=== PATIENT | male | born 1965 | race Caucasian/White ===

== ENCOUNTER → 2017-04-21 08:54 | Outpatient (CLI) | payer OTHER, SELFPAY ==
--- NOTE | 2017-04-21 08:53 | CT_ITS ---
STUDY: CT ABDOMEN AND PELVIS WITH CONTRAST REASON FOR EXAM: Male, 52 years old. One-week history of right lower quadrant and right flank pain. Urinary incontinence. RADIATION DOSAGE (If Supplied By Facility): CTDIvol = ( 16.60 ) mGy, DLP = ( 1085.68 ) mGycm TECHNIQUE: Transaxial images were obtained from the dome of the diaphragm to the symphysis pubis with oral contrast. 100mL ml of Isovue 300 contrast was administered. Sagittal and coronal images were reconstructed. Individualized dose optimization techniques were used for this CT. COMPARISON: None. FINDINGS: The visualized lung bases are unremarkable. The visualized portions of the heart are within normal limits. Normal liver. There are surgical clips in the gallbladder fossa consistent with a prior cholecystectomy. Normal spleen. Normal pancreas. Normal bilateral adrenal glands. Normal right kidney. Normal left kidney. There is a small hiatal hernia. Normal small intestine. Normal colon. The appendix is visualized and appears normal. Normal abdominal aorta. Normal inferior vena cava. There is borderline retroperitoneal lymphadenopathy with enlarged nodes no greater than 10mm in the short axis diameter. Normal urinary bladder. There is a small umbilical hernia containing fat. Small bilateral inguinal hernias containing fat. There is evidence of healed fractures of the superior pubic rami bilaterally. Fusion of the symphysis pubis. CT/Abdomen/Pelvis WITH Contrast IMPRESSION: No acute abnormality is seen. Electronically Signed: Donald Ortiz MD at 12:17 EST Tel [phone], Service support ,
== END ==
PROVIDERS: Family Provider Family Medicine; PCP Family Medicine; Visit Provider Family Medicine
DX: R10.31 Right lower quadrant pain (principal); R10.9 Unspecified abdominal pain
CPT/HCPCS: 74177; Q9967; A4216

== ENCOUNTER 2017-05-19 08:39 | Day surgery (SDC) | payer OTHER, SELFPAY ==
[2017-05-19 09:01] VITALS: BP 128/83; PULSE 60; RESP 16; TEMP 36.2; O2SAT 99; BMI 30.7
--- NOTE | 2017-05-19 11:19 | PCM.DC.URO ---
Discharge Diet: Light diet - advance as tolerated Discharge Activity: May Not Drive Return to work on:: 06/02/17 May shower in (days): 1 Call your doctor if your incision/area has: Continuous Slow Oozing, Sudden Increased Bleeding, Increased Pain/ Swelling, Increased Redness, Foul Smelling Discharge, Swelling at the incision site Call your doctor if you observe: Fever of 101 or Higher Suture Line Care: Avoid Pulling/Pushing, Avoid Pinching/Bending Allergies/Adverse Reactions: Allergies strawberry Allergy (Intermediate, Verified 05/12/17 09:08) Hives erythromycin base Allergy (Verified 05/12/17 09:08) Unknown Penicillins Allergy (Verified 05/12/17 09:08) Hives Barbiturates Adverse Reaction (Verified 05/12/17 09:08) Other divalproex sodium [From Depakote] Adverse Reaction (Verified 05/12/17 09:08) Other Hydantoins Adverse Reaction (Verified 05/12/17 09:08) Other phenobarbital Adverse Reaction (Verified 05/12/17 09:08) Other personality changes phenytoin sodium [From Dilantin] Adverse Reaction (Verified 05/12/17 09:08) Other phenytoin sodium extended [From Dilantin] Adverse Reaction (Verified 05/12/17 09:08) Other Medications to take at Discharge Ascorbic Acid [Vitamin C] 500 mg PO DAILY@0800 04/03/15 Carbamazepine [Carbamazepine] 200 mg PO LUNCH 04/03/15 Carbamazepine [Carbamazepine] 300 mg PO BREAKFAST 04/03/15 Levothyroxine [Synthroid] 50 mcg PO DAILY 04/03/15 Metoprolol(XL)Succ [Toprol Xl (Beta Von)] 25 mg PO QHS 04/03/15 Multivitamins,Therapeutic [Multivitamin] 1 tablet PO DAILY 04/03/15 Simvastatin [Zocor] 40 mg PO QHS 04/03/15 Carbamazepine [Tegretol] 300 mg PO DINNER 12/07/15 Doxazosin Mesylate [Cardura] 2 mg PO QHS 12/09/15 Docusate Sodium [Colace] 100 mg PO BID PRN PRN #10 capsule 12/16/15 Aspirin E.C. [Ecotrin] 81 mg PO BID 05/12/17 Omeprazole 20 mg PO BID 05/12/17 Trospium Chloride [Sanctura Xr] 60 mg PO QHS 05/12/17 Ciprofloxacin [Cipro] 500 mg PO BID #20 tab 05/19/17 Hydrocodone/Acetaminophen [[place] 5-325 Tablet] 1 ea PO Q4H PRN PRN 4 Days #12 tab 05/19/17 The following prescriptions were given: Hydrocodone/Acetaminophen [[place] 5-325 Tablet] 1 ea PO Q4H PRN PRN 4 Days #12 tab PRN Reason: Pain Ciprofloxacin [Cipro] 500 mg PO BID #20 tab Primary Care Physician: Goldie Baez MD [Primary Care Provider] - Please Follow Up With: Forrest Carrillo MD When: please call to make an appointment in 10 days
[2017-05-19] MEDS: Cefazolin 2 GM in 0.9% Normal Saline 100 ML IV (11:21)
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
[2017-05-19] MEDS: Lubricating Jelly 60 GM Tube 30 GM TOPICAL (11:30)
[2017-05-19 11:54] VITALS: BP 128/83; BP 96/70; PULSE 75; RESP 18; TEMP 36.4; O2SAT 91
[2017-05-19 12:00] VITALS: BP 104/75; BP 128/83; PULSE 75; RESP 18; O2SAT 95
[2017-05-19 12:15] VITALS: BP 101/75; BP 128/83; PULSE 75; RESP 18; TEMP 37.6; O2SAT 96
[2017-05-19 13:30] VITALS: BP 128/83
== END 2017-05-19 13:30 | disposition home or self-care (01) ==
LOC: SDC 08:39 → AC 08:40
PROVIDERS: Family Provider Family Medicine; PCP Family Medicine; Visit Provider Urology
PROC: 0T7D8ZZ Dilation of Urethra, Via Natural or Artificial Opening Endoscopic (ICD-10-PCS; CPT 52281; principal; 2017-05-19 10:50)
DX: N35.012 Post-traumatic membranous urethral stricture (principal); N40.1 Benign prostatic hyperplasia with lower urinary tract symptoms; R39.14 Feeling of incomplete bladder emptying; R35.0 Frequency of micturition; I10 Essential (primary) hypertension; K21.9 Gastro-esophageal reflux disease without esophagitis; E78.00 Pure hypercholesterolemia, unspecified; Z87.442 Personal history of urinary calculi; Z87.891 Personal history of nicotine dependence
CPT/HCPCS: 00910; 52281; J7120; C1769; J2405

== ENCOUNTER → 2017-07-05 15:37 | Outpatient (CLI) | payer OTHER, SELFPAY ==
--- NOTE | 2017-07-05 15:42 | RAD_ITS ---
STUDY: X-RAY CHEST REASON FOR EXAM: Male, 52 years old. Shortness of breath TECHNIQUE: Frontal and lateral views of the chest were obtained. COMPARISON: Prior comparison studies are not available for review at this time. FINDINGS: The lungs are underaerated. There are no focal airspace opacities. There is no demonstrated pleural abnormality. The cardiac silhouette is normal in size allowing for low volume inspiration. The mediastinum and hilar regions are unremarkable. Normal visualized pulmonary arteries. Normal visualized aortic arch and descending thoracic aorta. The thoracic spine is unremarkable. The visualized ribs, clavicles, and shoulders are unremarkable. Cholecystectomy clips are present. RAD/Chest PA and Lateral IMPRESSION: No acute cardiopulmonary abnormalities. Electronically Signed: Brunilda Grullon MD at 1:57 EDT Tel Direct: [phone], Service support ,
== END ==
PROVIDERS: Family Provider Family Medicine; PCP Family Medicine; Visit Provider Family Medicine
DX: R06.00 Dyspnea, unspecified (principal); Z98.890 Other specified postprocedural states; Z87.09 Personal history of other diseases of the respiratory system
CPT/HCPCS: 71046

== ENCOUNTER → 2017-09-20 08:53 | Outpatient (CLI) | payer OTHER, SELFPAY ==
[2017-09-20 09:00] VITALS: PULSE 74; PULSE 79; PULSE 81; PULSE 85; PULSE 86; PULSE 88; PULSE 89; PULSE 90; O2SAT 93; O2SAT 94
--- NOTE | 2017-09-21 11:28 | WT_ITS ---
PSN 6 Minute Walk Test - 6 Minute Walk Test 6 Minute Walk Test: 6 Minute Walk Test PSN:6-Minute Walk Test Start: 09/20/17 09: 21 Freq: Status: Active Protocol: [id number].6MINW Document 09/20/17 09:00 HG (Rec: 09/20/17 09:23 HG [id number]) 6 Minute Walk Test Date Performed 09/20/17 Time Performed 09:00 Height 5 ft 7 in Weight: 88.451 kg Weight in Pounds 195.[address]: Deonte Steven Assistive device used: None Pre-test Oxygen Delivery Method Room Air Pulse Ox (%) 94 Pulse Rate (60-100 beats/min) 74 Dyspnea Franc[place]a Scale (0-10) 0 Exertion [place] Scale (6-20) 6 1st minute Oxygen Delivery Method Room Air Pulse Ox (%) 94 Pulse Rate (60-100 beats/min) 85 2nd minute Oxygen Delivery Method Room Air Pulse Ox (%) 93 Pulse Rate (60-100 beats/min) 90 3rd minute Oxygen Delivery Method Room Air Pulse Ox (%) 93 Pulse Rate (60-100 beats/min) 81 4th minute Oxygen Delivery Method Room Air Pulse Ox (%) 94 Pulse Rate (60-100 beats/min) 86 5th minute Oxygen Delivery Method Room Air Pulse Ox (%) 94 Pulse Rate (60-100 beats/min) 88 6th minute Oxygen Delivery Method Room Air Pulse Ox (%) 93 Pulse Rate (60-100 beats/min) 89 Post-test Oxygen Delivery Method Room Air Pulse Ox (%) 94 Pulse Rate (60-100 beats/min) 79 Dyspnea [place] Scale (0-10) 2 Exertion [place]a Scale (6-20) 12 Full Laps Walked 14 Partial Lap, Number of Tiles Walked 0 Total Distance Walked (ft) 826 - Interpretation Interpretation: The patient was able to ambulate 826 feet over the course of 6 minutes on room air with no assistive devices and only one break. The patient experienced no significant desaturation or tachycardia during testing. These findings are consistent with a musculoskeletal limitation exercise tolerance. - Recommendations Recommendations: No supplemental oxygen is indicated at this time.
== END ==
PROVIDERS: Family Provider Family Medicine; PCP Family Medicine; Visit Provider Internal Medicine Critical Care Medicine
DX: J95.03 Malfunction of tracheostomy stoma (principal); R06.02 Shortness of breath
CPT/HCPCS: 94618

== ENCOUNTER → 2017-09-22 06:54 | Outpatient (CLI) | payer OTHER, SELFPAY ==
--- NOTE | 2017-09-22 06:55 | CT_ITS ---
STUDY: CT SOFT TISSUE NECK WITH CONTRAST REASON FOR EXAM: Male, 52 years old. History of tracheal stenosis. Difficulty breathing. RADIATION DOSAGE (If Supplied By Facility): CTDIvol = ( 22.15 ) mGy, DLP = ( 663.80 ) mGycm TECHNIQUE: The patient was scanned in a multi-detector CT scanner. High resolution transaxial imaging was performed following intravenous administration of 100 ml of Isovue 300 contrast material. Sagittal and coronal images were reconstructed. Individualized dose optimization techniques were used for this CT. COMPARISON: None. FINDINGS: Atherosclerotic plaque formation at the origin of the right internal carotid artery causing approximately 50-60% narrowing. Normal bilateral parotid glands. Normal bilateral merry go round attendant spaces. Normal bilateral parapharyngeal spaces. Normal bilateral carotid spaces. Normal bilateral sublingual and submandibular glands and spaces. Normal visualized nasopharynx. Normal retropharyngeal space. Normal perivertebral space. Normal visualized bilateral faucial tonsils. The visualized tongue, tongue base and oropharynx are normal. There are minimally enlarged lymph nodes of the neck, with preservation of normal edin architecture, consistent with a reactive lymph hyperplasia. There is no demonstrated solid or cystic mass lesion. There is no abnormal contrast enhancement. Normal epiglottis, bilateral vallecula and hypopharynx. The pre-epiglottic and paraglottic adipose spaces are normal. Normal visualized bilateral piriform sinuses, aryepiglottic folds, vocal cords, and arytenoid-cricoid articulations. Normal subglottic trachea. Normal bilateral lobes of the thyroid gland. Normal visualized pulmonary apices. Normal visualized paranasal sinuses. Normal visualized cervical spine. CT/Soft Tissue Neck WITH Contrast IMPRESSION: There is no evidence of tracheal stenosis. Electronically Signed: Donald Ortiz MD at 11:33 EDT Tel [phone], Service support ,
--- NOTE | 2017-09-22 13:29 | PFTCOMP ---
COMPLETE PULMONARY FUNCTION TEST INTERPRETATION Brief HPI: Patient is a 52 year old male, currently under the care of myself, who presents to [facility] for complete pulmonary function tests secondary to diagnosis of tracheal stenosis. Respiratory therapist reports good effort and reproducible results. Interpretation: Forced expiration spirometry shows a severe large airways obstructive ventilatory defect with an FEV1 of 46% predicted. There is no significant bronchodilator response by ATS criteria. Spirograms are of good quality and plateau slowly, indicating slowly emptying areas of the lungs. The respiratory flow volume loop shows flattening of the expiratory and inspiratory limb consistent with a fixed airway obstruction. Lung volumes by body plethysmography show a decreased total lung capacity at 4.87 L, 80% predicted. All other lung volumes are within normal limits. Diffusion capacity by carbon monoxide is decreased at 28% predicted. The airway resistance is elevated. No previous pulmonary function tests were available for review. Impression: Severe mixed ventilatory defect with a symmetric reduction diffusing capacity. Flow volume loop is consistent with a fixed airway obstruction.
== END ==
PROVIDERS: Family Provider Family Medicine; PCP Family Medicine; Visit Provider Internal Medicine Critical Care Medicine
DX: J95.03 Malfunction of tracheostomy stoma (principal); R06.02 Shortness of breath
CPT/HCPCS: 70491; 94060; 94726; 94729; Q9967

== ENCOUNTER 2017-11-03 07:05 | Day surgery (SDC) | payer OTHER, SELFPAY ==
[2017-11-03] VITALS (10 sets, daily range): BP systolic 114–154; BP diastolic 71–91; PULSE 66–87; RESP 16–18; TEMP 36.2–36.4; O2SAT 94–100; BMI 32.3
[2017-11-03 08:12] LABS: Thyroid Stim Hormone (TSH) 3.05 uIU/mL (0.358-3.74)
--- NOTE | 2017-11-03 10:42 | PCM.OPRPT ---
Problem List (1) Stenosis of larynx Status: Chronic (2) Paralysis of vocal cords and larynx, unilateral Status: Chronic Report of Operation Date of Procedure: 11/03/17 Pre-Operative Diagnosis: Fixed airway obstruction, paralysis of right vocal fold Post-Operative Diagnosis: Same Surgery/Procedure Performed:: Direct laryngoscopy, ridgid bronchoscopy Description of Surgical Findings:: Nader is a 52-year-old male with a history of tracheotomy as a child is had ongoing airway obstruction and a pulmonary function testing showing a fixed obstruction. Office evaluation revealed a dislocated right arytenoid and an immobile right vocal fold which appeared to be the site of his obstruction but historically he reported a diagnosis of tracheal stenosis. CT scan showed no significant tracheal stenosis and it is my impression that the glottic stenosis was the cause of his airway obstruction and operative evaluation with possible CO2 laser adenoidectomy for improvement of his glottic inlet was offered and he was eager to proceed. The risks, alternatives, potential benefits, and complications were discussed at length and any questions answered to the patient and/or caregiver's satisfaction. Witnessed informed consent was obtained in the office, and the patient and/or caregiver was agreeable to proceed. Procedure went as follows: The patient was identified in the preoperative holding brought to the operating room was placed under general anesthesia. He was able to be mask ventilated although there is some reduced ventilation volume consistent with his history of stricture. Rigid bronchoscopy was then carried out using a ventilating bronchoscope where there is noted to be significant laryngeal stenosis. The subglottic was visualized which showed no significant narrowing in the mid trachea at his previous tracheotomy site showed approximate 25% obstruction with right lateral scar tissue in mild tortuosity but no rubens stenosis or significant narrowing. The bronchoscope was then withdrawn and intubation with the laser protected endotracheal tube attempted. This was confounded however by the significant laryngeal stenosis which did not admit the diameter of the endotracheal tube. Furthermore attempts at intubation with a #5 lower endotracheal tube were also unsuccessful and given this the ventilating bronchoscope was then replaced and the patient ventilated in this fashion until his anesthetic agents were reversed at which point he was then extubated. Given the extent of his laryngeal stenosis this will not allow operative treatment while intubated and should further surgical intervention be desired by the patient a temporary tracheotomy to allow for operative treatment of the laryngeal stenosis would be required. Once the patient was revived and extubated he ventilated again successfully on his own maintaining satisfactory oxygen saturation levels and was returned to recovery having tolerated the procedure well. Type of Anesthesia:: General Anesthesiologist: Jose Thornton Special Medications: none Specimen's removed: none Estimated Blood Loss (mL): none Fluids Replaced: 1000 mL Grafts/Implants Used: none - Complications none - Admit VTE Documentation VTE Present on Admission: No VTE Mechan Device Prophylaxis: SCD's VTE Pharm Prophylaxis ordered?: No
--- NOTE | 2017-11-03 10:52 | PCM.DC ---
- Discharge Diagnoses Current Active Problems: Current Active and Chronic Problems (Last Reviewed 10/24/17 @ 06:22 by Cassidy Blair) Stenosis of larynx (Chronic) Paralysis of vocal cords and larynx, unilateral (Chronic) You will use the following diet at home:: No restrictions Your food should be the consistency of: Regular Discharge Activity: Return to Normal Activity Call your doctor if you observe: Shortness of breath Allergies/Adverse Reactions: Allergies strawberry Allergy (Intermediate, Verified 10/31/17 11:03) Hives azithromycin Allergy (Unknown, Verified 10/31/17 11:03) Unknown erythromycin base Allergy (Verified 10/31/17 11:03) Unknown Penicillins Allergy (Verified 10/31/17 11:03) Hives Barbiturates Adverse Reaction (Verified 10/31/17 11:03) Other divalproex sodium [From Depakote] Adverse Reaction (Verified 10/31/17 11:03) Other Hydantoins Adverse Reaction (Verified 10/31/17 11:03) Other phenobarbital Adverse Reaction (Verified 10/31/17 11:03) Other personality changes phenytoin sodium [From Dilantin] Adverse Reaction (Verified 10/31/17 11:03) Other phenytoin sodium extended [From Dilantin] Adverse Reaction (Verified 10/31/17 11:03) Other Medications to take at Discharge Carbamazepine [Carbamazepine] 200 mg PO LUNCH 04/03/15 Carbamazepine [Carbamazepine] 300 mg PO BREAKFAST 04/03/15 Levothyroxine [Synthroid] 50 mcg PO DAILY 04/03/15 Metoprolol(XL)Succ [Toprol Xl (Beta Von)] 25 mg PO QHS 04/03/15 Simvastatin [Zocor] 40 mg PO QHS 04/03/15 Carbamazepine [Tegretol] 300 mg PO DINNER 12/07/15 Doxazosin Mesylate [Cardura] 2 mg PO QHS 12/09/15 Trospium Chloride [Sanctura Xr] 60 mg PO QHS 05/12/17 aspirin 81 mg tablet,delayed release 81 mg PO QDAY 08/11/17 omeprazole 20 mg tablet,delayed release 20 mg PO QDAY tab 08/11/17 oxybutynin chloride ER 10 mg tablet,extended release 24 hr 10 mg PO QDAY 08/11/17 tolterodine ER 4 mg capsule,extended release 24 hr 4 mg PO QDAY 08/11/17 Primary Care Physician: Amita Humphreys DO [Primary Care Provider] - Test Results: Test results from this visit will be discussed in further detail at your follow-up appointment, if applicable. Please Follow Up With: Jose Thakur MD When: 2 weeks
== END 2017-11-03 13:27 | disposition home or self-care (01) ==
LOC: SDC 07:07 → AC 07:07
PROVIDERS: Anesthesiology; Family Provider Family Medicine; PCP Family Medicine; Visit Provider Otolaryngology
PROC: (CPT 31560; principal; 2017-11-03 08:35)
DX: J38.01 Paralysis of vocal cords and larynx, unilateral (principal); J38.6 Stenosis of larynx; J98.8 Other specified respiratory disorders; Z87.891 Personal history of nicotine dependence; K21.9 Gastro-esophageal reflux disease without esophagitis; E78.00 Pure hypercholesterolemia, unspecified; Z87.442 Personal history of urinary calculi; I10 Essential (primary) hypertension
CPT/HCPCS: 31560; 31622; 36415; 84443; 85730; 93005; J7120; J2405

== ENCOUNTER 2017-11-10 12:35 | Inpatient (IN) | payer OTHER, SELFPAY ==
[2017-11-10] VITALS (21 sets, daily range): BP systolic 125–157; BP diastolic 77–108; PULSE 67–88; RESP 12–20; TEMP 36.3–37.2; O2SAT 93–100; BMI 31.4; BMI 31.5; BMI 31.6
--- NOTE | 2017-11-10 12:33 | OP.PCM_ITS ---
Problem List (1) Paralysis of vocal cords and larynx, unilateral Status: Chronic (2) Stenosis of larynx Status: Chronic (3) Tracheal stenosis following tracheostomy Status: Chronic Report of Operation Date of Procedure: 11/10/17 Pre-Operative Diagnosis: Laryngeal stenosis Post-Operative Diagnosis: Laryngeal stenosis, tracheal stenosis Surgery/Procedure Performed:: Tracheostomy, revision Description of Surgical Findings:: Nader is a 52-year-old male with a distant history of tracheotomy in suspected tracheal stenosis. He was sent for evaluation by pulmonary due to increased work of breathing causing significant impairment for evaluation of possible remedy and that had been taken previously to the operating room for evaluation and possible arytenoidectomy as this was prolapsed with a impaired vocal cord it was felt to be the cause of obstruction given the negative CT scan report and images for any significant stenosis. That procedure have been terminated as an endotracheal tube was unable to be passed suggesting a significant stenosis at least at the level of the larynx. He returns to the operating room today for tracheotomy for securing of the airway and further evaluation of possible remedy for his airway stenosis. The risks, alternatives , potential benefits, and complications were discussed at length and any questions answered to the patient and/or caregiver's satisfaction. Witnessed informed consent was obtained in the office, and the patient and/or caregiver was agreeable to proceed. Procedure went as follows: The patient was identified in the preoperative holding and brought to the operating room and positioned on the exam table. The planned tracheotomy site was then injected with 1% lidocaine with 100,000 epinephrine for a total of 8 cc at his previous tracheostomy scar. After lying for vasoconstriction, using a 15 blade scalpel a 2 cm incision was then made through the tracheal scar and blunt dissection carried out to the tracheal cartilage. Extensive scar tissue was encountered with obliteration of the normal anatomic planes from his previous tracheotomy scar tissue. The trachea was then palpated and dissection carried out laterally to free the adhesions in preparation for tracheotomy. With the assistance of anesthesia, he was preoxygenated and using a 27-gauge needle the trachea then probed with the syringe on vacuum confirming its entry to the airway by air bubbles within the lidocaine solution. Using a 15 blade scalpel a horizontal incision was then made in the tracheal dilator introduced followed by placement of an uncuffed #4 tracheotomy tube as again as encountered in his previous surgical treatment a # 6 and #5 endotracheal tube would not pass due to the area of stenosis at this location. He was easily ventilated through the uncuffed #4 tracheotomy tube with no significant air leak suggesting a rather snug stenosis at the level of the endotracheal tube and stenosis below the level of the glottis which would not be amenable to the planned arytenoidectomy surgery. Confirmation of the tracheotomy tube placement was confirmed with the flexible fiberscope which showed a normal-appearing tracheal lumen below the level of the opening of the tube and well above the melia. No significant bleeding was encountered. The tracheotomy tube was secured to the skin with 4 interrupted 3-0 silk sutures and neck straps. A chest x-ray was obtained in the operative room and once the patient was fully awake was returned to PACU for recovery with overnight observation in the ICU due to his significant upper airway compromise. He reports significantly decreased work of breathing with the tracheotomy tube but distress at the situation of a significant stenosis that at this point does not appear to have an easy remedy. I did review with him as I had previously that I am very concerned given the tenuousness of his airway that should he require any elective or emergent surgery the acquiring area be of extreme difficulty and that at this point tracheotomy converted to a fenestrated type tube to allow for voicing would be his safest option to both decrease his work of breathing and improve voicing and will discuss this with him further over his course of his recovery. Type of Anesthesia:: General Anesthesiologist: Calixto Whitten Special Medications: none Specimen's removed: none Estimated Blood Loss (mL): 0 mL Fluids Replaced: 700 mL Grafts/Implants Used: #4 uncuffed tracheotomy tube - Complications severe laryngeal and subglottic stenosis - Admit VTE Documentation VTE Present on Admission: No VTE Mechan Device Prophylaxis: SCD's VTE Pharm Prophylaxis ordered?: No
[2017-11-10 14:41] LABS: Base Excess 3 mmol/L (-2 to +2); Bicarbonate 27.4 mmol/L (22-26); Blood Gas Specimen Type ART; FI02 28; PO2 107 mmHG (75-100); SITE R Brachial; SO2 98 % (95-99); Time Given 1425; Total Carbon Dioxide 29 mmol/L; pCO2 43.7 mmHg (35-45); pH 7.41 (7.35-7.45)
[2017-11-10] MEDS: carBAMazepine 200 MG Tablet PO (15:41)
[2017-11-10 16:49] LABS: M R Staph aureus DNA By PCR Negative (Negative); Probe Check PASS; Specimen Processing Control PASS
[2017-11-10] MEDS: Atorvastatin Calcium 20 MG Tablet PO (21:21)
[2017-11-10] MEDS: Pantoprazole Sodium 20 MG Tablet PO (21:21)
[2017-11-10] MEDS: Aspirin E.C. 81 MG Tablet PO (21:22)
[2017-11-10] MEDS: Metoprolol(XL)Succ 25 MG Tablet PO (21:22)
[2017-11-10] MEDS: Doxazosin 1 MG Tablet 2 MG PO (21:22)
[2017-11-10] MEDS: carBAMazepine 200 MG Tablet 300 MG PO (21:22)
[2017-11-11] VITALS (21 sets, daily range): BP systolic 114–148; BP diastolic 69–91; PULSE 68–100; RESP 13–18; TEMP 36.6–37.7; O2SAT 92–100
[2017-11-11] MEDS: Levothyroxine 50 MCG Tablet PO (06:16)
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
--- NOTE | 2017-11-11 07:05 | CPS ---
switched cool aerosol from 6lpm 28% O2 to 6lpm on air flowmeter, SpO2 95% on cool aerosol on RA
--- NOTE | 2017-11-11 09:44 | PCM.PN.SRG ---
Subjective: He reports easier breathing with minimal discomfort or sputum production. He remains emotional about his future prospects, but is consolable. Objective: Well appearing with greatly reduced work of breathing. Occlusion of tracheotomy tube without significant bypass of air into upper airway, stable fo=rom surgery and consistent with severe stenosis at tube placement site. - Physical Exam General: Alert, Oriented x3, Cooperative, No apparent distress HEENT: Atraumatic, PERRLA, EOMI Oral: Moist Mucosa Neck: Supple, Trachea Midline, - - tracheotomy site clean, intact without redness, bleeding or discharge Lungs: Normal air movement, No rhonchi Psych/Mental Status: Depressed - but consolable, Alert and oriented to time, place, person, mood and affect Vital Signs Temp Pulse Resp BP Pulse Ox 97.8 F 81 15 130/80 H 95 11/11/17 04:00 11/11/17 09:00 11/11/17 09:00 11/11/17 09:00 11/11/17 09:00 Oxygen Flow Rate (L/min) 6 Oxygen Delivery Method Trach Collar Weight: 90.5 kg Body Mass Index (BMI) 31.5 Intake and Output for Last 24 Hours 11/09/17 11/10/17 11/11/17 23:59 23:59 23:59 Intake Total 1160 / 1160 360 / 360 Balance 1160 / 1160 360 / 360 Laboratory Tests Past 24 Hrs 11/10/17 11/10/17 14:20 14:34 Specimen Type ART Sample Site R Brachial pH 7.41 Bicarbonate Actual 27.4 H POC Total CO2 29 Base Excess 3 H O2 Saturation 98 O2 % 28 ABG pCO2 43.7 ABG pO2 107 H Domenico Test NA O2 Delivery Device T-Collar Blood Gas Notified Whom OTHER Blood Gas Notified Time 1425 MRSA (PCR) Negative Medical Necessity - Tobacco Use Smoking Status: Former smoker Assessment/Plan Doing well 1 day s/p tracheotomy with finding of severe tracheal stenosis. I have discussed at length with him and his family today that his exam findings suggest a severe degree of tracheal stenosis that I have been unable to fully evaluate for length. It does not appear, as I had hoped, that the obstruction was limited to the larynx despite his CT scan findings that were reported as no tracheal stenosis, as his clinical findings do not corroborate this. He continues to have minimal airflow bypassing his tracheostomy tube despite is being small and uncuffed, suggesting a significant narrowing at the level of the upper trachea. I am hopeful that transitioning to a fenestrated tube will allow for voicing, but that retirement tracheotomy for breathing support with likely be necessary. This is consistent with his pulmonary function testing showing a severe fixed obstruction. Tracheotomy seems to alleviate this with a much reduced work of breathing. I will plan to change him to a fenestrated tube prior to discharge after the fresh wound has stabilized, and will start discharge planning.
[2017-11-11] MEDS: Tolterodine Tartrate 4 MG CAP.SA PO (09:50)
[2017-11-11] MEDS: carBAMazepine 200 MG Tablet 300 MG PO ×2 (09:50→21:14)
[2017-11-11] MEDS: Pantoprazole Sodium 20 MG Tablet PO ×2 (09:51→21:16)
[2017-11-11] MEDS: Acetaminophen 325 MG Tablet 650 MG PO (12:41)
[2017-11-11] MEDS: carBAMazepine 200 MG Tablet PO (16:00)
[2017-11-11] MEDS: Aspirin E.C. 81 MG Tablet PO (21:15)
[2017-11-11] MEDS: Doxazosin 1 MG Tablet 2 MG PO (21:15)
[2017-11-11] MEDS: Atorvastatin Calcium 20 MG Tablet PO (21:16)
[2017-11-11] MEDS: Metoprolol(XL)Succ 25 MG Tablet PO (21:16)
[2017-11-11] MEDS: guaiFENesin/Codeine 5 ML UDC PO (23:12)
[2017-11-12] VITALS (12 sets, daily range): BP systolic 132–155; BP diastolic 71–84; PULSE 78–98; RESP 17–20; TEMP 36.6–37.1; O2SAT 94–96
[2017-11-12] MEDS: guaiFENesin/Codeine 5 ML UDC PO ×3 (03:36→22:02)
[2017-11-12] MEDS: Levothyroxine 50 MCG Tablet PO (06:29)
--- NOTE | 2017-11-12 07:23 | PCM.PROGNOTE ---
Subjective: The patient was seen and examined at the bedside this morning. Events from the last 24 hours have been reviewed. No overnight events were identified. The patient is resting comfortably in his bedside recliner. He reports no pain or significant concerns. Objective: The patient's most recent lab work, culture data and imaging studies have all been personally reviewed. - Physical Exam General: Alert, Cooperative, No apparent distress HEENT: Atraumatic, PERRLA, Normocephalic Oral: No Gingival or Mucosal Lesions/ Ulcerations Neck: Supple, No Nodes, - - #[address] Site is C/D/I Lungs: No rhonchi, No wheeze, No rales, Diminished Cardiovascular: Regular rate, Regular Rhythm, Normal S1, Normal S2, No murmurs Abdomen: Bowel Sounds Present, Soft, Non Tender, Obese Extremities: No clubbing, No cyanosis, No edema Skin: No breakdown Musculoskeletal: No Tenderness to Palpation of Joints or Extremities, No Muscle Wasting Lymphatic: No Cervical, Supraclavicular, or Inguinal Adenopathy Neurological: Neuro grossly intact Psych/Mental Status: Normal Affect, Appropriate Vital Signs Temp Pulse Resp BP Pulse Ox 98.2 F 82 20 H 147/84 H 94 11/12/17 06:24 11/12/17 06:24 11/12/17 06:24 11/12/17 06:24 11/12/17 06:24 Oxygen Flow Rate (L/min) 6 Oxygen Delivery Method Trach Collar Weight: 199 lb 15.348 oz Body Mass Index (BMI) 31.5 Intake and Output for Last 24 Hours 11/10/17 11/11/17 11/12/17 23:59 23:59 23:59 Intake Total 1160 / 1160 1200 / 1200 Output Total 100 / 100 Balance 1160 / 1160 1200 / 1200 -100 / -100 Labs (Last 48 Hours) 11/10/17 11/10/17 14:20 14:34 Specimen Type ART Sample Site R Brachial pH 7.41 Bicarbonate Actual 27.4 H POC Total CO2 29 Base Excess 3 H O2 Saturation 98 O2 % 28 ABG pCO2 43.7 ABG pO2 107 H Domenico Test NA O2 Delivery Device T-Collar Blood Gas Notified Whom OTHER Blood Gas Notified Time 1425 MRSA (PCR) Negative Medical Necessity - Tobacco Use Smoking Status: Former smoker Assessment/Plan RECOMMENDATIONS: 1. Continue routine postoperative care and aggressive bronchopulmonary hygiene. 2. Transition to fenestrated trach per ENT IMPRESSIONS: 1. Tracheal stenosis, now POD #2 s/p tracheostomy placement Continue routine postoperative management per ENT recommendations. Continue aggressive bronchopulmonary hygiene. Defer timing of fenestrated tube transition and subsequent PMV placement per ENT. 2. Obesity/hypertension/hyperlipidemia/hypothyroidism/GERD Complicates care, management, recovery and prognosis. Likely okay to continue home medications, once the patient is able to tolerate p.o. intake. This note was generated with [employer] dictation software. It may contain incorrect words, spelling, and punctuation that were not noted in checking the note before signing. Code Visit Inpatient E&M: 37194 Subs Hosp L2
[2017-11-12] MEDS: carBAMazepine 200 MG Tablet 300 MG PO ×2 (08:57→22:06)
[2017-11-12] MEDS: Tolterodine Tartrate 4 MG CAP.SA PO (08:59)
[2017-11-12] MEDS: Pantoprazole Sodium 20 MG Tablet PO ×2 (08:59→22:11)
[2017-11-12] MEDS: Acetaminophen 325 MG Tablet 650 MG PO ×3 (09:35→20:15)
--- NOTE | 2017-11-12 14:09 | PCM.PN.SRG ---
Subjective: Doing well, reports that exercise tolerance is greatly improved, ambulating farther without stopping to rest which is improved from his preoperative capability. He some some mild muscular tenderness with cough, but is otherwise well. Objective: Well appearing, mood much improved today. Tracheotomy site clean and dry. - Physical Exam General: Alert, Oriented x3 HEENT: Atraumatic, PERRLA, EOMI Oral: Moist Mucosa Neck: Supple, Trachea Midline Skin: No rashes, No breakdown Psych/Mental Status: Alert and oriented to time, place, person, mood and affect Vital Signs Temp Pulse Resp BP Pulse Ox 97.8 F 89 17 155/84 H 96 11/12/17 08:44 11/12/17 11:02 11/12/17 08:44 11/12/17 08:44 11/12/17 08:44 Oxygen Flow Rate (L/min) 6 Oxygen Delivery Method Trach Collar Weight: 90.7 kg Body Mass Index (BMI) 31.5 Intake and Output for Last 24 Hours 11/10/17 11/11/17 11/12/17 23:59 23:59 23:59 Intake Total 1160 / 1160 1200 / 1200 120 / 120 Output Total 100 / 100 Balance 1160 / 1160 1200 / 1200 20 / 20 Medical Necessity - Tobacco Use Smoking Status: Former smoker Assessment/Plan Doing well with greatly reduced work of breathing. His outlook is also much improved today. I am hopeful that voicing will be achieved with change to fenestrated trach tube on . Will need suction machine, tubing, and trach supplies thorough Home Health for home going. Pulmonary input appreciated.
--- NOTE | 2017-11-12 14:40 | NURSING ---
Dr. Thakur in to see patient earlier. Per Dr. Thakur, patient complaining of trach ties bothering his neck and it is okay for RT to replace trach ties with velcro trach tube pina. RT aware of same.
--- NOTE | 2017-11-12 14:45 | CM.UR ---
Met face to face with patient and family. Lives with mom. They are unsure if HHC is necessary as they believe that resp will teach them all they need to know. Explained they will teach them a lot but that the hhc nurse can be there in case any questions come up, if the equipment is different, etc. Verb understanding. Explained will wait closer to discharge and will discuss again. Lavelle Cook RN, CCM.
[2017-11-12] MEDS: carBAMazepine 200 MG Tablet PO (15:17)
--- NOTE | 2017-11-12 16:06 | CPS ---
Changed twill tape on trach to velcro style trach tube pina. Changed dressing sponge, tolerated procedure well without complications.
[2017-11-12] MEDS: 0.9% NaCl Peripheral Flush Adult/Peds IV (17:41)
[2017-11-12] MEDS: Aspirin E.C. 81 MG Tablet PO (22:07)
[2017-11-12] MEDS: Atorvastatin Calcium 20 MG Tablet PO (22:07)
[2017-11-12] MEDS: Doxazosin 1 MG Tablet 2 MG PO (22:07)
[2017-11-12] MEDS: Metoprolol(XL)Succ 25 MG Tablet PO (22:08)
[2017-11-12] MEDS: Zolpidem Tartrate 5 MG Tablet PO (22:17)
[2017-11-13] VITALS (27 sets, daily range): BP systolic 120–186; BP diastolic 61–109; PULSE 79–138; RESP 15–24; TEMP 36.6–37.6; O2SAT 90–100
[2017-11-13] MEDS: guaiFENesin/Codeine 5 ML UDC PO ×3 (02:43→11:23)
[2017-11-13] MEDS: Levothyroxine 50 MCG Tablet PO (06:28)
[2017-11-13] MEDS: Acetaminophen 325 MG Tablet 650 MG PO ×3 (06:34→22:28)
--- NOTE | 2017-11-13 08:00 | CASEMGMT ---
RN CM Note. Call to charge nurse to request script for supplies when Dr. Thakur comes to see pt. star Hernandez nurse will request script. Isabela HAYDENN RN ACM
--- NOTE | 2017-11-13 08:02 | PCM.PN.SRG ---
Subjective: Feeling well this morning, breathing easily. He reports change to the soft collar is more comfortable. Objective: Well appearing, trach site intact without redness or exudates. - Physical Exam General: Alert, Oriented x3 HEENT: Atraumatic, PERRLA, EOMI Oral: Moist Mucosa Neck: Supple, Trachea Midline, - - trache site intact Lungs: Normal air movement, No rhonchi Skin: No rashes, No breakdown Psych/Mental Status: Alert and oriented to time, place, person, mood and affect Vital Signs Temp Pulse Resp BP Pulse Ox 98.2 F 79 18 136/81 H 94 11/13/17 04:00 11/13/17 07:33 11/13/17 04:00 11/13/17 04:00 11/13/17 04:00 Oxygen Flow Rate (L/min) 6 Oxygen Delivery Method Trach Collar Weight: 88.4 kg Body Mass Index (BMI) 31.5 Intake and Output for Last 24 Hours 11/11/17 11/12/17 11/13/17 23:59 23:59 23:59 Intake Total 1200 / 1200 490 / 490 Output Total 100 / 100 Balance 1200 / 1200 390 / 390 Medical Necessity - Tobacco Use Smoking Status: Former smoker Assessment/Plan Doing well with greatly reduced work of breathing. Will need suction machine, tubing, and trach supplies thorough Home Health for home going. Pulmonary input appreciated. Plan for trach change tomorrow in OR due to severity of stenosis for airway control.
[2017-11-13] MEDS: carBAMazepine 200 MG Tablet 300 MG PO ×2 (09:31→21:11)
[2017-11-13] MEDS: Tolterodine Tartrate 4 MG CAP.SA PO (09:31)
[2017-11-13] MEDS: Pantoprazole Sodium 20 MG Tablet PO ×2 (09:31→21:10)
--- NOTE | 2017-11-13 11:19 | PN_ITS ---
Subjective: Patient did well overnight. No acute issues were reported. Patient is having periodic shortness of breath, but this improves with suctioning. Patient with only rare vocalization. No trach collar in place during my evaluation. - Physical Exam General: Alert, Oriented x3, Cooperative, No apparent distress, - HEENT: Atraumatic, PERRLA, EOMI, Normocephalic Oral: Moist Mucosa, No Gingival or Mucosal Lesions/ Ulcerations Neck: Supple, No JVD, No Nodes, Trachea Midline, - - Tracheostomy is clean, dry and intact. No secretions appreciated Lungs: Clear to auscultation, Normal air movement, No rhonchi, No wheeze, No rales Cardiovascular: Regular rate, Regular Rhythm, Normal S1, Normal S2, No murmurs Abdomen: Bowel Sounds Present, Soft, Non Tender, Non-Distended Extremities: No clubbing, No cyanosis, No edema, Capillary Refill Less than 3 Seconds Skin: No rashes, No breakdown Musculoskeletal: No Tenderness to Palpation of Joints or Extremities Lymphatic: No Cervical, Supraclavicular, or Inguinal Adenopathy Neurological: Cranial nerves II-XII grossly intact, Neuro grossly intact, Motor Exam 5/5 strength throughout Psych/Mental Status: Alert and oriented to time, place, person, mood and affect Vital Signs Temp Pulse Resp BP Pulse Ox 36.7 C 84 16 143/91 H 98 11/13/17 09:20 11/13/17 09:20 11/13/17 09:20 11/13/17 09:20 11/13/17 09:40 Oxygen Flow Rate (L/min) 6 Oxygen Delivery Method Trach Collar Weight: 88.4 kg Body Mass Index (BMI) 31.5 Intake and Output for Last 24 Hours 11/11/17 11/12/17 11/13/17 23:59 23:59 23:59 Intake Total 1200 / 1200 490 / 490 Output Total 100 / 100 Balance 1200 / 1200 390 / 390 Medical Necessity - Tobacco Use Smoking Status: Former smoker Assessment/Plan RECOMMENDATIONS: 1. Continue routine postoperative care and aggressive bronchopulmonary hygiene. 2. Transition to fenestrated trach per ENT IMPRESSIONS: 1. Tracheal stenosis, now POD #3 s/p tracheostomy placement Continue routine postoperative management per ENT recommendations. Continue aggressive bronchopulmonary hygiene. Transition to fenestrated tube tomorrow. No signs of complication at this point 2. Obesity/hypertension/hyperlipidemia/hypothyroidism/GERD Complicates care, management, recovery and prognosis. Likely okay to continue home medications, once the patient is able to tolerate p.o. intake. This note was generated with [employer] software. It may contain incorrect words, spelling, and punctuation that were not noted in checking the note before signing. Code Visit Inpatient E&M: 06267 Subs Hosp L2
--- NOTE | 2017-11-13 11:24 | CASEMGMT ---
RN SHAMA Note. Intro role of CM to patient and family in room (mother, sister). Pt does not have preference for Home Health or DME provider but would prefer local provider. RN SHAMA let him know we would contact insurance to find [facility] providers. -Call to [facility], they do not have respiratory suction pumps. -Call to Kimberly @ [facility]. They can fill prescriptions, has resp suction pump and bill through [employer] which is [employer] for pt's Sam[employer] insurance. Clinical faxed to DEJUAN, Kimberly is aware. -Call to [facility] . Information given for Home Health. Clinical information faxed. They will set up Home Health.
--- NOTE | 2017-11-13 11:49 | CPS ---
1045....CALLED IN REGARDS TO PT C/O S.O.B. PT WAS 94% ON ROOM AIR. PT COUGHING FORCEFULLY. PT ABLE TO COUGH SECRETIONS OUT OF TRACH. PT WAS LAVAGED AND SUCTION X1 IN AN ATTEMPT TO HELP WITH S.O.B. PT CONTINUED TO C/O S.O.B. PT WAS EDUCATED ON DEEP BREATHING EXERCISES TO HELP GET AIR INTO LUNG BASES. PT WAS PLACED ON ROOM AIR COOL AEROSOL TRACH COLLAR FOR HUMIDITY. APPROXIMATELY 10 MIN AFTER PT WAS PLACED BACK ON COOL AEROSOL PT STATED HE WAS FEELING A LITTLE BETTER .PT DID APPEAR TO BE MORE RELAXED AND IN BETTER SPIRITS. PT HAD ALSO BEEN GIVEN TYLENOL AND COUGH SYRUP PER NURSE.
[2017-11-13] MEDS: Ibuprofen 400 MG Tablet PO ×2 (13:31→20:48)
[2017-11-13] MEDS: carBAMazepine 200 MG Tablet PO (16:06)
--- NOTE | 2017-11-13 17:33 | NURSING ---
Dr. Gupta and Dr. Thakur at bedside d/t pt increased SOB. ER notified of need to scope pt. MANUFACTURING MANAGEMENT ASSOCIATE to get scope from ER. Chest Xray ordered per Dr. Thakur.
[2017-11-13] MEDS: Albuterol 2.5 MG/3 ML VIAL.NEB. INHALATION ×2 (17:55→18:10)
[2017-11-13] MEDS: Racepinephrine HCl 0.5 ML VIAL.NEB. INHALATION (18:04)
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
--- NOTE | 2017-11-13 19:23 | NURSING ---
Pt arrives to ICU room 2 from OR with OR RNs and Dr. Whitten. Pt appears without S&S of distress, A&Ox3, denies SOB.
--- NOTE | 2017-11-13 19:33 | PCM.OPRPT ---
Problem List (1) Paralysis of vocal cords and larynx, unilateral Status: Chronic (2) Stenosis of larynx Status: Chronic (3) Tracheal stenosis following tracheostomy Status: Chronic Report of Operation Date of Procedure: 11/10/17 Pre-Operative Diagnosis: Laryngeal stenosis Post-Operative Diagnosis: Laryngeal stenosis, tracheal stenosis Surgery/Procedure Performed:: Tracheostomy, revision Description of Surgical Findings:: Nader is a 52-year-old male with a distant history of tracheotomy in suspected tracheal stenosis. This evening he developed progressive worsening of shortness of breath and coughing with development of subcutaneous air and change to a cuffed tube to reduce cough induced subcutaneous air was advised. Procedure went as follows: The patient was identified in the preoperative holding and brought to the operating room and positioned on the exam table. The tracheotomy sutures were removed and the endoscopic bronchoscope used to visualized the tracheal lumen. No tube displacement is noted. The tube was then removed after pre-oxygenation, and a well developed tract noted. A #4 cuffed endotracheal tube was then placed and the cuff inflated to prevent further development of subcutaneous air. His cough subsided significantly with racemic epinephrine treatment and topical 4% lidocaine for a total of 1.5 mL. Positioning was again confirmed by flexible bronchoscopic visualization. The tracheotomy tube was secured with velcro neck ties and the patient returned to ICU having tolerated the procedure well. Type of Anesthesia:: General, MAC Anesthesiologist: Calixto Whitten Special Medications: none Specimen's removed: none Estimated Blood Loss (mL): 0 mL Fluids Replaced: 0 mL Grafts/Implants Used: #4 cuffed Shiley tracheotomy tube - Admit VTE Documentation VTE Present on Admission: No VTE Mechan Device Prophylaxis: None VTE Pharm Prophylaxis ordered?: No Reason prophylaxis not ordered:: Procedure Not Indicated
[2017-11-13] MEDS: Ipratropium/Albuterol Sulfate 3 ML AMPUL.NEB INHALATION (20:36)
[2017-11-13] MEDS: Aspirin E.C. 81 MG Tablet PO (21:09)
[2017-11-13] MEDS: Doxazosin 1 MG Tablet 2 MG PO (21:09)
[2017-11-13] MEDS: Metoprolol(XL)Succ 25 MG Tablet PO (21:09)
[2017-11-13] MEDS: Atorvastatin Calcium 20 MG Tablet PO (21:10)
[2017-11-13] MEDS: Zolpidem Tartrate 5 MG Tablet PO (22:28)
[2017-11-14] VITALS (32 sets, daily range): BP systolic 90–158; BP diastolic 58–97; PULSE 83–118; RESP 14–24; TEMP 36.8–37.2; O2SAT 93–99
[2017-11-14] MEDS: Ipratropium/Albuterol Sulfate 3 ML AMPUL.NEB INHALATION ×3 (03:11→18:33)
[2017-11-14] MEDS: Ibuprofen 400 MG Tablet PO (03:18)
[2017-11-14] MEDS: guaiFENesin/Codeine 5 ML UDC PO ×5 (03:18→22:20)
[2017-11-14] MEDS: Albuterol 2.5 MG/3 ML VIAL.NEB. INHALATION ×2 (05:02→21:20)
[2017-11-14] MEDS: oxyCODONE 5 MG Tablet PO (06:25)
[2017-11-14] MEDS: Levothyroxine 50 MCG Tablet PO (06:25)
--- NOTE | 2017-11-14 06:26 | PCM.PN.INT ---
Subjective: Patient developed significant subcutaneous emphysema and pneumomediastinum overnight requiring emergent evaluation by ENT in the OR. Patient had a cuffed 4-0 placed. Patient has been on trach mask overnight. Patient still having occasional coughing and has been reporting headache throughout most of the evening. No significant tachycardia or fever have been noted. Patient feels subjectively improved compared to overnight. Objective: Chest x-ray from this morning was personally reviewed and shows significant improvement in pneumomediastinum and subcutaneous air General: Alert, Oriented x3, Cooperative, - - Mild distress secondary to headache. Appears stated age. HEENT: Atraumatic, PERRLA, EOMI, Normocephalic, - - Mild crepitus noted on the right aspect of the trach that appears improved compared to skin markings. No exudate is noted. Oral: Moist Mucosa, No Gingival or Mucosal Lesions/ Ulcerations Neck: Supple, No Nodes, Trachea Midline, - - Crepitus improved. Lungs: Clear to auscultation, Normal air movement, No rhonchi, No wheeze, No rales, - - Symmetric expansion. No dullness to percussion. Cardiovascular: Regular rate, Regular Rhythm, Normal S1, Normal S2, No murmurs, No rub noted, No Gallop, - - Slightly distant heart sounds Abdomen: Bowel Sounds Present, Soft, Non-Distended Extremities: No clubbing, No cyanosis, No edema, Capillary Refill Less than 3 Seconds Skin: No rashes, No breakdown Musculoskeletal: No Tenderness to Palpation of Joints or Extremities Lymphatic: No Cervical, Supraclavicular, or Inguinal Adenopathy Neurological: Cranial nerves II-XII grossly intact, Neuro grossly intact, Motor Exam 5/5 strength throughout Psych/Mental Status: Alert and oriented to time, place, person, mood and affect Vital Signs Temp Pulse Resp BP Pulse Ox 37.1 C 92 14 100/64 97 11/14/17 04:00 11/14/17 06:00 11/14/17 06:00 11/14/17 06:00 11/14/17 06:00 Oxygen Flow Rate (L/min) 6 Oxygen Delivery Method Room Air Weight: 86.4 kg Body Mass Index (BMI) 31.5 Intake and Output for Last 24 Hours 11/12/17 11/13/17 11/14/17 23:59 23:59 23:59 Intake Total 490 / 490 720 / 720 240 / 240 Output Total 100 / 100 350 / 350 Balance 390 / 390 720 / 720 -110 / -110 Clinical Impression(s) from Imaging Studies Chest X-Ray 11/10/17 12:10 IMPRESSION: The tip of the tracheostomy tube is at 3.9 sinus approximately melia. Bibasilar atelectasis. Small amount of air is seen within the subcutaneous tissues of the cervical region. Electronically Signed: Donald Ortiz MD at 12:37 EDT Tel [phone], Service support , Chest X-Ray 11/13/17 15:24 IMPRESSION: Pneumomediastinum which is new when compared with the prior exam. Increased subcutaneous air in the neck. Further evaluation with CT is recommended. N.B. : The above information has been verbally conveyed by Art Padgett to , Covering Physician, on 11/13/2017 16:09:01 (ET). Electronically Signed: Art Padgett, at 16:02 EDT Tel , Service support , Chest X-Ray 11/13/17 17:35 IMPRESSION: Tracheostomy tube with stable subcutaneous air in the neck when compared with the radiograph performed earlier today. This is increased when compared with the radiograph dated 11/10/2017. The pneumomediastinum seen on the prior exam is not well visualized on this exam as no lateral view was provided. Electronically Signed: Art Padgett, at 18:00 EDT Tel , Service support , Medical Necessity - Tobacco Use Smoking Status: Former smoker Assessment/Plan All Active Problems (Last Reviewed 10/24/17 @ 06:22 by Cassidy Blair) Acute respiratory distress (Acute) Pneumomediastinum (Acute) RECOMMENDATIONS: 1. Continue routine postoperative care and aggressive bronchopulmonary hygiene. 2. Anticipate continued cuffed trach 3. Codeine to help with cough 4. Continue hyperoxygenation 5. Chest x-ray in a.m. IMPRESSIONS: 1. Tracheal stenosis, now POD #4 s/p tracheostomy placement Postoperative management complicated by the development of pneumomediastinum and subcutaneous emphysema. Patient did have a trach cuff placed with significant improvement in subcutaneous emphysema and pneumomediastinum this morning. Patient likely does not require transfer to a tertiary center unless ENT is thinking advanced airway techniques will be required immediately. Patient likely will not be able to tolerate a fenestrated trach today as previously planned. Will discuss with ENT. 2. Obesity/hypertension/hyperlipidemia/hypothyroidism/GERD Complicates care, management, recovery and prognosis. Likely okay to continue home medications. This note was generated with [employer] dictation software. It may contain incorrect words, spelling, and punctuation that were not noted in checking the note before signing. Code Visit Inpatient E&M: 59932 [facility]
--- NOTE | 2017-11-14 06:31 | PN_ITS ---
Subjective: Patient developed significant subcutaneous emphysema and pneumomediastinum overnight requiring emergent evaluation by ENT in the OR. Patient had a cuffed 4-0 placed. Patient has been on trach mask overnight. Patient still having occasional coughing and has been reporting headache throughout most of the evening. No significant tachycardia or fever have been noted. Patient feels subjectively improved compared to overnight. Objective: Chest x-ray from this morning was personally reviewed and shows significant improvement in pneumomediastinum and subcutaneous air General: Alert, Oriented x3, Cooperative, - - Mild distress secondary to headache. Appears stated age. HEENT: Atraumatic, PERRLA, EOMI, Normocephalic, - - Mild crepitus noted on the right aspect of the trach that appears improved compared to skin markings. No exudate is noted. Oral: Moist Mucosa, No Gingival or Mucosal Lesions/ Ulcerations Neck: Supple, No Nodes, Trachea Midline, - - Crepitus improved. Lungs: Clear to auscultation, Normal air movement, No rhonchi, No wheeze, No rales, - - Symmetric expansion. No dullness to percussion. Cardiovascular: Regular rate, Regular Rhythm, Normal S1, Normal S2, No murmurs, No rub noted, No Gallop, - - Slightly distant heart sounds Abdomen: Bowel Sounds Present, Soft, Non-Distended Extremities: No clubbing, No cyanosis, No edema, Capillary Refill Less than 3 Seconds Skin: No rashes, No breakdown Musculoskeletal: No Tenderness to Palpation of Joints or Extremities Lymphatic: No Cervical, Supraclavicular, or Inguinal Adenopathy Neurological: Cranial nerves II-XII grossly intact, Neuro grossly intact, Motor Exam 5/5 strength throughout Psych/Mental Status: Alert and oriented to time, place, person, mood and affect Vital Signs Temp Pulse Resp BP Pulse Ox 37.1 C 92 14 100/64 97 11/14/17 04:00 11/14/17 06:00 11/14/17 06:00 11/14/17 06:00 11/14/17 06:00 Oxygen Flow Rate (L/min) 6 Oxygen Delivery Method Room Air Weight: 86.4 kg Body Mass Index (BMI) 31.5 Intake and Output for Last 24 Hours 11/12/17 11/13/17 11/14/17 23:59 23:59 23:59 Intake Total 490 / 490 720 / 720 240 / 240 Output Total 100 / 100 350 / 350 Balance 390 / 390 720 / 720 -110 / -110 Clinical Impression(s) from Imaging Studies Chest X-Ray 11/10/17 12:10 IMPRESSION: The tip of the tracheostomy tube is at 3.9 sinus approximately melia. Bibasilar atelectasis. Small amount of air is seen within the subcutaneous tissues of the cervical region. Electronically Signed: Dnoald Ortiz MD at 12:37 EDT Tel [phone], Service support , Chest X-Ray 11/13/17 15:24 IMPRESSION: Pneumomediastinum which is new when compared with the prior exam. Increased subcutaneous air in the neck. Further evaluation with CT is recommended. N.B. : The above information has been verbally conveyed by Art Padgett to , Covering Physician, on 11/13/2017 16:09:01 (ET). Electronically Signed: Art Padgett, at 16:02 EDT Tel , Service support , Chest X-Ray 11/13/17 17:35 IMPRESSION: Tracheostomy tube with stable subcutaneous air in the neck when compared with the radiograph performed earlier today. This is increased when compared with the radiograph dated 11/10/2017. The pneumomediastinum seen on the prior exam is not well visualized on this exam as no lateral view was provided. Electronically Signed: Art Padgett, at 18:00 EDT Tel , Service support , Medical Necessity - Tobacco Use Smoking Status: Former smoker Assessment/Plan All Active Problems (Last Reviewed 10/24/17 @ 06:22 by Cassidy Blair) Acute respiratory distress (Acute) Pneumomediastinum (Acute) RECOMMENDATIONS: 1. Continue routine postoperative care and aggressive bronchopulmonary hygiene. 2. Anticipate continued cuffed trach 3. Codeine to help with cough 4. Continue hyperoxygenation 5. Chest x-ray in a.m. IMPRESSIONS: 1. Tracheal stenosis, now POD #4 s/p tracheostomy placement Postoperative management complicated by the development of pneumomediastinum and subcutaneous emphysema. Patient did have a trach cuff placed with significant improvement in subcutaneous emphysema and pneumomediastinum this morning. Patient likely does not require transfer to a tertiary center unless ENT is thinking advanced airway techniques will be required immediately. Patient likely will not be able to tolerate a fenestrated trach today as previously planned. Will discuss with ENT. 2. Obesity/hypertension/hyperlipidemia/hypothyroidism/GERD Complicates care, management, recovery and prognosis. Likely okay to continue home medications. This note was generated with [employer] dictation software. It may contain incorrect words, spelling, and punctuation that were not noted in checking the note before signing. Code Visit Inpatient E&M: [id number] [facility] L3
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
[2017-11-14] MEDS: carBAMazepine 200 MG Tablet 300 MG PO ×2 (08:28→22:19)
--- NOTE | 2017-11-14 08:44 | PCM.PN.SRG ---
Patient Problems: Active and Suspected Problems (Last Reviewed 10/24/17 @ 06:22 by Cassidy Blair) Acute respiratory distress (Acute) Pneumomediastinum (Acute) Subjective: Feeling better this AM, still complains of headache, worse with coughing. Chest tightness is improved. Objective: Well appearing, tracheostomy site intact. Reduced subcutaneous crepitice. - Physical Exam General: Alert, Oriented x3, Cooperative, No apparent distress HEENT: Atraumatic, PERRLA, EOMI Oral: Moist Mucosa Neck: Trachea Midline, - - small and reduced area of subcutaneous crepitice anteroir neck, trach site intact with non-purulent secretions Lungs: Normal air movement, No rhonchi Cardiovascular: Regular rate Psych/Mental Status: Alert and oriented to time, place, person, mood and affect Vital Signs Temp Pulse Resp BP Pulse Ox 98.8 F 86 18 106/69 94 11/14/17 04:00 11/14/17 07:00 11/14/17 07:00 11/14/17 07:00 11/14/17 07:00 Oxygen Flow Rate (L/min) 6 Oxygen Delivery Method Room Air Weight: 86.4 kg Body Mass Index (BMI) 31.5 Intake and Output for Last 24 Hours 11/12/17 11/13/17 11/14/17 23:59 23:59 23:59 Intake Total 490 / 490 720 / 720 300 / 300 Output Total 100 / 100 350 / 350 Balance 390 / 390 720 / 720 -50 / -50 Medical Necessity - Tobacco Use Smoking Status: Former smoker Assessment/Plan All Active Problems (Last Reviewed 10/24/17 @ 06:22 by Cassidy Blair) Acute respiratory distress (Acute) Pneumomediastinum (Acute) Doing well this morning after developing some subcutaneous emphysema and mediastinal air from coughing. This has shown dramatic improvement with change to a cuffed trach tube. He complains of headache with cough, but vitals remain normal values. He does report a significant coffee intake, and caffeine withdrawal is likely and we will offer some coffee to see if this improves this complaint. Transfer to a tertiary center was discussed last night, but as his condition is improved and no acute intervention of his tracheal stenosis seems needed, holding him here to mature his tracheostomy with outpatient evaluation seems appropriate at this time. As his acute issues seem resolved, transfer to the floor also seems reasonable at this time. Pulmonary input is appreciated and I have discussed his care plan with Dr. Steven who is in agreement.
[2017-11-14] MEDS: Gabapentin 100 MG Capsule PO ×3 (09:47→17:56)
[2017-11-14] MEDS: Ketorolac 30 MG/ML Syringe IV ×3 (09:47→22:20)
[2017-11-14] MEDS: 0.9% NaCl Peripheral Flush Adult/Peds IV (09:51)
[2017-11-14] MEDS: Ondansetron 4 MG/2 ML Vial IV (11:27)
[2017-11-14] MEDS: Tolterodine Tartrate 4 MG CAP.SA PO (13:04)
[2017-11-14] MEDS: Pantoprazole Sodium 20 MG Tablet PO ×2 (13:04→22:19)
[2017-11-14] MEDS: Racepinephrine HCl 0.5 ML VIAL.NEB. INHALATION ×2 (13:59→18:34)
[2017-11-14] MEDS: ALPRAZolam 0.5 MG Tablet PO (13:59)
--- NOTE | 2017-11-14 14:46 | CHAPLAIN ---
Type of Pastoral Visit _x__ Initial Visit ___ Follow-up Visit ___ On-call Visit ___ General Patient Visit ___ Spiritual Assessment ___ Family Conference ___ Bereavement ___ Rapid Response ___ Code Blue ___ Other (describe below) Pastoral Care Referral From _x__ Patient ___ Family _x__ Nurse ___ Physician ___ Offset Lithographic Press Setter ___ Plastic Molding Operator ___ Other (describe below) Sacrament/Intervention _x__ Active listening ___ Anointing ___ Mormonism ___ Bereavement ___ Communion _x__ Leanna exploration ___ ___ Life review _x__ Prayer ___ Reconciliation ___ Sacrament of Sick _x__ Supportive presence ___ Wedding ___ Other (describe below) Pastoral Comments patient experiencing anxiety and fear of not being able to breath; sat and talked with patient calmly; offered to read scripture passages to patient and he agreed; offer to pray and he agreed; reminded pt that he was not alone and that God was with him; pt is of the [employer] leanna; pt said that I wish God would fix me; gave presence through this time until RN and RT were able to give more medications and breathing treatment
--- NOTE | 2017-11-14 16:17 | CASEMGMT ---
RN SHAMA Note. Call to [facility] re: Home Health. [facility]. FX: [phone] Call to [facility]. Spoke with Hannah. Information given regarding contacting Mother or Sister as pt has tracheostomy and cannot speak. Call back for RN SHAMA given also. Call received from Kimberly with [facility]. Updated on surgical hold for changing tracheostomy as pt is in ICU presently. 2 day supplies for trach care and suction machine will be delivered day prior to dc to hospital room and pt/family will be shown how to use machine. Other supplies will be sent via UPS to home. sai AMEZQUITA RN ACM
[2017-11-14] MEDS: carBAMazepine 200 MG Tablet PO (17:52)
[2017-11-14] MEDS: Metoprolol(XL)Succ 25 MG Tablet PO (22:18)
[2017-11-14] MEDS: Doxazosin 1 MG Tablet 2 MG PO (22:19)
[2017-11-14] MEDS: Aspirin E.C. 81 MG Tablet PO (22:19)
[2017-11-14] MEDS: Atorvastatin Calcium 20 MG Tablet PO (22:19)
[2017-11-14] MEDS: Zolpidem Tartrate 5 MG Tablet PO (22:20)
[2017-11-15] VITALS (25 sets, daily range): BP systolic 123–153; BP diastolic 58–109; PULSE 86–117; RESP 16–24; TEMP 36.5–37.2; O2SAT 90–100
[2017-11-15] MEDS: Ipratropium/Albuterol Sulfate 3 ML AMPUL.NEB INHALATION ×4 (00:37→20:28)
[2017-11-15] MEDS: guaiFENesin/Codeine 5 ML UDC PO ×6 (03:00→21:01)
[2017-11-15] MEDS: Albuterol 2.5 MG/3 ML VIAL.NEB. INHALATION (03:43)
[2017-11-15] MEDS: 0.9% NaCl Peripheral Flush Adult/Peds IV (05:32)
[2017-11-15] MEDS: Levothyroxine 50 MCG Tablet PO (05:32)
[2017-11-15] MEDS: Ketorolac 30 MG/ML Syringe IV ×2 (05:32→14:13)
[2017-11-15] MEDS: Racepinephrine HCl 0.5 ML VIAL.NEB. INHALATION (06:53)
--- NOTE | 2017-11-15 06:53 | PN_ITS ---
Subjective: Patient did okay overnight. Patient did have one event with desaturation into the 70s. Patient received aggressive pulmonary toileting with in-line suctioning and significant improvement in saturations. Patient continues to have paroxysms of coughing and continues to report headache. Patient currently is on room air and is comfortable as long as I am not coughing. Objective: Morning chest x-ray shows slight improvement in subcutaneous emphysema General: Alert, Oriented x3, Cooperative, No apparent distress, - - Appears stated age. Readily writing notes and mouthing responses. HEENT: Atraumatic, PERRLA, EOMI, Normocephalic, - - No scleral icterus or injection noted. Oral: Moist Mucosa, No Gingival or Mucosal Lesions/ Ulcerations, - - Fair dentition Neck: Supple, No JVD, No Nodes, Trachea Midline, - - Trach is clean, dry and intact. Some pale yellow secretions noted out of the trach Lungs: No rhonchi, No rales, Diminished, Wheezes - Sporadic, - - Symmetric expansion. No dullness to percussion. Cardiovascular: Regular rate, Regular Rhythm, Normal S1, Normal S2, No murmurs, No rub noted, No Gallop Abdomen: Bowel Sounds Present, Soft, Non Tender, Non-Distended, Obese Extremities: No clubbing, No cyanosis, No edema, Capillary Refill Less than 3 Seconds Skin: No rashes, No breakdown Musculoskeletal: No Tenderness to Palpation of Joints or Extremities Lymphatic: No Cervical, Supraclavicular, or Inguinal Adenopathy Neurological: Cranial nerves II-XII grossly intact, Neuro grossly intact, Motor Exam 5/5 strength throughout Psych/Mental Status: Alert and oriented to time, place, person, mood and affect Vital Signs Temp Pulse Resp BP Pulse Ox 36.8 C 97 16 135/101 H 97 11/15/17 00:00 11/15/17 06:00 11/15/17 06:00 11/15/17 06:00 11/15/17 06:00 Oxygen Flow Rate (L/min) 6 Oxygen Delivery Method Room Air Weight: 88.2 kg Body Mass Index (BMI) 31.5 Intake and Output for Last 24 Hours 11/13/17 11/14/17 11/15/17 23:59 23:59 23:59 Intake Total 720 / 720 1590 / 1590 120 / 120 Output Total 350 / 350 Balance 720 / 720 1240 / 1240 120 / 120 Clinical Impression(s) from Imaging Studies Chest X-Ray 11/14/17 05:55 IMPRESSION: Decreased subcutaneous emphysema in the cervical region as well as in the pneumomediastinum. Electronically Signed: Donald Ortiz MD at 9:20 EDT Tel [phone], Service support , Medical Necessity - Tobacco Use Smoking Status: Former smoker Assessment/Plan All Active Problems (Last Reviewed 10/24/17 @ 06:22 by Cassidy Blair) Acute respiratory distress (Acute) Pneumomediastinum (Acute) RECOMMENDATIONS: 1. Continue routine postoperative care and aggressive bronchopulmonary hygiene. 2. Anticipate continued cuffed trach 3. Codeine to help with cough 4. Continue hyperoxygenation 5. Chest x-ray in a.m. 6. Okay to leave the intensive care unit later today IMPRESSIONS: 1. Tracheal stenosis, now POD #5 s/p tracheostomy placement Postoperative management complicated by the development of pneumomediastinum and subcutaneous emphysema. Patient still with some paroxysmal type coughing episodes. Chest x-ray this morning shows some improvement in subcutaneous emphysema. Discussed with the ENT and plan will be to keep cuffed trach and allow for epithelial formation of tracheotomy. This will be followed with dilation to a 6-0 trach prior to any surgical intervention. Clinical suspicion for coughing--> increased airway pressure at the stenotic area--> dissection around the trach and into the subcutaneous tissues. Now the patient has a cough, healing can occur at the tracheotomy site. No signs or symptoms of pneumothorax at this time. 2. Obesity/hypertension/hyperlipidemia/hypothyroidism/GERD Complicates care, management, recovery and prognosis. Likely okay to continue home medications. This note was generated with [employer] dictation software. It may contain incorrect words, spelling, and punctuation that were not noted in checking the note before signing. Code Visit Inpatient E&M: 88420 Subs Hosp L3
[2017-11-15] MEDS: carBAMazepine 200 MG Tablet 300 MG PO ×2 (08:34→21:06)
[2017-11-15] MEDS: Ibuprofen 400 MG Tablet PO ×2 (08:34→20:58)
--- NOTE | 2017-11-15 09:04 | PN_ITS ---
Patient Problems: Active and Suspected Problems (Last Reviewed 10/24/17 @ 06:22 by Cassidy Blair) Acute respiratory distress (Acute) Pneumomediastinum (Acute) Subjective: Chief complaint: Follow-up after consultation for medical management after patient underwent tracheostomy for tracheal stenosis. Patient seen and examined. No acute events overnight. He is complaining of very bad headache, worsened with coughing. He reported intermittent increasing shortness of breath but at this time, he feels okay. He denied chest pain or palpitations. At this time, is afebrile, blood pressure and heart rate are stable, pulse ox is maintained on room air at 99% - Physical Exam General: Alert, Oriented x3, Cooperative, - - Distress because of headache. HEENT: Atraumatic, PERRLA, EOMI, Normocephalic Oral: Moist Mucosa, No Gingival or Mucosal Lesions/ Ulcerations Neck: Supple, No JVD, Negative Carotid Bruits, Trachea Midline, Thyroid Normal Size and Texture, - - Tracheostomy in place. Lungs: Clear to auscultation, No rhonchi, No wheeze, No rales, Diminished Cardiovascular: Regular rate, Regular Rhythm, Normal S1, Normal S2, PMI Normal Abdomen: Bowel Sounds Present, Soft, Non Tender, Non-Distended, No Hepato- splenomegaly Extremities: No clubbing, No cyanosis, No edema Skin: No rashes, No breakdown Lymphatic: No Cervical, Supraclavicular, or Inguinal Adenopathy Neurological: Cranial nerves II-XII grossly intact, Motor Exam 5/5 strength throughout Psych/Mental Status: Normal Affect, Appropriate, Alert and oriented to time, place, person, mood and affect Vital Signs Temp Pulse Resp BP Pulse Ox 98.0 F 87 16 123/83 H 90 11/15/17 08:00 11/15/17 08:00 11/15/17 08:00 11/15/17 08:00 11/15/17 08:00 Oxygen Flow Rate (L/min) 6 Oxygen Delivery Method Room Air Weight: 194 lb 7.163 oz Body Mass Index (BMI) 31.5 Intake and Output for Last 24 Hours 11/13/17 11/14/17 11/15/17 23:59 23:59 23:59 Intake Total 720 / 720 1590 / 1590 120 / 120 Output Total 350 / 350 Balance 720 / 720 1240 / 1240 120 / 120 Medical Necessity - Tobacco Use Smoking Status: Former smoker Assessment/Plan All Active Problems (Last Reviewed 10/24/17 @ 06:22 by Cassidy Blair) Acute respiratory distress (Acute) Pneumomediastinum (Acute) This is a 52 years old male patient admitted for elective tracheostomy for tracheal stenosis and his postoperative course complicated by acute respiratory distress, pneumomediastinum and subcutaneous emphysema and I am seeing this patient for consultation for postoperative medical management. 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 He is maintaining his pulse ox on room air through the tracheostomy tube. He complained of headache since yesterday. His other vital signs are stable. ENT and critical care on the case. #2 acute respiratory distress/acute pneumomediastinum/subcutaneous emphysema: Chest x-ray from today revealed decreasing subcutaneous emphysema as well as pneumomediastinum, official report is pending. Respiratory status is improving. #3 hypertension: Blood pressure stable, continue metoprolol and Cardura. #4 hypothyroidism: Stable, continue levothyroxine. #5 epilepsy: Stable, continue Tegretol. #6 GERD: Continue PPI. #7 hyperlipidemia: Continue statins. #8 DVT prophylaxis: SCDs. This note was generated with [employer] dictation software. It may contain incorrect words, spelling, and punctuation that were not noted in checking the note before signing. Code Visit Inpatient E&M: 31203 Subs Hosp L2
--- NOTE | 2017-11-15 09:39 | PCM.PN.SRG ---
Patient Problems: Active and Suspected Problems (Last Reviewed 10/24/17 @ 06:22 by Cassidy Blair) Acute respiratory distress (Acute) Pneumomediastinum (Acute) Subjective: Doing well, less coughing and sputum production. Still with headache, but no worsening. Objective: Well appearing, trach site intact, crepitice near completely resolved. - Physical Exam General: Alert, Oriented x3 HEENT: Atraumatic, PERRLA, EOMI Neck: Supple Lungs: Normal air movement, No rhonchi Cardiovascular: Regular rate, Regular Rhythm Psych/Mental Status: Alert and oriented to time, place, person, mood and affect Vital Signs Temp Pulse Resp BP Pulse Ox 98.0 F 87 16 123/83 H 90 11/15/17 08:00 11/15/17 08:00 11/15/17 08:00 11/15/17 08:00 11/15/17 08:00 Oxygen Flow Rate (L/min) 6 Oxygen Delivery Method Room Air Weight: 88.2 kg Body Mass Index (BMI) 31.5 Intake and Output for Last 24 Hours 11/13/17 11/14/17 11/15/17 23:59 23:59 23:59 Intake Total 720 / 720 1590 / 1590 120 / 120 Output Total 350 / 350 Balance 720 / 720 1240 / 1240 120 / 120 Medical Necessity - Tobacco Use Smoking Status: Former smoker Assessment/Plan All Active Problems (Last Reviewed 10/24/17 @ 06:22 by Cassidy Blair) Acute respiratory distress (Acute) Pneumomediastinum (Acute) Doing well this morning with resolving subcutaneous air. Transfer to regular floor with anticipation of discharge to home tomorrow if remains stable as home care equipment has been delivered to his home.
[2017-11-15] MEDS: Tolterodine Tartrate 4 MG CAP.SA PO (10:22)
[2017-11-15] MEDS: Pantoprazole Sodium 20 MG Tablet PO ×2 (10:22→21:05)
[2017-11-15] MEDS: Acetaminophen 325 MG Tablet 650 MG PO ×2 (10:22→23:53)
--- NOTE | 2017-11-15 11:53 | CASEMGMT ---
Addendum entered by Raul Delarosa 11/15/17 13:57: Per Dr. Steven, pt may dc tomorrow and return next week for trach change. Call to Rogelio @ [employer]. Delivery of 5 day supply of trach care items and suction pump will be delivered to hospital tomorrow. Per rogelio, she will contact pt's mother (requested model and dye person) and arrange time for her to be here and receive teaching. -Call to Dr. Steven re: new script for cuffed trach as extra for dc. Recommending we ask Dr. Thakur if script needs written for different home trach (previous script was for cuffless). If different trach tube needed for home, will need new script faxed to Rogelio @ [employer]. . -Call to [facility] @ . Spoke with Mansi. updated on plan for dc tomorrow, [facility], reviewed contact information for mother and sister and reiterated not to call pt's phone as he has tracheostomy and cannot speak well now. will need verified tomorrow of actual dc and dc instructions, dc summary faxed to . RN will see pt the in am the day after discharge and will call to set up time with family. -Call to ALEC Bernard CM to update on above as pt has transferred to PCU. Original Note: ALEC SESAY Note: Call received from Rogelio @ [employer] ([phone]) to notify pt may move to floor from ICU today. [facility] would like to deliver supplies day prior to dc and have family available for teaching. Isabela HAYDENN RN ACM
[2017-11-15] MEDS: carBAMazepine 200 MG Tablet PO (16:09)
[2017-11-15] MEDS: Aspirin E.C. 81 MG Tablet PO (21:05)
[2017-11-15] MEDS: Atorvastatin Calcium 20 MG Tablet PO (21:05)
[2017-11-15] MEDS: Metoprolol(XL)Succ 25 MG Tablet PO (21:06)
[2017-11-15] MEDS: Doxazosin 1 MG Tablet 2 MG PO (21:06)
[2017-11-15] MEDS: Zolpidem Tartrate 5 MG Tablet PO (23:53)
[2017-11-16] VITALS (7 sets, daily range): BP systolic 136–146; BP diastolic 80–88; PULSE 77–110; RESP 16–28; TEMP 36.8–37; O2SAT 95–96
[2017-11-16] MEDS: Ipratropium/Albuterol Sulfate 3 ML AMPUL.NEB INHALATION ×2 (02:31→07:57)
[2017-11-16] MEDS: guaiFENesin/Codeine 5 ML UDC PO ×4 (02:45→15:33)
[2017-11-16] MEDS: Ibuprofen 400 MG Tablet PO ×2 (03:00→12:57)
[2017-11-16] MEDS: Acetaminophen 325 MG Tablet 650 MG PO (06:27)
[2017-11-16] MEDS: Levothyroxine 50 MCG Tablet PO (06:27)
--- NOTE | 2017-11-16 07:52 | PCM.PROGNOTE ---
Patient Problems: Active and Suspected Problems (Last Reviewed 10/24/17 @ 06:22 by Cassidy Blair) Acute respiratory distress (Acute) Pneumomediastinum (Acute) Subjective: Chief complaint: Follow-up after consultation for medical management after patient underwent tracheostomy for tracheal stenosis. Patient seen and examined. No acute events overnight. Today, is feeling better. He is still having headache but improved. Denies shortness of breath. Denied chest pain, palpitation, dizziness or lightheadedness. Denied abdominal pain, nausea vomiting. Vital signs are stable. - Physical Exam General: Alert, Oriented x3, Cooperative, - - Minimally short of breath. HEENT: Atraumatic, PERRLA, EOMI, Normocephalic Oral: Moist Mucosa, No Gingival or Mucosal Lesions/ Ulcerations Neck: Supple, No JVD, Negative Carotid Bruits, Trachea Midline, Thyroid Normal Size and Texture Lungs: Clear to auscultation, No wheeze, No rales, Diminished, Rhonchi Cardiovascular: Regular rate, Regular Rhythm, Normal S1, Normal S2, PMI Normal Abdomen: Bowel Sounds Present, Soft, Non Tender, Non-Distended, No Hepato-splenomegaly Extremities: No clubbing, No cyanosis, No edema Skin: No rashes, No breakdown Lymphatic: No Cervical, Supraclavicular, or Inguinal Adenopathy Neurological: Cranial nerves II-XII grossly intact, Motor Exam 5/5 strength throughout Psych/Mental Status: Normal Affect, Appropriate, Alert and oriented to time, place, person, mood and affect Vital Signs Temp Pulse Resp BP Pulse Ox 98.6 F 83 20 H 136/81 H 95 11/16/17 03:08 11/16/17 04:06 11/16/17 03:08 11/16/17 03:08 11/16/17 03:08 Oxygen Flow Rate (L/min) 6 Oxygen Delivery Method Trach Collar Weight: 192 lb 7.417 oz Body Mass Index (BMI) 31.5 Intake and Output for Last 24 Hours 11/14/17 11/15/17 11/16/17 23:59 23:59 23:59 Intake Total 1590 / 1590 1930 / 1930 120 / 120 Output Total 350 / 350 Balance 1240 / 1240 1930 / 1930 120 / 120 Medical Necessity - Tobacco Use Smoking Status: Former smoker Assessment/Plan All Active Problems (Last Reviewed 10/24/17 @ 06:22 by Cassidy Blair) Acute respiratory distress (Acute) Pneumomediastinum (Acute) This is a 52 years old male patient admitted for elective tracheostomy for tracheal stenosis and his postoperative course complicated by acute respiratory distress, pneumomediastinum and subcutaneous emphysema and I am seeing this patient for consultation for postoperative medical management. 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 He is having less headache, improved but still there. His vital signs are stable, afebrile. Pulse ox is maintained at 95% on trach collar. From medical standpoint, patient is stable to be discharged. #2 acute respiratory distress/acute pneumomediastinum/subcutaneous emphysema: Respiratory status improved, less short of breath, pulse ox is maintained on trach collar. Chest x-ray from yesterday revealed minimal residual pneumomediastinum. #3 hypertension: Blood pressure stable, continue metoprolol and Cardura. #4 hypothyroidism: Stable, continue levothyroxine. #5 epilepsy: Stable, continue Tegretol. #6 GERD: Continue PPI. #7 hyperlipidemia: Continue statins. #8 DVT prophylaxis: SCDs. This note was generated with [employer] dictation software. It may contain incorrect words, spelling, and punctuation that were not noted in checking the note before signing. Code Visit Inpatient E&M: 19688 Subs Hosp L2
[2017-11-16] MEDS: carBAMazepine 200 MG Tablet 300 MG PO ×2 (08:00→15:34)
--- NOTE | 2017-11-16 08:18 | PCM.PROGNOTE ---
Patient Problems: Active and Suspected Problems (Last Reviewed 10/24/17 @ 06:22 by Cassidy Blair) Acute respiratory distress (Acute) Pneumomediastinum (Acute) Subjective: Doing well this morning. Headache and cough improved. Objective: Well appearing, small area of crepitice right neck, stable. Trach site intact with light colored mucous. - Physical Exam General: Alert, Oriented x3 HEENT: Atraumatic, PERRLA, EOMI Oral: Moist Mucosa Neck: Supple, Trachea Midline Cardiovascular: Regular rate, Regular Rhythm Psych/Mental Status: Alert and oriented to time, place, person, mood and affect Vital Signs Temp Pulse Resp BP Pulse Ox 98.6 F 77 20 H 136/81 H 95 11/16/17 03:08 11/16/17 07:40 11/16/17 03:08 11/16/17 03:08 11/16/17 03:08 Oxygen Flow Rate (L/min) 6 Oxygen Delivery Method Trach Collar Weight: 87.3 kg Body Mass Index (BMI) 31.5 Intake and Output for Last 24 Hours 11/14/17 11/15/17 11/16/17 23:59 23:59 23:59 Intake Total 1590 / 1590 1930 / 1930 120 / 120 Output Total 350 / 350 Balance 1240 / 1240 1930 / 1930 120 / 120 Medical Necessity - Tobacco Use Smoking Status: Former smoker Assessment/Plan All Active Problems (Last Reviewed 10/24/17 @ 06:22 by Cassidy Blair) Acute respiratory distress (Acute) Pneumomediastinum (Acute) Doing well this morning with stable subcutaneous air, resolving pneumomediastinum. CXR this AM to assess stability pending. His family reports that delivery of his home equipment has been delayed, but I feel that he is appropriate for discharge to home if his CXR shown continued improvement and his home supplies have been delivered.
[2017-11-16] MEDS: Pantoprazole Sodium 20 MG Tablet PO (09:15)
[2017-11-16] MEDS: Tolterodine Tartrate 4 MG CAP.SA PO (09:15)
--- NOTE | 2017-11-16 10:32 | PCM.PROGNOTE ---
Patient Problems: Active and Suspected Problems (Last Reviewed 10/24/17 @ 06:22 by Cassidy Blair) Acute respiratory distress (Acute) Pneumomediastinum (Acute) Subjective: Patient did okay overnight. Patient subjectively improved and states that his coughing is less frequent. Patient has been able to vocalize intermittently with effort. Patient still reports significant headache that he associates with the cough. Patient denies any bleeding complications. Objective: Chest x-ray was personally reviewed. This does not appear significantly changed compared to previous examination. Radiology feels there has been slight progression. - Physical Exam General: Alert, Oriented x3, Cooperative, No apparent distress, - - Able to vocalize somewhat. HEENT: Atraumatic, PERRLA, EOMI, Normocephalic, - - Slight scleral injection without icterus Oral: Moist Mucosa, No Gingival or Mucosal Lesions/ Ulcerations Neck: Supple, No JVD, No Nodes, Trachea Midline, - - Area of crepitus slightly improved compared to previous. Trach is clean, dry and intact. Lungs: Clear to auscultation, Normal air movement, No rhonchi, No wheeze, No rales, - - Symmetric expansion. No dullness to percussion. Cardiovascular: Regular rate, Regular Rhythm, Normal S1, Normal S2, No murmurs, No rub noted, No Gallop Abdomen: Bowel Sounds Present, Soft, Non Tender, Non-Distended Extremities: No clubbing, No cyanosis, No edema, Capillary Refill Less than 3 Seconds Skin: No rashes, No breakdown Musculoskeletal: No Tenderness to Palpation of Joints or Extremities Lymphatic: No Cervical, Supraclavicular, or Inguinal Adenopathy Neurological: Cranial nerves II-XII grossly intact, Neuro grossly intact, Motor Exam 5/5 strength throughout Psych/Mental Status: Alert and oriented to time, place, person, mood and affect Vital Signs Temp Pulse Resp BP Pulse Ox 36.8 C 89 20 H 143/80 H 96 11/16/17 09:00 11/16/17 09:00 11/16/17 09:00 11/16/17 09:00 11/16/17 09:00 Oxygen Flow Rate (L/min) 6 Oxygen Delivery Method Room Air Weight: 87.3 kg Body Mass Index (BMI) 31.5 Intake and Output for Last 24 Hours 08/11/15/17 11/16/17 23:59 23:59 23:59 Intake Total 1590 / 1590 1930 / 1930 120 / 120 Output Total 350 / 350 Balance 1240 / 1240 1930 / 1930 120 / 120 Clinical Impression(s) from Imaging Studies Chest X-Ray 11/16/17 05:55 IMPRESSION: Since prior study, there has been a progression of the pneumomediastinum. Electronically Signed: Donald Ortiz MD at 8:36 EDT Tel [phone], Service support , Medical Necessity - Tobacco Use Smoking Status: Former smoker Assessment/Plan All Active Problems (Last Reviewed 10/24/17 @ 06:22 by Cassidy Blair) Acute respiratory distress (Acute) Pneumomediastinum (Acute) RECOMMENDATIONS: 1. Continue routine postoperative care and aggressive bronchopulmonary hygiene. 2. Anticipate continued cuffed trach 3. Codeine to help with cough 4. Continue hyperoxygenation 5. Okay to leave with close outpatient ENT follow-up IMPRESSIONS: 1. Tracheal stenosis, now POD #6 s/p tracheostomy placement Postoperative management complicated by the development of pneumomediastinum and subcutaneous emphysema. Patient still with some paroxysmal type coughing episodes. Radiology is reporting worsening of pneumomediastinum, but I believe this is grossly unchanged compared to previous. Patient's crepitus may be slightly improved in the neck. Patient is not reporting any chest pain and has been stable with trach collar. If patient were to receive supplies in time, I would not be opposed to discharge with close ENT follow-up. Patient can follow-up in our office with nurse practitioner in 4 weeks. 2. Obesity/hypertension/hyperlipidemia/hypothyroidism/GERD Complicates care, management, recovery and prognosis. Likely okay to continue home medications. This note was generated with [employer] dictation software. It may contain incorrect words, spelling, and punctuation that were not noted in checking the note before signing. Code Visit Inpatient E&M: 70404 Subs Hosp L2
--- NOTE | 2017-11-16 10:36 | PN_ITS ---
Patient Problems: Active and Suspected Problems (Last Reviewed 10/24/17 @ 06:22 by Cassidy Blair) Acute respiratory distress (Acute) Pneumomediastinum (Acute) Subjective: Patient did okay overnight. Patient subjectively improved and states that his coughing is less frequent. Patient has been able to vocalize intermittently with effort. Patient still reports significant headache that he associates with the cough. Patient denies any bleeding complications. Objective: Chest x-ray was personally reviewed. This does not appear significantly changed compared to previous examination. Radiology feels there has been slight progression. - Physical Exam General: Alert, Oriented x3, Cooperative, No apparent distress, - - Able to vocalize somewhat. HEENT: Atraumatic, PERRLA, EOMI, Normocephalic, - - Slight scleral injection without icterus Oral: Moist Mucosa, No Gingival or Mucosal Lesions/ Ulcerations Neck: Supple, No JVD, No Nodes, Trachea Midline, - - Area of crepitus slightly improved compared to previous. Trach is clean, dry and intact. Lungs: Clear to auscultation, Normal air movement, No rhonchi, No wheeze, No rales, - - Symmetric expansion. No dullness to percussion. Cardiovascular: Regular rate, Regular Rhythm, Normal S1, Normal S2, No murmurs, No rub noted, No Gallop Abdomen: Bowel Sounds Present, Soft, Non Tender, Non-Distended Extremities: No clubbing, No cyanosis, No edema, Capillary Refill Less than 3 Seconds Skin: No rashes, No breakdown Musculoskeletal: No Tenderness to Palpation of Joints or Extremities Lymphatic: No Cervical, Supraclavicular, or Inguinal Adenopathy Neurological: Cranial nerves II-XII grossly intact, Neuro grossly intact, Motor Exam 5/5 strength throughout Psych/Mental Status: Alert and oriented to time, place, person, mood and affect Vital Signs Temp Pulse Resp BP Pulse Ox 36.8 C 89 20 H 143/80 H 96 11/16/17 09:00 11/16/17 09:00 11/16/17 09:00 11/16/17 09:00 11/16/17 09:00 Oxygen Flow Rate (L/min) 6 Oxygen Delivery Method Room Air Weight: 87.3 kg Body Mass Index (BMI) 31.5 Intake and Output for Last 24 Hours 08/11/15/17 11/16/17 23:59 23:59 23:59 Intake Total 1590 / 1590 1930 / 1930 120 / 120 Output Total 350 / 350 Balance 1240 / 1240 1930 / 1930 120 / 120 Clinical Impression(s) from Imaging Studies Chest X-Ray 11/16/17 05:55 IMPRESSION: Since prior study, there has been a progression of the pneumomediastinum. Electronically Signed: Donald Ortiz MD at 8:36 EDT Tel [phone], Service support , Medical Necessity - Tobacco Use Smoking Status: Former smoker Assessment/Plan All Active Problems (Last Reviewed 10/24/17 @ 06:22 by Cassidy Blair) Acute respiratory distress (Acute) Pneumomediastinum (Acute) RECOMMENDATIONS: 1. Continue routine postoperative care and aggressive bronchopulmonary hygiene. 2. Anticipate continued cuffed trach 3. Codeine to help with cough 4. Continue hyperoxygenation 5. Okay to leave with close outpatient ENT follow-up IMPRESSIONS: 1. Tracheal stenosis, now POD #6 s/p tracheostomy placement Postoperative management complicated by the development of pneumomediastinum and subcutaneous emphysema. Patient still with some paroxysmal type coughing episodes. Radiology is reporting worsening of pneumomediastinum, but I believe this is grossly unchanged compared to previous. Patient's crepitus may be slightly improved in the neck. Patient is not reporting any chest pain and has been stable with trach collar. If patient were to receive supplies in time, I would not be opposed to discharge with close ENT follow-up. Patient can follow-up in our office with nurse practitioner in 4 weeks. 2. Obesity/hypertension/hyperlipidemia/hypothyroidism/GERD Complicates care, management, recovery and prognosis. Likely okay to continue home medications. This note was generated with [employer] dictation software. It may contain incorrect words, spelling, and punctuation that were not noted in checking the note before signing. Code Visit Inpatient E&M: 50832 Subs Hosp L2
--- NOTE | 2017-11-16 13:40 | CHAPLAIN ---
Type of Pastoral Visit ___ Initial Visit _x__ Follow-up Visit ___ On-call Visit ___ General Patient Visit ___ Spiritual Assessment ___ Family Conference ___ Bereavement ___ Rapid Response ___ Code Blue ___ Other (describe below) Pastoral Care Referral From _x__ Patient ___ Family ___ Nurse ___ Physician ___ Process Worker ___ Washer Machine ___ Other (describe below) Sacrament/Intervention _x__ Active listening ___ Anointing ___ Lutheran ___ Bereavement ___ Communion ___ Leanna exploration ___ _x__ Life review _x__ Prayer ___ Reconciliation ___ Sacrament of Sick _x__ Supportive presence ___ Wedding ___ Other (describe below) Pastoral Comments
--- NOTE | 2017-11-16 13:40 | PCM.DC ---
- Discharge Diagnoses Current Active Problems: Current Active and Chronic Problems (Last Reviewed 10/24/17 @ 06:22 by Cassidy Blair) Acute respiratory distress (Acute) Pneumomediastinum (Acute) HTN (hypertension) (Chronic) Reason(s) for Visit for Discharge Instructions: Tracheal stenosis, fixed respiratory obstruction You will use the following diet at home:: Regular Discharge Activity: Return to Normal Activity, - - care to protect breathing from dust and fine particles Call your doctor if you observe: Fever of 101 or Higher, Shortness of breath, Chest pain Cleanse incision/area with: Keep Dressing Clean & Dry Allergies/Adverse Reactions: Allergies strawberry Allergy (Intermediate, Verified 11/10/17 08:34) Hives azithromycin Allergy (Unknown, Verified 11/10/17 08:34) Unknown erythromycin base Allergy (Verified 11/10/17 08:34) Unknown Penicillins Allergy (Verified 11/10/17 08:34) Hives Barbiturates Adverse Reaction (Verified 11/10/17 08:34) Other divalproex sodium [From Depakote] Adverse Reaction (Verified 11/10/17 08:34) Other Hydantoins Adverse Reaction (Verified 11/10/17 08:34) Other phenobarbital Adverse Reaction (Verified 11/10/17 08:34) Other personality changes phenytoin sodium [From Dilantin] Adverse Reaction (Verified 11/10/17 08:34) Other phenytoin sodium extended [From Dilantin] Adverse Reaction (Verified 11/10/17 08:34) Other Medications to take at Discharge Carbamazepine 300 mg PO BREAKFAST 04/03/15 Levothyroxine [Synthroid] 50 mcg PO DAILY 04/03/15 Metoprolol(XL)Succ [Toprol Xl (Beta Von)] 25 mg PO QHS 04/03/15 Simvastatin [Zocor] 40 mg PO QHS 04/03/15 Carbamazepine [Tegretol] 300 mg PO DINNER 12/07/15 Doxazosin Mesylate [Cardura] 2 mg PO QHS 12/09/15 aspirin 81 mg tablet,delayed release 81 mg PO DAILY 08/11/17 omeprazole 20 mg tablet,delayed release 20 mg PO BID tab 08/11/17 oxybutynin chloride ER 10 mg tablet,extended release 24 hr 10 mg PO QHS 08/11/17 Acetaminophen [Tylenol Tablet] 650 mg PO Q4H PRN PRN tablet 11/03/17 Carbamazepine [Tegretol] 200 mg PO LUNCH 11/10/17 Primary Care Physician: Amita Humphreys DO [Primary Care Provider] - Test Results: Test results from this visit will be discussed in further detail at your follow-up appointment, if applicable. Please Follow Up With: Joan Gutiérrez NP-C When: 4 weeks Please Follow Up With: Jose Thakur MD When: 1 week
--- NOTE | 2017-11-16 13:56 | CASEMGMT ---
This ALEC SESAY received call from April at [facility] and she wanted to clarify trach order prior to sending out. Per Dr. Thakur, pt needs sent home with a CFS 4 Fenestrated cuffless trach to have as back up until pt returns to his office next for replacement. Per Dr. Thakur, he is unsure what size tube that he will be able to replace pt's trach with next week and states they will have to speak with [facility] in reference to trach needed at that time. Per April, if they fill the script that they have for pt at this time, then pt will not be able to have another delivered to home next week. Pt to be sent home with CFS 4 fenestrated cuffless trach from hospital as back up until sees Dr. Thakur next week. Dr. Thakur aware, voices understanding. April from [facility] notified and states that they will be in contact with Dr. Thakur' office in reference to new order next week when trach replaced, voices understanding. SStaten ALEC SESAY
--- NOTE | 2017-11-16 14:10 | CASEMGMT ---
[facility] notified that pt will be discharged today and that sister to be contact for pt at this time, voices understanding. Advised [facility] that this RN CM will fax discharge instructions/summary when obtained, voices understanding. [facility] also aware that trach supplies have been delivered and demonstration completed with pt, sister and mother, voice understanding. SStaten RN CM
[2017-11-16] MEDS: carBAMazepine 200 MG Tablet PO (15:35)
--- NOTE | 2017-11-16 16:12 | CASEMGMT ---
This ALEC SESAY received call from Ofelia, PCU charge operator, and she states that there were no disposable inner canullas [place] [facility] Call to April at [facility] and she states that this trach has a reusable inner cannulla and that pt will have to clean. Ofelia PCU charge, updated at this time and voices understanding. Discharge instructions faxed to [facility] at this time. Kacy MICHAEL CM
--- NOTE | 2017-11-17 09:26 | PCM.DC.SUM ---
Discharge Date and Diagnosis Date of Admission: 11/10/17 Date of Discharge: 11/16/17 - Primary Discharge Diagnosis tracheal stenosis, pneumomediastinum - Secondary Discharge Diagnosis Chronic Problems (Last Reviewed 10/24/17 @ 06:22 by Cassidy Blair) Stenosis of larynx (Chronic) Paralysis of vocal cords and larynx, unilateral (Chronic) HTN (hypertension) (Chronic) Shortness of breath (Chronic) Tracheal stenosis following tracheostomy (Chronic) Obesity (Chronic) HLD (hyperlipidemia) (Chronic) GERD (gastroesophageal reflux disease) (Chronic) Epilepsy without mention Intractable Epilepsy, unspecified (Chronic) Hospital Course and Treatment Imaging Results: serial CXR with resolving pneumomediastinum and cervical air pulmonary critical care Operations: - - tracheostomy Procedures: - - tracheostomy change ot cuffed tube Summary of Care Provided: The patient is a 52 year old M who was brought to the operating room for evaluation of tracheal stenosis. This was found to be significant and tracheostomy which had been planned as part of his surgical procedure was limited due to the size of the tracheal stenosis which only allowed for placement of a #4 uncuffed tracheostomy tube. The length of the stenotic segment and subglottis of the larynx was in the able to be evaluated in this setting due to the inability to place a cuffed tube which limited induction of general anesthetic and the patient was subsequently transferred to the floor for trach care and observation. He did well over the weekend but subsequently on postoperative day #3 due to significant cough and his uncuffed tracheostomy tube developed subcutaneous air and pneumomediastinum. He was taken emergently to the operating room where the tracheostomy tube was replaced with a cuffed tube which prevented further deposition of his subcutaneous air and serial chest x-ray showed serial improvement and resolution of his pneumomediastinum. This allowed for his further evaluation to be planned as an outpatient with this additional assessment of his airway pending stabilization of his tracheostomy tube site to allow for safe airway management in the finding of an apparent significant tracheal stenosis. Home health care and suction equipment as well as tracheal care supplies and teaching were performed while he was in the hospital and at time of discharge he and his family voiced comfort in the long-term care of his tracheostomy site. [] Discharge Diet: No Restrictions Discharge Activity: Return to Normal Activity, - - care to protect breathing from dust and fine particles Call your doctor if you observe: Fever of 101 or Higher, Shortness of breath, Chest pain Cleanse incision/area with: Keep Dressing Clean & Dry Home Medications: Medications to take at Discharge Carbamazepine 300 mg PO BREAKFAST 04/03/15 Levothyroxine [Synthroid] 50 mcg PO DAILY 04/03/15 Metoprolol(XL)Succ [Toprol Xl (Beta Von)] 25 mg PO QHS 04/03/15 Simvastatin [Zocor] 40 mg PO QHS 04/03/15 Carbamazepine [Tegretol] 300 mg PO DINNER 12/07/15 Doxazosin Mesylate [Cardura] 2 mg PO QHS 12/09/15 aspirin 81 mg tablet,delayed release 81 mg PO DAILY 08/11/17 omeprazole 20 mg tablet,delayed release 20 mg PO BID tab 08/11/17 oxybutynin chloride ER 10 mg tablet,extended release 24 hr 10 mg PO QHS 08/11/17 Acetaminophen [Tylenol Tablet] 650 mg PO Q4H PRN PRN tablet 11/03/17 Carbamazepine [Tegretol] 200 mg PO LUNCH 11/10/17 Acetaminophen [Tylenol Tablet] 650 mg PO Q4H PRN PRN tablet 11/16/17 Guaifenesin/Codeine [Robitussin AC] 5 ml PO Q4 10 Days #10 udc 11/16/17 Ibuprofen [Motrin] 400 mg PO Q6H PRN PRN tablet 11/16/17 Following Prescrptions Were Given to Patient: Guaifenesin/Codeine [Robitussin AC] 5 ml PO Q4 10 Days #10 udc Primary Care Physician: Amita Humphreys DO [Primary Care Provider] - Please Follow Up With: Joan Gutiérrez NP-C When: 4 weeks Please Follow Up With: Jose Thakur MD When: 1 week Medical Necessity - Tobacco Use Smoking Status: Former smoker Meaningful Use Info Meaningful Use Diagnoses (Choose all that apply): None applicable
== END 2017-11-16 16:17 | disposition home health service (06) | DRG 11 ==
LOC: SDC 13:31 → ICU 11-11 07:28 → PCU 11-13 07:24 → ICU 11-13 22:43 → PCU 11-15 14:07
PROVIDERS: Internal Medicine Critical Care Medicine; Admitting Provider Otolaryngology; Family Provider Family Medicine; PCP Family Medicine; Visit Provider Otolaryngology
PROC: 0B110F4 Bypass Trachea to Cutaneous with Tracheostomy Device, Open Approach (ICD-10-PCS; principal; 2017-11-10 09:30)
PROC: 0B21XFZ Change Tracheostomy Device in Trachea, External Approach (ICD-10-PCS; principal; 2017-11-13 18:30)
DX: J39.8 Other specified diseases of upper respiratory tract (principal); J96.01 Acute respiratory failure with hypoxia; J38.6 Stenosis of larynx; Z87.891 Personal history of nicotine dependence; E78.5 Hyperlipidemia, unspecified; K21.9 Gastro-esophageal reflux disease without esophagitis; E66.9 Obesity, unspecified; I10 Essential (primary) hypertension; Z68.31 Body mass index [BMI] 31.0-31.9, adult; T81.82XA Emphysema (subcutaneous) resulting from a procedure, initial encounter; J38.00 Paralysis of vocal cords and larynx, unspecified; E03.9 Hypothyroidism, unspecified; G40.909 Epilepsy, unspecified, not intractable, without status epilepticus
CPT/HCPCS: 31720; 36600; 71045; 71046; 82803; 87070; 87077; 87186; 87205; 87641; 94640; 97802; J7120; A4216; J2405

== ENCOUNTER → 2018-01-09 14:24 | Outpatient (CLI) | payer OTHER, SELFPAY ==
--- NOTE | 2018-01-09 14:30 | CT_ITS ---
STUDY: CT SOFT TISSUE NECK WITHOUT CONTRAST REASON FOR EXAM: Male, 52 years old. Tracheal stenosis, laryngeal stenosis, vocal cord paralysis, hypertension, epilepsy. Tracheostomy from childhood trauma.. RADIATION DOSAGE (If Supplied By Facility): CTDIvol = ( 19.86 ) mGy, DLP = ( 664.54 ) mGycm TECHNIQUE: The patient was scanned in a multi-detector CT scanner. High resolution transaxial imaging was performed without the administration of intravenous contrast material. Sagittal and coronal images were reconstructed. Individualized dose optimization techniques were used for this CT. COMPARISON: September 22, 2017 FINDINGS: Normal bilateral parotid glands. 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 Normal bilateral parapharyngeal spaces. Normal bilateral carotid spaces. Normal bilateral sublingual and submandibular glands and spaces. Normal visualized nasopharynx. Normal retropharyngeal space. Normal perivertebral space. Normal visualized bilateral faucial tonsils. The visualized tongue, tongue base and oropharynx are normal. The visualized cervical lymph nodes (levels I-) are within normal size limits, and maintain normal morphology. There is no demonstrated solid or cystic mass lesion. Normal epiglottis, bilateral vallecula and hypopharynx. The pre-epiglottic and paraglottic adipose spaces are normal. Normal visualized bilateral piriform sinuses, aryepiglottic folds, vocal cords, and arytenoid-cricoid articulations. Again noted is tortuosity, irregularity and decreased caliber of the subglottic trache at the thoracic inlet where it measures 0.7 x 1.0 cm (coronal image #61 series 602) Normal bilateral lobes of the thyroid gland. Normal visualized pulmonary apices. Normal visualized paranasal sinuses. There is multilevel degenerative changes of the cervical spine. CT/Soft Tissue Neck without Contr IMPRESSION: Mild tracheal stenosis. Electronically Signed: Adwoa Hill MD at 14:07 EDT Tel , Service support ,
== END ==
PROVIDERS: Family Provider Family Medicine; PCP Family Medicine
DX: J39.8 Other specified diseases of upper respiratory tract (principal)
CPT/HCPCS: 70490

== ENCOUNTER → 2018-08-09 15:52 | Outpatient (CLI) | payer OTHER, SELFPAY ==
[2018-08-09 16:48] LABS: Absolute Lymphocyte Count 1.54 X10^3/ul (0.83-4.51); Absolute Neutrophil Count 3.5 X10^3/uL (2.0-7.7); Basophil# 0.04 X10^3/uL; Basophil% 0.7 % (0-1); Eosinophil# 0.37 X10^3/uL; Eosinophils% 6.1 % (0-5); Hematocrit 37.5 % (40-54); Hemoglobin 12.5 g/dl (13.0-16.5); Lymphocyte # 1.54 X10^3/ul (4.0); Lymphocyte % 25.4 % (19-41); Mean Corp Hgb Conc 33.3 g/gl (32-36); Mean Platelet Vol. 9.5 fl (6.2-12.0); Monocyte% 9.9 % (0-10); Neutrophil # 3.51 X10^3/uL (2.7-7.7); Neutrophil % 57.7 % (47-70); Platelet Count 172 K/mm3 (150-450); RBC Distribution Width CV 12.4 % (11.6-14.6); RBC Distribution Width SD 39.8 fl (35.1-43.9); Red Blood Count 4.31 M/mm3 (4.6-6.2); White Blood Count 6.1 K/mm3 (4.4-11.0)
[2018-08-09 16:50] LABS: POSITIVE COUNT NO; POSITIVE DIFFERENTIAL NO; POSITIVE MORPHOLOGY NO
[2018-08-09 16:57] LABS: Erythrocyte Sedimentation Rate 7 mm/hr (0-20)
[2018-08-09 17:18] LABS: CRP < 2.90 mg/L (0.0-3.0)
== END ==
PROVIDERS: Family Provider Family Medicine; PCP Family Medicine; Referring Provider Physician Assistant Surgical; Visit Provider Physician Assistant Surgical
DX: M17.11 Unilateral primary osteoarthritis, right knee (principal); M25.561 Pain in right knee
CPT/HCPCS: 36415; 85025; 85652; 86140

== ENCOUNTER → 2018-08-10 15:52 | Outpatient (CLI) | payer OTHER, SELFPAY ==
[2017-11-10 14:02] VITALS: BMI 31.5
--- NOTE | 2018-08-10 16:03 | MRI_ITS ---
STUDY: MRI ORBITS WITH AND WITHOUT CONTRAST REASON FOR EXAM: Male, 53 years old. BILATERAL VISUAL DEFECT. TECHNIQUE: Standardized fat and water weighted pulse sequences were obtained in all 3 orthogonal planes, pre-and post contrast administration. 15 IV Dotarem was administered for the contrast portion of the examination. COMPARISON: None. FINDINGS: Normal bilateral globes. Normal bilateral optic nerve sheath complexes and optic nerves. Normal bilateral intraconal and extraconal spaces. Normal bilateral extraocular muscles. Normal optic chiasm and post-chiasmatic tracts. Normal sella turcica, pituitary gland, infundibular stalk, and hypothalamus. Normal bilateral cavernous sinuses. Normal tectal plate and pineal gland. Normal flow voids within the major intracranial circulation suggesting patency by spin echo criteria. There is thin/absent posterior body of the corpus callosum. The splenium is decreasing in size but present. There is mildly prominent asymmetric ventricles. There are a limited number of small white matter hyperintensities, distributed throughout the deep white matter tracts of the cerebral hemispheres, consistent with mild chronic white matter ischemic changes. Normal bilateral basal ganglia. Normal thalami. There is no extra-axial fluid accumulation. Normal midbrain, jack and medulla. Normal cerebellum. Normal basal cisterns. Mastoid fluid. MRI/Brain W/WO Contrast IMPRESSION: No acute intracranial abnormality or masses. Corpus callosum hypoplasia. Electronically Signed: Adwoa Hill MD at 15:03 EDT Tel , Service support ,
== END ==
PROVIDERS: Family Provider Family Medicine; PCP Family Medicine; Referring Provider Ophthalmology; Visit Provider Ophthalmology
DX: H53.47 Heteronymous bilateral field defects (principal); H53.461 Homonymous bilateral field defects, right side; H53.462 Homonymous bilateral field defects, left side
CPT/HCPCS: 70553; A9575

== ENCOUNTER → 2018-09-10 15:45 | Outpatient (CLI) | payer OTHER, SELFPAY ==
[2018-09-10 17:39] LABS: Absolute Lymphocyte Count 1.68 X10^3/ul (0.83-4.51); Absolute Neutrophil Count 3.6 X10^3/uL (2.0-7.7); Basophil# 0.04 X10^3/uL; Basophil% 0.7 % (0-1); Eosinophil# 0.27 X10^3/uL; Eosinophils% 4.5 % (0-5); Hematocrit 37.1 % (40-54); Hemoglobin 12.4 g/dl (13.0-16.5); Lymphocyte # 1.68 X10^3/ul (4.0); Lymphocyte % 28.1 % (19-41); Mean Corp Hgb Conc 33.4 g/gl (32-36); Mean Corpuscular Hgb 28.8 pg (27.0-32.0); Mean Corpuscular Volume 86.1 fL (80-94); Mean Platelet Vol. 9.9 fl (6.2-12.0); Monocyte% 6.7 % (0-10); Neutrophil # 3.59 X10^3/uL (2.7-7.7); Platelet Count 166 K/mm3 (150-450); RBC Distribution Width CV 12.7 % (11.6-14.6); RBC Distribution Width SD 40.1 fl (35.1-43.9); Red Blood Count 4.31 M/mm3 (4.6-6.2)
[2018-09-10 17:56] LABS: Carbamazepine (Tegretol) 10.4 ug/mL (4.0-12.0)
[2018-09-10 17:58] LABS: POSITIVE COUNT NO; POSITIVE DIFFERENTIAL NO; POSITIVE MORPHOLOGY NO
[2018-09-10 18:06] LABS: ALB/GLOB Ratio 1.3 RATIO (0.9-2.4); AST(SGOT) 22 U/L (15-37); Alanine Aminotransfer ALT/SGPT 28 U/L (16-61); Albumin, Serum 3.8 g/dL (3.2-5.0); Alkaline Phosphatase 109 U/L (45-117); Anion Gap 7 (5-15); BUN 12 mg/dL (7-18); BUN/Creat Ratio 10.9 RATIO (10-20); Calcium,Total 8.5 mg/dL (8.5-10.1); Chloride 106 mmol/L (98-107); Cholesterol 178 mg/dL (200); EST Glomerular Filtration Rate 75 mL/min (>60); Est Glom Filt Rate - Afr Amer 91 mL/min (>60); Glucose 97 mg/dL (74-106); High Density Lipoprotein 57 mg/dL; Potassium 3.9 mmol/L (3.5-5.1); Protein, Total 6.8 g/dL (6.4-8.2); Sodium Level 141 mmol/L (136-145); Thyroid Stim Hormone (TSH) 3.51 uIU/mL (0.358-3.74); Triglycerides 261 mg/dL; Very Low Density Lipoprotein 52 mg/dL (5-40)
== END ==
PROVIDERS: Family Provider Family Medicine; PCP Family Medicine; Visit Provider Family Medicine
DX: E78.00 Pure hypercholesterolemia, unspecified (principal); E66.9 Obesity, unspecified; R56.9 Unspecified convulsions; Z51.81 Encounter for therapeutic drug level monitoring; E03.9 Hypothyroidism, unspecified
CPT/HCPCS: 36415; 80053; 80061; 80156; 84439; 84443; 84481; 85025

== ENCOUNTER 2018-10-17 09:43 | Inpatient (IN) | payer OTHER, SELFPAY ==
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
[2018-10-10 14:26] VITALS: BP 116/77; PULSE 69; RESP 17; TEMP 36.6; O2SAT 97; BMI 31.2
[2018-10-10 15:22] LABS: Partial Thromboplast Time 30.5 Seconds (24.1-36.2)
[2018-10-17] VITALS (16 sets, daily range): BP systolic 106–139; BP diastolic 53–80; PULSE 67–88; RESP 16–18; TEMP 36.2–36.5; O2SAT 96–100; BMI 31.2
[2018-10-17] MEDS: Lactated Ringers 1,000 ML 999 ML IV ×2 (10:10→14:47)
[2018-10-17] MEDS: Magnesium Sulfate 4gm/100mL 4 GM/100 ML IV.SOLN. IV (10:40)
[2018-10-17] MEDS: Acetaminophen 500 MG Tablet 1000 MG PO ×2 (10:56→21:31)
[2018-10-17] MEDS: Celecoxib 200 MG Capsule 400 MG PO (10:56)
[2018-10-17] MEDS: Gabapentin 600 MG Tablet PO (10:57)
[2018-10-17] MEDS: Scopolamine 1mg/72hr Patch 1 PATCH TRANSDERM. (10:57)
[2018-10-17] MEDS: dexAMETHasone 10 MG/ML Vial IV (12:25)
--- NOTE | 2018-10-17 15:00 | RAD_ITS ---
STUDY: X-RAY - RIGHT KNEE REASON FOR EXAM: Male, 53 years old. Postop from knee revision surgery TECHNIQUE: 2 view(s) of the knee. COMPARISON: None. FINDINGS: Patient is postop from right knee revision surgery. Components demonstrate anatomic alignment. No plain film evidence of postoperative complication. Normal postoperative soft tissue swelling and subcutaneous emphysema noted. RAD/Knee 1 or 2 Views IMPRESSION: Replaced right knee joint demonstrates anatomic alignment, and is free of complication Electronically Signed: Sancho Stringer MD at 15:13 EDT , Service support ,
--- NOTE | 2018-10-17 15:50 | OP.PCM_ITS ---
Report of Operation Date of Procedure: 10/17/18 Pre-Operative Diagnosis: Failed right unicompartmental knee replacement, i nstability and aseptic loosening Post-Operative Diagnosis: Failed right unicompartmental knee replacement, instability and aseptic loosening Surgery/Procedure Performed:: Revision right total knee replacement entire femoral and tibial components Description of Surgical Findings:: ACL had previously been sacrificed look like the medial component on the tibia had been over lateralized affecting the stability of the ACL which was nonfunctioning on approach during surgery. At completion of the procedure we had a stable well-balanced knee with good patella tracking. video intern: Fercho Sprague Type of Anesthesia:: Spinal Anesthesiologist: Leonides Herrera Special Medications: 900 mg clindamycin, 1 g TXA at incision, 1 g TXA closure, 10 mg Decadron, joint cocktail (5 mg Duramorph, 30 mL of 0.5% Ropivicaine, 1000 units of epinephrine, 30 mg of Toradol) Specimen's removed: Bony cuts, 3 separate specimens were sent to microbiology Estimated Blood Loss (mL): 50 Fluids Replaced: Crystalloid Description of Procedure: Implants used: 1. Lidgerwood size 3 triathlon cruciate retaining distal femoral component 2. Lidgerwood size 3 universal tibial baseplate, with 50 x 15 mm stem 3. Lidgerwood X3 13 mm CS polyethylene 4. Tori X3 35 mm asymmetric patella Brief history operative indications: 53-year-old M with history of right knee medial compartment unicompartmental knee replacement. X-rays are consistent with aseptic loosening and instability of the knee. Infection was ruled out. Discussion of revision total knee arthroplasty as well as risk and benefits were discussed the patient including but not limited to blood loss, DVTs, PEs, neurovascular damage, general risk of anesthesia including loss of life, and stiffness or instability were discussed with patient. Patient demonstrated understanding and was able to sign informed consent. Procedure: On the date of procedure patient's right lower extremity was marked in the preoperative area. The patient was then taken back to the operating room where the patient was placed on the table in the supine position. All bony prominences were identified a well-padded. Anesthesia assumed control of the C-spine and airway and remained controlled throughout the remainder of the procedure. A tourniquet was placed on the right upper thigh and the leg was prepped in a sterile fashion. The surgeon then scrubbed at this time .Upon reentering the room right lower extremity was draped in a standard orthopedic fashion. A timeout was then called and everyone agreed upon the side, the site, the procedure to be performed, patient's identity and antibiotics given. Esmarch bandage was used to exsanguinate the extremity and the tourniquet was placed up to 250 mmHg with the knee in flexion. A midline skin incision was made and sharp dissection was taken down through skin subcutaneous tissue and fat. Appropriate flaps were created medially and laterally. The standard medial parapatellar incision was made and the patella was subluxed laterally. The standard deep MCL release was done and the fat pad was resected. A synovectomy was commenced and suprapatellar pouch synovium was sent for culture. Navigation pins were placed, navigation was registered. After registering navigation and limb alignment the polyethylene was removed. We then directed our attention to the femoral tibial components. Using osteotomes to break up the bone cement interface the femoral component was removed. We then used osteotomes to break up the bone cement interface for the tibia and this was removed. Next our attention was directed to the femur. At this point we used navigation to pin the appropriate block in place for the distal femoral cutting block and 8mm of distal femur resection was completed. The knee was then placed in deep flexion in the navigation was used to appropriately externally rotate the femoral cutting block pin sites. Once these pin sites were drilled A size 3 4-in-1 cutting block was selected and pinned into place. The anterior cut was then made and checked for notching. The subsequent anterior chamfer cuts, posterior condylar cuts and posterior chamfer cuts were made while ensuring the MCL and LCL were protected. Our attention was then turned to the tibia where the Zymergen tibial cutting guide was used to make the appropriate tibial cut 90 degrees from the mechanical axis. Navigation was then used to verify and register the cut. A size 3 tibial base plate was selected. the knee was flexed to 90 degrees and the soft tissues and posterior osteophytes were removed from the joint. 40 cc of the periarticular injection was injected into the posterior medial corner of the joint. The appropriate trials were then placed on the femur and tibia. A trial polyethylene was trialed to ensure proper balancing and stability of the knee. Patella tracking, was then verified and corrected appropriately as needed. The appropriate tibial internal rotation was then marked with a bovie. Our attention was then directed to the patella. The patella was everted and a flat resection was made. The lug holes were drilled and the patella trial was placed. Patellar tracking was checked and deemed appropriate. Once we were happy lug holes were drilled for the femur and trial components were removed. the tibia was subluxed and pinned into place and the keel was punched and the canal was reamed using the boss reamer for the stemmed component. Final components were verified and opened, and cement was mixed in a vacuum. Yemeksepeti Simplex cement was used. The wound was copiously irrigated with 6 L normal saline on low-pressure lavage. When the cement was ready the components were cemented into place starting with the tibia after pressurizing the canal, femur and finally the patella. The trial poly component was placed and the knee was placed in full extension. All excess cement was removed in the process. Once the cement had cured the tracking, alignment and balance were verified and a size 13 mm CS polyethylene component was placed. Once the final components were placed an Irricept lavage for 1 minute was performed and the wound was copiously irrigated with normal saline solution and the periarticular injection was given. The wound was closed in a layer crowley fashion using #1 vicryl interrupted sutures for the arthrotomy, 2-0 interrupted Vicryl suture for the subcuticular layer and yaz for final skin closure. A sterile compressive dressing was then placed. The patient was then awakened from anesthesia, transferred to the [facility] and transferred to the PACU for recovery. Post op plan DVT ppx: Xarelto for DVT prophylaxis due to active treatment for malignancy, thigh high compression stockings Follow up: in office in 2 weeks for wound check PT: to start POD #0 at hospital, outpatient PT should be arranged. My physician educational assistant teacher was a vital part of this case. He was important in appropriate retraction during the case, and protection of soft tissues during bony cuts. His intimate knowledge of the case and my steps aided in safe and expedient completion of the procedure as well as appropriate position of the leg during the case. He was also vital in assisting with closure under my direct supervision. Grafts/Implants Used: Lidgerwood - Complications No intraoperative complications - Admit VTE Documentation VTE Present on Admission: No VTE Mechan Device Prophylaxis: SCD's, Thigh High ANABELL Onofre VTE Pharm Prophylaxis ordered?: Yes
[2018-10-17] MEDS: Lactated Ringers 1,000 ML 125 ML IV (16:50)
[2018-10-17] MEDS: carBAMazepine 200 MG Tablet 300 MG PO (18:00)
[2018-10-17] MEDS: Aspirin 81 MG TAB.CHEW PO (18:00)
--- NOTE | 2018-10-17 20:25 | PN_ITS ---
Subjective: 53-year-old male who had undergone a half knee replacement in 2016, presents with recurrent right knee pain and underwent a right total knee replacement today. He is doing well after surgery and is looking forward to going home tomorrow. He states that his chronic medical conditions were very stable prior to surgery and that he has no current complaints at the moment. Vitals/I&O's: Vital Signs Temp Pulse Resp BP Pulse Ox 97.5 F L 88 18 129/79 H 96 10/17/18 19:22 10/17/18 19:22 10/17/18 19:22 10/17/18 19:22 10/17/18 19:22 Oxygen Flow Rate (L/min) 6 Oxygen Delivery Method Room Air Weight: 199 lb 8.293 oz Body Mass Index (BMI) 31.2 Intake and Output for Last 24 Hours 10/15/18 10/16/18 10/17/18 23:59 23:59 23:59 Intake Total 2300 / 2300 Balance 2300 / 2300 General: Alert, Oriented x3, Cooperative, No apparent distress HEENT: Atraumatic, PERRLA, EOMI, Normocephalic Oral: Moist Mucosa Neck: Supple, No JVD Lungs: Clear to auscultation, Normal air movement, No rhonchi, No wheeze, No rales, Diminished Cardiovascular: Regular rate, Regular Rhythm, Normal S1, Normal S2, No murmurs Abdomen: Soft, Non Tender, Non-Distended, No Hepato-splenomegaly Extremities: No edema, Capillary Refill Less than 3 Seconds Skin: No rashes, No breakdown, Incision - Dressing intact Neurological: Neuro grossly intact, Sensory exam intact to light touch and pain Psych/Mental Status: Normal Affect, Appropriate Current Medications Acetaminophen (Tylenol) 1,000 mg PO Q8 [facility] Last Admin: 10/17/18 17:55 Dose: Not Given Documented by: Aspirin (Aspirin, Baby) 81 mg PO BIDCM [facility] Last Admin: 10/17/18 18:00 Dose: 81 mg Documented by: Atorvastatin Calcium (Lipitor) 20 mg PO QHS [facility] Carbamazepine (Tegretol) 300 mg PO BREAKFAST [facility] Carbamazepine (Tegretol) 200 mg PO LUNCH [facility] Carbamazepine (Tegretol) 300 mg PO DINNER [facility] Last Admin: 10/17/18 18:00 Dose: 300 mg Documented by: Doxazosin Mesylate (Cardura) 2 mg PO QHS [facility] Famotidine (Pepcid) 20 mg PO DAILY [facility] Fluticasone Propionate (Flonase Nasal [place]) 1 spray NASAL DAILY [facility] Clindamycin Phosphate 900 mg/ (Dextrose) 106 mls @ 150 mls/hr IV Q8H [facility] Stop: 10/18/18 04:43 Last Admin: 10/17/18 20:15 Dose: 150 mls/hr Documented by: Lactated Ringer's () 1,000 mls @ 125 mls/hr IV .Q8H [facility] Ketorolac Tromethamine (Toradol) 15 mg IV Q6H PRN PRN PRN Reason: MILD-MOD PAIN (1-5/10) Lactobacillus Acidophilus (Acidophilus) 1 tablet PO DAILY [facility] Levothyroxine Sodium (Synthroid) 50 mcg PO DAILY@0600 [facility] Meloxicam (Mobic) 7.5 mg PO BID [facility] Metoprolol Succinate (Toprol Xl (Beta Von)) 25 mg PO QHS [facility] Morphine Sulfate () 2 - 4 mg IV Q2H PRN PRN PRN Reason: SEVERE PAIN (6-10/10) Ondansetron HCl (Zofran) 4 mg IV Q8H PRN PRN PRN Reason: NAUSEA Oxycodone HCl (Oxyir) 5 - 10 mg PO Q4H PRN PRN PRN Reason: MOD-SEVERE PAIN (4-10/10) Pantoprazole Sodium (Protonix) 20 mg PO BID [facility] Promethazine HCl (Phenergan) 12.5 mg IM Q6H PRN PRN; Protocol PRN Reason: NAUSEA/VOMITING Rizatriptan Benzoate (Maxalt) 10 mg PO X1 PRN PRN Reason: MIGRAINE SYMPTOMS Senna/Docusate Sodium (Senokot-S, Stephanie-Colace) 2 tablet PO BID [facility] Sodium Chloride () 10 - 40 ml IV UD PRN PRN Reason: SALINE FLUSH Tolterodine Tartrate (Detrol La) 2 mg PO QHS [facility] Medical Necessity - Tobacco Use Smoking Status: Former smoker Assessment/Plan All Active Problems (Last Reviewed 10/24/17 @ 06:22 by Cassidy Blair) Acute respiratory distress (Acute) Pneumomediastinum (Acute) 1. Right total knee replacement and revision of right half knee/chronic edema of right foot -Pain management per primary -PT/OT -DVT per primary with aspirin -Cultures were sent and pending though it does not appear that he had a knee infection, he is afebrile. CBC will be obtained in the morning 2. Seizure disorder -He has been very stable on his current regimen of Tegretol -We will continue 3. Hypothyroidism -Stable -continue with Synthroid 4. HLD/HTN -Blood pressures are stable -Continue with home metoprolol and Lipitor 5. GERD -Stable -Continue with PPI 6. Overactive bladder/BPH -He is on both doxazosin and Myrbetriq at home -Will continue 7. History of migraines -We will provide a triptan as as needed in case he has a migraine while here DVT: Aspirin Code Visit Inpatient E&M: [id number] [facility] Hosp L3
[2018-10-17] MEDS: Senna/Docusate Sodium 1 Tablet 2 TABLET PO (21:30)
[2018-10-17] MEDS: Metoprolol(XL)Succ 25 MG Tablet PO (21:30)
[2018-10-17] MEDS: Pantoprazole Sodium 20 MG Tablet PO (21:31)
[2018-10-17] MEDS: Mirabegron 50 MG TAB.ER.24H PO (21:31)
[2018-10-17] MEDS: Doxazosin 1 MG Tablet 2 MG PO (21:32)
[2018-10-17] MEDS: Tolterodine Tartrate 2 MG CAP.SA PO (21:32)
[2018-10-17] MEDS: Atorvastatin Calcium 20 MG Tablet PO (23:09)
[2018-10-18 02:51] VITALS: BP 120/63; PULSE 85; RESP 18; TEMP 36.4; O2SAT 97
[2018-10-18] MEDS: Acetaminophen 500 MG Tablet 1000 MG PO ×2 (05:48→14:07)
[2018-10-18] MEDS: Levothyroxine 50 MCG Tablet PO (05:48)
[2018-10-18] MEDS: carBAMazepine 200 MG Tablet 300 MG PO (05:49)
[2018-10-18 06:17] LABS: Anion Gap 9 (5-15); BUN 11 mg/dL (7-18); BUN/Creat Ratio 15.4 RATIO (10-20); Chloride 109 mmol/L (98-107); Creatinine, Serum 0.72 mg/dL (0.70-1.30); EST Glomerular Filtration Rate 123 mL/min (>60); Est Glom Filt Rate - Afr Amer 149 mL/min (>60); Estimated Creatinine Clearance 113.48 ml/min; Glucose 98 mg/dL (74-106); Potassium 3.9 mmol/L (3.5-5.1); Sodium Level 142 mmol/L (136-145)
[2018-10-18 06:26] LABS: Hematocrit 32.2 % (40-54); Hemoglobin 10.8 g/dL (13.0-16.5); Mean Corp Hgb Conc 33.5 g/dL (32-36); Mean Corpuscular Hgb 29.3 pg (27.0-32.0); Mean Corpuscular Volume 87.5 fL (80-94); Mean Platelet Vol. 10.1 fl (6.2-12.0); Platelet Count 140 K/mm3 (150-450); Red Blood Count 3.68 M/mm3 (4.6-6.2); White Blood Count 9.6 K/mm3 (4.4-11.0)
[2018-10-18 08:20] VITALS: BP 131/68; PULSE 76; RESP 18; TEMP 36.3; O2SAT 98
[2018-10-18] MEDS: oxyCODONE 5 MG Tablet PO (08:20)
[2018-10-18] MEDS: Famotidine 20 MG Tablet PO (09:12)
[2018-10-18] MEDS: Meloxicam 7.5 MG Tablet PO (09:12)
[2018-10-18] MEDS: Senna/Docusate Sodium 1 Tablet 2 TABLET PO (09:12)
[2018-10-18] MEDS: Aspirin 81 MG TAB.CHEW PO (09:12)
[2018-10-18] MEDS: Pantoprazole Sodium 20 MG Tablet PO (09:12)
[2018-10-18] MEDS: Fluticasone 0.05% 1 SPRAY NASAL.SRY NASAL (09:12)
[2018-10-18] MEDS: Ketorolac 15 MG/ML Vial IV (09:19)
[2018-10-18] MEDS: 0.9% NaCl Peripheral Flush Adult/Peds IV (09:19)
--- NOTE | 2018-10-18 10:23 | PCM.PN.ORT ---
Subjective: The patient was sitting in bedside chair upon examination. Patient denies any chest pain, shortness of breath, dizziness, lightheadedness, nausea or vomiting, or calf pain. Pain is controlled on medications. No adverse overnight events. Overall patient is doing well. He states today when he went to use the restroom he felt a popping sensation in the anterior knee. He has tolerated physical therapy well. Objective: Vital signs stable and afebrile. Patient is able to plantarflex and dorsiflex actively. Sensation is intact to light touch to saphenous, sural, superficial and deep peroneal, and tibial distribution. Dressing is clean dry and intact. Patient is able to perform terminal knee extension as well as straight leg raise. He is able to hold right leg in full extension against gravity and resistance. No palpable defect is appreciated to the right knee. Negative Homans bilaterally, negative signs and symptoms of DVT. - Physical Exam General: Alert, Oriented x3, Cooperative, No apparent distress Vital Signs Temp Pulse Resp BP Pulse Ox 97.4 F L 76 18 131/68 H 98 10/18/18 08:20 10/18/18 08:20 10/18/18 08:20 10/18/18 08:20 10/18/18 08:20 Oxygen Flow Rate (L/min) 6 Oxygen Delivery Method Room Air Weight: 90.5 kg Body Mass Index (BMI) 31.2 Intake and Output for Last 24 Hours 10/16/18 10/17/18 10/18/18 23:59 23:59 23:59 Intake Total 2300 / 3089 899 / 899 Output Total 1350 / 1350 Balance 2300 / 2239 -451 / -451 Microbiology Past 72 Hours 10/17/18 13:56 Gram Stain - Final Tissue - Knee 10/17/18 13:50 Gram Stain - Final Tissue - Knee 10/17/18 13:47 Gram Stain - Final Tissue - Knee Laboratory Tests Past 24 Hrs 10/18/18 10/18/18 05:40 05:40 WBC 9.6 RBC 3.68 L Hgb 10.8 L Hct 32.2 L MCV 87.5 MCH 29.3 MCHC 33.5 RDW Std Deviation 41.0 RDW Coeff of Eric 13.0 Plt Count 140 L MPV 10.1 Sodium 142 Potassium 3.9 Chloride 109 H Carbon Dioxide 24.0 Anion Gap 9 BUN 11 Creatinine 0.72 Estim Creat Clear Calc 113.48 Est GFR (MDRD) Af Amer 149 Est GFR (MDRD) Non-Af 123 BUN/Creatinine Ratio 15.4 Glucose 98 Calcium 8.0 L Medical Necessity - Tobacco Use Smoking Status: Former smoker Assessment/Plan All Active Problems (Last Reviewed 10/24/17 @ 06:22 by Cassidy Blair) Acute respiratory distress (Acute) Pneumomediastinum (Acute) 1. S/P right revision partial knee replacement to a total knee arthroplasty POD #1 2. Continue Pain Medications: Tylenol and OxyIR 3. DVT Prophylaxis: Aspirin 81 mg twice daily for 4 weeks postoperatively 4. PT/OT: Weightbearing as tolerated 5. H & H: 10.8/32.2, asymptomatic 6. Encouraged Incentive Spirometry 7. Continue postoperative medical management per medicine 8. Disposition: Orthopedically patient is doing well. Patient has tolerated physical therapy and pain is been controlled. Plan will be for discharge home this afternoon. Prescriptions will be E scribed to [facility]. Patient will follow-up per postop instructions..
--- NOTE | 2018-10-18 10:31 | DCINST_ITS ---
Discharge Diet: No Restrictions Discharge Activity: May Not Drive May shower in (days): 1 - Turn dressing away from water Ice area for (Minutes): 20 - every hour while awake. Weight Bearing Status: Weight bearing as tolerated Elevate: Operative Extremity Additional Activity Instructions:: Wear elastic stockings for 2 weeks after your surgery. Call your doctor if your incision/area has: Continuous Slow Oozing, Sudden Increased Bleeding, Increased Pain/ Swelling, Increased Redness, Foul Smelling Discharge Call your doctor if you observe: Fever of 101 or Higher, Coldness, Increased Pain, Numbness or Tingling, Change in Color, Calf discomfort, Uncontrolled pain Remove Dressing in (days):: 4 - Okay to remove dressing on October 22, 2018 Additional Instructions: Follow [place] [facility] postop instructions Allergies/Adverse Reactions: Allergies strawberry Allergy (Intermediate, Verified 10/10/18 14:17) Hives azithromycin Allergy (Unknown, Verified 10/10/18 14:17) Unknown erythromycin base Allergy (Verified 10/10/18 14:17) Unknown Penicillins Allergy (Verified 10/10/18 14:17) Hives Barbiturates Adverse Reaction (Verified 10/10/18 14:17) Other divalproex sodium [From Depakote] Adverse Reaction (Verified 10/10/18 14:17) Other Hydantoins Adverse Reaction (Verified 10/10/18 14:17) Other phenobarbital Adverse Reaction (Verified 10/10/18 14:17) Other personality changes phenytoin sodium [From Dilantin] Adverse Reaction (Verified 10/10/18 14:17) Other phenytoin sodium extended [From Dilantin] Adverse Reaction (Verified 10/10/18 14:17) Other Medications to take at Discharge Carbamazepine 300 mg PO BREAKFAST 04/03/15 Levothyroxine [Synthroid] 50 mcg PO DAILY 04/03/15 Metoprolol(XL)Succ [Toprol Xl (Beta Von)] 25 mg PO QHS 04/03/15 Simvastatin [Zocor] 40 mg PO QHS 04/03/15 Carbamazepine [Tegretol] 300 mg PO DINNER 12/07/15 Doxazosin Mesylate [Cardura] 2 mg PO QHS 12/09/15 omeprazole 20 mg tablet,delayed release 20 mg PO BID tab 08/11/17 oxybutynin chloride ER 10 mg tablet,extended release 24 hr 10 mg PO QHS 08/11/17 Carbamazepine [Tegretol] 200 mg PO LUNCH 11/10/17 Fluticasone 0.05% [Flonase Nasal [place]] 1 spray NASAL DAILY 10/10/18 L.acidoph,Paracasei, B.lactis [Probiotic] 1 ea PO DAILY 10/10/18 Mirabegron [Myrbetriq] 50 mg PO QHS 10/10/18 Multivit-Min/Folic/Vit K/Lycop [Men's 50 Plus Multivitamin Tab] 1 ea PO DAILY 10/10/18 Sumatriptan Succinate [Imitrex] 100 mg PO .X1 PRN 10/10/18 Acetaminophen [Tylenol] 1,000 mg PO Q8 #100 tab 10/18/18 Aspirin [Aspirin, Baby] 81 mg PO BIDCM #60 tab.chew 10/18/18 Meloxicam [Mobic] 7.5 mg PO BID #60 tab 10/18/18 Oxycodone [Oxyir] 5 - 10 mg PO Q4H PRN PRN 5 Days #50 tablet 10/18/18 Senna/Docusate Sodium [Senokot-S] 2 tab PO BID #20 tab 10/18/18 The following prescriptions were given: Aspirin [Aspirin, Baby] 81 mg PO BIDCM #60 tab.chew Transmission Status: Pending to [facility] Meloxicam [Mobic] 7.5 mg PO BID #60 tab Transmission Status: Pending to [facility] Oxycodone [Oxyir] 5 - 10 mg PO Q4H PRN PRN 5 Days #50 tablet PRN Reason: Mod-Severe Pain (4-10) Transmission Status: Sent to [facility] Senna/Docusate Sodium [Senokot-S] 2 tab PO BID #20 tab Transmission Status: Pending to [facility] Acetaminophen [Tylenol] 1,000 mg PO Q8 #100 tab Transmission Status: Pending to [facility] Primary Care Physician: Amita Humphreys DO [Primary Care Provider] - Test Results: Test results from this visit will be discussed in further detail at your follow- up appointment, if applicable. Please Follow Up With: Physical Therapy When: 10/22/18 @ 2:00 pm Please Follow Up With: Fercho Sprague PA-C When: 8/7/19 @ 8:30 am
--- NOTE | 2018-10-18 11:28 | CASEMGMT ---
Addendum entered by Raul Delarosa 10/18/18 11:44: -Call to [employer] to verify DME provider. needs to go through [employer] . Information given to liason who will approve wheeled walker through [employer] Liason called to [employer] to let them know it is approved. ALEC SESAY called to [email or web address], spoke w/Linda @ [employer] to have walker delivered to [facility] room 321. Linda states she will pass this on to local [employer]. -ALEC SESAY called to [employer]. Script faxed by [employer] to [employer] @ [phone]. Script also faxed to [employer] for their records. -Pt notified that walker will be delivered to his room. Isabela SCHERER Original Note: RN SHAMA Assessment Presentation: R knee revision Intro role of CM and purpose of RN CM assessment to patient in room. Demographics, PCP and Pharmacy verified. Pt plans to return home. Lives with his mother who is able to assist him. Mother was in room and verified she will be available to assist as well as drive to appts and therapies. PCP: Dr. Amita Humphreys Specialists: Dr. Art Hughes Preferred Pharmacy: [facility] Retail Insurance: [employer] Prescription Benefit: yes LNOK: Mother, Crystal Pipes Living Arrangements: Lives independently with his mother. See PT/OT notes for details Transportation: mother will drive DME: Call to [employer], spoke with clinical liason who will fax script for walker to [facility] where pt's mother would like to pick it up on dc. Call to Will @ [facility] to notify walker will need picked up today. HHC: none Patient DC goals: Home DC PLAN: Home with Outpt physical therapy, first appt 10/22/18 @ 2 pm Isabela SCHERER
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
--- NOTE | 2018-10-18 13:30 | CASEMGMT ---
RN CM Note: Called to [facility], spoke with Alfred to verify that script/auth was received and that walker delivery should be to [facility] room 321. Per Alfred info was received, and insurance was still processing. ALEC SESAY let Alfred know that approval was already received through [facility] and pt is ready to dc today. Walker delivery pending. -[facility] referral # [id number]. Isabela HAYDENN RN ACM
[2018-10-18] MEDS: carBAMazepine 200 MG Tablet PO (14:07)
[2018-10-18 14:11] VITALS: BP 115/70; PULSE 77; RESP 16; TEMP 36.4; O2SAT 97
[2018-10-18 16:01] LABS: Bedside Glucose 109 mg/dL (70-110)
== END 2018-10-18 14:50 | disposition home or self-care (01) | DRG 468 ==
LOC: ACINP 09:44 → MS3 13:12
PROVIDERS: Admitting Provider Specialist; Family Provider Family Medicine; PCP Family Medicine; Referring Provider Specialist; Visit Provider Specialist
PROC: 0SRC0J9 Replacement of Right Knee Joint with Synthetic Substitute, Cemented, Open Approach (ICD-10-PCS; CPT 27447; principal; 2018-10-17 11:15)
DX: T84.022A Instability of internal right knee prosthesis, initial encounter (principal); T84.032A Mechanical loosening of internal right knee prosthetic joint, initial encounter; G40.909 Epilepsy, unspecified, not intractable, without status epilepticus; Y79.2 Prosthetic and other implants, materials and accessory orthopedic devices associated with adverse incidents; E03.9 Hypothyroidism, unspecified; N32.81 Overactive bladder; N40.1 Benign prostatic hyperplasia with lower urinary tract symptoms; I10 Essential (primary) hypertension; E78.00 Pure hypercholesterolemia, unspecified
CPT/HCPCS: 36415; 73560; 80048; 82962; 85027; 85730; 87015; 87070; 87075; 87081; 87102; 87116; 87176; 87205; 87206; 97110; 97162; 97166; 97530; 99251; C1776; J7120; A4216; G0463

== ENCOUNTER → 2018-11-07 08:26 | Outpatient (CLI) | payer OTHER, SELFPAY ==
[2018-10-17 11:00] VITALS: BMI 31.2
[2018-11-07 10:16] LABS: Absolute Lymphocyte Count 1.28 X10^3/uL (0.83-4.51); Absolute Neutrophil Count 2.5 X10^3/uL (2.0-7.7); Basophil# 0.05 X10^3/uL; Basophil% 1.1 % (0-1); Eosinophil# 0.38 X10^3/uL; Hematocrit 37.2 % (40-54); Hemoglobin 12.5 g/dL (13.0-16.5); Lymphocyte # 1.28 X10^3/ul (4.0); Mean Corp Hgb Conc 33.6 g/dL (32-36); Mean Corpuscular Hgb 29.3 pg (27.0-32.0); Mean Corpuscular Volume 87.3 fL (80-94); Mean Platelet Vol. 9.1 fl (6.2-12.0); Monocyte# 0.47 X10^3/uL; Monocyte% 9.9 % (0-10); NRBC Flagged by Analyzer 0 % (0-5); Neutrophil # 2.54 X10^3/uL (2.7-7.7); Neutrophil % 53.6 % (47-70); Platelet Count 186 K/mm3 (150-450); RBC Distribution Width CV 12.8 % (11.6-14.6); RBC Distribution Width SD 40.4 fl (35.1-43.9); Red Blood Count 4.26 M/mm3 (4.6-6.2); White Blood Count 4.7 K/mm3 (4.4-11.0)
[2018-11-07 10:42] LABS: Carbamazepine (Tegretol) 9.5 ug/mL (4.0-12.0)
[2018-11-07 10:59] LABS: AST(SGOT) 15 U/L (15-37); Alanine Aminotransfer ALT/SGPT 25 U/L (16-61); Albumin, Serum 3.8 g/dL (3.2-5.0); Alkaline Phosphatase 127 U/L (45-117); Bilirubin, Direct 0.11 mg/dL (0.00-0.30); Globulin 3.3 g/dL (2.2-4.2); Protein, Total 7.1 g/dL (6.4-8.2)
== END ==
PROVIDERS: Family Provider Family Medicine; PCP Family Medicine; Referring Provider Psychiatry & Neurology Neurology; Visit Provider Psychiatry & Neurology Neurology
DX: R56.9 Unspecified convulsions (principal)
CPT/HCPCS: 36415; 80076; 80156; 85025

== ENCOUNTER 2018-11-16 11:13 | Emergency (ER) | payer OTHER, SELFPAY ==
[2018-10-17 11:00] VITALS: BMI 31.2
[2018-11-16 11:13] VITALS: BP 155/97; PULSE 65; RESP 18; TEMP 36.7; O2SAT 99; BMI 31.3
--- NOTE | 2018-11-16 11:19 | EKG12_ITS ---
Test Reason : DIZZINESS Blood Pressure : / mmHG Vent. Rate : 071 BPM Atrial Rate : 071 BPM P-R Int : 172 ms QRS Dur : 096 ms QT Int : 382 ms P-R-T Axes : 053 -06 047 degrees QTc Int : 415 ms Normal sinus rhythm Moderate voltage criteria for LVH, may be normal variant Borderline ECG Confirmed by SLAVA CARRILLO, BRETT ([id number]), book or script editor ALY BRANDT ([id number]) on 11/19/2018 11:57:21 AM Referred By: Bigg Minaya Confirmed By:BRETT PEDERSEN MD
--- NOTE | 2018-11-16 11:20 | ED.VIS.GEN ---
History of Present Illness Chief Complaint: Dizziness Informant: Patient, Significant Other Onset: Today Context: Sudden Onset Timing: Intermittent Quality: Dizziness which patient defines as lightheadedness Location: Rehab Current Severity: Mild Maximum Severity: Moderate Worsened by: Upright position Relieved by: Supine Associated Symptoms: Nausea and diaphoresis Narrative: Patient is a 53-year-old male who presents because of lightheadedness diaphoresis nausea that occurred during rehab. He denies chest discomfort. He denies shortness of breath. He denies double vision, blurred vision. He denies trouble with speech or swallowing. He denies decreased hearing, ringing in his ears or ear pain. He denies abdominal pain. He denies black or maroon stool. He denies leg pain, swelling discoloration. Prior similar symptoms: No Recent Illness/Hospitalization: Yes - Past Medical History (1) Epilepsy without mention Intractable Epilepsy, unspecified Status: Chronic (2) GERD (gastroesophageal reflux disease) Status: Chronic (3) HLD (hyperlipidemia) Status: Chronic (4) HTN (hypertension) Status: Chronic (5) Paralysis of vocal cords and larynx, unilateral Status: Chronic (6) Stenosis of larynx Status: Chronic Past Medical History - Allergies and Home Meds Allergies/Adverse Reactions: Allergies strawberry Allergy (Intermediate, Verified 10/10/18 14:17) Hives azithromycin Allergy (Unknown, Verified 10/10/18 14:17) Unknown erythromycin base Allergy (Verified 10/10/18 14:17) Unknown Penicillins Allergy (Verified 10/10/18 14:17) Hives Barbiturates Adverse Reaction (Verified 10/10/18 14:17) Other divalproex sodium [From Depakote] Adverse Reaction (Verified 10/10/18 14:17) Other Hydantoins Adverse Reaction (Verified 10/10/18 14:17) Other phenobarbital Adverse Reaction (Verified 10/10/18 14:17) Other personality changes phenytoin sodium [From Dilantin] Adverse Reaction (Verified 10/10/18 14:17) Other phenytoin sodium extended [From Dilantin] Adverse Reaction (Verified 10/10/18 14:17) Other Primary Care Physician: Amita Humphreys DO [Primary Care Provider] - Surgical History: noncontributory, - - Total knee arthroplasty right Lives: Spouse/ Significant Other Smoking Status: Former smoker Alcohol: None Drugs: None Review of Systems General: Denies: Chills, Fever, Malaise, Sweats Eyes: Denies: Visual changes - bilaterally, Blurred Vision - bilaterally ENT: Denies: Rhinorrhea, Sore throat Cardiovascular: Denies: Chest pain, Palpitations, Heart racing Respiratory: Denies: Dyspnea, Cough, Dyspnea on exertion Gastrointestinal: Reports: Nausea. Denies: Abdominal pain, Vomiting, Diarrhea, Melena, Hematochezia Musculoskeletal: Reports: - - Limited range of motion right knee. Denies: Myalgias, Arthralgias, Neck pain, Back pain, Swelling, Extremity Pain Skin: Denies: Rash, Wounds Neurological: Denies: Headache, Weakness, Parasthesia, Numbness Hematologic: Denies: Easy bruising, Easy bleeding Physical Exam Vital Signs/Narrative: Vital Signs Temp Pulse Resp BP Pulse Ox 11/16/18 11:13 98.1 F 65 18 155/97 H 99 Inital Vital Signs reviewed: Yes General: Well nourished, Well developed, No Acute Distress Head: Normocephalic, Atraumatic Eyes: Perrl, EOMI. Negative for: Pale conjunctiva, Scleral icterus, - ENT: Moist mucous membranes, No rhinorrhea, TM's clear Neck: Supple, Nontender, No lymphadenopathy, No JVD, - - Trachea is midline. There is no stridor. Cardiovascular: Regular rate, Regular rhythm, No murmurs, Normal S1, Normal S2, - - Medial sternal well-healed midline incision noted Respiratory: No distress, CTA bilaterally, Chest nontender Abdomen: Soft, Nontender, Nondistended, Normal bowel sounds Rectal: Deferred Back: Nontender, Normal Inspection Extremities: Nontender, No edema, - - There is no asymmetry, swelling, discoloration, leg vein distention, palpable cords or tenderness along the distribution of the deep venous system. There is limited extension flexion right knee. Patient states that his reason he is in rehab. Skin: Normal color, No rash, No Trauma. Negative for: Cyanosis, Diaphoresis, Jaundice Neurological: Alert, Oriented x3, Cranial nerves II-XII grossly intact, Normal Strength, Normal Sensation. Negative for: Normal Gait Psychological: Normal affect, Normal Mood Diagnostic/Tx/Re-eval - Rhythm Strip Rhythm Strip: Sinus Rhythm Rate: 68 Ectopy: None - EKG Initial EKG Interpretation: Sinus Rhythm - Ventricular rate is 71. There is evidence of LVH. OK interval 172 ms. QRS duration 96 ms. QT duration 382 ms. [place] is normal. - Medical Decision Making Based on patient's history and lack of findings suspect either vasovagal near syncope or orthostatic hypotension. Monitor was ordered to assess for dysrhythmia. EKG to assess for ischemic changes. Orthostatic vital signs were ordered as well. He was observed for 1.5 hours. There is been no ectopy. He reports his symptoms have resolved and he is at baseline. Orthostatic vitals were negative. ED Disposition - Plan for ED Patient: Disposition: Home or Assisted Living Diagnosis: Vasovagal near-syncope Instructions: NEAR SYNCOPE, Vasovagal Referrals: Amita Humphreys DO [Primary Care Provider] - As Needed
[2018-11-16 11:43] VITALS: BP 139/98; BP 161/104; BP 165/83; PULSE 62; PULSE 68; PULSE 77; TEMP 36.7
[2018-11-16 13:05] VITALS: BP 150/103; PULSE 68; RESP 18; TEMP 36.6; O2SAT 98
== END 2018-11-16 13:06 | disposition home or self-care (01) ==
PROVIDERS: Emergency Provider Emergency Medicine; Family Provider Family Medicine; PCP Family Medicine
DX: R55 Syncope and collapse (principal); G40.909 Epilepsy, unspecified, not intractable, without status epilepticus; K21.9 Gastro-esophageal reflux disease without esophagitis; E78.5 Hyperlipidemia, unspecified; I10 Essential (primary) hypertension; J38.01 Paralysis of vocal cords and larynx, unilateral; J38.6 Stenosis of larynx; Z88.1 Allergy status to other antibiotic agents; Z88.0 Allergy status to penicillin; Z87.891 Personal history of nicotine dependence; Z96.651 Presence of right artificial knee joint
CPT/HCPCS: 93005; 99284

== ENCOUNTER → 2018-11-29 13:57 | Outpatient (CLI) | payer OTHER, SELFPAY ==
[2018-11-16 11:13] VITALS: BMI 31.3
[2018-11-29 16:17] LABS: Hemoglobin A1c 5.1 % (4.2-6.3)
[2018-11-29 16:24] LABS: ALB/GLOB Ratio 1.2 RATIO (0.9-2.4); AST(SGOT) 21 U/L (15-37); Alanine Aminotransfer ALT/SGPT 28 U/L (16-61); Albumin, Serum 3.9 g/dL (3.2-5.0); Alkaline Phosphatase 106 U/L (45-117); Anion Gap 9 (5-15); BUN 9 mg/dL (7-18); BUN/Creat Ratio 11.9 RATIO (10-20); Calcium,Total 8.4 mg/dL (8.5-10.1); Chloride 104 mmol/L (98-107); Creatinine, Serum 0.76 mg/dL (0.70-1.30); EST Glomerular Filtration Rate 115 mL/min (>60); Est Glom Filt Rate - Afr Amer 140 mL/min (>60); Ferritin 39 ng/mL (26-388); Free T3 3.2 pg/mL (2.18-3.98); Globulin 3.2 g/dL (2.2-4.2); Glucose 91 mg/dL (74-106); Iron 98 ug/dL (65-175); Potassium 3.6 mmol/L (3.5-5.1); Protein, Total 7.1 g/dL (6.4-8.2); Sodium Level 139 mmol/L (136-145); T4 Free Direct 0.87 ng/dL (0.76-1.46); Thyroid Stim Hormone (TSH) 2.25 uIU/mL (0.358-3.74)
[2018-11-29 16:36] LABS: Vitamin B12 348 pg/mL (211-911)
== END ==
PROVIDERS: Family Provider Family Medicine; PCP Family Medicine; Visit Provider Family Medicine
DX: D64.9 Anemia, unspecified (principal); R42 Dizziness and giddiness; R53.83 Other fatigue; Z51.81 Encounter for therapeutic drug level monitoring; R73.01 Impaired fasting glucose; E03.9 Hypothyroidism, unspecified; E55.9 Vitamin D deficiency, unspecified
CPT/HCPCS: 36415; 80053; 82306; 82607; 82728; 83036; 83540; 84439; 84443; 84481

== ENCOUNTER → 2019-01-29 11:06 | Outpatient (CLI) | payer OTHER, SELFPAY | PROVIDERS: Family Provider Family Medicine; PCP Family Medicine; Referring Provider Family Medicine; Visit Provider Family Medicine | DX: G47.10 Hypersomnia, unspecified (principal) | CPT/HCPCS: 95806 ==

== ENCOUNTER → 2019-04-02 13:11 | Outpatient (CLI) | payer OTHER, SELFPAY ==
[2019-02-13 14:31] VITALS: BMI 33.0
--- NOTE | 2019-04-02 16:53 | PFTCOMP_ITS ---
COMPLETE PULMONARY FUNCTION TEST INTERPRETATION Brief HPI: Patient is a 54 year old male, currently under the care of Joan Gutiérrez, who presents to [facility] for complete pulmonary function tests secondary to diagnosis of dyspnea. Respiratory therapist reports good effort and reproducible results. Interpretation: Forced expiration spirometry shows no large airways obstructive ventilatory defect with an FEV1 of 68% predicted. There is no significant bronchodilator response by strict ATS criteria. Spirograms are of good quality and plateau normally. The respiratory flow volume loop shows a normal pattern. Lung volumes by body plethysmography show a decreased total lung capacity at 4.86 L, 80% predicted. All other lung volumes are reduced symmetrically. Diffusion capacity by carbon monoxide is at the lower limit of normal at 71% predicted. The airway resistance is normal. No previous pulmonary function tests were available for review. Impression: Mild restrictive ventilatory defect with a symmetric reduction in diffusing [place]
== END ==
PROVIDERS: Family Provider Family Medicine; PCP Family Medicine; Referring Provider Nurse Practitioner Acute Care; Visit Provider Nurse Practitioner Acute Care
DX: R06.02 Shortness of breath (principal)
CPT/HCPCS: 94060; 94726; 94729

== ENCOUNTER → 2019-04-10 21:00 | Outpatient (CLI) | payer OTHER, SELFPAY ==
[2019-02-13 14:31] VITALS: BMI 33.0
== END ==
PROVIDERS: Family Provider Family Medicine; PCP Family Medicine; Referring Provider Nurse Practitioner Acute Care; Visit Provider Nurse Practitioner Acute Care
DX: G47.33 Obstructive sleep apnea (adult) (pediatric) (principal)
CPT/HCPCS: 95811

== ENCOUNTER → 2019-04-23 09:00 | Outpatient (CLI) | payer OTHER, SELFPAY ==
[2019-02-13 14:31] VITALS: BMI 33.0
== END ==
LOC: SL 10:36
PROVIDERS: PCP Family Medicine; Visit Provider Nurse Practitioner Acute Care
DX: Z46.89 Encounter for fitting and adjustment of other specified devices (principal)

== ENCOUNTER → 2019-05-02 15:08 | Outpatient (CLI) | payer OTHER, SELFPAY ==
[2019-02-13 14:31] VITALS: BMI 33.0
--- NOTE | 2019-05-02 15:13 | RAD_ITS ---
STUDY: X-RAY - LUMBAR SPINE REASON FOR EXAM: Male, 54 years old. Low back pain TECHNIQUE: 5 view(s) of the lumbar spine were obtained. COMPARISON: None FINDINGS: Normal lumbar lordosis. There is no substantial scoliosis. There is a normal alignment of the vertebrae. There is multilevel endplate spondylosis of the lumbar vertebrae. There is multi-level degenerative disc disease with multi-level disc space narrowing. There is no demonstrated fracture. The soft tissue structures are unremarkable. RAD/L/S Spine Min 4 Views IMPRESSION: Degenerative changes of the spine, as detailed above. Electronically Signed: Sancho Stringer MD at 13:47 EST , Service support ,
--- NOTE | 2019-05-02 15:14 | RAD_ITS ---
STUDY: X-RAY - PELVIS AND RIGHT HIP REASON FOR EXAM: Male, 54 years old. Pain, stiffness TECHNIQUE: 3 views of the pelvis and hip. COMPARISON: None. FINDINGS: There is a non-specific bowel gas pattern. Normal visualized soft tissue structures. Normal bilateral iliac wings, sacroiliac joints and visualized sacrum. Normal bilateral superior and inferior pubic rami. There is fusion of the dorsal symphysis pubis. Normal bilateral ischial tuberosities. Normal visualized femoral head. Normal acetabulum. There is mild articular joint space narrowing of the hip. RAD/HIP, UNI W/ Pelvis 2-3 Views IMPRESSION: Mild degenerative changes, no acute findings Electronically Signed: Sancho Stringer MD at 13:47 EST , Service support ,
== END ==
PROVIDERS: PCP Family Medicine; Referring Provider Family Medicine; Visit Provider Family Medicine
DX: M25.551 Pain in right hip (principal); S39.012A Strain of muscle, fascia and tendon of lower back, initial encounter
CPT/HCPCS: 72110; 73502

== ENCOUNTER → 2020-05-30 08:38 | Outpatient (CLI) | payer OTHER, SELFPAY ==
[2019-02-13 14:31] VITALS: BMI 33.0
[2020-05-30 09:06] LABS: Absolute Lymphocyte Count 1.11 X10^3/uL (0.83-4.51); Absolute Neutrophil Count 2.4 X10^3/uL (2.0-7.7); Basophil# 0.04 X10^3/uL; Eosinophil# 0.21 X10^3/uL; Hemoglobin 13.7 g/dL (13.0-16.5); Lymphocyte # 1.11 X10^3/ul (4.0); Lymphocyte % 26.4 % (19-41); Mean Corp Hgb Conc 33.4 g/dL (32-36); Mean Corpuscular Hgb 30.1 pg (27.0-32.0); Mean Corpuscular Volume 90.1 fL (80-94); Mean Platelet Vol. 9.3 fl (6.2-12.0); Monocyte# 0.42 X10^3/uL; NRBC Flagged by Analyzer 0 % (0-5); Neutrophil # 2.41 X10^3/uL (2.7-7.7); Neutrophil % 57.4 % (47-70); Platelet Count 148 K/mm3 (150-450); RBC Distribution Width CV 12.2 % (11.6-14.6); RBC Distribution Width SD 39.8 fl (35.1-43.9); Red Blood Count 4.55 M/mm3 (4.6-6.2); White Blood Count 4.2 K/mm3 (4.4-11.0)
[2020-05-30 09:40] LABS: ALB/GLOB Ratio 1.4 RATIO (0.9-2.4); AST(SGOT) 20 U/L (15-37); Alanine Aminotransfer ALT/SGPT 31 U/L (16-61); Alkaline Phosphatase 88 U/L (45-117); Anion Gap 4 (5-15); BUN 12 mg/dL (7-18); BUN/Creat Ratio 13.6 RATIO (10-20); Calcium,Total 8.6 mg/dL (8.5-10.1); Chloride 107 mmol/L (98-107); Creatinine, Serum 0.88 mg/dL (0.70-1.30); EST Glomerular Filtration Rate 96 mL/min (>60); Est Glom Filt Rate - Afr Amer 116 mL/min (>60); Globulin 2.9 g/dL (2.2-4.2); Glucose 101 mg/dL (74-106); Potassium 4.1 mmol/L (3.5-5.1); Protein, Total 6.9 g/dL (6.4-8.2); Sodium Level 140 mmol/L (136-145)
== END ==
PROVIDERS: PCP Family Medicine; Referring Provider Psychiatry & Neurology Neurology; Visit Provider Psychiatry & Neurology Neurology
DX: G40.209 Localization-related (focal) (partial) symptomatic epilepsy and epileptic syndromes with complex partial seizures, not intractable, without status epilepticus (principal)
CPT/HCPCS: 36415; 80053; 85025

== ENCOUNTER → 2020-10-06 09:27 | Outpatient (CLI) | payer OTHER, SELFPAY ==
[2019-02-13 14:31] VITALS: BMI 33.0
[2020-10-06 10:34] LABS: PSA,Total - Annual Screen 0.68 ng/mL (0.00-4.00)
== END ==
PROVIDERS: PCP Family Medicine; Referring Provider Nurse Practitioner Adult Health; Visit Provider Nurse Practitioner Adult Health
DX: Z12.5 Encounter for screening for malignant neoplasm of prostate (principal)
CPT/HCPCS: 36415; 84153; G0103

== ENCOUNTER → 2020-12-21 09:31 | Outpatient (CLI) | payer OTHER, SELFPAY | PROVIDERS: PCP Family Medicine; Referring Provider Family Medicine; Visit Provider Family Medicine | DX: R09.81 Nasal congestion (principal); R05 Cough; R06.89 Other abnormalities of breathing; R51.9 Headache, unspecified | CPT/HCPCS: 87635; U0005; U0003 ==

== ENCOUNTER → 2021-03-23 12:13 | Outpatient (CLI) | payer OTHER, SELFPAY | PROVIDERS: PCP Family Medicine; Visit Provider Family Medicine | DX: Z20.828 Contact with and (suspected) exposure to other viral communicable diseases (principal) | CPT/HCPCS: 87635; U0005; U0003 ==

== ENCOUNTER 2021-05-11 09:30 | Outpatient (CLI) | payer BC, SELFPAY ==
[2021-05-11 12:38] LABS: Carbamazepine (Tegretol) 6.7 ug/mL (4.0-12.0)
[2021-05-11 12:56] LABS: ALB/GLOB Ratio 1.1 RATIO (0.9-2.4); AST(SGOT) 18 U/L (15-37); Alanine Aminotransfer ALT/SGPT 32 U/L (16-61); Albumin, Serum 3.6 g/dL (3.2-5.0); Alkaline Phosphatase 100 U/L (45-117); Anion Gap 6 (5-15); BUN 12 mg/dL (7-18); Calcium,Total 8.7 mg/dL (8.5-10.1); Chloride 106 mmol/L (98-107); Cholesterol 182 mg/dL (200); EST Glomerular Filtration Rate 107 mL/min (>60); Est Glom Filt Rate - Afr Amer 130 mL/min (>60); Globulin 3.2 g/dL (2.2-4.2); Glucose 100 mg/dL (74-106); High Density Lipoprotein 49 mg/dL; Potassium 3.8 mmol/L (3.5-5.1); Protein, Total 6.8 g/dL (6.4-8.2); Sodium Level 139 mmol/L (136-145); Triglycerides 181 mg/dL; Very Low Density Lipoprotein 36 mg/dL (5-40)
== END 2021-05-11 23:59 | disposition home or self-care (01) ==
LOC: MTLAB 09:32
PROVIDERS: PCP Family Medicine; Referring Provider Family Medicine; Visit Provider Family Medicine
DX: E78.00 Pure hypercholesterolemia, unspecified (principal); R56.9 Unspecified convulsions; Z51.81 Encounter for therapeutic drug level monitoring
CPT/HCPCS: 36415; 80053; 80061; 80156

== ENCOUNTER 2021-09-01 10:48 | Observation (INO) | payer BC, SELFPAY ==
--- NOTE | 2021-08-30 12:54 | EKG12_ITS ---
Test Reason : PRE OP Blood Pressure : / mmHG Vent. Rate : 075 BPM Atrial Rate : 075 BPM P-R Int : 168 ms QRS Dur : 098 ms QT Int : 372 ms P-R-T Axes : 056 -06 060 degrees QTc Int : 415 ms Normal sinus rhythm Normal ECG Confirmed by SLAVA CARRILLO, BRETT ([id number]), editor newspaper ALY BRANDT ([id number]) on 08/31/2021 1:09:31 PM Referred By: Forrest Carrillo Confirmed By:BRETT PEDERSEN MD
[2021-08-30 13:47] LABS: Partial Thromboplast Time 32.1 Seconds (24.1-36.2)
[2021-08-30 14:30] LABS: Thyroid Stim Hormone (TSH) 3.28 uIU/mL (0.358-3.74)
[2021-09-01] VITALS (19 sets, daily range): BP systolic 77–155; BP diastolic 54–97; PULSE 50–82; RESP 14–16; TEMP 36.6–37; O2SAT 95–100; BMI 31.7
[2021-09-01] MEDS: Lactated Ringers 1,000 ML 15 ML IV ×2 (10:15→16:15)
--- NOTE | 2021-09-01 10:52 | DCINST_ITS ---
Discharge Instructions Diet Discharge Diet: No restrictions Activity Discharge Activity: Return to Normal Activity and May Not Drive (while taking narcotic pain medications.) Dressing / Incision Call your doctor if you observe: Fever of 101 or Higher Follow Up Care Please Follow Up With: Forrest Carrillo MD When: Call [phone] for an appointment Test Results: Test results from this visit will be discussed in further detail at your follow-up appointment, if applicable. Discharge Plan Admission Primary Reason for Your Visit: RAEGAN Attending Provider: Forrest Carrillo Primary Care Provider: Amita Humphreys Consulting Providers: Jose Thornton Instructions Patient Instructions: [facility] Home Recovery Discharge Orders/Prescriptions Prescriptions: New ciprofloxacin HCl [Cipro] 500 mg tablet 500 mg PO BID Qty: 10 RF: 0 Continued simvastatin 40 MG tablet 40 mg PO QHS RF: 0 carbamazepine 200 MG tablet 300 mg PO BREAKFAST RF: 0 levothyroxine 50 MCG tablet 50 mcg PO DAILY RF: 0 metoprolol succinate 25 MG tablet 25 mg PO QHS RF: 0 carbamazepine 200 MG tablet 300 mg PO QHS RF: 0 omeprazole 20 mg tablet,delayed release (DR/EC) 20 mg PO BID RF: 0 carbamazepine 200 MG tablet 200 mg PO LUNCH RF: 0 Held aspirin 81 MG tablet,chewable 81 mg PO QHS RF: 0 Hold Instructions: Resume on 09/15/21. Discontinued doxazosin 2 MG tablet 2 mg PO QHS RF: 0 Referrals / Follow Up: Forrest Carrillo MD [STAFF PHYSICIAN] - Amita Humphreys DO [Primary Care Provider] - Disposition Disposition (needs filled in before D/C Order can be placed): Home, Self Care
--- NOTE | 2021-09-01 10:52 | PCM.HP.STD ---
HPI - General HPI Narrative AMANDO MÁRQUEZ, is a 56 M who presents for a [facility] Medical History (Updated 08/30/21 @ 12:34 by Caroline Jenkins) Arthritis Arthritis Back pain BPH (benign prostatic hyperplasia) Cardiology follow-up encounter CPAP (continuous positive airway pressure) dependence Edema of right foot Epilepsy without mention Intractable Epilepsy, unspecified Former smoker Gastric reflux GERD (gastroesophageal reflux disease) High cholesterol History of back problems History of edema History of migraine headaches History of stress test HLD (hyperlipidemia) Hoarseness Hypercholesteremia Injury of head and neck Kidney stones Migraine headache Obesity Seizures Sleep apnea Syncope Thyroid disease UTI (urinary tract infection) Vision problems Wears dentures Wears glasses Home Medications carbamazepine 300 mg PO BREAKFAST 04/03/15 [History Last Taken 08/31/21 20:00] levothyroxine 50 mcg PO DAILY 04/03/15 [History Last Taken 08/31/21 20:00] metoprolol succinate 25 mg PO QHS 04/03/15 [History Last Taken 10/17/18 0600] simvastatin 40 mg PO QHS 04/03/15 [History Last Taken 11/09/17] carbamazepine 300 mg PO QHS 12/07/15 [History Last Taken 11/09/17] omeprazole 20 mg tablet,delayed release 20 mg PO BID tab 08/11/17 [History Last Taken 08/31/21 20:00] carbamazepine 200 mg PO LUNCH 11/10/17 [History Last Taken 11/09/17] aspirin 81 mg PO QHS 11/16/18 [History Last Taken 09/01/21 81 MG] ciprofloxacin HCl [Cipro] 500 mg PO BID #10 tab 09/01/21 [Rx Last Taken Unknown] Allergy/AdvReac Type Severity Reaction Status Date / Time strawberry Allergy Intermediate Hives Verified 09/01/21 10:08 azithromycin Allergy Unknown Unknown Verified 09/01/21 10:08 erythromycin base Allergy Unknown Verified 09/01/21 10:08 Penicillins Allergy Hives Verified 09/01/21 10:08 Barbiturates AdvReac Other Verified 09/01/21 10:08 divalproex sodium AdvReac Other Verified 09/01/21 10:08 [From Depakote] Hydantoins AdvReac Other Verified 09/01/21 10:08 phenobarbital AdvReac Other Verified 09/01/21 10:08 phenytoin sodium AdvReac Other Verified 09/01/21 10:08 [From Dilantin] phenytoin sodium extended AdvReac Other Verified 09/01/21 10:08 [From Dilantin] Surgical History (Updated 08/30/21 @ 12:34 by Caroline Jenkins) History of bronchoscopy History of cardiac catheterization History of partial knee replacement History of tracheostomy as a child Hx laparoscopic cholecystectomy Hx of cardiac cath Hx of cystoscopy Hx of foot surgery Hx of tooth extraction Hx of total knee replacement Social History (Updated 02/13/19 @ 16:42 by Joan Gutiérrez HOUSEKEEPER CAREGIVER, HOUSEKEEPER CAREGIVER-C) current occupation: [employer] Smoking Status: Former smoker alcohol intake: never substance use type: does not use Vital Signs Vital Signs Vital Signs: 09/01/21 10:10 Temperature 98.1 F Temperature Source Temporal Pulse Rate 73 Respiratory Rate 16 Respiratory Pattern Normal Blood Pressure 155/97 H Blood Pressure Mean 116 Blood Pressure Source Monitor Blood Pressure Position Sitting Blood Pressure Location Right Arm Pulse Ox 99 Oxygen Delivery Method Room Air Weight Weight: 92 kg Body Mass Index (BMI) 31.7
[2021-09-01] MEDS: Cefazolin 2 GM in 0.9% Normal Saline 100 ML IV (11:17)
--- NOTE | 2021-09-01 11:55 | PROS_PTH ---
PATIENT: AMANDO MÁRQUEZ Jr. LOC: MS3 U#:[id number] AGE/SX: 56/M ROOM: [facility] [place] RE09/01/[address]: Dr. Forrest Carrillo MD : [id number] BED: 1 DIS: 09/02/2021 SPEC #: [id number] RECD: 09/01/21 13:02 STATUS: ZULMA REY #: [id number] STANTON: 09/01/21 11:[address]: Forrest Carrillo DEPT: SURGICAL PATHOLOGY RECD BY: Meredith Liao ENTERED: 09/02/21 07:34 SP TYPE: TURP OTHR DR: MD Dr. Amita Brown DO Tissues: Prostate, NOS Procedures: Surgery Specimen Level IV HEADER OPERATION: Cysto, TUR prostate, Olymp[employer] PRE-OP DIAGNOSIS: Benign prostatic hyperplasia with obstruction TISSUE SUBMITTED: Prostate tissue MICROSCOPIC DIAGNOSIS Prostate tissue, transurethral resection: Benign prostatic hyperplasia, glandular and stromal type. LAVELL:tameka 09/03/2021 MICROSCOPIC DESCRIPTION Slides are reviewed. GROSS DESCRIPTION Received is one container labeled with the patient's name and designated prostate tissue. The specimen consists of multiple irregular fragments of pink-ramires, rubbery, soft tissue that in aggregate weigh 6.2 gm and measure in aggregate 4.5 x 4 x 1 cm. The entire specimen is submitted in six cassettes. / LAVELL:tameka 09/02/2021 TC:5 CPT: 35918
--- NOTE | 2021-09-01 12:01 | OP.PCM_ITS ---
Report of Operation Date of Procedure: 09/01/21 Pre-Operative Diagnosis: bph with obstruction Post-Operative Diagnosis: same Surgery/Procedure Performed:: TURP Description of Surgical Findings:: In the preoperative setting I discussed with the patient how the surgery would be done with expect afterwards. We discussed how a prostate resection is done and we discussed the risk of the surgery including, bleeding, infection, retrograde ejaculation, changes with ejaculation or intercourse,. We discussed the possibility that the resection of the prostate may not alleviate his urinary symptoms. We discussed the small risk of developing scar tissue along the urethral channel and strictures. We also discussed the chance of the prostate could grow back and he may need further surgery or treatment in the future for prostate problems. Patient was taken back to the operating room, timeout procedure was performed, he was identified and marked and placed on the operating room table. He underwent general anesthesia. He was placed in dorsolithotomy position. Penis and testicles were prepped and draped in usual sterile fashion. Went into the bladder using the visual obturator with a resectoscope. Once inside the bladder identified the right and left ureteral orifice. He had a short length but obstructive prostate with a high bladder neck. I then identified the prostate and the anatomy of the prostate. I marked out the area of the sphincter and the verumontanum was identified. I then proceeded with the prostate resection first resected the median lobe. And then resected the right lobe of the prostate. Then to resect the left lobe of the prostate. I then resected the apical tissue of the prostate. This was a complete resection of all obstructive tissue to improve voiding and relieve obstruction. I then made sure that there was no injury to the sphincter or the verumontanum was still intact. At the end of the resection all the chips were Ellik out of the bladder. I then identified the left and right ureteral orifice and these were confirmed to be in good position and effluxing and not injured. The resectoscope was removed, a 20 [place] catheter. And the urine was fairly light pink color and draining normally. He was taken back to the PACU in good condition. CPT 49665 Surgeon: leroy
--- NOTE | 2021-09-01 12:25 | SUR.PHASEI ---
PT C/O SUDDEN ONSET NAUSEA, COLOR PALE, SPO2 98%, PULSE IN 50'S, BP OBTAINED TO BE 77/54. PT LESS RESPONSIVE-PT PLACED IN [place] POSITION, CALLED ANESTHESIA, DR GONZALEZ TO BEDSIDE, ORDERS FOR 500CC LRX 1 NOW, LEAVE PT IN [place] BP IN [place] POSITION 90/51. -MORE RESPONSIVE, DENIES PAIN OR SOB, PT HAS NO FEELING OR MOVEMENT FROM WAIST DOWN. WILL MONITOR CLOSELY.
--- NOTE | 2021-09-01 16:01 | SUR.PHASEII ---
[facility] TELEPHONE REPORT CALLED TO [facility] .
[2021-09-01] MEDS: carBAMazepine 200 MG Tablet PO (16:37)
[2021-09-01] MEDS: Atorvastatin Calcium 20 MG Tablet PO (21:40)
[2021-09-01] MEDS: Pantoprazole Sodium 20 MG Tablet PO (21:41)
[2021-09-01] MEDS: carBAMazepine 200 MG Tablet 300 MG PO (21:42)
[2021-09-01] MEDS: Metoprolol(XL)Succ 25 MG Tablet PO (21:42)
[2021-09-01] MEDS: Ciprofloxacin 500 MG Tablet PO (21:48)
[2021-09-02 00:06] VITALS: BP 128/76; PULSE 68; RESP 18; TEMP 36.6; O2SAT 100
[2021-09-02 03:55] VITALS: BP 132/88; PULSE 65; RESP 18; TEMP 36.5; O2SAT 95
[2021-09-02] MEDS: Levothyroxine 50 MCG Tablet PO (05:14)
[2021-09-02] MEDS: Pantoprazole Sodium 20 MG Tablet PO (08:46)
[2021-09-02] MEDS: carBAMazepine 200 MG Tablet 300 MG PO (08:46)
[2021-09-02 10:00] VITALS: BP 150/90; PULSE 65; RESP 16; TEMP 36.7; O2SAT 95
[2021-09-02] MEDS: Ciprofloxacin 500 MG Tablet PO (11:13)
[2021-09-02] MEDS: carBAMazepine 200 MG Tablet PO (11:14)
== END 2021-09-02 12:58 | disposition home or self-care (01) ==
LOC: SDC 14:38 → MS3 14:38
PROVIDERS: Anesthesiology; Admitting Provider Urology; PCP Family Medicine; Referring Provider Urology; Visit Provider Urology
PROC: (CPT 52601; principal; 2021-09-01 11:45)
DX: N40.1 Benign prostatic hyperplasia with lower urinary tract symptoms (principal); R39.15 Urgency of urination; Z87.891 Personal history of nicotine dependence; N13.8 Other obstructive and reflux uropathy; Z79.899 Other long term (current) drug therapy; Z79.82 Long term (current) use of aspirin; G47.33 Obstructive sleep apnea (adult) (pediatric); E78.5 Hyperlipidemia, unspecified; K21.9 Gastro-esophageal reflux disease without esophagitis; E66.9 Obesity, unspecified; M19.90 Unspecified osteoarthritis, unspecified site; E07.9 Disorder of thyroid, unspecified; Z79.890 Hormone replacement therapy; Z68.31 Body mass index [BMI] 31.0-31.9, adult; Z87.898 Personal history of other specified conditions; Z92.89 Personal history of other medical treatment
CPT/HCPCS: 52601; 00914; 36415; 84443; 85730; 88305; 93005; 99218; J7120; G0378; J2405

== ENCOUNTER → 2021-10-26 | Outpatient (CLI) | payer OTHER, SELFPAY ==
[2021-10-26 12:03] LABS: Hematocrit 39.3 % (40-54); Hemoglobin 13.8 g/dL (13.0-16.5); Mean Corp Hgb Conc 35.1 g/dL (32-36); Mean Corpuscular Hgb 30.9 pg (27.0-32.0); Mean Corpuscular Volume 87.9 fL (80-94); Mean Platelet Vol. 9.4 fl (6.2-12.0); Platelet Count 164 K/mm3 (150-450); RBC Distribution Width CV 12.4 % (11.6-14.6); RBC Distribution Width SD 39.9 fl (35.1-43.9); Red Blood Count 4.47 M/mm3 (4.6-6.2)
[2021-10-26 12:27] LABS: Anion Gap 5 (5-15); BUN 11 mg/dL (7-18); Calcium,Total 8.8 mg/dL (8.5-10.1); Chloride 105 mmol/L (98-107); Creatinine, Serum 0.92 mg/dL (0.70-1.30); EST Glomerular Filtration Rate 91 mL/min (>60); Est Glom Filt Rate - Afr Amer 111 mL/min (>60); Glucose 128 mg/dL (74-106); Potassium 3.7 mmol/L (3.5-5.1); Sodium Level 139 mmol/L (136-145)
== END | disposition home or self-care (01) ==
LOC: LAB 11:22
PROVIDERS: PCP Family Medicine; Referring Provider Physician Assistant; Visit Provider Physician Assistant
DX: Z01.818 Encounter for other preprocedural examination (principal); Z01.810 Encounter for preprocedural cardiovascular examination
CPT/HCPCS: 36415; 80048; 85027

== ENCOUNTER → 2022-07-14 | Outpatient (CLI) | payer OTHER, SELFPAY | END | disposition home or self-care (01) | LOC: LAB 16:24 | PROVIDERS: PCP Family Medicine; Visit Provider Urology | DX: R53.83 Other fatigue (principal); R35.1 Nocturia | CPT/HCPCS: 36415; 84403 ==

== ENCOUNTER → 2022-08-10 | Outpatient (CLI) | payer OTHER, SELFPAY ==
[2022-08-10 18:50] LABS: PSA,Total - Annual Screen 0.57 ng/mL (0.00-4.00)
== END | disposition home or self-care (01) ==
LOC: LAB 17:34
PROVIDERS: PCP Family Medicine; Referring Provider Urology; Visit Provider Urology
DX: R35.1 Nocturia (principal)
CPT/HCPCS: 36415; 84153; G0103

== ENCOUNTER → 2023-01-20 | Outpatient (CLI) | payer OTHER, SELFPAY ==
--- NOTE | 2023-01-20 16:12 | RAD_ITS ---
INDICATION: SCIATICA EXAMINATION/TECHNIQUE: X-RAY - XR Spine Lumbar Min 4 Views COMPARISON: FINDINGS: Grade 1 spondylolisthesis L4-5 without spondylolysis. Moderate spondylosis throughout lumbar spine. Loss of disc space height L4-5 mild remainder of the lumbar spine. INCLUDED ABDOMEN: Included bowel gas pattern is non-obstructive. RAD/L/S Spine Min 4 Views IMPRESSION: Degenerative changes as above. Electronically Signed: Lev Batres MD at 10:05 EDT ,
== END | disposition home or self-care (01) ==
LOC: MTRAD 16:07
PROVIDERS: PCP Family Medicine; Referring Provider Nurse Practitioner Family; Visit Provider Nurse Practitioner Family
DX: M54.31 Sciatica, right side (principal); M54.32 Sciatica, left side
CPT/HCPCS: 72110

== ENCOUNTER 2023-05-17 16:06 | Outpatient (RCR) | payer OTHER, SELFPAY ==
--- NOTE | 2023-05-17 17:25 | HP.PTEVAL_ITS ---
Patient's Visit Information Visit Information Visit Information: AMANDO MÁRQUEZ Jr. is a 58 year old M referred to Physical Therapy by Dr. Amita Humphreys DO with a diagnosis of SCIATICA WITH MULTIPLE LEVEL DDD LUMBAR. Date of Evaluation: 05/17/23 Physical Therapist: Roderick Lorenzo, PT, Cert MDT, OCS Visit Plan Frequency: 2x /Week Duration: 4 Weeks Plan: PRECUATION: SEIZURES PT INTERENTIONS DLS ,POSTURAL E'S ,GRADE LUMBAR VROM GUILLERMO ,ACTIVITY MODIFICATION AND US/CP Subjective Subjective: This 58 y/o male presents to physical therapy lumbar radiculopathy with bilateral legs. Patient has sciatica symptoms ~ year. Patient seen DR Humphreys last week . Recommended PT and x-rays lumbar Grade 1 spondylolisthesis L4- 5 without spondylolysis. Moderate spondylosis throughout lumbar spine and DDD. Patient had x-rays last year. Location of pain LS and bilateral gluts to hamstrings. Aggravating walking/standing ,occasional bending /lifting. Alleviating rest sitting. C/O paresthesia/tingling in legs one or other. Coughing/sneezing-Bowel/bladder- Pain doesn't affects sleeping. Patient symptoms was insidious onset. Trauma injury as child. Patient condition affects QOL and function/job demands, Patient goals to decrease pain. PRECAUTION: Seizures SOCAIL: single Pain Bilateral Back: Pain Intensity (Out of 10): 9 Pain Intensity Range: 10 Bilateral Lower Extremity: Pain Intensity (Out of 10): 5 Pain Intensity Range: 10 Objective Objective: POSTURE: forward posture trunk flexed GAIT: antalgic gait forward posture reciprocal pattern PALPATION: unremarkable NEURO: c/o paresthesia/tingling right ,left leg ,reflexes L3-4,L4-5,L5-S1 2/3 LUMBAR ROM: flexion mod loss ,extension mod/severe pain ,side glides mod MMT: quads/hams 4/5 ,hip flexion 4-/5 ,ankle 5/5 FLEXABILITY: hamstrings mod tight Special Tests L/S Slump test left side: Negative L/S Slump test right side: Negative L/S Left Straight Leg Raise: Negative L/S Right Straight Leg Raise: Negative Lumbar Standing: Flexion - Mechanical Response: No effect Lumbar Standing: Flexion - Symptoms During Testing: Increases Lumbar Standing: Flexion - Symptoms After Testing: Worse Lumbar Standing: Extension - Mechanical Response: No effect Lumbar Standing: Extension - Symptoms During Testing: Increases Lumbar Standing: Extension - Symptoms After Testing: Worse Lumbar Standing: Right Side Glides - Mechanical Response: No effect Lumbar Standing: Right Side [place] - Symptoms During Testing: No effect Lumbar Standing: Right Side [place] - Symptoms After Testing: No effect Lumbar Standing: Left Side [place] - Mechanical Response: No effect Lumbar Standing: Left Side [place] - Symptoms During Testing: No effect Lumbar Standing: Left Side [place] - Symptoms After Testing: No effect Lumbar Lying: Flexion - Mechanical Response: No effect Lumbar Lying: Flexion - Symptoms During Testing: Increases Lumbar Lying: Flexion - Symptoms After Testing: Worse Comments:: unable Balance/Special Test Scores Oswestry Low Back Score: 26 Goals Goal 1:: I with HEP for lumbar spine Goal Time Frame: 4-6 Weeks Goal 2:: Patient to normalize gait pattern with less antalgic gait . 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 Goal Time Frame: 4-6 Weeks Goal 4:: Patient to improve back oswestry score by 5 points to improve QOL and function Goal Time Frame: 4-6 Weeks Goal 5:: Patient to demonstrate 50% improvement with less pain and improved function Goal Time Frame: 4-6 Weeks Rehabilitation Potential Physical Therapy Diagnosis: Patient appears to have possible derangement vs stenosis with pain with positioning and motion testing affects ADLS and h ousework .job demands thus benefit from skilled PT Rehabilitation Potential: Good Anticipated Interventions Patient/Client Instruction: Educate patient on: Condition and Plan of Care For the Purpose of:: To decrease pain, To increase ROM, To improve muscle performance and motor function, To increase tolerance to activity/condition/position, To improve ability of physical actions for home/community/work/leisure, To improve health of tissue, To decrease soft tissue restriction, To increase flexibility/ROM and To prevent re-injury Therapeutic Exercise to Include: Strength training, Endurance training, Balance training, Body mechanics, Postural training, Flexibilty training and Dynamic Lumbar Stabilization For the Purpose of:: To decrease pain, To increase ROM, To improve muscle performance and motor function, To improve ability to perform ADL's, To increase tolerance to activity/condition/position, To improve ability of physical actions for home/community/work/leisure, To improve health of tissue, To decrease soft tissue restriction, To increase flexibility/ROM and To prevent re-injury Cryotherapy (ice pack, ice massage): Yes Thermo therapy (hot pack): Yes Ultrasound (thermal/non thermal): Yes For the Purpose of:: To decrease pain, To increase ROM, To improve health of tissue, To decrease soft tissue restriction and To increase flexibility/ROM Text: Thank you for the opportunity to evaluate your patient. For Medicare and Medicare HMO plans, please review the plan of care and approve it. It will need to be FAXED BACK to us at [phone] for Medicare purposes. For Medicare only, by signing this I certify the plan of care. Please let me know if there are questions or concerns regarding this plan of care. Physician Signature: Date:
--- NOTE | 2023-07-07 12:48 | HP.PT.NRP ---
Patient Information Patient Information: AMANDO MÁRQUEZ Jr. was seen in my office for initial evaluation on 05/17/23. The following Plan of Care was established for this patient: POC Established Initial Frequency: 2x /Week Initial Duration: 4 Weeks Anticipated Interventions Patient/Client Instruction: Educate patient on: Condition and Plan of Care For the Purpose of:: To decrease pain, To increase ROM, To improve muscle performance and motor function, To increase tolerance to activity/condition/position, To improve ability of physical actions for home/community/work/leisure, To improve health of tissue, To decrease soft tissue restriction, To increase flexibility/ROM and To prevent re-injury Therapeutic Exercise to Include: Strength training, Endurance training, Balance training, Body mechanics, Postural training, Flexibilty training and Dynamic Lumbar Stabilization For the Purpose of:: To decrease pain, To increase ROM, To improve muscle performance and motor function, To improve ability to perform ADL's, To increase tolerance to activity/condition/position, To improve ability of physical actions for home/community/work/leisure, To improve health of tissue, To decrease soft tissue restriction, To increase flexibility/ROM and To prevent re-injury Cryotherapy (ice pack, ice massage): Yes Thermo therapy (hot pack): Yes Ultrasound (thermal/non thermal): Yes For the Purpose of:: To decrease pain, To increase ROM, To improve health of tissue, To decrease soft tissue restriction and To increase flexibility/ROM Last Seen Last Seen: This patient was last seen in our office . Pertinent comments regarding their Physical therapy will appear below: Patient was seen for PT Evaluation for back pain and HEP At this point I will be discontinuing this patient from physical therapy. I would be happy to see this patient again in the future if found appropriate by the physician. Thank you! Roderick Lorenzo, PT, Cert MDT, OCS Balance/Gait/Functional tests Balance/Special Test Scores Oswestry Low Back Score: 26
== END 2023-05-17 19:00 | disposition home or self-care (01) ==
LOC: PT 16:06
PROVIDERS: PCP Family Medicine; Referring Provider Family Medicine; Visit Provider Family Medicine
DX: M54.30 Sciatica, unspecified side (principal); M51.36 Other intervertebral disc degeneration, lumbar region
CPT/HCPCS: 97162

== ENCOUNTER → 2023-12-04 | Outpatient (CLI) | payer OTHER, SELFPAY ==
[2023-12-04 17:56] LABS: Absolute Neutrophil Count 2.8 X10^3/uL (2.0-7.7); Basophil# 0.05 X10^3/uL; Eosinophils% 5.7 % (0-5); Hematocrit 37.7 % (40-54); Hemoglobin 12.6 g/dL (13.0-16.5); Lymphocyte % 28.7 % (19-41); Mean Corp Hgb Conc 33.4 g/dL (32-36); Mean Corpuscular Hgb 30.5 pg (27.0-32.0); Mean Corpuscular Volume 91.3 fL (80-94); Mean Platelet Vol. 9.8 fl (6.2-12.0); Monocyte# 0.54 X10^3/uL; Monocyte% 10.3 % (0-10); NRBC Flagged by Analyzer 0 % (0-5); Neutrophil # 2.82 X10^3/uL (2.7-7.7); Neutrophil % 53.9 % (47-70); Platelet Count 167 K/mm3 (150-450); RBC Distribution Width SD 40.3 fl (35.1-43.9); Red Blood Count 4.13 M/mm3 (4.6-6.2); White Blood Count 5.2 K/mm3 (4.4-11.0)
[2023-12-04 18:29] LABS: Hemoglobin A1c 5.5 % (3.8-5.6)
[2023-12-04 18:30] LABS: ALB/GLOB Ratio 1.1 RATIO (0.9-2.4); AST(SGOT) 31 U/L (15-37); Alanine Aminotransfer ALT/SGPT 49 U/L (16-61); Albumin, Serum 3.7 g/dL (3.2-5.0); Alkaline Phosphatase 107 U/L (45-117); Anion Gap 6 (5-15); BUN 17 mg/dL (7-18); BUN/Creat Ratio 17.8 RATIO (10-20); Calcium,Total 9.1 mg/dL (8.5-10.1); Chloride 101 mmol/L (98-107); Cholesterol 198 mg/dL (200); Creatinine, Serum 0.96 mg/dL (0.70-1.30); EST Glomerular Filtration Rate 86 mL/min (>60); Est Glom Filt Rate - Afr Amer 104 mL/min (>60); Globulin 3.3 g/dL (2.2-4.2); Glucose 97 mg/dL (74-106); High Density Lipoprotein 60 mg/dL; PSA,Total - Annual Screen 0.46 ng/mL (0.00-4.00); Potassium 4.6 mmol/L (3.5-5.1); Sodium Level 137 mmol/L (136-145); Triglycerides 210 mg/dL; Very Low Density Lipoprotein 42 mg/dL (5-40)
== END | disposition home or self-care (01) ==
LOC: BFHLAB 15:18
PROVIDERS: PCP Nurse Practitioner Family; Referring Provider Nurse Practitioner Family; Visit Provider Nurse Practitioner Family
DX: Z00.01 Encounter for general adult medical examination with abnormal findings (principal); Z12.5 Encounter for screening for malignant neoplasm of prostate; R73.01 Impaired fasting glucose
CPT/HCPCS: 36415; 80053; 80061; 83036; 84153; 85025; G0103

== ENCOUNTER 2023-12-25 16:00 | Outpatient (RCR) | payer OTHER, SELFPAY | END 2023-12-25 19:00 | disposition home or self-care (01) | LOC: PT 16:00 | PROVIDERS: PCP Family Medicine; Referring Provider Orthopaedic Surgery Orthopaedic Surgery of the Spine; Visit Provider Orthopaedic Surgery Orthopaedic Surgery of the Spine | DX: M43.16 Spondylolisthesis, lumbar region (principal) | CPT/HCPCS: 97110; 97113; 97162; 97530 ==

== ENCOUNTER → 2024-01-29 | Outpatient (CLI) | payer OTHER, SELFPAY ==
--- NOTE | 2024-01-29 14:56 | MRI_ITS ---
STUDY: MRI LUMBAR SPINE WITHOUT CONTRAST REASON FOR EXAM: Male, 58 years old. pain -- patient completed physical therapy TECHNIQUE: Standardized fat and water weighted pulse sequences were obtained in the sagittal and axial planes. COMPARISON: X-ray 10/25/2023 FINDINGS: T12-L1: Normal endplates. Normal disc height, hydration and morphology. Normal bilateral facet joints. Normal central canal and bilateral lateral recesses. Normal bilateral intervertebral neural foramina. Normal lumbar lordosis. There is no substantial scoliosis. Normal conus medullaris that terminates at the T12. L1-2: Mild bilateral facet hypertrophy with fluid in the facet joints consistent with instability and mildly inflamed hypertrophy. Moderate bilateral disc protrusion produces moderate spinal stenosis with moderate bilateral lateral recess stenosis and mild bilateral neural foraminal stenosis., L2-3: Mild bilateral facet hypertrophy and moderate ligament flavum hypertrophy. Large broad disc protrusion produces severe spinal stenosis with severe right lateral recess stenosis with effacement of the right L3 nerve root, moderate left lateral recess stenosis with abutment of the left L3 nerve root and moderate bilateral neural foraminal stenosis with abutment of the exiting L2 nerve roots bilaterally. L3-4: Mild bilateral facet hypertrophy and moderate ligament flavum hypertrophy. Moderate broad disc protrusion produces moderate spinal stenosis and moderate bilateral neural foraminal stenosis. L4-5: Moderate bilateral facet hypertrophy and severe ligament flavum hypertrophy. 2 mm of anterolisthesis of L4 on L5 with a large broad disc protrusion produces severe spinal stenosis with severe bilateral lateral recess stenosis and effacement of the L5 nerve roots bilaterally and moderate bilateral neural foraminal stenosis with abutment of axial L4 nerve roots bilaterally. L5-S1: Mild bilateral facet hypertrophy and ligament flavum hypertrophy. Mild broad disc protrusion produces mild spinal stenosis and mild bilateral neural foraminal stenosis. Normal visualized sacral ala. Normal visualized paraspinous soft tissue structures. MRI/Spine Lumbar (Routine) IMPRESSION: Multilevel degenerative changes, as described above. Electronically Signed: Carlos Toscano MD at 9:52 EST ,
== END | disposition home or self-care (01) ==
LOC: MRI 14:51
PROVIDERS: PCP Nurse Practitioner Family; Referring Provider Orthopaedic Surgery Orthopaedic Surgery of the Spine; Visit Provider Orthopaedic Surgery Orthopaedic Surgery of the Spine
DX: M43.16 Spondylolisthesis, lumbar region (principal)
CPT/HCPCS: 72148

== ENCOUNTER 2024-04-10 11:24 | Inpatient (IN) | payer OTHER, SELFPAY ==
[2024-04-05 14:52] LABS: Absolute Lymphocyte Count 1.31 X10^3/uL (0.83-4.51); Absolute Neutrophil Count 4.1 X10^3/uL (2.0-7.7); Basophil# 0.07 X10^3/uL; Basophil% 1.1 % (0-1); Eosinophil# 0.13 X10^3/uL; Eosinophils% 2.1 % (0-5); Hematocrit 41.5 % (40-54); Hemoglobin 14.1 g/dL (13.0-16.5); Lymphocyte # 1.31 X10^3/ul (0.83-4.51); Lymphocyte % 21.2 % (19-41); Mean Corpuscular Hgb 30.5 pg (27.0-32.0); Mean Corpuscular Volume 89.8 fL (80-94); Mean Platelet Vol. 9.3 fl (6.2-12.0); Monocyte# 0.52 X10^3/uL; Monocyte% 8.4 % (0-10); NRBC Flagged by Analyzer 0 % (0-5); Neutrophil # 4.13 X10^3/uL (2.7-7.7); Neutrophil % 66.7 % (47-70); Platelet Count 183 K/mm3 (150-450); RBC Distribution Width CV 12.3 % (11.6-14.6); RBC Distribution Width SD 40.6 fl (35.1-43.9); Red Blood Count 4.62 M/mm3 (4.6-6.2); White Blood Count 6.2 K/mm3 (4.4-11.0)
[2024-04-05 15:42] LABS: Anion Gap 3 (5-15); BUN 12 mg/dL (7-18); BUN/Creat Ratio 14.7 RATIO (10-20); Calcium,Total 8.8 mg/dL (8.5-10.1); Chloride 104 mmol/L (98-107); Creatinine, Serum 0.82 mg/dL (0.70-1.30); EST Glomerular Filtration Rate 103 mL/min (>60); Est Glom Filt Rate - Afr Amer 125 mL/min (>60); Glucose 95 mg/dL (74-106); Potassium 3.9 mmol/L (3.5-5.1); Sodium Level 137 mmol/L (136-145)
[2024-04-05 19:45] LABS: Magnesium 1.9 mg/dL (1.6-2.6)
[2024-04-07 09:07] LABS: Hepatitis A AB, Total Negative (Negative)
--- NOTE | 2024-04-08 09:21 | PAT.ANESEVAL ---
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 When Was Last Pacemaker Check QUESTION #4 FULL TEXT: You/Your Family Experience fever (hyperthermia) with Anesthesia Last Oral Intake Last Oral intake: Last Oral Intake NPO since Meds taken in AM with sips of water? Meds patient instructed to take am of surgery PONV PONV - industrial relations director: PONV - industrial relations director Female No 04/05/24 12:30 HX of Motion Sickness No 04/05/24 12:30 HX of N/V After Surgery No 04/05/24 12:30 Non-Smoker Yes 04/05/24 12:30 Duration of Surgery greater Yes 04/05/24 12:30 than 60 minutes Number of Risk Factors 2 04/05/24 12:30 PONV Score Moderate Risk 04/05/24 12:30 Height & Weight Height & Weight: Anesthesia: Height & Weight Height 5 ft 7 in 10/25/23 15:12 Respiratory Assessment Respiratory Assessment - industrial relations director: Respiratory Tract Infection Hx - industrial relations director Hx Respiratory Tract Infection No 04/05/24 12:30 STOP Sleep Apnea STOP Sleep Apnea - industrial relations director: STOP Sleep Apnea - industrial relations director Hx Hypertension Yes: CONTROLLED WITH MEDS 04/05/24 12:30 Hx Sleep Apnea Yes 04/05/24 12:30 CPAP Yes 04/05/24 12:30 BIPAP No 04/05/24 12:30 Do you snore loudly (louder than talking or can be heard Do you often feel tired/ fatigued/ sleepy during daytime? Has anyone observed you stop breathing during sleep? STOP Results Positive 04/05/24 12:30 QUESTION #5 FULL TEXT : Do you snore loudly (louder than talking or can be heard through closed doors)? 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 Specify any problems Hx of Preganancy in last 3 N/A 04/05/24 12:30 Months Nurse Filling Out Transfusion DSCHRIBER 04/05/24 12:30 & Questions: Date: 04/05/24 04/05/24 12:30 Time: 12:32 04/05/24 12:30 Patient unable to answer at this time (ie. confused, unrespo /Reproduction History /Reproductive History - industrial relations director: /Reproductive Hx- industrial relations director Hx Now No 04/05/24 12:30 Gestational Age (in weeks): EDC: Hx Hx Para Hx Section SAB No 04/05/24 12:30 [facility] Medical History (Updated 04/05/24 @ 13:05 by Cheyenne Lundberg) Subglottic stenosis TBI (traumatic brain injury) Ambulates with cane Bladder disease Low iron COPD (chronic obstructive pulmonary disease) Shortness of breath on exertion History of pain when walking Wears dentures Wears glasses Thyroid disease Arthritis High cholesterol Injury of head and neck Back pain Migraine headache Syncope Seizures Gastric reflux Former smoker CPAP (continuous positive airway pressure) dependence Hoarseness History of edema History of stress test UTI (urinary tract infection) Hypercholesteremia Arthritis BPH (benign prostatic hyperplasia) Obesity HLD (hyperlipidemia) GERD (gastroesophageal reflux disease) Epilepsy without mention Intractable Epilepsy, unspecified Home Medications ?Medication ?Instructions ?Recorded ?Last Taken ?Type levothyroxine 50 mcg tablet 50 mcg PO DAILY thyroid 04/03/15 08/31/21 20:00 History metoprolol succinate 25 mg 25 mg PO QHS blood pressure 04/03/15 10/17/18 History tablet,extended release 24 hr 0600 simvastatin 40 mg tablet 40 mg PO QHS cholesterol lowering 04/03/15 11/09/17 History carbamazepine 200 mg tablet 200 mg PO 1500 seizures 12/07/15 11/09/17 History cholecalciferol (vitamin D3) 125 125 mcg PO QDAY SUPPLEMENT 04/04/24 Unknown History mcg (5,000 unit) capsule clopidogrel 75 mg tablet 75 mg PO QDAY BLOOD THINNER 04/04/24 04/03/24 History cyclobenzaprine 5 mg tablet 5 mg PO QHS MUSCLE SPASM 04/04/24 Unknown History desmopressin 0.2 mg tablet 0.2 mg PO BID BP 04/04/24 Unknown History ferrous sulfate 325 mg (65 mg 325 mg PO QDAY SUPPLEMENT 04/04/24 Unknown History iron) tablet (FeroSul) fesoterodine 8 mg tablet,extended 8 mg PO QHS OAB 04/04/24 Unknown History release 24 hr fluoxetine 10 mg capsule 10 mg PO QDAY DEPRESSION 04/04/24 Unknown History mecobalamin (vitamin B12) 5,000 5,000 mcg PO QDAY SUPPLEMENT 04/04/24 Unknown History mcg chewable tablet meloxicam 15 mg tablet 15 mg PO QDAY PAIN 04/04/24 Unknown History loillals-bhf-bccrm acid 0.4 1 tab PO QDAY SUPPLEMENT 04/04/24 Unknown History mg-lycopene 300 mcg-lutein 250 mcg tablet (Complete Multivitamin Adult 50 Plus) omeprazole 20 mg capsule,delayed 20 mg PO BID GERD 04/04/24 Unknown History release sumatriptan succinate 100 mg tablet 100 mg PO ONCE PRN migraine 04/04/24 Unknown History headache carbamazepine 200 mg tablet 300 mg PO BID SEIZURES 04/05/24 Unknown History lactobacillus combination no.4 3 3,000 mmu cells PO DAILY SUPPLEMENT 04/05/24 Unknown History billion cell capsule (Probiotic) Allergy/AdvReac Type Severity Reaction Status Date / Time strawberry Allergy Intermediate Hives Verified 04/05/24 12:18 azithromycin Allergy Unknown Unknown Verified 04/05/24 12:18 erythromycin base Allergy Unknown Verified 04/05/24 12:18 Penicillins Allergy Hives Verified 04/05/24 12:18 Barbiturates AdvReac Other Verified 04/05/24 12:18 divalproex sodium (From AdvReac Other Verified 04/05/24 12:18 Depakote) Hydantoins AdvReac Other Verified 04/05/24 12:18 phenobarbital AdvReac Other Verified 04/05/24 12:18 phenytoin sodium (From AdvReac Other Verified 04/05/24 12:18 Dilantin) phenytoin sodium extended AdvReac Other Verified 04/05/24 12:18 (From Dilantin) Family History Father Hypertension Other Myocardial infarction Prostate cancer Surgical History History of cardiac catheterization History of bronchoscopy Hx of tooth extraction Hx of foot surgery Hx of cystoscopy Hx of cardiac cath Hx laparoscopic cholecystectomy Hx of total knee replacement History of partial knee replacement History of tracheostomy as a child Social History current occupation: [email or web address] Smoking Status: Former smoker alcohol intake: never substance use type: does not use Audit: Pertinent Findings Pertinent Findings EKG Perinent findings: 08/30/2021 normal sinus rhythm 75 normal EKG Pulmonary function results/spirometer pertinent findings: PA lateral chest x-ray 11/16/2017 tracheostomy tube for tachypnea tracheostomy tube in place 04/02/2019 PFT mild restrictive ventilatory defect symmetric reduction in diffusion capacity Additional pertinent findings: 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 Recommendation Anesthesia Recommendation Anesthesia recommendation: OPTIMIZED for anesthesia
--- NOTE | 2024-04-09 09:02 | EKG12_ITS ---
Test Reason : PREOP Blood Pressure : */* mmHG Vent. Rate : 70 BPM Atrial Rate : 70 BPM P-R Int : 162 ms QRS Dur : 92 ms QT Int : 386 ms P-R-T Axes : 65 9 52 degrees QTcB Int : 416 ms Normal sinus rhythm Possible Inferior infarct , age undetermined Abnormal ECG Confirmed by BRETT PEDERSEN MD ([id number]), graphics editor ALY BRANDT ([id number]) on 04/10/2024 5:47:56 AM Referred By: Yanick Terry Confirmed By: BRETT PEDERSEN MD
[2024-04-10] VITALS (24 sets, daily range): BP systolic 100–147; BP diastolic 60–86; PULSE 62–91; RESP 14–18; TEMP 36.4–36.8; O2SAT 94–100; BMI 36.2
[2024-04-10] MEDS: 0.9% Normal Saline (1000mL) 1,000 ML 15 ML IV (06:26)
[2024-04-10] MEDS: Magnesium 2 GM for ERAS IV (06:26)
[2024-04-10] MEDS: Acetaminophen 500 MG Tablet 1000 MG PO ×2 (06:26→21:52)
--- NOTE | 2024-04-10 06:30 | RAD_ITS ---
INDICATION: ERAS, 360 EXAMINATION/TECHNIQUE: X-RAY - XR Spine Lumbar 2 or 3 Views. 11 fluoroscopic images with 2 views. Total fluoroscopic time 108.9 seconds. Cumulative dose 47.31 mGy. COMPARISON: Prior study dated: 10/25/2023 FINDINGS: There is initial localization to the L4-L5 level. There is placement of a disc spacer. There is an posterior fusion hardware placed. RAD/Lumbar Spine 2 or 3 Views IMPRESSION: Fluoroscopic guidance for fusion at L4-L5. Please refer to operative report for further information. Electronically Signed: Robby Jones MD at 20:57 EST ,
--- NOTE | 2024-04-10 06:47 | PRE.ANES_ITS ---
ASA Classification* ASA Classification ASA Classification: 3 Assessment & Plan Anesthesia* Anesthesia Assessment Anesthesia Assessment: Discussed sedation and/or anesthesia options, risks, benefits, and alternatives with patient/parents/legal guardian/POA. Questions invited. The patient/parents/legal guardian/POA seems to understand and agrees to proceed with anesthesia plan. Reviewed the physical assessment, medical history, allergy history and patient home medications list prior to surgery/procedure/anesthetic and documented any changes. Performed airway and anesthesia risk assessments. Anesthesia Type Anesthesia Type: General (6.0 ET, Glidescope intubation) Anesthesia Focused Assessment* Temperature: 98.2 F Pulse Rate: 62 Blood Pressure: 127/75 Respiratory Rate: 17 Pulse Ox: 98 Airway Assessment Mouth opens: >3 cm Mallampati Score: II Focused Labs Anesthesia Preop lab: CBC WBC 6.2 K/mm3 (4.4-11.0) 04/05/24 14:09 RBC 4.62 M/mm3 (4.6-6.2) 04/05/24 14:09 Hgb 14.1 g/dL (13.0-16.5) 04/05/24 14:09 Hct 41.5 % (40-54) 04/05/24 14:09 Plt Count 183 K/mm3 (150-450) 04/05/24 14:09 CHEMISTRY Potassium 3.9 mmol/L (3.5-5.1) 04/05/24 14:09 Sodium 137 mmol/L (136-145) 04/05/24 14:09 Magnesium 1.9 mg/dL (1.6-2.6) 04/05/24 14:08 BUN 12 mg/dL (7-18) 04/05/24 14:09 Creatinine 0.82 mg/dL (0.70-1.30) 04/05/24 14:09 Glucose 95 mg/dL (74-106) 04/05/24 14:09 POC Glucose 109 mg/dL (70-110) 10/17/18 10:33 TSH 2.730 uIU/mL (0.358-3.740) 04/05/24 14:08 COAG Pre-Assessment Diagnosis/Proposed Procedure Planned Operative Procedure(s): 360 LUMBAR FUSION L4-5 Anesthesia History Anesthesia History - wellness guide: Anesthesia History - wellness guide Hx Hospitalization No 04/05/24 12:30 Any Problems With Anesthesia Yes: SLOW TO AWAKEN 04/05/24 12:30 Cholinesterase deficiency No 04/05/24 12:30 You/Your Family Experience No 04/05/24 12:30 fever (hyperthermia) with Relationship Recent Exposure to Contagious No 04/10/24 06:28 Disease Does patient have nerve No 04/05/24 12:30 stimulator Patient instructed to have device shut off --Does patient have Pacemaker No 04/10/24 06:28 or ICD? When Was Last Pacemaker Check QUESTION #4 FULL TEXT: You/Your Family Experience fever (hyperthermia) with Anesthesia Last Oral Intake Last Oral intake: Last Oral Intake NPO since 05:00 04/10/24 06:28 Meds taken in AM with sips of Yes 04/10/24 06:28 water? Meds patient instructed to see home med list 04/10/24 06:28 take am of surgery PONV PONV - wellness guide: PONV - wellness guide Female No 04/05/24 12:30 HX of Motion Sickness No 04/05/24 12:30 HX of N/V After Surgery No 04/05/24 12:30 Non-Smoker Yes 04/05/24 12:30 Duration of Surgery greater Yes 04/05/24 12:30 than 60 minutes Number of Risk Factors 2 04/05/24 12:30 PONV Score Moderate Risk 04/05/24 12:30 Height & Weight Height & Weight: Anesthesia: Height & Weight Height 5 ft 1 in 04/10/24 06:28 Weight: 87 kg 04/10/24 06:28 Body Mass Index (BMI) 36.2 04/10/24 06:28 Respiratory Assessment Respiratory Assessment - wellness guide: Respiratory Tract Infection Hx - wellness guide Hx Respiratory Tract Infection No 04/05/24 12:30 STOP Sleep Apnea STOP Sleep Apnea - wellness guide: STOP Sleep Apnea - wellness guide Hx Hypertension Yes: CONTROLLED WITH MEDS 04/05/24 12:30 Hx Sleep Apnea Yes 04/05/24 12:30 CPAP Yes 04/05/24 12:30 BIPAP No 04/05/24 12:30 Do you snore loudly (louder than talking or can be heard Do you often feel tired/ fatigued/ sleepy during daytime? Has anyone observed you stop breathing during sleep? STOP Results Positive 04/05/24 12:30 QUESTION #5 FULL TEXT : Do you snore loudly (louder than talking or can be heard through closed doors)? 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 Specify any problems Hx of Preganancy in last 3 N/A 04/05/24 12:30 Months Nurse Filling Out Transfusion DSCHRIBER 04/05/24 12:30 & Questions: Date: 04/05/24 04/05/24 12:30 Time: 12:32 04/05/24 12:30 Patient unable to answer at this time (ie. confused, unrespo /Reproduction History /Reproductive History - wellness guide: /Reproductive Hx- wellness guide Hx Now No 04/05/24 12:30 Gestational Age (in weeks): EDC: Hx Hx Para Hx Section SAB No 04/05/24 12:30 Active Medications Active Medications: Current Medications Generic Name Dose Route Start Last Admin Trade Name Freq PRN Reason Stop Dose Admin Acetaminophen 1,000 mg 04/10/24 07:30 04/10/24 06:26 Acetaminophen 500 Mg Tablet PO 04/10/24 07:31 1,000 mg X1 ONE Administration Tranexamic Acid 1,000 mg/ 110 mls @ 440 mls/hr 04/10/24 07:30 Sodium Chloride IV 04/10/24 07:44 X1 ONE Tranexamic Acid 1,000 mg/ 110 mls @ 440 mls/hr 04/10/24 07:30 Sodium Chloride IV 04/10/24 07:44 X1 ONE Clindamycin Phosphate 900 mg in 50 mls @ 75 mls/hr 04/10/24 07:30 Cleocin IV 04/10/24 08:09 PREOP ONE Sodium Chloride 1,000 mls @ 15 mls/hr 04/10/24 05:50 04/10/24 06:26 IV 04/15/24 19:09 15 mls/hr .Q48H KEVIN Administration Protocol Insulin Human Lispro 1 - 6 unit 04/10/24 07:30 Insulin Lispro 100 Unit/Ml Insuln.Pen SC 04/10/24 16:00 Q4H PRN PRN BG>/= 180, SEE PROTOCOL Protocol PFSH Medical History Subglottic stenosis TBI (traumatic brain injury) Ambulates with cane Bladder disease Low iron COPD (chronic obstructive pulmonary disease) Shortness of breath on exertion History of pain when walking Wears dentures Wears glasses Thyroid disease Arthritis High cholesterol Injury of head and neck Back pain Migraine headache Syncope Seizures Gastric reflux Former smoker CPAP (continuous positive airway pressure) dependence Hoarseness History of edema History of stress test UTI (urinary tract infection) Hypercholesteremia Arthritis BPH (benign prostatic hyperplasia) Obesity HLD (hyperlipidemia) GERD (gastroesophageal reflux disease) Epilepsy without mention Intractable Epilepsy, unspecified Home Medications ?Medication ?Instructions ?Recorded ?Last Taken ?Type levothyroxine 50 mcg tablet 50 mcg PO DAILY thyroid 04/03/15 04/10/24 History metoprolol succinate 25 mg 25 mg PO QHS blood pressure 04/03/15 04/09/24 History tablet,extended release 24 hr simvastatin 40 mg tablet 40 mg PO QHS cholesterol lowering 04/03/15 04/09/24 History carbamazepine 200 mg tablet 200 mg PO 1500 seizures 12/07/15 04/09/24 History cholecalciferol (vitamin D3) 125 125 mcg PO QDAY SUPPLEMENT 04/04/24 04/09/24 History mcg (5,000 unit) capsule clopidogrel 75 mg tablet 75 mg PO QDAY BLOOD THINNER 04/04/24 04/03/24 History cyclobenzaprine 5 mg tablet 5 mg PO QHS MUSCLE SPASM 04/04/24 04/09/24 History desmopressin 0.2 mg tablet 0.2 mg PO BID BP 04/04/24 04/10/24 History ferrous sulfate 325 mg (65 mg 325 mg PO QDAY SUPPLEMENT 04/04/24 04/09/24 History iron) tablet (FeroSul) fesoterodine 8 mg tablet,extended 8 mg PO QHS OAB 04/04/24 04/09/24 History release 24 hr fluoxetine 10 mg capsule 10 mg PO QDAY DEPRESSION 04/04/24 04/09/24 History mecobalamin (vitamin B12) 5,000 5,000 mcg PO QDAY SUPPLEMENT 04/04/24 04/09/24 History mcg chewable tablet meloxicam 15 mg tablet 15 mg PO QDAY PAIN 04/04/24 04/09/24 History kbkkgmav-dzo-egccq acid 0.4 1 tab PO QDAY SUPPLEMENT 04/04/24 04/09/24 History mg-lycopene 300 mcg-lutein 250 mcg tablet (Complete Multivitamin Adult 50 Plus) omeprazole 20 mg capsule,delayed 20 mg PO BID GERD 04/04/24 04/10/24 History release sumatriptan succinate 100 mg tablet 100 mg PO ONCE PRN migraine 04/04/24 Unknown History headache carbamazepine 200 mg tablet 300 mg PO BID SEIZURES 04/05/24 04/10/24 History lactobacillus combination no.4 3 3,000 mmu cells PO DAILY SUPPLEMENT 04/05/24 04/09/24 History billion cell capsule (Probiotic) Allergy/AdvReac Type Severity Reaction Status Date / Time strawberry Allergy Intermediate Hives Verified 04/10/24 06:22 azithromycin Allergy Unknown Unknown Verified 04/10/24 05:43 erythromycin base Allergy Unknown Verified 04/10/24 05:43 Penicillins Allergy Hives Verified 04/10/24 05:43 Barbiturates AdvReac Other Verified 04/10/24 05:43 divalproex sodium (From AdvReac Other Verified 04/10/24 05:43 Depakote) Hydantoins AdvReac Other Verified 04/10/24 05:43 phenobarbital AdvReac Other Verified 04/10/24 05:43 phenytoin sodium (From AdvReac Other Verified 04/10/24 05:43 Dilantin) phenytoin sodium extended AdvReac Other Verified 04/10/24 05:43 (From Dilantin) Family History Father Hypertension Other Myocardial infarction Prostate cancer Surgical History History of cardiac catheterization History of bronchoscopy Hx of tooth extraction Hx of foot surgery Hx of cystoscopy Hx of cardiac cath Hx laparoscopic cholecystectomy Hx of total knee replacement History of partial knee replacement History of tracheostomy as a child Social History current occupation: [employer] Smoking Status: Former smoker alcohol intake: never substance use type: does not use Review of Systems (Anesthesia) ROS Narrative System reviewed and no additional complaints, except as documented.
[2024-04-10 07:03] LABS: Bedside Glucose 102 mg/dL (74-106)
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
[2024-04-10] MEDS: Clindamycin 900 MG/50 ML BAG 75 MG IV ×2 (08:08→16:40)
[2024-04-10] MEDS: TRANEXAMIC ACID 1,000 MG in 0.9% Normal Saline (100mL Bag) 100 ML 440 MG IV ×2 (08:10→10:58)
[2024-04-10 08:46] LABS: Hepatitis B Surface Antibody Non-Reactive; Hepatitis C Antibody Non-Reactive (Nonreactive)
[2024-04-10 09:28] LABS: HIV - WCH Non-Reactive (Nonreactive)
[2024-04-10] MEDS: Sugammadex Sodium 200 MG/2 ML VIAL IV (11:06)
[2024-04-10] MEDS: Ropivacaine 0.5% 30 ML Vial (11:12)
--- NOTE | 2024-04-10 11:23 | PCM.OPRPT ---
Procedures Musculoskeletal 20xxx-29xxx: Other Procedure See Report Operative Report (Standard) Operative Information Date of Procedure: 04/10/24 Pre-Operative Diagnosis: L4-5 spondylolisthesis, stenosis with neurogenic claudication Post-Operative Diagnosis: Same Surgery/Procedure Performed: L4-5 oblique lumbar interbody fusion pst manager: Yes Hand Violin Maker: Linsey Hale Tasks completed by senior office assistant: Closing, Removing tissue, Hemostasis: Electrocautery and Retracting Type of Anesthesia: General RN Documented Start/Stop Times: Operation Date: 04/10/24 07:30 Case Time Into Pre-Op 04/10/24 05:44 Out of Pre-Op 04/10/24 07:31 Anesthesia Start 04/10/24 07:39 Into Room 04/10/24 07:39 Procedure Start 04/10/24 08:33 Procedure End 04/10/24 11:17 Procedure Start Time: 08:33 Procedure Stop Time: 11:17 Select all DRAINS/GRAFTS/IMPLANTS that apply: Graft Graft details: Allograft cancellous bone chips, autologous bone marrow aspirate and Implanted device Implanted device details: DePuy cougar lateral interbody cage?peek Estimated Blood Loss: 50 cc Specimen collected: No Description of surgery: Preoperative diagnosis: L4-5 spondylolisthesis, stenosis with neurogenic claudication Postoperative diagnosis: Same Name of procedures L4-5 oblique lumbar interbody fusion (OLIF), minimally invasive left sided approach, lateral decubitus: ? L4-5 anterolateral spinal fusion 27361 ? L4-5 insertion of cage [id number] ? Bone graft aspirate left iliac crest separate incision ? Allograft cancellous chips Attending Surgeon: Dr. Yanick Terry Estimated blood loss: 50 mL Anesthesia: General Complications: None Indications: Patient is a 59-year-old pleasant gentleman who has had a long history of low back pain and left worse than right lower extremity radiation, difficulty walking distances. Xrays & MRI revealed L4-5 spondylolisthesis with severe stenosis. After undergoing a prolonged period of nonoperative treatment, the patient elected to undergo surgical decompression & fusion. All surgical options were discussed with the patient including anterior and posterior approaches. All risks and benefits associated with the procedure were explained to the patient. The risks include but are not limited to infection, bleeding, injury to nerves and vessels including major vessels like IVC and aorta, persistent paresthesia, persistent pain, dural tear, need for further procedures, adjacent segment degeneration, pseudoarthrosis, hardware failure, retrograde ejaculation, paralytic ileus, etc. Procedure: The patient was identified in the preoperative holding suite using Unique patient identifiers. Skin was marked, consent was reviewed, and all questions were answered. The patient was then brought back to the operative room. A surgical timeout was performed to make sure correct procedure was being done on the correct patient and all operative room staff were on the same page. General endotracheal anesthesia was then given to the patient. Miles catheter was inserted. The patient was then carefully positioned in right lateral decubitus position with the left side up on a regular OR table. Axillary roll was placed and all bony prominences were well- padded. Hip positioners were placed in the posterior buttocks and anterior sternal area. The surgical area was prepped and draped in usual fashion. Preoperative antibiotic was injected IV as preoperative antibiotic. A final timeout was then again done just before starting the procedure. A 2 inch incision oblique was taken in the left lower quadrant of the abdomen 2 fingerbreadths away from the iliac crest and the lower ribs. Sharp dissection with Bovie was carried out up to the fascia covering the external oblique. The external oblique, internal oblique and transversus abdominis muscles were split along the muscle fibers and retroperitoneal space was entered. Sponge sticks were utilized to move the bowel and peritoneum rsb-bs-pes-way and psoas muscle was exposed staying within the retroperitoneal plane. [employer] retractor system was positioned and the retractor blade was applied onto the psoas. The interval between psoas and midline structures was developed and appropriate retractors were placed. Once adequate interval was cleared, a disc space was identified and a marker x-ray was taken. This identified the L4-5 disc level. The prepsoas interval was then traced inferiorly. Annulotomy was done with a long handled knife. Pituitary was used to remove disc material. Curettes were used to prepare the endplates. Disc space spreaders were utilized to distract and increase the disc height. Near complete discectomy was performed. Smaller disc distractors were also used to bluntly perform a contralateral annulotomy. Trials of serially increasing sizes were used. A Jamshidi needle was used to aspirate bone marrow from the left anterior iliac crest through a separate incision and this aspirate was mixed with the allograft bone chips. A Depuy [place] cage of size of the 18 x 50 x 14 mm with 15 degrees lordosis was packed with corticocancellous allograft bone chips mixed with bone marrow aspirate. This was inserted into the L4-5 disc space. AP and lateral C-arm pictures were taken to confirm good position of the cage. Some bone chips were also packed around the cages. Screw with washer was placed into the lower L4 body with a washer partially covering the cage at L4-5. Hemostasis was confirmed. The retractor blades were removed. Closure was done in layers with a continuous strand of # 1 Vicryl in all muscle layers. 2-0 Vicryl was used for subcutaneous tissue and 4-0 for Monocryl for the skin. Steri-Strips were applied and 4 x 4 gauze and Tegaderm were applied. Senior Sql Server Database Developer Linsey Hale PA-C. My physician data entry assistant was a vital part of this case. They were important in appropriate retraction during the case, and protection of soft tissues during the procedure. Their intimate knowledge of the case and my steps aided in safe and expedient completion of the procedure as well as appropriate position of the patient during the surgery. They were also vital in assisting with closure under my direct supervision. Surgical Findings: See op note Complications Complications: No
--- NOTE | 2024-04-10 11:27 | OP.PCM_ITS ---
Procedures Musculoskeletal 20xxx-29xxx: Other Procedure See Report Operative Report (Standard) Operative Information Date of Procedure: 04/10/24 Pre-Operative Diagnosis: L4-5 spondylolisthesis, stenosis with neurogenic claudication Post-Operative Diagnosis: Same Surgery/Procedure Performed: L4-5 posterior instrumented spinal fusion black ash burner operator: Yes Trailer Driver: Linsey Hale Tasks completed by engineer first assistant: Closing, Implanting device and Retracting Type of Anesthesia: General RN Documented Start/Stop Times: Operation Date: 04/10/24 07:30 Case Time Into Pre-Op 04/10/24 05:44 Out of Pre-Op 04/10/24 07:31 Anesthesia Start 04/10/24 07:39 Into Room 04/10/24 07:39 Procedure Start 04/10/24 08:33 Procedure End 04/10/24 11:17 Procedure Start Time: 08:33 Procedure Stop Time: 11:17 Select all DRAINS/GRAFTS/IMPLANTS that apply: Graft Graft details: Allograft cancellous bone chips, autologous bone marrow aspirate and Implanted device Implanted device details: DePuy Viper prime pedicle screw instrumentation Estimated Blood Loss: 50 cc Specimen collected: No Description of surgery: Preoperative diagnosis: L4-5 spondylolisthesis, stenosis with neurogenic claudication Postoperative diagnosis: Same Name of procedures: L4-5 posterior percutaneous pedicle screw instrumented fusion, prone: ? L4-5 posterior spinal fusion 62123 ? L4-5 posterior pedicle screw instrumentation 82033 ? Allograft cancellous chips [id number] Attending Surgeon: Dr. Yanick Terry Estimated blood loss: 50 mL (total for entire case) Anesthesia: General Complications: None Description of procedure: After the anterior procedure was complete, the patient was then turned supine. The patient was then transferred to Tomas table in prone position. Back was prepped and draped in usual fashion. C-arm AP view was then taken. C-arm was positioned in a way that L4 was centralized and superior endplate of was parallel to the beam. Spinous process was centered between the pedicles. Midline was marked with skin marker and lateral borders of the pedicles were also marked. Skin marker was also utilized to salvatore transversely across the middle of the pedicles at L4. 2 vertical paramedian incisions of 1 inch were placed. The fascia was incised vertically. Finger dissection was utilized to palpate the transverse process and facet joint. Viper Prime screws with towers were inserted and docked onto the transverse processes. This was then slowly moved medially to reach the superior articular process of L4. This was then confirmed on C-arm and then a mallet was utilized to drive the trocar into the pedicle going up to the medial wall of the pedicle on AP view. This was performed both sides. C-arm lateral view confirmed that the tip of the trocar was in the vertebral body, and the screw was advanced into the pedicle and vertebral body. This was repeated similarly at L5 bilaterally. Screw sizes were 7 x 45 mm at L4 and L5 on both sides. 45 mm precontoured titanium 5.5 mm lordotic roberto on the right and 40 mm on the left were then passed through the screw extensions and reduced down to the screws with the help of [employer] instrumentation system on both sides. AP and lateral view of the C-arm showed good positioning of the screws and cages. Final tightening with the torque screwdriver was then completed. Ward was utilized to roughen the facet joint at L4-5 on the right side. Cancellous allograft bone chips mixed with bone marrow aspirate were then placed over this decorticated area. Hemostasis was achieved. Closure was done in layers with 0 Vicryls for the fascia, 2-0 Vicryls for the subcutaneous tissue, and Monocryl for the skin. Dermabond was applied. Dressings were applied covered with Tegaderm. The patient was then turned supine onto a hospital bed. The patient was extubated and taken to PACU in stable condition. The patient tolerated the procedure well and no complications occurred. Depuy [place] cage & Viper Prime minimally invasive pedicle screw instrumentation system was utilized in this case. No dural tear was identified intraoperatively. I was present for the entirety of the case and performed the surgery. Production Quality Analyst Linsey Hale PA-C. My physician assistant golf course superintendent was a vital part of this case. They were important in appropriate retraction during the case, and protection of soft tissues during the procedure. Their intimate knowledge of the case and my steps aided in safe and expedient completion of the procedure as well as appropriate position of the patient during the surgery. They were also vital in assisting with closure under my direct supervision. Surgical Findings: See operative note Complications Complications: No
--- NOTE | 2024-04-10 11:43 | PCM.POST.ANE ---
Anesthesia: Postop Eval I Current Vital Signs Temperature: 97.7 F Pulse Rate: 72 Blood Pressure: 119/65 Respiratory Rate: 18 Pulse Ox: 100 Oxygen Delivery Method: Simple Mask Oxygen Flow Rate (L/min): 6 Assessment Airway patent: Yes Spontaneous unlabored respirations: Yes Mental status: Awake nausea: No Vomiting: No Anesthesia Complication: No Fluid Hydration Crystalloid volume administer (ml): 1,600 Total IV fluid infused: 1,600 Progress Note Anesthesia document: Postop Eval 1 completed: Yes
--- NOTE | 2024-04-10 13:02 | POSTOPAN2_ITS ---
Anesthesia Postop Eval I Sum Postop Eval Completion status Anesthesia document: Postop Eval 1 completed: Yes Anesthesia Postop Eval I Summary Anesthesia Postop Eval I Summary: Anesthesia Postop Eval I: Assessment Summary Airway patent Yes 04/10/24 11:43 [email or web address] Spontaneous unlabored Yes 04/10/24 11:43 MEND [email or web address].[email or web address] respirations Mental status Awake 04/10/24 11:43 MEND WORKER.[email or web address] nausea No 04/10/24 11:43 MEND WORKER.[email or web address] Vomiting No 04/10/24 11:43 MEND [email or web address].[email or web address] Anesthesia Postop Eval I: Fluid Summary Crystalloid volume administer 1,600 04/10/24 11:43 MEND [email or web address] (ml) Colloids volume administered ( ml) Blood Product volume administered (ml) Total IV fluid infused 1,600 04/10/24 11:43 MEND [email or web address].ILDEFONSO Anesthesia Postop Eval I: Summary Notes Anesthesia Complication No 04/10/24 11:43 MEND [email or web address].[email or web address] Anesthesia Complication Comment: Post-operative progress note Anesthesia: Postop Eval II Evaluation Mental status: Awake Pain Level: 1 nausea: No Vomiting: No
--- NOTE | 2024-04-10 13:02 | PCM.POSTANE2 ---
Anesthesia Postop Eval I Sum Postop Eval Completion status Anesthesia document: Postop Eval 1 completed: Yes Anesthesia Postop Eval I Summary Anesthesia Postop Eval I Summary: Anesthesia Postop Eval I: Assessment Summary Airway patent Yes 04/10/24 11:43 LICENSED MENTAL HEALTH COUNSELOR.[email or web address] Spontaneous unlabored Yes 04/10/24 11:43 LICENSED MENTAL HEALTH COUNSELOR.ILDEFONSO respirations Mental status Awake 04/10/24 11:43 LICENSED MENTAL HEALTH COUNSELOR.TEEOBYony nausea No 04/10/24 11:43 LICENSED MENTAL HEALTH COUNSELOR.TEEOBYony Vomiting No 04/10/24 11:43 LICENSED MENTAL HEALTH COUNSELOR.ILDEFONSO Anesthesia Postop Eval I: Fluid Summary Crystalloid volume administer 1,600 04/10/24 11:43 LICENSED MENTAL HEALTH COUNSELOR.TEEOBY (ml) Colloids volume administered ( ml) Blood Product volume administered (ml) Total IV fluid infused 1,600 04/10/24 11:43 LICENSED MENTAL HEALTH COUNSELOR.ILDEFONSO Anesthesia Postop Eval I: Summary Notes Anesthesia Complication No 04/10/24 11:43 LICENSED MENTAL HEALTH COUNSELOR.ILDEFONSO Anesthesia Complication Comment: Post-operative progress note Anesthesia: Postop Eval II Evaluation Mental status: Awake Pain Level: 1 nausea: No Vomiting: No
[2024-04-10] MEDS: Ketorolac 15 MG/ML Vial IV (15:27)
[2024-04-10] MEDS: 0.9% Saline Lock 10 ML Syringe IV ×2 (15:27→21:13)
[2024-04-10] MEDS: Methocarbamol 500 MG Tablet 1000 MG PO ×2 (18:54→21:47)
[2024-04-10] MEDS: Morphine 2 MG/ML Syringe IV (21:12)
[2024-04-10] MEDS: DESMOPRESSIN ACETATE 0.2 MG TABLET PO (21:47)
[2024-04-10] MEDS: Tolterodine Tartrate 4 MG CAP.SA PO (21:47)
[2024-04-10] MEDS: Atorvastatin Calcium 20 MG Tablet PO (21:47)
[2024-04-10] MEDS: Pantoprazole Sodium 20 MG Tablet PO (21:47)
[2024-04-10] MEDS: Senna/Docusate Sodium 1 Tablet 2 TABLET PO (21:48)
[2024-04-10] MEDS: carBAMazepine 200 MG Tablet 300 MG PO (21:48)
[2024-04-10] MEDS: Metoprolol(XL)Succ 25 MG Tablet PO (21:51)
[2024-04-11] MEDS: Clindamycin 900 MG/50 ML BAG 75 MG IV (00:28)
[2024-04-11] MEDS: 0.9% Saline Lock 10 ML Syringe IV ×3 (00:28→05:42)
[2024-04-11] MEDS: Ketorolac 15 MG/ML Vial IV (02:20)
[2024-04-11] MEDS: oxyCODONE 5 MG Tablet PO ×2 (02:21→09:33)
[2024-04-11 02:23] VITALS: BP 116/74; PULSE 78; RESP 16; TEMP 36.6; O2SAT 98
[2024-04-11] MEDS: Acetaminophen 500 MG Tablet 1000 MG PO ×2 (04:58→13:23)
[2024-04-11] MEDS: Levothyroxine 50 MCG Tablet PO (04:59)
[2024-04-11] MEDS: Morphine 4 MG/ML Syringe IV (05:42)
[2024-04-11 05:55] VITALS: BP 109/72; PULSE 68; RESP 18; TEMP 36.3; O2SAT 99
[2024-04-11 06:38] LABS: Hematocrit 32.9 % (40-54); Hemoglobin 10.8 g/dL (13.0-16.5); Mean Corp Hgb Conc 32.8 g/dL (32-36); Mean Corpuscular Hgb 30.4 pg (27.0-32.0); Mean Corpuscular Volume 92.7 fL (80-94); Mean Platelet Vol. 9.2 fl (6.2-12.0); Platelet Count 148 K/mm3 (150-450); RBC Distribution Width CV 12.3 % (11.6-14.6); Red Blood Count 3.55 M/mm3 (4.6-6.2); White Blood Count 8.7 K/mm3 (4.4-11.0)
[2024-04-11 06:57] LABS: Anion Gap 6 (5-15); BUN 16 mg/dL (7-18); BUN/Creat Ratio 19.2 RATIO (10-20); Calcium,Total 7.6 mg/dL (8.5-10.1); Chloride 106 mmol/L (98-107); Creatinine, Serum 0.83 mg/dL (0.70-1.30); EST Glomerular Filtration Rate 101 mL/min (>60); Est Glom Filt Rate - Afr Amer 122 mL/min (>60); Estimated Creatinine Clearance 91.92 ml/min; Glucose 112 mg/dL (74-106); Potassium 3.8 mmol/L (3.5-5.1); Sodium Level 137 mmol/L (136-145)
--- NOTE | 2024-04-11 07:00 | RAD_ITS ---
STUDY: X-RAY - LUMBAR SPINE REASON FOR EXAM: Male, 59 years old. s/p lumbar fusion -- please do urpight AP and LAT TECHNIQUE: 2 view(s) of the lumbar spine were obtained. COMPARISON: None FINDINGS: Normal lumbar lordosis. There is no substantial scoliosis. There is a normal alignment of the vertebrae. Posterior surgical fusion of L4-5 with a disc spacer in place Normal vertebral bodies with mild spurring of the endplates. Normal disc space heights. The soft tissue structures are unremarkable. Surgical clips in the right upper quadrant. Possible punctate calcification over the left renal shadow. RAD/Lumbar Spine 2 or 3 Views IMPRESSION: Degenerative and postsurgical changes of the lumbar spine. Electronically Signed: Sal Trimble DO at 16:24 EST ,
[2024-04-11 08:11] VITALS: O2SAT 96
[2024-04-11 09:12] VITALS: BP 111/70; PULSE 67; RESP 18; TEMP 36.6; O2SAT 98
[2024-04-11] MEDS: Pantoprazole Sodium 20 MG Tablet PO (09:25)
[2024-04-11] MEDS: Ensure Surgery 237 ML LIQUID PO ×2 (09:25→12:37)
[2024-04-11] MEDS: FLUoxetine 10 MG Capsule PO (09:25)
[2024-04-11] MEDS: Meloxicam 15 MG Tablet PO (09:25)
[2024-04-11] MEDS: DESMOPRESSIN ACETATE 0.2 MG TABLET PO (09:25)
[2024-04-11] MEDS: carBAMazepine 200 MG Tablet 300 MG PO (09:26)
[2024-04-11] MEDS: Senna/Docusate Sodium 1 Tablet 2 TABLET PO (09:26)
[2024-04-11] MEDS: Cholecalciferol (Vit D3) 125 MCG CAPSULE (5,000 UNITS) PO (09:26)
[2024-04-11] MEDS: Methocarbamol 500 MG Tablet 1000 MG PO ×2 (09:26→13:23)
--- NOTE | 2024-04-11 10:30 | PN.HOSP_ITS ---
Subjective Subjective Doing well, no issues overnight. He is complaining mostly of surgical site pain Objective Data Objective Data Vital Signs: Vital Signs Temp Pulse Resp BP Pulse Ox O2 Del Method O2 Flow Rate 97.8 F 67 18 111/70 98 Room Air 2 04/11/24 09:12 04/11/24 09:12 04/11/24 09:12 04/11/24 09:12 04/11/24 09:12 04/11/24 09:12 04/11/24 08:11 Oxygen Flow Rate (L/min) 2 Oxygen Delivery Method Room Air Weight: 191 lb 12.835 oz Body Mass Index (BMI) 36.2 Intake & Output: Intake and Output for Last 24 Hours 04/10/24 04/11/24 04/12/24 03:59 03:59 03:59 Intake Total 1847 / 1847 600 / 600 Output Total 700 / 700 Balance 1147 / 1147 600 / 600 Lab / Micro Data 04/11/24 06:05 04/11/24 06:05 Labs: Laboratory Results - last 24 hr 04/11/24 06:05: WBC 8.7, RBC 3.55 L, Hgb 10.8 L, Hct 32.9 L, MCV 92.7, MCH 30.4, MCHC 32.8, RDW Std Deviation 42.0, RDW Coeff of Eric 12.3, Plt Count 148 L, MPV 9.2, Sodium 137, Potassium 3.8, Chloride 106, Carbon Dioxide 26.0, Anion Gap 6, BUN 16, Creatinine 0.83, Estim Creat Clear Calc 91.92, Est GFR (MDRD) Af Amer 122, Est GFR (MDRD) Non-Af 101, BUN/Creatinine Ratio 19.2, Glucose 112 H, C alcium 7.6 L Micro: Microbiology 04/05/24 14:09 Swab (Method) Nasal Screen MRSA/MSSA - Final Radiography Diagnostic Testing: Radiology Impression Lumbar Spine X-Ray 04/10/24 06:30 IMPRESSION: Fluoroscopic guidance for fusion at L4-L5. Please refer to operative report for further information. Electronically Signed: Robby Jones MD at 20:57 EST , Physical Exam Narrative General: Alert, Oriented x3, Cooperative, No apparent distress HEENT: Atraumatic, PERRLA, EOMI, Normocephalic Oral: Moist Mucosa Neck: Supple, No JVD Lungs: Clear to auscultation, Normal air movement, No rhonchi, No wheeze, No rales Cardiovascular: Regular rate, Regular Rhythm, Normal S1, Normal S2, No murmurs Abdomen: Soft, Non Tender, Non-Distended, No Hepato-splenomegaly Extremities: No edema, Capillary Refill Less than 3 Seconds Skin: Dressing CDI Musculoskeletal: No Tenderness to Palpation of Joints or Extremities Neurological: No focal neurological deficits, Motor Exam 5/5 strength throughout, Sensory exam intact to light touch and pain Psych/Mental Status: Flat Assessment & Plan Assessment/Plan (1) Spinal stenosis of lumbar region with neurogenic claudication: PLAN: Plan 1. Spinal stenosis status post L4-5 posterior fusion ? PT/OT ? Pain management per primary ? From medical standpoint appears stable to go home 2. Essential HTN/HLD ? Blood pressures are stable ? Can resume his home blood pressure medications including his desmopressin ? Can restart Plavix when okay with surgery ? Continue with Lipitor ? Will monitor make adjustments as necessary 3. GERD ? Stable ? Continue with PPI 4. Hypothyroidism ? Stable ? Continue with Synthroid 5. Anxiety/depression ? Stable ? Continue with his home medications 6. Seizure disorder ? Stable ? Continue with his home medications DVT: Per primary Charges/Coding Visit Charges Inpatient E&M: 98204 Subs Hosp L2
--- NOTE | 2024-04-11 11:00 | NURSING ---
niece listed on demographics called in, update given.
[2024-04-11] MEDS: Bisacodyl 5 MG Tablet 10 MG PO (11:04)
--- NOTE | 2024-04-11 11:12 | NURSING ---
bladderscanned again at pt's request for 347cc. discussed po intake with patient. pt wishes to wait for another st.cath at this time.
--- NOTE | 2024-04-11 12:03 | PCM.PN.ORT ---
Subjective Subjective Patient is postop day 1 L4-5 lumbar fusion. He is doing relatively well postoperatively and has walked with therapy. He has recently passed flatus and will attempt a solid meal. He had to be straight cath as he was not able to void throughout the night. He was able to get up to attempt voiding. Patient was in bed upon arrival and encouraged to move today is much as he could. Dressing over the left back incision was changed by nursing due to saturation. Objective Data Objective Data Vital Signs: Vital Signs Temp Pulse Resp BP Pulse Ox O2 Del Method O2 Flow Rate 97.8 F 67 18 111/70 98 Room Air 2 04/11/24 09:12 04/11/24 09:12 04/11/24 09:12 04/11/24 09:12 04/11/24 09:12 04/11/24 09:12 04/11/24 08:11 Oxygen Flow Rate (L/min) 2 Oxygen Delivery Method Room Air Weight: 191 lb 12.835 oz Body Mass Index (BMI) 36.2 Intake & Output: Intake and Output for Last 24 Hours 04/09/24 04/10/24 04/11/24 23:59 23:59 23:59 Intake Total 1557 / 1797 1890 / 1890 Output Total 700 / 700 Balance 857 / 1097 1890 / 1890 Lab / Micro Data 04/11/24 06:05 04/11/24 06:05 Labs: Laboratory Results - last 24 hr 04/11/24 06:05: WBC 8.7, RBC 3.55 L, Hgb 10.8 L, Hct 32.9 L, MCV 92.7, MCH 30.4, MCHC 32.8, RDW Std Deviation 42.0, RDW Coeff of Eric 12.3, Plt Count 148 L, MPV 9.2, Sodium 137, Potassium 3.8, Chloride 106, Carbon Dioxide 26.0, Anion Gap 6, BUN 16, Creatinine 0.83, Estim Creat Clear Calc 91.92, Est GFR (MDRD) Af Amer 122, Est GFR (MDRD) Non-Af 101, BUN/Creatinine Ratio 19.2, Glucose 112 H, Calcium 7.6 L Micro: Microbiology 04/05/24 14:09 Swab (Method) Nasal Screen MRSA/MSSA - Final Radiography Diagnostic Testing: Radiology Impression Lumbar Spine X-Ray 04/10/24 06:30 IMPRESSION: Fluoroscopic guidance for fusion at L4-L5. Please refer to operative report for further information. Electronically Signed: Robby Jones MD at 20:57 EST , Physical Exam Narrative Neurological exam of the lower extremities shows 5x5 power. Normal sensations across all dermatomes. Tegaderm and gauze intact over belly and back incisions. Const alert, oriented x3 and no apparent distress Assessment & Plan Assessment/Plan (1) Status post lumbar spinal fusion: PLAN: Plan X-rays done today look good. Patient is cleared by PT/OT. According to nursing note, patient was able to void and was give Flomax. If needed, the patient could go home with a watson catheter and would follow up with urology. From an orthopedics stand point he is ready for discharge. Again reviewed restrictions of no bending, lifting, twisting. Home-going meds include oxycodone, acetaminophen, methocarbamol, meloxicam, senna. He will follow-up in the clinic in 2 weeks. Patient is in agreement.
[2024-04-11] MEDS: Tamsulosin HCl 0.4 MG Capsule PO (12:37)
--- NOTE | 2024-04-11 12:39 | NURSING ---
pt back to bed, family bedside. pt was able to void. flomax given
--- NOTE | 2024-04-11 13:00 | CASEMGMT ---
ALEC SESAY Assessment: Face to Face with pt for initial transition planning/care coordination assessment. ALEC SESAY introduced self and role at [facility], pt voices understanding and consents to assessment. Pt is A&O x4 and answers all questions appropriately at this time. Pt sitting up in chair with sister and mother at bedside. Pt agreeable to assessment with family present. Care providers, pharmacy, and demographics verified/updated. Admitting Dx: 360 lumbar fusion L4-5 Strata Score: 1 PCP:Juliann Specialists:[facility]; Serjio, neuro Preferred Pharmacy: [facility] Retail Insurance: [employer] Prescription Benefit: yes LNOK: Nader Llanos, father; Melody Cabrera, niece Living Arrangements: Pt lives with mother but is going to his niece's home that is a mobile home with 5 steps to enter with a rail. Pt reports that he did steps with therapy and feels comfortable with them. Pt was indep with ADL/IADL prior to surgery and denies concerns. Pt niece to assist him. Transportation: Pt drives self and denies concerns with transportation. Pt niece will transport him until he can drive again. DME:CPAP, canes, walker HHC/SNF: Denies hx of Pt states no concerns with going home at time of dc. Pt states no further concerns/needs. CM to follow. Advised pt to ask CM if any further questions/concerns/needs arise, voices understanding. Pt Goal: Home Plan: Home Ivan MICHAEL CM
== END 2024-04-11 14:00 | disposition home or self-care (01) | DRG 451 ==
PROVIDERS: Anesthesiology; Student in an Organized Health Care Education/Training Program; Admitting Provider Orthopaedic Surgery Orthopaedic Surgery of the Spine; PCP Family Medicine; Referring Provider Orthopaedic Surgery Orthopaedic Surgery of the Spine; Visit Provider Family Medicine
PROC: 0SG00A0 Fusion of Lumbar Vertebral Joint with Interbody Fusion Device, Anterior Approach, Anterior Column, Open Approach (ICD-10-PCS; principal; 2024-04-10 07:00)
DX: M48.062 Spinal stenosis, lumbar region with neurogenic claudication (principal); E03.9 Hypothyroidism, unspecified; G40.909 Epilepsy, unspecified, not intractable, without status epilepticus; F32.A Depression, unspecified; E66.9 Obesity, unspecified; E78.00 Pure hypercholesterolemia, unspecified; M43.16 Spondylolisthesis, lumbar region; K21.9 Gastro-esophageal reflux disease without esophagitis; M53.2X6 Spinal instabilities, lumbar region; M19.90 Unspecified osteoarthritis, unspecified site; G47.30 Sleep apnea, unspecified; M54.50 Low back pain, unspecified; F41.9 Anxiety disorder, unspecified; Z87.891 Personal history of nicotine dependence; Z98.890 Other specified postprocedural states; G89.18 Other acute postprocedural pain; Z88.1 Allergy status to other antibiotic agents; Z88.5 Allergy status to narcotic agent; Z88.8 Allergy status to other drugs, medicaments and biological substances; Z79.890 Hormone replacement therapy; Z79.899 Other long term (current) drug therapy; Z88.2 Allergy status to sulfonamides; Z79.02 Long term (current) use of antithrombotics/antiplatelets; Z99.89 Dependence on other enabling machines and devices; Z87.440 Personal history of urinary (tract) infections; Z87.442 Personal history of urinary calculi; N40.0 Benign prostatic hyperplasia without lower urinary tract symptoms; Z96.659 Presence of unspecified artificial knee joint; Z90.49 Acquired absence of other specified parts of digestive tract; Z87.81 Personal history of (healed) traumatic fracture; Z87.898 Personal history of other specified conditions; Z79.1 Long term (current) use of non-steroidal anti-inflammatories (NSAID); R26.81 Unsteadiness on feet; Z68.36 Body mass index [BMI] 36.0-36.9, adult
CPT/HCPCS: 36415; 72100; 76000; 80048; 82962; 83735; 84443; 85025; 85027; 86703; 86706; 86708; 86803; 86850; 86900; 86901; 87081; 93005; 94668; 97116; 97162; 97166; 97530; C1713; A4216; J2405

== ENCOUNTER 2024-07-11 15:30 | Outpatient (RCR) | payer OTHER, SELFPAY ==
--- NOTE | 2024-05-01 16:09 | HP.PTEVAL_ITS ---
Patient's Visit Information Visit Information Visit Information: AMANDO MÁRQUEZ Jr. is a 59 year old M referred to Physical Therapy by Dr. Yanick Terry MD with a diagnosis of ARTHRODESIS STATUS. Date of Evaluation: 05/01/24 Physical Therapist: Roderick Lorenzo, PT, Cert MDT, OCS Visit Plan Frequency: 2x /Week Duration: 4 Weeks Plan: S/P LUMBAR FUSION 04/10/24 NO BLT FOR 3MONTHS PT INTERVENTIONS DLS ,POSTURAL EX'S ,POSTURE TRAINING ,ACTIVITY MODIFICATION ,,BLE STRENGTHENING/LE FLEXABILITY Subjective Subjective: This 59 y/o male presents physical therapy with s/p posterior lumbar fusion and 4-5 oblique lumbar interbody fusion L4-5 Apr 10 d/c next day . Patient initially used with walker then progressed to cane and currently no device . Patient seen 04/23/24 recommended PT and no BLT for 3 months X-rays looked good. No pain medication . Prior surgery tried PT did not help and had MRI showed L4-5 spondylolisthesis, stenosis.Patient has no leg symptoms or paresthesia/tingling . Coughing/sneezing -. Patient sleeping good. 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 Patient RTW to work light duty next. RTD in 6 weeks . Patient condition affects QOL and function and RTW. Patient goals to RTW and get stronger. VOCATION: [employer] SOCIAL: single Objective Objective: POSTURE: mild forward posture GAIT: reciprocal pattern slight shuffle pattern with increase MARY NEURO: denies paresthesia/tingling ,reflexes L3-4,L4-5,L5-S1 2/3 SKIN: posterior incision well approximate has bandage ,lateral left looks good FLEXABILITY: hamstrings min tight MMT: quads/ham/hip 4/5 ,ankle 4/5 LUMBAR ROM: flexion min loss ,extension mod loss ,side glides min loss Special Tests L/S Slump test left side: Negative L/S Slump test right side: Negative L/S Left Straight Leg Raise: Negative L/S Right Straight Leg Raise: Negative Balance/Special Test Scores Oswestry Low Back Score: 20 Goals Goal 1:: Patient to be I with HEP for back Goal 2:: Patient to improve lumbar ROM for function of recovery to RTW Goal Time Frame: 4-6 Weeks Goal 3:: Patient to demonstrate 60% improvement with less pain and improved function Goal Time Frame: 4-6 Weeks Goal 4:: 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 Goal Time Frame: 4-6 Weeks Goal 5:: Patient to improve back oswestry score by 5 points to improve QOL and function. Goal Time Frame: 4-6 Weeks Rehabilitation Potential Physical Therapy Diagnosis: This patient underwent s/p posterior lumbar fusion and 4-5 oblique lumbar interbody fusion L4-5 Apr 10 with decrease lumbar ROM ,weakness , and general conditioning to RTW thus benefit from skilled PT Rehabilitation Potential: Good Anticipated Interventions Patient/Client Instruction: Educate patient on: Condition and Plan of Care For the Purpose of:: To decrease pain, To increase ROM, To improve muscle performance and motor function, To improve ability to perform ADL's, To increase tolerance to activity/condition/position, To improve ability of physical actions for home/community/work/leisure, To improve health of tissue, To decrease soft tissue restriction, To increase flexibility/ROM, To improve endurance and To improve tolerance to ADL's Therapeutic Exercise to Include: Strength training, Body mechanics, Postural training, Flexibilty training and Dynamic Lumbar Stabilization Comment: BLE For the Purpose of:: To decrease pain, To increase ROM, To improve muscle performance and motor function, To improve ability to perform ADL's, To increase tolerance to activity/condition/position, To improve ability of physical actions for home/community/work/leisure, To improve health of tissue, To decrease soft tissue restriction, To increase flexibility/ROM and To improve tolerance to ADL's Text: Thank you for the opportunity to evaluate your patient. For Medicare and Medicare HMO plans, please review the plan of care and approve it. It will need to be FAXED BACK to us at [phone] for Medicare purposes. For Medicare only, by signing this I certify the plan of care. Please let me know if there are questions or concerns regarding this plan of care. Physician Signature: Date:
--- NOTE | 2024-07-11 15:57 | HP.PTDCSUM_ITS ---
Discharge Summary D/C summary: It has been my pleasure to treat AMANDO MÁRQUEZ Jr. referred by Dr. Yanick Terry MD, with the diagnosis of ARTHRODESIS STATUS for a total of 1 visit(s). Discharge Date: 07/11/24 Please see the following information for a summary of their discharge status. Subjective Subjective: Doing good .just finished work Not bent over ,standing straight No restrictions Seen DR lifting restrictions 25-30# for 2 more weeks Patient happy with progress and x-rays showed looking good Pain Right Hip: Pain Intensity (Out of 10): 0 Overall Improvement % Improvement: 75 Objective Objective/Function: POSTURE: mild forward posture GAIT: reciprocal pattern increase MARY NEURO: denies paresthesia/tingling ,reflexes L3-4,L4-5,L5-S1 2/3 SKIN: intact FLEXABILITY: hamstrings min tight MMT: quads/ham/hip 4/5 ,ankle 4/5 LUMBAR ROM: flexion WFL ,extension MIN/mod loss ,side glides min loss Goals Goal 1:: Patient to be I with HEP for back Goal Progress: Goal Met Goal 2:: Patient to improve lumbar ROM for function of recovery to RTW Goal Progress: Goal Met Goal 3:: Patient to demonstrate 60% improvement with less pain and improved function Goal Progress: Goal Met Goal 4:: 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 Goal Progress: Goal Met Goal 5:: Patient to improve back oswestry score by 5 points to improve QOL and function. Goal Progress: Goal Met Plan Plan: D/C D/C Information Discharge Comments: HEP AND GYM d/c sentence: If there are questions or concerns regarding this patient's physical therapy, please feel free to call me at [phone]. Thank you for the referral of this patient. Sincerely, Roderick Lorenzo, PT, Cert MDT, OCS Balance/Gait/Functional tests Balance/Special Test Scores Oswestry Low Back Score: 2 Improvement % Improvement: 75
== END 2024-07-11 19:00 | disposition home or self-care (01) ==
LOC: PT 15:30
PROVIDERS: PCP Family Medicine; Referring Provider Orthopaedic Surgery Orthopaedic Surgery of the Spine; Visit Provider Orthopaedic Surgery Orthopaedic Surgery of the Spine
DX: Z98.1 Arthrodesis status (principal)
CPT/HCPCS: 97110; 97162; 97530

== ENCOUNTER → 2024-09-25 | Outpatient (CLI) | payer OTHER, SELFPAY ==
--- NOTE | 2024-09-25 11:33 | RAD_ITS ---
PROCEDURE: KNEE 4 OR MORE VIEWS 09/25/2024 REASON FOR EXAM: PAIN TECHNIQUE: KNEE 4 OR MORE VIEWS COMPARISON: None RAD/Knee 4 or More Views IMPRESSION: No acute fracture or dislocations. Mild degenerative changes of the left knee w ith chondrocalcinosis. Mild joint effusion. Mild diffuse soft tissue edema. No radiographic foreign body. Reading Location: [id number]
--- NOTE | 2024-09-25 11:33 | RAD_ITS ---
PROCEDURE: KNEE 4 OR MORE VIEWS 09/25/2024 REASON FOR EXAM: PAIN TECHNIQUE: KNEE 4 OR MORE VIEWS COMPARISON: None RAD/Knee 4 or More Views IMPRESSION: No acute fracture or dislocations. Mild degenerative changes of the left knee w ith chondrocalcinosis. Mild joint effusion. Mild diffuse soft tissue edema. No radiographic foreign body. Reading Location: [id number]
== END | disposition home or self-care (01) ==
LOC: MTRAD 11:32
PROVIDERS: PCP Family Medicine; Referring Provider Family Medicine; Visit Provider Family Medicine
DX: M25.562 Pain in left knee (principal)
CPT/HCPCS: 73564

== ENCOUNTER → 2024-10-24 | Outpatient (CLI) | payer OTHER, SELFPAY ==
[2024-10-24 18:41] LABS: PSA,Total- Diagnostic 0.47 ng/mL (0.00-4.00)
== END | disposition home or self-care (01) ==
LOC: MTLAB 14:57
PROVIDERS: PCP Family Medicine
DX: R35.1 Nocturia (principal)
CPT/HCPCS: 36415; 84153

== ENCOUNTER 2025-01-04 18:05 | Emergency (ER) | payer OTHER, SELFPAY ==
[2025-01-04 18:06] VITALS: BP 158/91; PULSE 62; RESP 18; TEMP 36.8; O2SAT 99; BMI 29.7
--- NOTE | 2025-01-04 18:09 | EX.ED.DYSGE1 ---
HPI History of Present Illness Chief Complaint: General Illness Informant: patient Onset/Context/Timing Onset: Weeks (1-2) Context: Gradual Onset Timing: Intermittent Quality: Lightheaded Location: Generalized Worsened by: Nothing Relieved by: Nothing Narrative Narrative: Patient presents with lightheadedness and weakness that began 1 to 2 weeks ago. Patient states it became worse today. Patient states it is gradually gotten worse. Patient states nothing makes it worse and nothing makes it better. Patient states he was recently changed his carbamazepine to 400 mg twice daily. Patient states that he had been taking 300 mg in the morning, 200 mg in the afternoon, and 300 mg in the evening. Patient states this was changed because he was forgetting his afternoon dose. Patient denies any chest pain or shortness of breath. Patient denies any nausea or vomiting. Patient denies any paresthesias or weakness. Patient denies any visual changes. [facility] Medical History Abdominal pain Subglottic stenosis TBI (traumatic brain injury) Ambulates with cane Bladder disease Low iron COPD (chronic obstructive pulmonary disease) Shortness of breath on exertion History of pain when walking Wears dentures Wears glasses Thyroid disease Arthritis High cholesterol Injury of head and neck Back pain Migraine headache Syncope Seizures Gastric reflux Former smoker CPAP (continuous positive airway pressure) dependence Hoarseness History of edema History of stress test UTI (urinary tract infection) Hypercholesteremia Arthritis BPH (benign prostatic hyperplasia) Obesity HLD (hyperlipidemia) GERD (gastroesophageal reflux disease) Epilepsy without mention Intractable Epilepsy, unspecified Home Medications ?Medication ?Instructions ?Recorded ?Last Taken ?Type levothyroxine 50 mcg tablet 50 mcg PO DAILY thyroid 04/03/15 04/10/24 History metoprolol succinate 25 mg 25 mg PO QHS blood pressure 04/03/15 04/09/24 History tablet,extended release 24 hr simvastatin 40 mg tablet 40 mg PO QHS cholesterol lowering 04/03/15 04/09/24 History cholecalciferol (vitamin D3) 125 125 mcg PO QDAY SUPPLEMENT 04/04/24 04/09/24 History mcg (5,000 unit) capsule desmopressin 0.2 mg tablet 0.2 mg PO BID BP 04/04/24 04/10/24 History ferrous sulfate 325 mg (65 mg 325 mg PO QDAY SUPPLEMENT 04/04/24 04/09/24 History iron) tablet (FeroSul) fesoterodine 8 mg tablet,extended 8 mg PO QHS OAB 04/04/24 04/09/24 History release 24 hr mecobalamin (vitamin B12) 5,000 5,000 mcg PO QDAY SUPPLEMENT 04/04/24 04/09/24 History mcg chewable tablet rkqeegyd-hvt-nqvgh acid 0.4 1 tab PO QDAY SUPPLEMENT 04/04/24 04/09/24 History mg-lycopene 300 mcg-lutein 250 mcg tablet (Complete Multivitamin Adult 50 Plus) sumatriptan succinate 100 mg tablet 100 mg PO ONCE PRN migraine 04/04/24 Unknown History headache carbamazepine 200 mg tablet 300 mg PO BID SEIZURES 04/05/24 04/10/24 History meloxicam 15 mg tablet 15 mg PO QDAY #30 tabs 12/03/24 Unknown Rx methocarbamol 500 mg tablet 500 mg PO QHS #30 tabs 12/03/24 Unknown Rx Allergy/AdvReac Type Severity Reaction Status Date / Time strawberry Allergy Intermediate Hives Verified 01/04/25 18:10 azithromycin Allergy Unknown Unknown Verified 01/04/25 18:10 erythromycin base Allergy Unknown Verified 01/04/25 18:10 Penicillins Allergy Hives Verified 01/04/25 18:10 Barbiturates AdvReac Other Verified 01/04/25 18:10 divalproex sodium (From AdvReac Other Verified 01/04/25 18:10 Depakote) Hydantoins AdvReac Other Verified 01/04/25 18:10 phenobarbital AdvReac Other Verified 01/04/25 18:10 phenytoin sodium (From AdvReac Other Verified 01/04/25 18:10 Dilantin) phenytoin sodium extended AdvReac Other Verified 01/04/25 18:10 (From Dilantin) Family History Father Hypertension Other Myocardial infarction Prostate cancer Surgical History History of cardiac catheterization History of bronchoscopy Hx of tooth extraction Hx of foot surgery Hx of cystoscopy Hx of cardiac cath Hx laparoscopic cholecystectomy Hx of total knee replacement History of partial knee replacement History of tracheostomy as a child Social History (Updated 01/04/25 @ 18:11 by Chiqui Wong) household members: family current occupation: [employer] Smoking Status: Former smoker alcohol intake: never substance use type: does not use EXAM Physical Exam Const Vital Signs: 01/04/25 18:06 01/04/25 18:15 01/04/25 19:00 Temperature 98.3 F 98.3 F Temperature Source Oral Oral Pulse Rate 62 60 Pulse Rate [Lying] Pulse Rate [Sitting (for 1 minute prior to obtaining)] Pulse Rate [Standing (for 1 minute prior to obtaining)] Respiratory Rate 18 18 Respiratory Effort Normal Non-Labored Respiratory Pattern Normal Blood Pressure 158/91 H 133/74 H Blood Pressure [Lying] Blood Pressure [Sitting (for 1 minute prior to obtaining)] Blood Pressure [Standing (for 1 minute prior to obtaining)] Blood Pressure Mean 113 93 Blood Pressure Mean [Lying] Blood Pressure Mean [Sitting (for 1 minute prior to obtaining)] Blood Pressure Mean [Standing (for 1 minute prior to obtaining)] Pulse Ox 99 97 Oxygen Delivery Method Room Air Room Air 01/04/25 19:29 01/04/25 20:00 Temperature 98.2 F Temperature Source Oral Pulse Rate 60 Pulse Rate [Lying] 58 L Pulse Rate [Sitting (for 1 minute prior to obtaining)] 62 Pulse Rate [Standing (for 1 minute prior to obtaining)] 69 Respiratory Rate 18 Respiratory Effort Respiratory Pattern Blood Pressure 153/93 H Blood Pressure [Lying] 160/88 H Blood Pressure [Sitting (for 1 minute prior to obtaining)] 161/93 H Blood Pressure [Standing (for 1 minute prior to obtaining)] 163/92 H Blood Pressure Mean 113 Blood Pressure Mean [Lying] 112 Blood Pressure Mean [Sitting (for 1 minute prior to obtaining)] 115 Blood Pressure Mean [Standing (for 1 minute prior to obtaining)] 115 Pulse Ox 98 Oxygen Delivery Method Room Air MDM MDM MDM Narrative Medical decision making narrative: Differential diagnosis includes dehydration, electrolyte abnormality, medication toxicity, cardiac dysrhythmia, cardiac ischemia, pneumonia, bronchitis, and anxiety. EKG will be obtained to assess for cardiac dysrhythmia and cardiac ischemia. Chest x-ray will be obtained to assess for pneumonia or bronchitis. CBC will be obtained to assess for leukocytosis and anemia. Comprehensive metabolic profile will be obtained to assess for electrolyte abnormality renal function. CT scan of the brain will be obtained to assess for intracranial bleeding and stroke. Orthostatic vital signs will be obtained to assess for hypovolemia and dehydration. Carbamazepine level will be obtained to assess for medication toxicity. History & Record Review Additional record(s) reviewed:: Prior outpatient record, Prior ED visit and Prior labs Lab Data Attestation: I reviewed the patient's lab results. Lab results narrative: CBC was reviewed. There is a mild anemia with a hemoglobin of 12.7 and hematocrit of 37.7. The remainder is within normal limits. Comprehensive metabolic profile was reviewed. Chloride was slightly low at 95. Calcium was low at 6.3. The remainder is within normal limits. Urinalysis was reviewed. There is no evidence of urinary tract infection or hematuria. Carbamazepine level was reviewed and was therapeutic at COVOH-19 PCR was reviewed and was positive. Influenza PCR was reviewed and was negative for influenza A and influenza B. RSV PCR was reviewed and was negative. 9.4. Labs: Laboratory Results - last 24 hr 01/04/25 01/04/25 18:44 19:45 WBC 4.4 RBC 4.25 L Hgb 12.7 L Hct 37.7 L MCV 88.7 MCH 29.9 MCHC 33.7 RDW Std Deviation 39.2 RDW Coeff of Eric 12.0 Plt Count 151 MPV 9.1 Immature Gran % (Auto) 0.200 Neut % (Auto) 57.0 Lymph % (Auto) 22.9 [place] % (Auto) 14.7 H Eos % (Auto) 4.3 Baso % (Auto) 0.9 Absolute Neuts (auto) 2.5 Absolute Lymphs (auto) 1.01 Nucleated RBC % 0 Sodium 136 Potassium 3.6 Chloride 95 L Carbon Dioxide 26.1 Anion Gap 15 BUN 13 Creatinine 0.82 Estim Creat Clear Calc 100.83 Est GFR (MDRD) Non-Af 103 BUN/Creatinine Ratio 15.5 Glucose 99 Calcium 6.3 L* Total Bilirubin 0.18 AST 27 ALT 24 Alkaline Phosphatase 113 Troponin T High Sens 12 Total Protein 7.0 Albumin 4.4 Globulin 2.6 Albumin/Globulin Ratio 1.7 Urine Color Yellow Urine Clarity Clear Urine pH 7.0 Ur Specific [place] 1.010 Urine Protein 15 H Urine Glucose (UA) Normal Urine Ketones Negative Urine Occult Blood Negative Urine Nitrite Negative Urine Bilirubin Negative Urine Urobilinogen Normal Ur Leukocyte Esterase Negative Urine RBC 0 SEEN Urine WBC 0 SEEN Ur Squamous Epith Cells 0 SEEN Urine Bacteria 0 SEEN Urine Mucus 0 SEEN Carbamazepine 9.4 Radiography Diagnostic Testing: Clinical Impression(s) from Imaging Studies Brain CT 01/04/25 18:25 IMPRESSION: 1. No intracranial hemorrhage. No mass effect or midline shift. 2. Chronic involutional and ischemic gliotic white matter changes. Reading Location: [facility] Chest X-Ray 01/04/25 19:17 IMPRESSION: NO ACUTE FINDINGS. Reading Location: [facility] CT scan of the brain was obtained. There is no acute intracranial abnormality. This was interpreted by the radiologist and was also independently reviewed by myself. PA and lateral chest x-ray was obtained. There are 2 views. On my independent interpretation, lung huynh are clear. There is normal cardiac silhouette. Bony thorax is normal. There is no acute process noted. Radiologist also interpreted the x-ray and agrees. Treatment and Re-Evaluation :: Patient was given IV fluids. Patient was advised of his findings. Patient was given a dose of calcium gluconate here. Patient was instructed to drink plenty of fluids. Patient was instructed to take Tylenol or ibuprofen as needed for any pain or fevers. Patient was instructed to follow-up with his primary care physician in 5 to 7 days. Patient understood and was agreeable with the plan. All questions were answered. Discharge Plan Triage Chief Complaint: General Illness ED Provider: Jose Staton Dx/Rx/DC Orders Clinical Impression: COVID-19, Hypocalcemia Instructions: Coronavirus Disease 2019 (COVID-19): Overview, Coronavirus Disease 2019 (COVID-19): Caring for Yourself or Others Prescriptions: No Action desmopressin 0.2 mg tablet 0.2 mg PO BID ferrous sulfate [FeroSul] 325 mg (65 mg iron) tablet 325 mg PO QDAY fesoterodine 8 mg tablet extended release 24 hr 8 mg PO QHS sumatriptan succinate 100 mg tablet 100 mg PO ONCE PRN (Reason: migraine headache) cholecalciferol (vitamin D3) 125 mcg (5,000 unit) capsule 125 mcg PO QDAY mecobalamin (vitamin B12) 5,000 mcg tablet,chewable 5,000 mcg PO QDAY Complete MV Adult 50 Plus 0.4 mg-300 mcg- 250 mcg tablet 1 tab PO QDAY meloxicam 15 mg tablet 15 mg PO QDAY Qty: 30 0RF methocarbamol 500 mg tablet 500 mg PO QHS Qty: 30 0RF Rx Instructions: Do not take within 8 hrs of driving, operating machinery or safety sensitive work simvastatin 40 MG tablet 40 mg PO QHS Patient Comments: cholesterol levothyroxine 50 MCG tablet 50 mcg PO DAILY Patient Comments: thyroid metoprolol succinate 25 MG tablet 25 mg PO QHS Patient Comments: blood pressure carbamazepine 200 mg tablet 300 mg PO BID Stand Alone Forms: ED Work / School Excuse Primary Care Provider: Amita Humphreys Referrals: Amita Humphreys DO [Primary Care Provider, Family Practice] - 5-7 Days Print Language: French Disposition Disposition: Home, Self Care
--- NOTE | 2025-01-04 18:25 | CT_ITS ---
PROCEDURE: BRAIN/HEAD WITHOUT CONTRAST 01/04/2025 REASON FOR EXAM: DIZZINESS TECHNIQUE: Procedure Code: CTBR Modality: CT Procedure: BRAIN/HEAD WITHOUT CONTRAST Coronal and Sagittal reconstruction series were provided. One or more dose reduction techniques were used (e.g., Automated exposure control, adjustment of the mA and/or kV according to patient size, use of iterative reconstruction technique. COMPARISON: None available. FINDINGS: There is no extra-axial or intra-axial intracranial hemorrhage. No mass effect or midline shift is seen. Generalized intracranial volume loss and findings compatible with chronic microvascular white matter ischemia. There is normal cruz-white matter differentiation. The posterior fossa is grossly unremarkable. The skull is unremarkable. Visualized paranasal sinuses are clear. The mastoid air cells show normal translucency. CT/Brain/Head without Contrast IMPRESSION: 1. No intracranial hemorrhage. No mass effect or midline shift. 2. Chronic involutional and ischemic gliotic white matter changes. Reading Location[facility]
[2025-01-04] MEDS: 0.9% Normal Saline (1000mL) 1,000 ML 1000 ML IV (18:58)
[2025-01-04 18:59] LABS: Hematocrit 37.7 % (40-54); Hemoglobin 12.7 g/dL (13.0-16.5); Immature Granulocytes Count 0.010 X10^3/uL (0.0-0.0); Mean Corp Hgb Conc 33.7 g/dL (32-36); Mean Corpuscular Volume 88.7 fL (80-94); Mean Platelet Vol. 9.1 fl (6.2-12.0); NRBC Flagged by Analyzer 0 % (0-5); Platelet Count 151 K/mm3 (150-450); RBC Distribution Width CV 12.0 % (11.6-14.6); RBC Distribution Width SD 39.2 fl (35.1-43.9); Red Blood Count 4.25 M/mm3 (4.6-6.2); White Blood Count 4.4 K/mm3 (4.4-11.0)
[2025-01-04 19:00] VITALS: BP 133/74; PULSE 60; RESP 18; TEMP 36.8; O2SAT 97
--- NOTE | 2025-01-04 19:17 | RAD_ITS ---
PROCEDURE: CHEST PA AND LATERAL 01/04/2025 REASON FOR EXAM: WEAKNESS TECHNIQUE: Procedure Code: RADCXR Modality: DX Procedure: CHEST PA AND LATERAL COMPARISON: None available. FINDINGS: Hardware: Sternotomy wires are present. Heart: The heart size is normal. Mediastinum: The mediastinal contour is unremarkable. Lungs: The lungs are clear. Bones: The bones are unremarkable. RAD/Chest PA and Lateral IMPRESSION: NO ACUTE FINDINGS. Reading Location: [facility]
[2025-01-04 19:23] LABS: Troponin T High Sensitivity 12 ng/L (<=22)
[2025-01-04 19:25] LABS: Carbamazepine (Tegretol) 9.4 ug/mL (4.0-12.0)
[2025-01-04 19:29] VITALS: BP 160/88; BP 161/93; BP 163/92; PULSE 58; PULSE 62; PULSE 69
[2025-01-04 19:36] LABS: AST(SGOT) 27 U/L (<=37); Alanine Aminotransfer ALT/SGPT 24 U/L (<=46); Albumin, Serum 4.4 g/dL (3.5-5.0); Alkaline Phosphatase 113 U/L (40-129); Anion Gap 15 (5-15); BUN 13 mg/dL (4-19); BUN/Creat Ratio 15.5 RATIO (10-20); Carbon Dioxide 26.1 mmol/L (21.0-32.0); Chloride 95 mmol/L (98-108); Estimated Creatinine Clearance 100.83 ml/min (50-250); Globulin 2.6 g/dL (2.2-4.2); Glucose 99 mg/dL (70-99); Potassium 3.6 mmol/L (3.3-5.1)
[2025-01-04 19:48] LABS: Mucous, Urine 0 SEEN /hpf (<or=2+); Red Blood Cells-Urine 0 SEEN /hpf (0-5); Squamous Epithelial Cells - UA 0 SEEN /hpf (0-5)
[2025-01-04 19:50] LABS: Color, Urine Yellow (Yellow); Glucose, Dipstick Normal (Normal); Ketone-Dipstick Negative (Negative); Leukocyte Esterase-Dipstick Negative /ul (Negative); Nitrite-Dipstick Negative (Negative); Occult Blood-Urine Negative /ul (Negative); Protein-Dipstick 15 mg/dl (Negative); Specific Gravity, Urine 1.010 (1.002-1.030); Urine Bilirubin Dipstick Negative (Negative)
[2025-01-04 20:00] VITALS: BP 153/93; PULSE 60; RESP 18; TEMP 36.8; O2SAT 98
[2025-01-04 20:46] VITALS: BP 152/91; PULSE 61; RESP 16; TEMP 36.6; O2SAT 98
[2025-01-05 01:28] LABS: Calcium,Total 6.4 mg/dL (7.6-11.0)
== END 2025-01-04 21:12 | disposition home or self-care (01) ==
PROVIDERS: Emergency Provider Emergency Medicine; PCP Family Medicine; Visit Provider Emergency Medicine
DX: U07.1 COVID-19 (principal); J44.9 Chronic obstructive pulmonary disease, unspecified; E78.00 Pure hypercholesterolemia, unspecified; Z87.891 Personal history of nicotine dependence; E83.51 Hypocalcemia; Z90.49 Acquired absence of other specified parts of digestive tract; Z87.820 Personal history of traumatic brain injury; Z79.899 Other long term (current) drug therapy
CPT/HCPCS: 70450; 71046; 80053; 80156; 81001; 84484; 85025; 87631; 96361; 96374; 99285; A4216; J0612

== ENCOUNTER 2025-02-05 12:36 | Emergency (ER) | payer OTHER, SELFPAY ==
[2025-02-05 12:37] VITALS: BP 131/95; PULSE 68; RESP 16; TEMP 36.8; O2SAT 99
[2025-02-05 15:52] VITALS: BP 139/101; PULSE 64; RESP 17; O2SAT 100; BMI 33.7
--- NOTE | 2025-02-05 15:52 | EKG12_ITS ---
Test Reason : Blood Pressure : */* mmHG Vent. Rate : 62 BPM Atrial Rate : 62 BPM P-R Int : 174 ms QRS Dur : 96 ms QT Int : 452 ms P-R-T Axes : 4 -1 36 degrees QTcB Int : 458 ms Normal sinus rhythm Normal ECG Confirmed by ALEXANDRIA CARRILLO, RIGO ([id number]), editor publications CARLA SPIVEY ([id number]) on 02/10/2025 8:25:43 AM Referred By: Confirmed By: RIGO IBRAHIM MD
--- NOTE | 2025-02-05 15:54 | EX.ED.DYSGE1 ---
HPI History of Present Illness Chief Complaint: Seizure Narrative Narrative: 59-year-old male presents with lightheadedness that has had for the past week. He relates history that he has a seizure disorder for which he takes carbamazepine. He was reported to triage that he had 30 seconds of seizure-like activity although it was more his arms and legs stiffening up. There was no postictal state. He himself states that he did not have a seizure and that he is here because he has felt lightheaded for the last week constantly. He also states that he has been seen for this previously as well. He denies any fevers or chills, no nausea or vomiting, no dysuria or problems with diarrhea. He states he had decreased p.o. intake today because he missed lunch. He presents mainly because the lightheadedness. It is not worse with standing. No exacerbating or alleviating factors. [facility] Medical History Abdominal pain Subglottic stenosis TBI (traumatic brain injury) Ambulates with cane Bladder disease Low iron COPD (chronic obstructive pulmonary disease) Shortness of breath on exertion History of pain when walking Wears dentures Wears glasses Thyroid disease Arthritis High cholesterol Injury of head and neck Back pain Migraine headache Syncope Seizures Gastric reflux Former smoker CPAP (continuous positive airway pressure) dependence Hoarseness History of edema History of stress test UTI (urinary tract infection) Hypercholesteremia Arthritis BPH (benign prostatic hyperplasia) Obesity HLD (hyperlipidemia) GERD (gastroesophageal reflux disease) Epilepsy without mention Intractable Epilepsy, unspecified Home Medications Medication Instructions Recorded Last Taken Type levothyroxine 50 mcg tablet 50 mcg PO DAILY thyroid 04/03/15 04/10/24 History metoprolol succinate 25 mg 25 mg PO QHS blood pressure 04/03/15 04/09/24 History tablet,extended release 24 hr simvastatin 40 mg tablet 40 mg PO QHS cholesterol lowering 04/03/15 04/09/24 History cholecalciferol (vitamin D3) 125 125 mcg PO QDAY SUPPLEMENT 04/04/24 04/09/24 History mcg (5,000 unit) capsule desmopressin 0.2 mg tablet 0.2 mg PO BID BP 04/04/24 04/10/24 History ferrous sulfate 325 mg (65 mg 325 mg PO QDAY SUPPLEMENT 04/04/24 04/09/24 History iron) tablet (FeroSul) fesoterodine 8 mg tablet,extended 8 mg PO QHS OAB 04/04/24 04/09/24 History release 24 hr mecobalamin (vitamin B12) 5,000 5,000 mcg PO QDAY SUPPLEMENT 04/04/24 04/09/24 History mcg chewable tablet [id number] acid 0.4 1 tab PO QDAY SUPPLEMENT 04/04/24 04/09/24 History mg-lycopene 300 mcg-lutein 250 mcg tablet (Complete Multivitamin Adult 50 Plus) sumatriptan succinate 100 mg tablet 100 mg PO ONCE PRN migraine 04/04/24 Unknown History headache carbamazepine 200 mg tablet 300 mg PO BID SEIZURES 04/05/24 04/10/24 History meloxicam 15 mg tablet 15 mg PO QDAY #30 tabs 12/03/24 Unknown Rx methocarbamol 500 mg tablet 500 mg PO QHS #30 tabs 12/03/24 Unknown Rx Allergy/AdvReac Type Severity Reaction Status Date / Time strawberry Allergy Intermediate Hives Verified 02/05/25 12:41 azithromycin Allergy Unknown Unknown Verified 02/05/25 12:41 erythromycin base Allergy Unknown Verified 02/05/25 12:41 Penicillins Allergy Hives Verified 02/05/25 12:41 Barbiturates AdvReac Other Verified 02/05/25 12:41 divalproex sodium (From AdvReac Other Verified 02/05/25 12:41 Depakote) Hydantoins AdvReac Other Verified 02/05/25 12:41 phenobarbital AdvReac Other Verified 02/05/25 12:41 phenytoin sodium (From AdvReac Other Verified 02/05/25 12:41 Dilantin) phenytoin sodium extended AdvReac Other Verified 02/05/25 12:41 (From Dilantin) Family History Father Hypertension Other Myocardial infarction Prostate cancer Surgical History History of cardiac catheterization History of bronchoscopy Hx of tooth extraction Hx of foot surgery Hx of cystoscopy Hx of cardiac cath Hx laparoscopic cholecystectomy Hx of total knee replacement History of partial knee replacement History of tracheostomy as a child Social History household members: family current occupation: [employer] Smoking Status: Former smoker alcohol intake: never substance use type: does not use ROS ROS ED ROS Narrative Review of systems positive for lightheadedness for 1 week. Denies fevers or chills, no nausea or vomiting, no diarrhea, no exacerbating or alleviating factors. Not worse with standing. Positive decreased p.o. intake today because he states he missed lunch. Denies seizure activity. EXAM Physical Exam Narrative Exam Narrative: Afebrile. Vital signs noted. Nontoxic-appearing. Cardiovascular examination reveals a regular rate and rhythm. Lungs are clear to auscultation bilaterally. Abdomen soft and nontender with normoactive bowel sounds. No guarding or rebound. Neurological examination nonfocal, nonlateralizing. Moves all extremities. Awake, alert, interactive, answering questions appropriately. Const Vital Signs: 02/05/25 12:37 02/05/25 15:52 02/05/25 16:15 Temperature 98.3 F Temperature Source Oral Pulse Rate 68 64 Pulse Rate [Lying] 69 Pulse Rate [Sitting (for 1 minute prior to obtaining)] 58 L Pulse Rate [Standing (for 1 minute prior to obtaining)] 62 Respiratory Rate 16 17 Blood Pressure 131/95 H 139/101 H Blood Pressure [Lying] 137/89 H Blood Pressure [Sitting (for 1 minute prior to obtaining)] 150/91 H Blood Pressure [Standing (for 1 minute prior to obtaining)] 150/81 H Blood Pressure Mean 107 113 Blood Pressure Mean [Lying] 105 Blood Pressure Mean [Sitting (for 1 minute prior to obtaining)] 110 Blood Pressure Mean [Standing (for 1 minute prior to obtaining)] 104 Pulse Ox 99 100 Oxygen Delivery Method Room Air Room Air 02/05/25 17:00 02/05/25 19:00 Temperature Temperature Source Pulse Rate 60 62 Pulse Rate [Lying] Pulse Rate [Sitting (for 1 minute prior to obtaining)] Pulse Rate [Standing (for 1 minute prior to obtaining)] Respiratory Rate 14 17 Blood Pressure 134/86 H Blood Pressure [Lying] Blood Pressure [Sitting (for 1 minute prior to obtaining)] Blood Pressure [Standing (for 1 minute prior to obtaining)] Blood Pressure Mean 102 Blood Pressure Mean [Lying] Blood Pressure Mean [Sitting (for 1 minute prior to obtaining)] Blood Pressure Mean [Standing (for 1 minute prior to obtaining)] Pulse Ox 100 97 Oxygen Delivery Method Room Air MDM MDM MDM Narrative Medical decision making narrative: Differential diagnosis includes but not limited to pseudoseizure versus orthostatic hypotension versus absence seizure versus dehydration versus other electrolyte abnormality. I reviewed his prior ED visit. Approximately 1 month ago, he was diagnosed with COVID, and stated the same thing that he was having lightheadedness for 1 to 2 weeks. He had a therapeutic carbamazepine level at that time. He states he follows up with Dr. Zheng with neurology in [place]. Patient bolused IV fluids. Orthostatics are negative however. EKG obtained and interpreted by myself independently as normal sinus rhythm at 62 bpm without ectopy or acute ST changes. No STEMI. QTc normal at 458. I reviewed his laboratory work and he has a normal white count of 6.2 with hemoglobin 12.5, platelet count normal at 161. CMP is remarkable for a calcium of 5.8 with normal glucose of 94, sodium normal 140 and potassium 4.1. LFTs are grossly unremarkable. Orthostatics are negative. Carbamazepine level is slightly elevated above therapeutic at 12.3. However, I do not feel this is the cause of his lightheadedness, and I do feel that he should continue his medication as previously directed to prevent seizures. He was administered calcium carbonate 1000 mg and told to supplement with 2 Tums daily for the next week. He should have his calcium rechecked by his primary care provider in 3 to 5 days. Urinalysis is negative for infection on the macro analysis, no ketones. Microanalysis is negative for infection with 0-5 WBCs. I do not feel antibiotics are indicated. At this point in time, I do feel he can be discharged to follow-up with his primary care provider. He will supplement with [id number] Tums to once a day and have his calcium rechecked. I feel he can be discharged safely home with follow-up. Return instructions reviewed. Disposition is discharged home in stable condition. History & Record Review Discussion w/independent historian: Patient Additional record(s) reviewed:: Prior ED visit and Prior labs (Calcium low previously, trending downward) Lab Data Attestation: I reviewed the patient's lab results. Labs: Laboratory Results - last 24 hr 02/05/25 02/05/25 16:25 17:25 WBC 6.2 RBC 4.09 L Hgb 12.5 L Hct 36.3 L MCV 88.8 MCH 30.6 MCHC 34.4 RDW Std Deviation 39.4 RDW Coeff of Eric 12.2 Plt Count 161 MPV 9.5 Immature Gran % (Auto) 0.300 Neut % (Auto) 64.8 Lymph % (Auto) 21.6 [place] % (Auto) 9.9 Eos % (Auto) 2.6 Baso % (Auto) 0.8 Absolute Neuts (auto) 4.0 Absolute Lymphs (auto) 1.33 Nucleated RBC % 0 Sodium 140 Potassium 4.1 Chloride 100 Carbon Dioxide 25.5 Anion Gap 14 BUN 16 Creatinine 0.83 Estim Creat Clear Calc 105.78 Est GFR (MDRD) Non-Af 102 BUN/Creatinine Ratio 18.9 Glucose 94 Calcium 5.8 L* Total Bilirubin 0.26 AST 31 ALT 25 Alkaline Phosphatase 89 Total Protein 6.9 Albumin 4.5 Globulin 2.4 Albumin/Globulin Ratio 1.9 Urine Color Yellow Urine Clarity Sl. Cloudy Urine pH 6.5 Ur Specific [place] 1.010 Urine Protein 30 H Urine Glucose (UA) Normal Urine Ketones Negative Urine Occult Blood Negative Urine Nitrite Negative Urine Bilirubin Negative Urine Urobilinogen Normal Ur Leukocyte Esterase Negative Urine RBC 0-5 SEEN Urine WBC 0-5 SEEN Ur Squamous Epith Cells 0-5 SEEN Urine Bacteria 0 SEEN Urine Mucus 0 SEEN Carbamazepine 12.3 H Discharge Plan Triage Chief Complaint: Seizure ED Provider: Myke Reyes Dx/Rx/DC Orders Clinical Impression: Lightheadedness, Hypocalcemia Instructions: ED Near-Fainting, Uncertain Cause, ED Hypocalcemia (Adult) Prescriptions: No Action desmopressin 0.2 mg tablet 0.2 mg PO BID ferrous sulfate [FeroSul] 325 mg (65 mg iron) tablet 325 mg PO QDAY fesoterodine 8 mg tablet extended release 24 hr 8 mg PO QHS sumatriptan succinate 100 mg tablet 100 mg PO ONCE PRN (Reason: migraine headache) cholecalciferol (vitamin D3) 125 mcg (5,000 unit) capsule 125 mcg PO QDAY mecobalamin (vitamin B12) 5,000 mcg tablet,chewable 5,000 mcg PO QDAY Complete MV Adult 50 Plus 0.4 mg-300 mcg- 250 mcg tablet 1 tab PO QDAY meloxicam 15 mg tablet 15 mg PO QDAY Qty: 30 0RF methocarbamol 500 mg tablet 500 mg PO QHS Qty: 30 0RF Rx Instructions: Do not take within 8 hrs of driving, operating machinery or safety sensitive work simvastatin 40 MG tablet 40 mg PO QHS Patient Comments: cholesterol levothyroxine 50 MCG tablet 50 mcg PO DAILY Patient Comments: thyroid metoprolol succinate 25 MG tablet 25 mg PO QHS Patient Comments: blood pressure carbamazepine 200 mg tablet 300 mg PO BID Primary Care Provider: Amita Humphreys Referrals: Amita Humphreys DO [Primary Care Provider, Family Practice] - 3-5 Days Activity Restrictions/Additional Instructions: Have your calcium rechecked by your primary care provider in the next week. You should start supplementing with 2 Tums daily by mouth as a form of calcium. Return to the emergency department with new or worsening symptoms. Print Language: Latvian Disposition Disposition: Home, Self Care D/C Safety Score for UGIB Assessment [place] Bleeding Score (GBS): Stratifies upper GI bleeding patients who are "low-risk" and candidates for outpatient management. Hemoglobin, BUN, Recent Vital Signs: Hgb 12.5 g/dL (13.0-16.5) L 02/05/25 16:25 BUN 16 mg/dL (4-19) 02/05/25 16:25 Pulse Rate [Standing (for 1 62 minute prior to obtaining)] Pulse Rate [Sitting (for 1 58 minute prior to obtaining)] Pulse Rate [Lying] 69 Pulse Rate 62 Blood Pressure [Standing (for 150/81 1 minute prior to obtaining)] Blood Pressure [Sitting (for 1 150/91 minute prior to obtaining)] Blood Pressure [Lying] 137/89 Blood Pressure 134/86 Score Interpretation: Score of 0: A GBS of 0 is a “Low Risk” GI bleed, and is highly sensitive (99.6% in a 2007 retrospective study) for predicting which patients did not require any “medical intervention”: blood transfusion, endoscopy, or surgery. This was confirmed in a 2009 Lanc study where patients with a score of 0 were actually discharged and had no GI bleeding mortality at 6 month followup Score above 0: A GBS greater than zero suggests a “High Risk” GI bleed that is likely to require “medical intervention”: transfusion, endoscopy, or surgery. A higher GBS also correlated with a higher likelihood of needing intervention Scores >/= 6 are associated with >50% risk of needing intervention D/C Safety Score for LGIB Assessment Assessment Tool: Readmission and adverse event risk in patients with acute lower GI bleeding. Hemoglobin and Recent Vital Signs: Hgb 12.5 g/dL (13.0-16.5) L 02/05/25 16:25 Pulse Rate [Standing (for 1 62 02/05/25 16:15 minute prior to obtaining)] Pulse Rate [Sitting (for 1 58 02/05/25 16:15 minute prior to obtaining)] Pulse Rate [Lying] 69 02/05/25 16:15 Pulse Rate 62 02/05/25 19:00 Blood Pressure [Standing (for 150/81 02/05/25 16:15 1 minute prior to obtaining)] Blood Pressure [Sitting (for 1 150/91 02/05/25 16:15 minute prior to obtaining)] Blood Pressure [Lying] 137/89 02/05/25 16:15 Blood Pressure 134/86 02/05/25 19:00 Score Interpretation: Probability Percentage of safe discharge (absence of rebleeding, blood transfusion, therapeutic intervention, 28 day readmission, or ) Score of 8 or below: Consider discharge, with appropriate precautions. Score of 9 or above: Discharge NOT recommended. Consider admission with further workup and resuscitation as necessary.
[2025-02-05 16:15] VITALS: BP 137/89; BP 150/81; BP 150/91; PULSE 58; PULSE 62; PULSE 69
[2025-02-05] MEDS: 0.9% Normal Saline (1000mL) 1,000 ML 1000 ML IV (16:37)
[2025-02-05 16:49] LABS: Hematocrit 36.3 % (40-54); Hemoglobin 12.5 g/dL (13.0-16.5); Immature Granulocytes Count 0.020 X10^3/uL (0.0-0.0); Mean Corp Hgb Conc 34.4 g/dL (32-36); Mean Corpuscular Volume 88.8 fL (80-94); Mean Platelet Vol. 9.5 fl (6.2-12.0); NRBC Flagged by Analyzer 0 % (0-5); Platelet Count 161 K/mm3 (150-450); RBC Distribution Width CV 12.2 % (11.6-14.6); RBC Distribution Width SD 39.4 fl (35.1-43.9); Red Blood Count 4.09 M/mm3 (4.6-6.2); White Blood Count 6.2 K/mm3 (4.4-11.0)
[2025-02-05 17:00] VITALS: PULSE 60; RESP 14; O2SAT 100
[2025-02-05 17:12] LABS: Carbamazepine (Tegretol) 12.3 ug/mL (4.0-12.0)
[2025-02-05 17:30] LABS: AST(SGOT) 31 U/L (<=37); Alanine Aminotransfer ALT/SGPT 25 U/L (<=46); Albumin, Serum 4.5 g/dL (3.5-5.0); Alkaline Phosphatase 89 U/L (40-129); Anion Gap 14 (5-15); BUN 16 mg/dL (4-19); BUN/Creat Ratio 18.9 RATIO (10-20); Calcium,Total 5.8 mg/dL (7.6-11.0); Carbon Dioxide 25.5 mmol/L (21.0-32.0); Chloride 100 mmol/L (98-108); Estimated Creatinine Clearance 105.78 ml/min (50-250); Globulin 2.4 g/dL (2.2-4.2); Glucose 94 mg/dL (70-99); Potassium 4.1 mmol/L (3.3-5.1)
[2025-02-05 17:31] LABS: Mucous, Urine 0 SEEN /hpf (<or=2+)
[2025-02-05 17:57] LABS: Color, Urine Yellow (Yellow); Glucose, Dipstick Normal (Normal); Ketone-Dipstick Negative (Negative); Leukocyte Esterase-Dipstick Negative /ul (Negative); Nitrite-Dipstick Negative (Negative); Occult Blood-Urine Negative /ul (Negative); Protein-Dipstick 30 mg/dl (Negative); Specific Gravity, Urine 1.010 (1.002-1.030); Urine Bilirubin Dipstick Negative (Negative)
[2025-02-05] MEDS: Calcium (Elemental) 500 MG Tablet 1000 MG PO (18:14)
[2025-02-05 19:00] VITALS: BP 134/86; PULSE 62; RESP 17; O2SAT 97
[2025-02-05 19:03] LABS: Red Blood Cells-Urine 0-5 SEEN /hpf (0-5); Squamous Epithelial Cells - UA 0-5 SEEN /hpf (0-5)
--- OUTSIDE RECORDS SUMMARY | 2025-02-05 19:32 | XMS RPT_ITS | CCD ---
Author Organization [facility] Care Team Providers Care Brewing Technician Name Role Phone Amando Aguirre Unavailable Jennifer Unger Unavailable Lev Polo MD Unavailable Lev Polo MD Unavailable None, No PCP Unavailable Unavailable MD ORQUIDEA JAVIER Referring UnavailMD ORQUIDEA Hahn Attending Unavailkirk e Unavailable Unavailable DR AMITA HUMPHREYS DO A Primary Care Physician MARIUSZ OROZCO Attending Unavailable JULIANN HODGSON, DR AMITA Green Primary Care Unavailable ROLA BASSETT DO Attending Unavailable JULIANN HODGSON, DR AMITA Green Primary Care Unavailable JULIANN HODGSON, DR AMITA Green Primary Care Unavailable MARIUSZ OROZCO Attending Unavailable Roderick Espinal Primary Care Provider UnavailLev Arteaga MD Unavailable Melo SENIOR INSTRUMENTATION ENGINEER-C, Zoraida Primary Care Provider Melo SENIOR INSTRUMENTATION ENGINEER-C, Zoraida Referring Provider Dr. Yanick Terry MD Attending Provider Dr. Amita Humphreys DO Primary Care Provider Dr. Teodoro Schaffer MD Attending Provider Dr. Yanick Terry MD Referring Provider Dr. Yanick Terry MD Admit Provider Dr. Yanick Terry MD Other Provider Hay DO, Dr. Blanco Other Provider Yuliet CARRILLO, Dr. Jose Alfredo Espitia Attending Provider Yuliet CARRILLO, Dr. Jose Alfredo Espitia Other Provider Linsey Steele Attending Provider Juliann HODGSON, Dr. Levi Referring Provider Linda Partida Attending Provider Christiano Underwood Attending Provider ROLA BASSETT DO Attending Unavailable MALYS DO, DR AMITA Green Primary Care Unavailable RUDOLPHYS DO, DR AMITA Green Primary Care Unavailable ROLA BASSETT DO Attending Unavailable MALYS DO, DR AMITA Green Primary Care Unavailable ROLA BASSETT DO Attending Unavailable Juliann HODGSON, Dr. Levi Primary Care Provider Dr. Teodoro Schaffer MD Attending Provider Juliann HODGSON, Dr. Levi Referring Provider Linsey Steele Attending Provider Harrison CARRILLO, Dr. Herndon Attending Provider Harrison CARRILLO, Dr. Herndon Referring Provider Juliann HODGSON, Dr. Levi Attending Provider Art Moncada Attending Provider Amita Humphreys DO Primary Care Provider CHEYENNE MAGANA Attending Unavailable AMITA HUMPHREYS Primary Care Unavailable Juliann HODGSON, Dr. Levi Primary Care Provider Juliann HODGSON, Dr. Levi Referring Provider Dr. Teodoro Schaffer MD Attending Provider CHEYENNE MAGANA Attending Provider Juliann HODGSON, Dr. Levi Primary Care Provider Juliann HODGSON, Dr. Levi Referring Provider [phone] Linda Partida Attending Provider Dr. Teodoro Schaffer MD Attending Provider Terry, Yanick Attending Unavailable Terry, Yanick Consulting Unavailable Terry, Yanick Admitting Unavailable Terry, Yanick Referring Unavailable Malys, Amita Primary Care Unavailable Chiqui Tipton Attending Unavailable Malys, Amita Primary Care Unavailable Malys, Amita Referring Unavailable Malys, Amita Attending Unavailable Malys, Amita Primary Care Unavailable Terry, Yanick Admitting Unavailable Terry, Yanick Referring Unavailable Hay, Bella Consulting Unavailable Jose Alfredo Horvath F Attending Unavailable Malys, Amita Primary Care Unavailable Terry, Yanick Consulting Unavailable Malys, Amita Attending Unavailable Malys, Amita Primary Care Unavailable Malys, Amita Referring Unavailable Terry, Yanick Attending Unavailable Terry, Yanick Referring Unavailable Malys, Amita Primary Care Unavailable Terry, Yanick Attending Unavailable Malys, Amita Primary Care Unavailable Malys, Amita Referring Unavailable JIMENEZ BOLTON Attending Unavailable Malys, Amita Primary Care Unavailable Jose Staton Attending Unavailable Malys, Amita Primary Care Unavailable Terry, Yanick Attending Unavailable Terry, Yanick Referring Unavailable Melo, Zoraida Primary Care Unavailable Teodoro Schaffer Attending Unavailable Malys, Amita Primary Care Unavailable Linsey Hale Attending Unavailable Malys, Amita Primary Care Unavailable Malys, Amita Referring Unavailable Christiano Underwood Attending Unavailable Malys, Amita Primary Care Unavailable Malys, Amita Referring Unavailable Terry, Yanick Attending Unavailable Melo, Zoraida Referring Unavailable Melo, Zoraida Primary Care Unavailable Terry, Yanick Attending Unavailable Melo, Zoraida Referring Unavailable Melo, Zoraida Primary Care Unavailable Malys, Amita Primary Care Unavailable Art Moncada Attending Unavailable Malys, Amita Referring Unavailable Malys, Amita Primary Care Unavailable Teodoro Schaffer Attending Unavailable Linda Heredia Attending Unavailable Malys, Amita Primary Care Unavailable Malys, Amita Referring Unavailable Terry, Yanick Admitting Unavailable Terry, Yanick Referring Unavailable Lucia Haleyn Attending Unavailable Hay, Bella Consulting Unavailable Malys, Amita Primary Care Unavailable Terry, Yanick Consulting Unavailable Lai Horvatholas F Consulting Unavailable Jose Alfredo Horvath F Attending Unavailable Terry, Yanick Referring Unavailable Malys, Amita Primary Care Unavailable Teodoro Schaffer Attending Unavailable Malys, Amita Primary Care Unavailable Karime, Teodoro Attending Unavailable Linda Heredia Attending Unavailable Malys, Amita Referring Unavailable Malys, Amita Primary Care Unavailable Malys, Amita Primary Care Unavailable Karime, Teodoro Attending Unavailable Yanick Terry Attending Unavailable Melo, Zoraida Referring Unavailable Malys, Amita Primary Care Unavailable Malys, Amita Primary Care Unavailable Teodoro Schaffer Attending Unavailable Juliann HODGSON, Dr. Levi Primary Care Physician Dr. Amita Humphreys DO Attending Physician Art Moncada Attending Physician CHEYENNE MAGANA Attending Physician [phone] Yan SENIOR INSTRUMENTATION ENGINEER-CLinda Attending Physician Dr. Teodoro Schaffer MD Attending Physician Dr. Jose Staton DO Attending Physician Dr. Jose Staton DO Emergency Department Physi cindi Allergies Allergy Classification Reported Allergen(s) Allergy Type Date of Onset Reaction(s) Facility (18 sources) Barbiturates; Translations: [BARBITURATES] drug allergy 04-14-19 12 Other [facility] Work Phone: (19 sources) erythromycin; Translations: [erythromycin] drug allergy 04-14-19 12 Unknown [facility] Work Phone: (11 sources) phenytoin; Translations: [Dilantin] drug allergy 04-14-19 12 [facility] Work Phone: (11 sources) valproate; Translations: [Depakote] drug allergy 04-14-19 12 [facility] Work Phone: (18 sources) HYDANTOINS; Translations: [HYDANTOINS] drug allergy 04-14-19 12 Other [facility] Work Phone: (9 sources) Diclofenac Drug Allergy 06-10-19 16 Other, Unknown [facility] (20 sources) Penicillins; Translations: [Penicillins] Propensity to adverse reactions to drug 06-10-19 16 Unknown [facility] (20 sources) PHENobarbital; Translations: [phenobarbital] Drug Allergy 12-29-19 18 [facility] Comment on above: personality changes (8 sources) Phenytoin Drug Allergy 06-10-19 16 Unknown [facility] (15 sources) strawberry allergenic extract Drug Allergy 01-20-20 18 Hives [facility] (4 sources) Valproate Drug Allergy 12-29-19 18 [facility] Work Phone: (14 sources) Azithromycin; Translations: [AZITHROMYCIN] Drug Allergy 10-11-19 Unknown [facility] (14 sources) Erythromycin; Translations: [ERYTHROMYCIN BASE] Drug Allergy 10-11-19 [facility] (13 sources) Phenytoin; Translations: [phenytoin sodium] Drug Allergy 09-02-19 Other [facility] (13 sources) Phenytoin; Translations: [phenytoin sodium extended] Drug Allergy 09-02-19 Other [facility] (17 sources) Valproate Drug Allergy 04-14-19 12 Unknown [facility] (3 sources) [place] Propensity to adverse reactions to drug 01-20-20 18 [facility] (7 sources) Penicillin; Translations: [penicillins] Drug Allergy 10-25-[address] [facility] (1 source) Penicillin; Translations: [penicillins] Drug Allergy [facility] (1 source) Diclofenac; Translations: [DICLOFENAC] Drug Allergy 06-10-19 16 [facility] Repository (1 source) DIVALPROEX; Translations: [DIVALPROEX] Propensity to adverse reactions to drug (disorder) 04-14-19 12 [facility] Repository (1 source) Azithromycin Drug Allergy 01-05-20 [facility] Rep[facility] (1 source) Erythromycin Drug Allergy 01-05-20 [facility] Rep[facility] (1 source) PHENobarbital Drug Allergy 01-05-20 [facility] Rep[facility] (1 source) strawberry allergenic extract Drug Allergy 01-05-20 [facility] Repository (1 source) Valproate Drug Allergy 01-05-20 [facility] Repository Medications Current Medications Medication Drug Class(es) Dates Sig (Normalized) Sig (Original) cholecalciferol 0.125 mg oral capsule (7 sources) Vitamin D Start: 04-04-2024 take 1 capsule by mouth once daily desmopressin acetate 0.2 mg oral tablet (7 sources) Vasopressin Analog, Factor VIII Activator Start: 04-04-2024 take 1 tablet by mouth twice daily docusate sodium 100 mg oral capsule (16 sources) Start: 06-14-2018 take 1 capsule by mouth twice daily docusate sodium (COLACE) 100 MG capsule Indications: Subglottic stenosis Take 1 Capsule by mouth 2 times daily for 14 days. 28 Capsule 06/14/2018 Active Start: 12-16-2015 End: 08-11-2017 take 1 capsule by mouth twice daily as needed for constipation Docusate Sodium 100 MG capsule Discontinued 100 mg PO TWICE DAILY NEEDED as needed for Constipation 10 0 December 16, 2015 12:00am August 11, 2017 8:34am ferrous sulfate 325 mg oral tablet (7 sources) Start: 04-04-2024 take 1 tablet by mouth once daily 24 hr fesoterodine fumarate 4 mg extended release oral tablet (9 sources) Start: 10-24-2024 End: 04-22-2025 take 1 tablet by mouth once daily fesoterodine (Toviaz) 4 mg tablet extended release 24 hr Indications: Urge incontinence of urine Take 1 tablet (4 mg) by mouth once daily. 30 tablet 5 10/24/2024 04/22/2025 Active Start: 04-04-2024 take 1 tablet by yashira th every twenty-four hours at bedtime Start: 08-16-2022 take 1 tablet by mouth once da linda Fesoterodine Fumarate ER 8 MG Oral Tablet Extended Release 24 Hour Take 1 tablet daily Quantity: 30 Refills: 11 Ordered: 16-Aug-2022 Orquidea Javier II, MD Start : 16-Aug-2022 Active levothyroxine sodium 0.05 mg oral tablet (20 sources) l-Thyroxine Start: 09-26-2018 take 1 tablet by mouth once daily levothyroxine 50 mcg (0.05 mg) oral tablet TAKE ONE TABLET BY MOUTH ONCE DAILY Start Date: 09/26/18 Status: Ordered Repeat number: 1 Start: 04-03-2015 take 1 tablet by yashira th once daily Levothyroxine So dium 88 MCG Oral Capsule Quantity: 0 Refills: 0 Ordered: 13-Jul-2022 DO Active mecobalamin (7 sources) Start: 04-04-2024 take 1 tablet by mouth once da linda Start: 04-04-2024 take 1 tablet by yashira th once daily Mecobalamin (Vitamin B12) 5,000 mcg tablet,chewable Active 5000 ug PO daily April 04, 2024 1:00am SUPPLEMENT Start: 04-04-2024 take 1 tablet by yashira th once daily Mecobalamin (Vitamin B12) 5,000 mcg tablet,chewable Active 5000 ug PO daily April 04, 2024 1:00am meloxicam 15 mg oral tablet (11 sources) Nonsteroidal Anti-inflammatory Drug Start: 12-03-2024 take 1 tablet by mouth once daily Start: 04-04-2024 End: 07-08-2024 take 1 tablet by mouth once daily Meloxicam 15 mg tablet Discontinued 15 mg PO daily April 04, 2024 1:00am July 08, 2024 3:28pm PAIN Start: 01-19-2015 MELOXICAM 15 M G TABS as needed MELOXICAM [id number] Amando Aguirre methocarbamol 500 mg oral tablet (8 sources) Muscle Relaxant Start: 12-03-2024 take 1 tablet by mouth at bedtime Start: 04-11-2024 End: 07-08-2024 Methocarbamol 500 mg Tablet Discontinued 750 mg PO THREE TIMES A DAY as needed for pain/spasms 30 0 April 11, 2024 1:00pm July 08, 2024 3:28pm metoprolol tartrate 25 mg oral tablet (20 sources) beta-Adrenergic Von Start: 09-26-2018 take 1 tablet by mouth once daily Metoprolol Succinate ER 25 mg oral tablet, extended release TAKE ONE TABLET BY MOUTH EVERY DAY Start Date: 09/26/18 Status: Ordered Repeat number: 1 Start: 04-03-2015 take 1 tablet by yashira th at bedtime Start: 11-28-2012 take 1 tablet by yashira th once daily METOPROLOL SUCCINATE ER 25 MG [id number] One tablet by mouth daily METOPROLOL SUCCINATE [id number] John Flores MD METOPROLOL SUCCI TARIK ORAL Take by mouth. 0 Active Metoprolol Succi tarik ER TB24 Quantity: 0 Refills: 0 Ordered: 13-Jul-2022 DO Active Multiple Vitamin (MULTI-VITAMIN DAILY) TABS (4 sources) Start: 06-14-2018 take 1 tablet by mouth once daily Multiple Vitamin (MULTI-VITAMIN DAILY) TABS Take 1 Tablet by mouth daily. 30 Tablet 06/14/2018 Active Start: 06-14-2018 take 1 tablet by yashira th once daily Multiple Vitamin (MULTI-VITAMIN DAILY) TABS Take 1 Tablet by mouth daily. 30 Tablet 0 06/14/2018 Active Multivitamin preparation (6 sources) Start: 09-26-2018 take 1 tablet by mouth once daily Multivitamin Dose = 1 tab(s), Oral, Daily, 0 Refill(s) Start Date: 09/26/18 Status: Ordered Repeat number: 1 Start: 09-26-2018 take 1 tablet by yashira th once daily Multivitamin Dose = 1 tab(s), Oral, Daily, 0 Refill(s) Start Date: 09/26/18 Status: Ordered 24 hr oxybutynin chloride 10 mg extended release oral tablet (14 sources) Cholinergic Muscarinic Antagonist Start: 06-14-2018 take 1 tablet by mouth once daily oxybutynin 10 mg/24 hr oral tablet, extended release TAKE 1 TABLET BY MOUTH EVERY DAY Start Date: 09/26/18 Status: Ordered Repeat number: 1 OXYBUTYNIN CHLOR EBER ORAL Take by mouth. 0 Active simvastatin 40 mg oral tablet (20 sources) HMG-CoA Reductase Inhibitor Start: 04-14-2011 take 1 tablet by mouth at bedtime Simvastatin 20 M G Oral Tablet Quantity: 0 Refills: 0 Ordered: 13-Jul-2022 DO Active take 1 tablet by mouth once joseph y SIMVASTATIN 20 MG TABS One tablet by mouth daily SIMVASTATIN [id number] Jayesh Zavala SUMAtriptan 100 mg oral tablet (7 sources) Serotonin-1b and Serotonin-1d Receptor Agonist Start: 04-04-2024 take 1 tablet by mouth once as needed for headache tamsulosin hydrochloride 0.4 mg oral capsule (1 source) alpha-Adrenergic Von Start: 10-24-2024 End: 10-24-2025 take 1 capsule by mouth once daily tamsulosin (Flomax) 0.4 mg 24 hr capsule Indications: Benign prostatic hyperplasia with urinary frequency Take 1 capsule (0.4 mg) by mouth once daily. Do not crush, chew, or split. 30 capsule 11 10/24/2024 10/24/2025 Active Completed/Discontinued Medications Medication Drug Class(es) Dates Sig (Normalized) Sig (Original) acetaminophen 500 mg oral tablet (19 sources) Start: 04-11-2024 End: 07-08-2024 take 1 tablet by mouth every six hours Acetaminophen 500 mg Tablet Discontinued 500 mg PO EVERY 6 HOURS 30 0 April 11, 2024 1:00am July 08, 2024 3:28pm Start: 11-16-2017 End: 10-18-2018 take 2 tablets by mouth every four hours as needed for pain Acetaminophen (Tylenol) 325 MG tablet Discontinued 650 mg PO EVERY 4 HOURS NEEDED as needed for Mild-Moderate Pain (1-5/10) 0 November 16, 2017 12:00am October 18, 2018 10:29am acetaminophen 325 mg / HYDROcodone bitartrate 5 mg oral tablet (12 sources) Opioid Agonist Start: 05-19-2017 End: 08-11-2017 Hydrocodone-Acetaminophen 1 EACH tablet Discontinued 1 NMA PO EVERY 4 HOURS NEEDED as needed for Pain 12 4 0 May 19, 2017 12:16pm August 11, 2017 8:33am Congenital stricture of urethra Start: 05-19-2017 End: 08-11-2017 Hydrocodone-Acetaminophen Di scontinued 1 EACH PO EVERY 4 HOURS NEEDED 12 4 May 19, 2017 12:16pm August 11, 2017 8:33am ascorbic acid 500 mg oral tablet (12 sources) Vitamin C Start: 04-03-2015 End: 08-11-2017 take 1 tablet by mouth once daily Ascorbic Acid (Vitamin C) 500 MG tablet Discontinued 500 mg PO DAILY@0800 April 03, 2015 1:00am August 11, 2017 8:34am aspirin 81 mg chewable tablet (20 sources) Nonsteroidal Anti-inflammatory Drug Start: 10-18-2018 End: 10-25-2023 take 1 tablet by mouth twice daily at bedtime Aspirin 81 MG tablet,chewable Discontinued 81 mg PO AT BEDTIME November 16, 2018 11:54am October 25, 2023 3:14pm On Hold: Resume on 09/15/21. Take 81 mg aspirin twice daily for 4 weeks postoperatively for DVT prophylaxis Start: 08-11-2017 End: 10-18-2018 take 1 tablet by mouth once daily Aspirin (Aspir-81) 81 mg tablet,delayed release (DR/EC) Discontinued 81 mg PO DAILY August 11, 2017 12:00am October 18, 2018 10:29am heart health Start: 05-12-2017 End: 08-11-2017 Aspirin 325 MG tablet Discon tinued 81 mg PO TWICE A DAY May 12, 2017 10:16am August 11, 2017 8:34am Start: 05-12-2017 End: 08-11-2017 take 81 mg by mouth twice daily Aspirin Discontinued 81 MG PO TWICE A DAY May 12, 2017 10:16am August 11, 2017 8:34am Start: 12-16-2015 End: 05-12-2017 take 1 tablet by mouth twice daily Aspirin 325 MG tablet Discontinued 325 mg PO TWICE A DAY December 16, 2015 12:00am May 12, 2017 10:16am Start: 04-03-2015 End: 12-16-2015 take 1 tablet by mouth at bedtime Aspirin 81 MG Tab.Chew Discontinued 81 mg PO AT BEDTIME April 03, 2015 1:00am December 16, 2015 7:50am Start: 04-14-2011 take 1 tablet by yashira th once daily ASPIRIN 81 MG TABS One tablet by mouth daily ASPIRIN [id number] Jyothi Crenshaw RN Start: 04-14-2011 take 1 tablet by yashira th once daily ASPIRIN 81 MG TABS One tablet by mouth daily ASPIRIN [id number] Jyothi Crenshaw RN Aspirin 81 MG TA BS Quantity: 0 Refills: 0 Ordered: 13-Jul-2022 DO Active carBAMazepine 200 mg oral tablet (20 sources) Mood Stabilizer, Anti-epileptic Agent Start: 04-03-2015 End: 12-03-2024 take 1 tablet by mouth at lunch Carbamazepine 200 MG tablet Discontinued 200 mg PO WITH LUNCH November 10, 2017 12:00am October 25, 2023 3:14pm seizures Start: 04-03-2015 take 300 mg by mouth at bedtim e Carbamazepine Active 300 MG PO AT BEDTIME December 07, 2015 12:00am Start: 04-14-2011 End: 10-25-2023 take 1 tablet by mouth once daily in the morning, then take 1 tablet by mouth once daily, then take 1 tablet by mouth once daily in the evening carBAMazepine 200 mg oral tablet TAKE 1 & 1/2 TABLETS EVERY MORNING, 1 TABLET DAILY AT NOON, AND 1 & 1/2 TABLETS EVERY EVENING Start Date: 09/26/18 Status: Ordered Repeat number: 1 take 1 tablet by yashira th twice daily, then take 1 tablet by mouth every twelve hours carBAMazepine XR (TEGRETOL XR) 200 mg 12 hr tablet Take 200 mg by mouth twice daily. 0 Active carBAMazepine TA BS Quantity: 0 Refills: 0 Ordered: 13-Jul-2022 DO Active ciprofloxacin 500 mg oral tablet (20 sources) Quinolone Antimicrobial Start: 09-01-2021 End: 10-25-2023 take 1 tablet by mouth twice daily Ciprofloxacin Hcl (Cipro) 500 mg tablet Discontinued 500 mg PO TWICE A DAY 10 September 01, 2021 12:00am October 25, 2023 3:14pm Start: 05-19-2017 End: 08-11-2017 take 1 tablet by mouth twice daily Ciprofloxacin Hcl 500 MG tablet Discontinued 500 mg PO TWICE A DAY 20 May 19, 2017 1:00am August 11, 2017 8:33am clopidogrel 75 mg oral tablet (7 sources) [id number] Platelet Inhibitor Start: 04-04-2024 End: 12-03-2024 take 1 tablet by mouth once daily Clopidogrel 75 mg tablet Discontinued 75 mg PO daily April 04, 2024 1:00am December 03, 2024 11:55am BLOOD THINNER On Hold: Resume on 04/13/24. cyclobenzaprine hydrochloride 5 mg oral tablet (7 sources) Muscle Relaxant Start: 04-04-2024 End: 04-11-2024 take 1 tablet by mouth at bedtime Cyclobenzaprine 5 mg tablet Discontinued 5 mg PO AT BEDTIME April 04, 2024 1:00am April 11, 2024 12:59pm MUSCLE SPASM diclofenac sodium 75 mg delayed release oral tablet (3 sources) Nonsteroidal Anti-inflammatory Drug DICLOFENAC SODIUM 75 MG TBEC as needed DICLOFENAC SODIUM [id number] Jayesh Zavala docusate sodium 50 mg / sennosides, intermediate 8.6 mg oral tablet (7 sources) Start: 04-11-2024 End: 12-03-2024 Sennosides-Docusate Sodium (Stimulant Laxative Plus) 8.6-50 mg Tablet Discontinued 2 {tbl} PO TWICE A DAY as needed for constipation 30 0 April 11, 2024 1:01pm December 03, 2024 11:10am doxazosin 2 mg oral tablet (20 sources) alpha-Adrenergic Von Start: 12-09-2015 End: 09-01-2021 take 1 tablet by mouth at bedtime Doxazosin 2 MG tablet Discontinued 2 mg PO AT BEDTIME December 09, 2015 12:00am September 01, 2021 10:45am heart FLUoxetine 10 mg oral capsule (7 sources) Serotonin Reuptake Inhibitor Start: 04-04-2024 End: 12-03-2024 take 1 capsule by mouth once daily Fluoxetine 10 mg capsule Discontinued 10 mg PO daily April 04, 2024 1:00am December 03, 2024 11:09am DEPRESSION Gemtesa 75 MG Oral Tablet (1 source) Start: 07-13-2022 take 1 tablet by mouth once daily Gemtesa 75 MG Oral Tablet Take 1 tablet daily Quantity: 30 Refills: 0 Ordered: 13-Jul-2022 Orquidea Javier II, MD Start : 13-Jul-2022 Active ipratropium bromide 0.021 mg/actuat metered dose nasal spray (1 source) Anticholinergic Start: 06-28-2024 End: 12-03-2024 Ipratropium [place] 21 mcg (0.03 %) spray,non-aerosol Discontinued 2 NMA INTRANASAL 2 to 3 times per day as needed for postnasal drainage June 28, 2024 12:00am December 03, 2024 11:09am administer into each nostril Ipratropium [place] 21 mcg (0.03 %) spray,non-aerosol (6 sources) Start: 06-28-2024 End: 12-03-2024 Ipratropium [place] 21 mcg (0.03 %) spray,non-aerosol Discontinued 2 NMA INTRANASAL 2 to 3 times per day as needed for postnasal drainage June 28, 2024 12:00am December 03, 2024 11:09am administer into each nostril Start: 06-28-2024 Ipratropium [place] 21 mcg (0.03 %) spray,non-aerosol Active 2 NMA INTRANASAL 2 to 3 times per day as needed for postnasal drainage 30 June 28, 2024 12:00am administer into each nostril Start: 06-28-2024 Ipratropium Br omide 21 mcg (0.03 %) spray,non-aerosol Active 2 NMA INTRANASAL 2 to 3 times per day as needed for postnasal drainage June 28, 2024 12:00am administer into each nostril Lactobacillus Combination No.4 (Probiotic) 3 billion cell capsule (7 sources) Start: 04-05-2024 End: 12-03-2024 take 3 capsules by mouth once daily Lactobacillus Combination No.4 (Probiotic) 3 billion cell capsule Discontinued 3000 NMA PO DAILY April 05, 2024 1:00am December 03, 2024 11:09am SUPPLEMENT administer with a meal Start: 04-05-2024 take 3 capsules by m outh once daily Lactobacillus Combination No.4 (Probiotic) 3 billion cell capsule Active 3000 NMA PO DAILY April 05, 2024 1:00am SUPPLEMENT administer with a meal Start: 04-05-2024 take 3 capsules by m outh once daily Lactobacillus Combination No.4 (Probiotic) 3 billion cell capsule Active 3000 NMA PO DAILY April 05, 2024 1:00am administer with a meal Rwclgyap-Cxt-Tk-Lycopen-Lute in (Complete Mv Adult 50 Plus) 0.4 mg-300 mcg- 250 mcg tablet (7 sources) Start: 04-04-2024 Start: 04-04-2024 Bxtprdim-Snp-V w-Lrzfemj-Ydrlgm (Complete Mv Adult 50 Plus) 0.4 mg-300 mcg- 250 mcg tablet Active 1 {tbl} PO daily April 04, 2024 1:00am SUPPLEMENT Start: 04-04-2024 Agifnuwv-Nna-E e-Gsfmvsn-Crdsoc (Complete Mv Adult 50 Plus) 0.4 mg-300 mcg- 250 mcg tablet Active 1 {tbl} PO daily April 04, 2024 1:00am Multivitamin With Folic Acid (5 sources) Start: 04-03-2015 End: 08-11-2017 take 1 tablet by mouth once daily Multivitamin With Folic Acid Discontinued 1 TABLET PO DAILY April 03, 2015 12:23pm August 11, 2017 8:33am Start: 04-03-2015 End: 08-11-2017 take 1 tablet by mouth once daily Multivitamin With Folic Acid Discontinued 1 TABLET PO DAILY April 03, 2015 1:00am August 11, 2017 8:33am Multivitamin With Folic Acid 1 TABLET tablet (7 sources) Start: 04-03-2015 End: 08-11-2017 take 1 tablet by mouth once daily Multivitamin With Folic Acid 1 TABLET tablet Discontinued 1 {tbl} PO DAILY April 03, 2015 1:00am August 11, 2017 8:33am omeprazole 20 mg delayed release oral capsule (20 sources) Proton Pump Inhibitor Start: 09-26-2018 End: 12-03-2024 take 1 capsule by mouth twice daily Omeprazole 20 mg capsule,delayed release(DR/EC) Discontinued 20 mg PO TWICE A DAY April 04, 2024 1:00am December 03, 2024 11:10am GERD Start: 05-12-2017 End: 10-25-2023 take 1 tablet by mouth twice daily Omeprazole 20 mg tablet,delayed release (DR/EC) Discontinued 20 mg PO TWICE A DAY August 11, 2017 8:31am October 25, 2023 3:14pm REFLUX Start: 04-14-2011 take 1 tablet by yashira th once daily OMEPRAZOLE 20 MG CPDR One tablet by mouth daily OMEPRAZOLE [id number] Jyothi Crenshaw RN Omeprazole 20 MG Oral Capsule Delayed Release Quantity: 0 Refills: 0 Ordered: 13-Jul-2022 DO Active oxyCODONE hydrochloride 5 mg oral tablet (19 sources) Opioid Agonist Start: 04-11-2024 End: 04-23-2024 take 2.5-5 mg by mouth every six hours as needed for pain Oxycodone 5 mg Tablet Discontinued 2.5 - 5 mg PO EVERY 6 HOURS as needed for pain 28 7 0 April 11, 2024 April 23, 2024 11:35am Status post lumbar spinal fusion Arthrodesis status Start: 10-18-2018 End: 10-27-2018 take 5-10 mg by mouth every four hours as needed for pain Oxycodone 5 MG tablet Discontinued 5 - 10 mg PO EVERY 4 HOURS NEEDED as needed for Mod-Severe Pain (4-10/10) 50 5 0 October 18, 2018 October 22, 2018 12:00am October 27, 2018 12:08am Presence of right artificial knee joint corinne prebiotic plus probiotic (7 sources) Start: 04-04-2024 End: 04-05-2024 corinne prebiotic plus probiotic Discontinued PO daily April 04, 2024 1:00am April 05, 2024 1:24pm Problems Active Problems Problem Classification Problem Date Documented Date Episodic/Chronic Abdominal pain (8 sources) Abdominal pain; Translations: [Unspecified abdominal pain] 10-02-2024 Episodic Calculus of urinary tract (3 sources) Kidney stone; Translations: [Calculus of kidney] Onset: 10-24-2024 10-24-2024 Episodic Complications of surgical procedures or medical care (12 sources) Tracheal stenosis following tracheostomy; Translations: [Malfunction of tracheostomy stoma] 11-13-2017 Episodic Conditions associated with dizziness or vertigo (2 sources) Dizziness and giddiness; Translations: [Dizziness and giddiness] Onset: 08-16-2024 Episodic Disorders of lipid metabolism (15 sources) Hyperlipidemia; Translations: [Hyperlipidemia, unspecified] Onset: 04-14-2011 04-14-2011 Chronic Epilepsy; convulsions (5 sources) Seizure disorder; Translations: [Epilepsy, unspecified, not intractable, without status epilepticus] Onset: 06-08-2018 06-08-2018 Chronic Epilepsy; convulsions (12 sources) Epilepsy; convulsions 11-13-2017 Esophageal disorders (12 sources) Gastroesophageal reflux disease; Translations: [Gastro-esophageal reflux disease without esophagitis] 11-13-2017 Chronic Essential hypertension (12 sources) Hypertensive disorder; Translations: [Essential (primary) hypertension] 10-04-2018 Chronic Genitourinary symptoms and ill-defined conditions (4 sources) Urinary incontinence; Translations: [Urinary incontinence, unspecified] Onset: 10-24-2024 10-24-2024 Chronic Genitourinary symptoms and ill-defined conditions (9 sources) Nocturia; Translations: [Nocturia] Onset: 10-24-2024 10-24-2024 Episodic Hyperplasia of prostate (4 sources) Benign prostatic hypertrophy with outflow obstruction; Translations: [Benign localized hyperplasia of prostate with urinary obstruction and other lower urinary tract symptoms (LUTS)] Onset: 10-24-2024 10-24-2024 Chronic Immunizations and screening for infectious disease (10 sources) Contact with and (suspected) exposure to other viral communicable diseases; Translations: [Contact with or suspected exposure to other viral communicable disease] 06-28-2024 Episodic Joint disorders and dislocations; trauma-related (3 sources) Derangement of knee; Translations: [Unspecified internal derangement of right knee] Onset: 03-02-2015 03-02-2015 Chronic Malaise and fatigue (2 sources) Lack of energy; Translations: [Other malaise and fatigue] Episodic Osteoarthritis (3 sources) Osteoarthritis of knee; Translations: [Osteoarthritis of knee, unspecified] Onset: 01-21-2015 01-21-2015 Chronic Other acquired deformities (8 sources) Lumbar spondylolisthesis; Translations: [Spondylolisthesis, lumbar region] 10-25-2023 Episodic Other connective tissue disease (7 sources) Neurogenic claudication; Translations: [Other symptoms and signs involving the nervous system] 10-25-2023 Episodic Other connective tissue disease (19 sources) History of lumbar fusion; Translations: [Arthrodesis status] 04-11-2024 Episodic Other connective tissue disease (2 sources) Arthrodesis status; Translations: [Arthrodesis status] Onset: 04-16-2024 Episodic Other lower respiratory disease (15 sources) Dyspnea; Translations: [Shortness of breath] Onset: 04-14-2011 04-14-2011 Episodic Other nutritional; endocrine; and metabolic disorders (12 sources) Obesity; Translations: [Obesity, unspecified] 02-13-2019 Chronic Other nutritional; endocrine; and metabolic disorders (1 source) Hypocalcemia; Translations: [Hypocalcemia] 01-12-2025 Chronic Other upper respiratory disease (12 sources) Paralysis of larynx; Translations: [Paralysis of vocal cords and larynx, unilateral] 11-13-2017 Chronic Other upper respiratory disease (12 sources) Stenosis of larynx; Translations: [Stenosis of larynx] 11-13-2017 Episodic Other upper respiratory infections (14 sources) Laryngitis; Translations: [Acute laryngitis] Onset: 05-09-2018 06-08-2018 Episodic Residual codes; unclassified (12 sources) Obstructive sleep apnea syndrome; Translations: [Obstructive sleep apnea (adult) (pediatric)] 02-13-2019 Chronic Syncope (12 sources) Vasovagal symptom; Translations: [Syncope and collapse] 11-17-2018 Episodic Thyroid disorders (4 sources) Acquired hypothyroidism; Translations: [Hypothyroidism, unspecified] Onset: 06-08-2018 06-08-2018 Chronic Unclassified (3 sources) Aftercare ; Translations: [Encounter for other orthopedic aftercare] Onset: 04-20-2015 04-20-2015 Unclassified (1 source) Preoperative procedures; Translations: [Encounter for other preprocedural examination] Onset: 11-28-2012 11-28-2012 Viral infection (1 source) Disease caused by 2019-nCoV; Translations: [COVID-19] 01-04-2025 Episodic Viral infection (1 source) COVID-19; Translations: [COVID-19] Onset: 01-09-2025 Past or Other Problems Problem Classification Problem Date Documented Da te Episodic/Chronic Biliary tract disease (6 sources) Biliary calculus; Translations: [Calculus of gallbladder without cholecystitis without obstruction] Resolved: 3 11-22-2012 Episodic Cardiac dysrhythmias (3 sources) Palpitations; Translations: [Palpitations] Onset: 2 04-14-2011 Episodic Medical examination/evaluation (2 sources) Encounter for other preprocedural examination; Translations: [Encounter for other preprocedural examination] Onset: 3 11-28-2012 Episodic Nonspecific chest pain (3 sources) Chest pain; Translations: [Chest pain, unspecified] Onset: 2 04-14-2011 Episodic Other acquired deformities (1 source) Spondylolisthesis, lumbar region; Translations: [Spondylolisthesis, lumbar region] Onset: 5 Episodic Other aftercare (3 sources) Complex tear of medial meniscus, current injury, right knee, subsequent encounter; Translations: [Complex tear of medial meniscus, current injury, right knee, subsequent encounter] Onset: 5 04-01-2015 Episodic Other circulatory disease (3 sources) Electrocardiogram abnormal; Translations: [Abnormal electrocardiogram [ECG] [EKG]] Onset: 2 04-14-2011 Episodic Other gastrointestinal disorders (3 sources) Heartburn; Translations: [Heartburn] 02-14-2013 Episodic Other non-traumatic joint disorders (6 sources) Effusion, right knee; Translations: [Knee pain] Onset: 5 04-01-2015 Episodic Other non-traumatic joint disorders (1 source) Pain in left knee; Translations: [Pain in left knee] Onset: 5 Episodic Other nutritional; endocrine; and metabolic disorders (3 sources) Body mass index (BMI) 29.0-29.9, adult; Translations: [Body mass index (BMI) 29.0-29.9, adult] Onset: 3 11-28-2012 Episodic Other upper respiratory disease (4 sources) Subglottic stenosis; Translations: [Stenosis of larynx] Onset: 8 06-08-2018 Episodic Other upper respiratory disease (4 sources) Stenosis of trachea; Translations: [Other specified diseases of upper respiratory tract] Onset: 8 06-08-2018 Episodic Residual codes; unclassified (1 source) Edema, unspecified; Translations: [Edema, unspecified] Onset: 5 Episodic Spondylosis; intervertebral disc disorders; other back problems (20 sources) Low back pain; Translations: [Low back pain] Onset: 5 10-25-2023 Episodic Results Test Name Value Interpretation Reference Range Facility Comprehensive Metabolic Prof [facility] 01-05-2025 Calcium [Mass/Vol] 6.4 mg/dL Invalid Interpretation Code 7.6-11.0 [facility] Comment on above: Result Comment: Crit ical Result(s) Called at: by:??Results read back by same. Critical Result(s) Called at 1933: by: NBURNS TO??EYOUNG Results read back by same. AMENDED REPORT 01/05/25 0128 CA previously reported as: 6.3 *L mg/dL Critical Result(s) Called at: by:??Results read back by same. Performed By: #### L 100.0100, L501.4021, L501.7900, L500.4050 #### [facility] [address] [place], [place], [id number] Absolute lymphocyte countOrd ered By: Jose Staton on 01-04-2025 Lymphocytes Auto (Unsp spec) [#/Vol] 1.01 10*3/uL 0.83-4.51 [facility] Absolute neutrophil countOrd ered By: Jose Staton on 01-04-2025 Neutrophils (Bld) [#/Vol] 2.5 10*3/uL 2.0-7.7 [facility] Anion gap in Serum or Plasma Ordered By: Jose Staton on 01-04-2025 Anion gap [Moles/Vol] 15 mmol/L 5-15 [facility] Automated lymphocyte count a s percentage of total leukocytesOrdered By: Jose Staton on 01-04-2025 Lymphocytes/100 WBC Auto (Unsp spec) 22.9 % - [facility] BUN/creatinine ratioOrdered By: Jose Staton on 01-04-2025 Urea nitrogen/Creatinine [Mass ratio] 15.5 mg/mg 10- [facility] Basophil percentageOrdered B y: Jose Staton on 01-04-2025 Basophils/100 WBC (Bld) 0.9 % 0-[address] [facility] Bilirubin Test strip Ql (U)O rdered By: Jose Staton on 01-04-2025 Bilirubin Ql (U) Negative Negative [facility] Bilirubin, totalOrdered By: Jose Staton on 01-04-2025 Bilirubin [Mass/Vol] 0.18 mg/dL 0.00-1.30 [facility] Brain/Head without Contrasto n 01-04-2025 Brain/Head without Contrast [facility] [address] [place] [address] Brain/Head without Contrast MR#: [id number] Acct: [id number] Name: AMANDO LLANOS Jr. Rep #: [id number] : 1965 M 59 From: Curtis Novoa MD PCP: Dr. Amita Humphreys, Status: REG ER Study: Brain/Head without Contrast Date of Exam: 12/25 04/20 Exam# [id number] Ordering Dr: Jose Staton DO PROCEDURE: BRAIN/HEAD WITHOUT CONTRAST 01/04/2025 REASON FOR EXAM: DIZZINESS TECHNIQUE: Procedure Code: CTBR Modality: CT Procedure: BRAIN/HEAD WITHOUT CONTRAST Coronal and Sagittal reconstruction series were provided. One or more dose reduction techniques were used (e.g., Automated exposure control, adjustment of the mA and/or kV according to patient size, use of iterative reconstruction technique. COMPARISON: None available. FINDINGS: There is no extra-axial or intra-axial intracranial hemorrhage. No mass effect or midline shift is seen. Generalized intracranial volume loss and findings compatible with chronic microvascular white matter ischemia. There is normal cruz-white matter differentiation. The posterior fossa is grossly unremarkable. The skull is unremarkable. Visualized paranasal sinuses are clear. The mastoid air cells show normal translucency. CT/Brain/Head without Contrast IMPRESSION: 1. No intracranial hemorrhage. No mass effect or midline shift. 2. Chronic involutional and ischemic gliotic white matter changes. Reading Location: [facility] CC: Dr. Jose Staton, DO; Dr. Amita Humphreys DO Publicity Director: Signed Normal [facility] CBC W/Diff, Automatedon 12-25 Absolute Lymph 1.01 X10 3/uL Normal 0.83-4.51 [facility] Comment on above: Performed By: #### L 100.0100, L501.4021, L501.7900, L500.4050 #### [facility] [address] [place], [address] Absolute Neut 2.5 X10 3/uL Normal 2.0-7.7 [facility] Comment on above: Performed By: #### L 100.0100, L501.4021, L501.7900, L500.4050 #### [facility] [address] [place], [address] Basophils/100 WBC (Bld) 0.9 % Normal 0-[address] [facility] Comment on above: Performed By: #### L 100.0100, L501.4021, L501.7900, L500.4050 #### [facility] [address] [place], [address] Eosinophils/100 WBC (Bld) 4.3 % Normal 0-5 [facility] Comment on above: Performed By: #### L 100.0100, L501.4021, L501.7900, L500.4050 #### [facility] [address] [place], [address] Erythrocyte distribution width (RBC) [Ratio] 12.0 % Normal 11.6-14.6 [facility] Comment on above: Performed By: #### L 100.0100, L501.4021, L501.7900, L500.4050 #### [facility] [address] [place], [address] Hematocrit (Bld) [Volume fraction] 37.7 % Low 40-54 [facility] Comment on above: Performed By: #### L 100.0100, L501.4021, L501.7900, L500.4050 #### [facility] [address] [place], [address] Hemoglobin (Bld) [Mass/Vol] 12.7 g/dL Low 13.0-16.5 [facility] Comment on above: Performed By: #### L 100.0100, L501.4021, L501.7900, L500.4050 #### [facility] [address] [place], [address] IG% 0.200 Normal 0.0-0.9 [facility] Comment on above: Result Comment: IG% - Immature Granulocytes (promyelocytes, myelocytes and metamyelocytes) > 1% indicates that a LEFT SHIFT is Present. Performed By: #### L 100.0100, L501.4021, L501.7900, L500.4050 #### [facility] [address] [place], [address] Lymphocytes/100 WBC (Bld) 22.9 % Normal 19-41 [facility] Comment on above: Performed By: #### L 100.0100, L501.4021, L501.7900, L500.4050 #### [facility] [address] [place], [address] MCH (RBC) [Entitic mass] 29.9 pg Normal 27.0-32.0 [facility] Comment on above: Performed By: #### L 100.0100, L501.4021, L501.7900, L500.4050 #### [facility] [address] [place], [address] MCHC (RBC) [Mass/Vol] 33.7 g/dL Normal 32-36 [facility] Comment on above: Performed By: #### L 100.0100, L501.4021, L501.7900, L500.4050 #### [facility] [address] [place], [address] MCV (RBC) [Entitic vol] 88.7 fL Normal 80-94 [facility] Comment on above: Performed By: #### L 100.0100, L501.4021, L501.7900, L500.4050 #### [facility] [address] [place], [address] Monocytes/100 WBC (Bld) 14.7 % High 0-10 [facility] Comment on above: Performed By: #### L 100.0100, L501.4021, L501.7900, L500.4050 #### [facility] [address] [place], [address] Neutrophils/100 WBC (Bld) 57.0 % Normal 47-70 [facility] Comment on above: Performed By: #### L 100.0100, L501.4021, L501.7900, L500.4050 #### [facility] [address] [place], [address] Nucleated RBC (Bld) [#/Vol] 0 10*3/uL Normal 0-5 [facility] Comment on above: Performed By: #### L 100.0100, L501.4021, L501.7900, L500.4050 #### [facility] [address] [place], [address] Platelet mean volume (Bld) [Entitic vol] 9.1 fL Normal 6.2-12.0 [facility] Comment on above: Performed By: #### L 100.0100, L501.4021, L501.7900, L500.4050 #### [facility] [address] [place], [address] Platelets (Bld) [#/Vol] 151 10*3/uL Normal 150-450 [facility] Comment on above: Performed By: #### L 100.0100, L501.4021, L501.7900, L500.4050 #### [facility] [address] [place], [address] RBC (Bld) [#/Vol] 4.25 10*6/uL Low 4.6-6.2 [facility] Comment on above: Performed By: #### L 100.0100, L501.4021, L501.7900, L500.4050 #### [facility] [address] [place], [address] RDW SD 39.2 fl Normal 35.1-43.9 [facility] Comment on above: Performed By: #### L 100.0100, L501.4021, L501.7900, L500.4050 #### [facility] [address] [place], [address] WBC (Bld) [#/Vol] 4.4 10*3/uL Normal 4.4-11.0 [facility] Comment on above: Performed By: #### L 100.0100, L501.4021, L501.7900, L500.4050 #### [facility] [address] [place], [address] Carbamazepine (Tegretol)on CARBAMAZEPINE 9.4 ug/mL Normal 4.0-12.0 [facility] Comment on above: Performed By: #### L 100.0100, L501.4021, L501.7900, L500.4050 #### [facility] [address] [place], [address] Carbon dioxide, total [Moles /volume] in Central venous bloodOrdered By: Jose Staton on 01-04-2025 CO2 [Moles/Vol] 26.1 mmol/L 21.0-32.0 [facility] Chest PA and Lateralon 01-04 Chest PA and Lateral [facility] [address] [place] [address] Chest PA and Lateral MR#: [id number] Acct: [id number] Name: AMANDO LLANOS Jr. Rep #: [id number] : 1965 M 59 From: Curtis Novoa MD PCP: Dr. Amita Humphreys DO Status: REG ER Study: Chest PA and Lateral Date of Exam: 01/04/25 Exam# [id number] Ordering Dr: Jose Staton DO PROCEDURE: CHEST PA AND LATERAL 01/04/2025 REASON FOR EXAM: WEAKNESS TECHNIQUE: Procedure Code: RADCXR Modality: DX Procedure: CHEST PA AND LATERAL COMPARISON: None available. FINDINGS: Hardware: Sternotomy wires are present. Heart: The heart size is normal. Mediastinum: The mediastinal contour is unremarkable. Lungs: The lungs are clear. Bones: The bones are unremarkable. RAD/Chest PA and Lateral IMPRESSION: NO ACUTE FINDINGS. Reading Location: [facility] CC: Dr. Jose Staton DO; Dr. Amita Humphreys DO Publicity Director: Signed Normal [facility] Chloride assayOrdered By: Cristobal Staton on 01-04-2025 Chloride [Moles/Vol] 95 mmol/L Low 98-108 [facility] Emergency Department Summary on 01-04-2025 Emergency Department Summary [facility] Medical Records Department [address] [place] [address] Emergency Department Summary 01/04/25 MR#: [id number] Acct: [id number] Name: AMANDO LLANOS Jr. Rep #: [id number] : 1965 59 From: Jose Staton DO PCP: Dr. Amita Humphreys, DO Status:DEP ER Location: ED HPI History of Present Illness Chief Complaint: General Illness Informant: patient Onset/Context/Paola huber Onset: Weeks (1-2) Context: Gradual Onset Timing: Intermittent Quality: Lightheaded Location: Generalized Worsened by: Nothing Relieved by: Nothing Narrative Narrative: Patient presents with lightheadedness and weakness that began 1 to 2 weeks ago. Patient states it became worse today. Patient states it is gradually gotten worse. Patient states nothing makes it worse and nothing makes it better. Patient states he was recently changed his carbamazepine to 400 mg twice daily. Patient states that he had been taking 300 mg in the morning, 200 mg in the afternoon, and 300 mg in the evening. Patient states this was changed because he was forgetting his afternoon dose. Patient denies any chest pain or shortness of breath. Patient denies any nausea or vomiting. Patient denies any paresthesias or weakness. Patient denies any visual changes. PFSH [facility] Medical History Abdominal pain Subglottic stenosis TBI (traumatic brain injury) Ambulates with cane Bladder disease Low iron COPD (chronic obstructive pulmonary disease) Shortness of breath on exertion History of pain when walking Wears dentures Wears glasses Thyroid disease Arthritis High cholesterol Injury of head and neck Back pain Migraine headache Syncope Seizures Gastric reflux Former smoker CPAP (continuous positive airway pressure) dependence Hoarseness History of edema History of stress test UTI (urinary tract infection) Hypercholesteremia Arthritis BPH (benign prostatic hyperplasia) Obesity HLD (hyperlipidemia) GERD (gastroesophageal reflux disease) Epilepsy without mention Intractable Epilepsy, unspecified Home Medications ???Medication ???Instructions ???Recorded ???Last Taken ???Type levothyroxine 50 mcg tablet 50 mcg PO DAILY thyroid 04/03/15 0 04/10/24 History metoprolol succinate 25 mg 25 mg PO QHS blood pressure 04/09/24 History tablet,extended release 24 hr simvastatin 40 mg tablet 40 mg PO QHS cholesterol lowering 04/03/15 04/09/24 History cholecalciferol (vitamin D3) 125 125 mcg PO QDAY SUPPLEMENT 5 04/09/24 History mcg (5,000 unit) capsule desmopressin 0.2 mg tablet 0.2 mg PO BID BP 04/04/24 04/10/24 History ferrous sulfate 325 mg (65 mg 325 mg PO QDAY SUPPLEMENT 04/04/24 04/09/24 History iron) tablet (FeroSul) fesoterodine 8 mg tablet,extended 8 mg PO QHS OAB 04/04/24 04/09/24 History release 24 hr mecobalamin (vitamin B12) 5,000 5,000 mcg PO QDAY SUPPLEMENT 04/0404/09/24 History mcg chewable tablet faqdifwp-ctc-ntukn acid 0.4 1 tab PO QDAY SUPPLEMENT 04/04/24 04/09/24 History mg-lycopene 300 mcg-lutein 250 mcg tablet (Complete Multivitamin Adult 50 Plus) sumatriptan succinate 100 mg tablet 100 mg PO ONCE PRN migraine 12/19 Unknown History headache carbamazepine 200 mg tablet 300 mg PO BID SEIZURES 04/05/24 History meloxicam 15 mg tablet 15 mg PO QDAY #30 tabs 12/03/24 Un known Rx methocarbamol 500 mg tablet 500 mg PO QHS #30 tabs 12/03/24 Un known Rx Allergy/AdvReac Type Severity Reaction Status Date / Time strawberry Allergy Intermediate Hives Verified 01/04/25 18:10 azithromycin Allergy Unknown Unknown Verified 01/04/25 18:10 erythromycin base Allergy Unknown Verified 01/04/25 18:10 Penicillins Allergy Hives Verified 01/04/25 18:10 Barbiturates AdvReac Other Verified 01/04/25 18:10 divalproex sodium (From AdvReac Other Verified 01/04/25 18:10 Depakote) Hydantoins AdvReac Other Verified 01/04/25 18:10 phenobarbital AdvReac Other Verified 01/04/25 18:10 phenytoin sodium (From AdvReac Other Verified 01/04/25 18:10 Dilantin) phenytoin sodium extended AdvReac Other Verified 01/04/25 18:10 (From Dilantin) Family History Father Hypertension Other Myocardial infarction Prostate cancer Surgical History History of cardiac catheterization History of bronchoscopy Hx of tooth extraction Hx of foot surgery Hx of cystoscopy Hx of cardiac cath Hx laparoscopic cholecystectomy Hx of total knee replacement History of partial knee replacement History of tracheostomy as a child Social History (Updated 01/04/25 @ 18:11 by Chiqui Wong) household members: family current occupation: [employer] (more content not included)... Normal [facility] Eosinophil percentageOrdered By: Jose Staton on 01-04-2025 Eosinophils/100 WBC (Bld) 4.3 % 0-5 [facility] Erythrocyte distribution wid th ratioOrdered By: Jose Staton on 01-04-2025 Erythrocyte distribution width (RBC) [Ratio] 12.0 % 11.6-14.6 [facility] Erythrocyte distribution wid th standard deviationOrdered By: Jose Staton on 01-04-2025 Erythrocyte distribution width (RBC) [Ratio] 39.2 fl 35.1-43.9 [facility] Glomerular filtration rate ( GFR) estimation/1.73 sq m using serum, plasma, or whole bOrdered By: Jose Staton on 01-04-2025 GFR/1.73 sq M.predicted among non-blacks MDRD (S/P/Bld) [Vol rate/Area] 103 mL/min/{1.73_m2} >60 [facility] Comment on above: mL/min/1.73m2 CKD-EP I Creatinine Equation (2020) Hematocrit Auto (Bld) [Volum e fraction]Ordered By: Jose Staton on 01-04-2025 Hematocrit (Bld) [Volume fraction] 37.7 % Low 40-54 [facility] Hemoglobin measurementOrdere d By: Jose Staton on 01-04-2025 Hemoglobin (Bld) [Mass/Vol] 12.7 g/dL Low 13.0-16.5 [facility] Immature granulocytes/100 WB C Auto (Bld)Ordered By: Jose Staton on 01-04-2025 Immature granulocytes/100 WBC (Bld) 0.200 % 0.0-0.9 [facility] Comment on above: IG% - Immature Granu locytes (promyelocytes, myelocytes and metamyelocytes) > 1% indicates that a LEFT SHIFT is Present. Influenza virus A and B and SARS-CoV-2 (COVID-19) and Respiratory syncytial virus RNAOrdered By: Jose Staton on 01-04-2025 SARS-CoV-2 (COVID-19) RNA GARY+probe Ql (Unsp spec) SARS-CoV-2 (COVID 19 PCR) Abnormal [facility] [facility] Ketones Test strip Ql (U)Ord ered By: Jose Staton on 01-04-2025 Ketones Ql (U) Negative Negative [facility] L501.4021on 01-04-2025 Trop T High Sen 12 ng/L Normal <=22 [facility] Comment on above: Performed By: #### L 100.0100, L501.4021, L501.7900, L500.4050 #### [facility] [address] [place], [address] Laboratory - Chemistry and C hemistry - challengeOrdered By: Jose Staton on 01-04-2025 AST [Catalytic activity/Vol] 27 U/L <38 [facility] M100.678on 01-04-2025 M100.678 Copy of report sent to Infection Control Printer MS#[id number] 01/05/25 0647 [facility] Normal Reference Range = Negative FLUABV+SARS-CoV-2+R SV Pnl Resp GARY+probe GeneXpert Instrument, PCR method FLUABV+SARS-CoV-2+R SV Pnl Resp GARY+probe CRITICAL VALUE CALLED TO ALEC ARORA 01/04/251940 Anastacia Mari. RESULTS READ BACK BY ALEC ARORA. SARS-CoV-2 (COVID 19) A Positive A INFLUENZA A Negative INFLUENZA B Negative RSV PCR Negative SARS-CoV-2 (COVID 19 PCR) Normal [facility] Comment on above: Performed By: #### M 100.678, L400.0001 ####[facility] [address] [place], [address] MCV (mean corpuscular volume ) determinationOrdered By: Jose Staton on 01-04-2025 MCV (RBC) [Entitic vol] 88.7 fL 80-[address] [facility] Mean corpuscular hemoglobin (MCH) determinationOrdered By: Jose Staton on 01-04-2025 MCH (RBC) [Entitic mass] 29.9 pg 27.0-32.0 [facility] Mean corpuscular hemoglobin concentration (MCHC) determinationOrdered By: Jose Staton on 01-04-2025 MCHC (RBC) [Mass/Vol] 33.7 g/dL 32-36 [facility] Mean platelet volume determi nationOrdered By: Jose Staton on 01-04-2025 Platelet mean volume (Bld) [Entitic vol] 9.1 fL 6.2-12.0 [facility] Microscopic analysis of urin e for red blood cells (RBC)Ordered By: Jose Staton on 01-04-2025 Microscopic analysis of urine for red blood cells (RBC) 0 SEEN /hpf 0-5 [facility] Monocyte percentageOrdered B y: Jose Staton on 01-04-2025 Monocytes/100 WBC (Bld) 14.7 % High 0-[address] [facility] Mucus LM Ql (Urine sed)Order ed By: Jose Staton on 01-04-2025 Mucus Ql (Urine sed) 0 SEEN /hpf [facility] Neutrophil percentageOrdered By: Jose Staton on 01-04-2025 Neutrophils/100 WBC (Bld) 57.0 % 47-70 [facility] Nitrite Test strip Ql (U)Ord ered By: Jose Staton on 01-04-2025 Nitrite Ql (U) Negative Negative [facility] Nucleated red blood cell per centageOrdered By: Jose Staton on 01-04-2025 Nucleated RBC/100 WBC (Bld) [Ratio] 0 % 0-5 [facility] Platelet countOrdered By: Cristobal Staton on 01-04-2025 Platelets (Bld) [#/Vol] 151 10*3/uL 150-450 [facility] Potassium measurement (mass/ volume)Ordered By: Jose Staton on 01-04-2025 Potassium (Unsp spec) [Mass/Vol] 3.6 mmol/L 3.3-5.1 [facility] Protein Test strip Ql (U)Ord ered By: Jose Staton on 01-04-2025 Protein Ql (U) 15 mg/dl High Negative [facility] RBC Auto (Bld) [#/Vol]Ordere d By: Jose Staton on 01-04-2025 RBC (Bld) [#/Vol] 4.25 10*6/uL Low 4[facility]6-6.2 [facility] Serum creatinine measurement (mass/volume)Ordered By: Jose Staton on 01-04-2025 Creatinine [Mass/Vol] 0.82 mg/dL 0.70-1.20 [facility] Serum globulin measurementOr dered By: Jose Staton on 01-04-2025 Globulin (S) [Mass/Vol] 2.6 g/dL 2.2-4.[address] [facility] Serum glucose measurement (m ass/volume)Ordered By: Jose Staton on 01-04-2025 Glucose [Mass/Vol] 99 mg/dL 70-99 [facility] Serum or plasma alanine day otransferase (ALT) measurementOrdered By: Jose Staton on 01-04-2025 ALT [Catalytic activity/Vol] 24 U/L <47 [facility] Serum or plasma albumin mine urement (mass/volume)Ordered By: Jose Staton on 01-04-2025 Albumin [Mass/Vol] 4.4 g/dL 3.5-5.0 [facility] Serum or plasma albumin/glob ulin mass ratioOrdered By: Jose Staton on 01-04-2025 Albumin/Globulin [Mass ratio] 1.7 {ratio} 0.9-2.4 [facility] Serum or plasma alkaline nidia sphatase measurementOrdered By: Jose Staton on 01-04-2025 ALP [Catalytic activity/Vol] 113 U/L 40-129 [facility] Serum or plasma calcium mine urement (mass/volume)Ordered By: Jose Staton on 01-04-2025 Calcium [Mass/Vol] 6.4 mg/dL Critically low 7.6-11.0 [place] Comment on above: Critical Result(s) C alled at: by: Results read back by same. Critical Result(s) Called at 1933: by: NBURNS TO EYOUNG Results read back by same.Previous reported result: 6.3 mg/dLEdited by: GREG on 01/05/25:0128 AMENDED REPORT 01/05/25 0128 CA previously reported as: 6.3 *L mg/dL Critical Result(s) Called at: by: Results read back by same. Serum or plasma carbamazepin e level (mass/volume)Ordered By: Jose Staton on 01-04-2025 carBAMazepine [Mass/Vol] 9.4 ug/mL 4.0-12.0 [facility] Serum or plasma urea nitroge n measurement (mass/volume)Ordered By: Jose Staton on 01-04-2025 Urea nitrogen [Mass/Vol] 13 mg/dL 4-19 [facility] Sodium levelOrdered By: Jose Staton on 01-04-2025 Sodium [Moles/Vol] 136 mmol/L 133-145 [facility] Squamous epithelial cells de tection in urine sediment by light microscopyOrdered By: Jose Staton on 01-04-2025 Epithelial cells.squamous LM Ql (Urine sed) 0 SEEN /hpf 0-5 [facility] Total proteinOrdered By: Virgen Staton on 01-04-2025 Protein [Mass/Vol] 7.0 g/dL 5.9-8.4 [facility] Troponin T HS 2 HRon 025 Trop T High Sen Normal <=22 [facility] Comment on above: Result Comment: MARY ENT DISCHARGED Performed By: #### L 499.0042 #### [facility] [address] [place], [place], [id number] Troponin T HS 4 HRon 025 Trop T High Sen Normal <=22 [facility] Comment on above: Result Comment: Canc elled via OM: Order cancelled - Patient discharged Performed By: #### L 499.0043 ####[facility] [address] [place], [place], [address] Troponin T.cardiac [Mass/vol ume] in Serum or Plasma by High sensitivity methodOrdered By: Jose Staton on 01-04-2025 Troponin T.cardiac High sensitivity method [Mass/Vol] 12 ng/L <22 [facility] Urinalysis, Completeon 01-04 BACTERIA 0 SEEN Normal None Seen [facility] Comment on above: Order Comment: CLEAN CATCH Performed By: #### M 100.678, L400.0001 ####[facility] [address] [place], [address] EPI,SQUAMOUS 0 SEEN Normal 0-5 [facility] Comment on above: Order Comment: CLEAN CATCH Performed By: #### M 100.678, L400.0001 ####[facility] [address] [place], [address] Mucus Ql (Urine sed) 0 SEEN Normal [facility] Comment on above: Order Comment: CLEAN CATCH Performed By: #### M 100.678, L400.0001 ####[facility] [address] [place], [address] RBC 0 SEEN Normal [address] [place] [address] Comment on above: Order Comment: CLEAN CATCH Performed By: #### M 100.678, L400.0001 ####[facility] [address] [place], [address] WBC 0 SEEN Normal [address] [place] [address] Comment on above: Order Comment: CLEAN CATCH Performed By: #### M 100.678, L400.0001 ####[facility] [address] [place], [address] Urine clarityOrdered By: Virgen Staton on 01-04-2025 Clarity (U) Clear Clear [facility] Urine color determinationOrd ered By: Jose Staton on 01-04-2025 Color (U) Yellow Yellow [facility] Urine glucose detectionOrder ed By: Jose Staton on 01-04-2025 Glucose Ql (U) Normal mg/dl Normal [facility] Urine leukocyte esterase det ection by dipstickOrdered By: Jose Staton on 01-04-2025 Leukocyte esterase Test strip Ql (U) Negative Negative [facility] Urine pHOrdered By: Jose bullard on 01-04-2025 pH (U) 7.0 [pH] 5.0 - 8.0 [facility] Urine sediment bacteria coun t by microscopy (number/high power field)Ordered By: Jose Staton on 01-04-2025 Bacteria LM.HPF (Urine sed) [#/Area] 0 /[HPF] None Seen [facility] Urine specific gravity measu rementOrdered By: Jose Staton on 01-04-2025 Specific gravity (U) [Rel density] 1.010 1.002-1.030 [facility] Urine urobilinogen measureme ntOrdered By: Jose Staton on 01-04-2025 Urobilinogen Ql (U) Normal mg/dl Normal [facility] White blood cell (WBC) count Ordered By: Jose Staton on 01-04-2025 WBC (Bld) [#/Vol] 4.4 10*3/uL 4.4-11.0 [facility] White blood cell countOrdere d By: Jose Staton on 01-04-2025 White blood cell count 0 SEEN /hpf 0-[address] [facility] CNPNon 12-30-2024 CNPN Telephone (NSCAMN) ---- AMANDO LLANOS ([id number]) 1965 M Date Time Provider Department 12/30/24 [facility] NSCAMN During your visit today, we recorded the following information about you: Iwona Johnson 01/02/2025 12:23 PM Addendum Requested images from [facility] [phone]-- However they said pt had the images done at [facility]. [facility] pushing images. Seth Wilson APRN.[employer] 01/01/2025 7:39 AM Signed Time Frame: ZACH < 3 weeks Provider: Dr. Randy De Guzman and direct referral to Dr. Herrera Referring: Chiqui Tipton PA-C [facility] Dx: pituitary adenoma Please make a lab appointment prior to 9am at a [facility] lab close to patient's home. If patient is unable to come for lab appt please instruct patients to have labs drawn prior to 9am. Lab Instructions for Pituitary Labs: 1. Please fast after midnight and then have your labs drawn before 9AM. 2. If you are taking any type of steroid (dexamethasone, hydrocortisone, prednisone) please hold this for 24 hours before lab test. 3. Refrain from sexual intercourse, orgasms, or nipple stimulation for the 24 hours preceding the test. Nipple stimulation and orgasm can lead to falsely elevated prolactin levels. 4. Do not take multivitamins or dietary supplements containing biotin (vitamin B7) for at least 3 days before the test. Patient: Amando Llanos Address: Amando Llanos [id number] [place] [address] Per Triage: Amando Llanos is a 59 year old male that requests evaluation of previously diagnosed pituitary adenoma. Previous Evaluations: Seth Wilson APRN.MICHAEL January 01, 2025 Kirt Bradshaw 01/01/2025 3:16 PM Signed Called Patient Left VM with Appt details , Mailed Reminders. 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] Order(s):PROLACTIN [SQPROL] Order #: [id number] FUTURE THYROID STIMULATING HORMONE [SQTSH] Order #: [id number] FUTURE GROWTH HORMONE [SQGH] Order #: [id number] FUTURE LUTEINIZING HORMONE [SQLH] Order #: [id number] FUTURE INSULIN LIK GR FAC I [SQILGF1] Order #: [id number] FUTURE FOLLICLE STIMULATING HORMONE [SQFSH] Order #: [id number] FUTURE T4 FREE/FREE THYROXINE [SQFT4] Order #: [id number] FUTURE CORTISOL, SERUM [SQCOR] Order #: [id number] FUTURE ACTH BLD [SQACTH] Order #: [id number] FUTURE TESTOSTERONE, TOTAL BY IMMUNOASSAY (ADULT MALES, OR INDIVIDUALS ON TESTOSTERONE THERAPY) [SQTESTO] Order #: [id number] FUTURE Prescriptions as of 01/02/2025 - carBAMazepine XR (TEGRETOL XR) 200 mg 12 hr tablet Take 200 mg by mouth twice daily. - simvastatin (ZOCOR) 40 mg tablet Take 40 mg by mouth daily at bedtime. - OXYBUTYNIN CHLORIDE ORAL Take by mouth. - METOPROLOL SUCCINATE ORAL Take by mouth. Problem List As Of Date: 12/30/2024 (None) Encounter Status:Closed by SETH WILSON on 01/01/25 Normal [facility] Lumbar Spine 2 or 3 Viewson 12-03-2024 Lumbar Spine 2 or 3 Views [facility] [address] [place] [id number] Lumbar Spine 2 or 3 Views MR#: [id number] Acct: [id number] Name: AMANDO LLANOS Rep #: [id number] : 1965 M 59 From: German Aragon MD PCP: Dr. Amita Humphreys, DO Status: DEP AMB Study: Lumbar Spine 2 or 3 Views Date of Exam: Exam# [id number] Ordering Dr: Linda Heredia PROCEDURE: LUMBAR SPINE 2 OR 3 VIEWS 12/03/2024 REASON FOR EXAM: POST OP TECHNIQUE: Procedure Code: RADSPLL Modality: DX Procedure: LUMBAR SPINE 2 OR 3 VIEWS FINDINGS: No evidence acute fracture or dislocation. Vertebral body heights are maintained. L4-5 posterior fusion and discectomy. Pitb-eh-wosemikj degenerative changes of the non fused levels. RAD/Lumbar Spine 2 or 3 Views IMPRESSION: Intact postsurgical changes. Spondylosis of the non fused levels. Reading Location: [id number] CC: SENIOR INSTRUMENTATION ENGINEER-C Linda Heredia; Dr. Amita Humphreys DO Publicity Director: Signed Normal [facility] Orthopedic Visit Reporton Orthopedic Visit Report [facility] [facility] [address] [place] [address] OFFICE VISIT Date of Service: 12/03/24 MR#: [id number] Acct: [id number] Name: AMANDO LLANOS Jr. Rep #: [id number] : 1965 Provider: BRIA lamar Age/Sex: 59/M Location: [facility] Status: Signed Intake Vital Signs 06/28/24 16:04 12/02/24 14:49 Height 5 ft 6 in 5 ft 6 in Intake Visit Reasons: LUMBAR SPINE Chief Complaint: Lumbar Spine/Right Hip Pain Accompanied by: Self Is patient in pain?: Yes Allergies strawberry Allergy (Intermediate, Verified 12/03/24 11:04) Hives azithromycin Allergy (Unknown, Verified 12/03/24 11:04) Unknown erythromycin base Allergy (Verified 12/03/24 11:04) Unknown Penicillins Allergy (Verified 12/03/24 11:04) Hives Barbiturates Adverse Reaction (Verified 12/03/24 11:04) Other divalproex sodium (From Depakote) Adverse Reaction (Verified 12/03/24 11:04) Other Hydantoins Adverse Reaction (Verified 12/03/24 11:04) Other phenobarbital Adverse Reaction (Verified 12/03/24 11:04) Other phenytoin sodium (From Dilantin) Adverse Reaction (Verified 12/03/24 11:04) Other phenytoin sodium extended (From Dilantin) Adverse Reaction (Verified 12/03/24 11:04) Other Medications ???Medication ???Instructions ???Recorded ???Confirmed ???Type levothyroxine 50 mcg tablet 50 mcg PO DAILY thyroid 04/03/15 0 12/03/24 History metoprolol succinate 25 mg 25 mg PO QHS blood pressure 12/03/24 History tablet,extended release 24 hr simvastatin 40 mg tablet 40 mg PO QHS cholesterol lowering 04/03/15 12/03/24 History cholecalciferol (vitamin D3) 125 125 mcg PO QDAY SUPPLEMENT 5 12/03/24 History mcg (5,000 unit) capsule desmopressin 0.2 mg tablet 0.2 mg PO BID BP 04/04/24 12/03/24 History ferrous sulfate 325 mg (65 mg 325 mg PO QDAY SUPPLEMENT 04/04/24 12/03/24 History iron) tablet (FeroSul) fesoterodine 8 mg tablet,extended 8 mg PO QHS OAB 04/04/24 12/03/24 History release 24 hr mecobalamin (vitamin B12) 5,000 5,000 mcg PO QDAY SUPPLEMENT 04/0412/03/24 History mcg chewable tablet maioraia-cvg-ybpay acid 0.4 1 tab PO QDAY SUPPLEMENT 04/04/24 12/03/24 History mg-lycopene 300 mcg-lutein 250 mcg tablet (Complete Multivitamin Adult 50 Plus) sumatriptan succinate 100 mg tablet 100 mg PO ONCE PRN migraine 12/1912/03/24 History headache carbamazepine 200 mg tablet 300 mg PO BID SEIZURES 04/05/24 History meloxicam 15 mg tablet 15 mg PO QDAY #30 tabs 12/03/24 Rx methocarbamol 500 mg tablet 500 mg PO QHS #30 tabs 12/03/24 Rx PFSH Medical History Abdominal pain Subglottic stenosis TBI (traumatic brain injury) Ambulates with cane Bladder disease Low iron COPD (chronic obstructive pulmonary disease) Shortness of breath on exertion History of pain when walking Wears dentures Wears glasses Thyroid disease Arthritis High cholesterol Injury of head and neck Back pain Migraine headache Syncope Seizures Gastric reflux Former smoker CPAP (continuous positive airway pressure) dependence Hoarseness History of edema History of stress test UTI (urinary tract infection) Hypercholesteremia Arthritis BPH (benign prostatic hyperplasia) Obesity HLD (hyperlipidemia) GERD (gastroesophageal reflux disease) Epilepsy without mention Intractable Epilepsy, unspecified Surgical History History of cardiac catheterization History of bronchoscopy Hx of tooth extraction Hx of foot surgery Hx of cystoscopy Hx of cardiac cath Hx laparoscopic cholecystectomy Hx of total knee replacement History of partial knee replacement History of tracheostomy as a child Family History Father Hypertension Other Myocardial infarction Prostate cancer Social History current occupation: [employer], [employer] Smoking Status: Former smoker alcohol intake: never substance use type: does not use HPI LUMBAR SPINE Details: This documentation accurately reflects the service provided and the decisions made by me, Linda Heredia, SENIOR INSTRUMENTATION ENGINEERFidelC 12/03/24 1041. Part of today???s visit was documented by Anuja Chamberlain ATC, acting as scribe. AMANDO LLANOS is a 59 year old M here today for lumbar spine/right hip pain. Patient underwent a L4-5 posterior instrumented spinal fusion DOS 04/10/[address] Terry. Patient states about 1-2 weeks ago the right hip and lower lumbar spine started aggravating him. He is ambulating with pain. He denies any new falls or injuries to the back or right hip. He describes the p (more content not included)... Normal [facility] POCT UA Automated manually r mark 10-24-2024 Appearance (U) Clear Clear [facility] Work Phone: Glucose Test strip (U) [Mass/Vol] Negative NEGATIVE mg/dl [facility] Work Phone: Hemoglobin Ql (U) Negative NEGATIVE [facility] Work Phone: Leukocyte esterase Test strip Ql (U) Negative NEGATIVE [facility] Work Phone: Nitrite Ql (U) Negative NEGATIVE [facility] Work Phone: pH (U) 7.0 [pH] No Reference Range Established [facility] Work Phone: POC Bilirubin, Urine Negative NEGATIVE [facility] Work Phone: POC Color, Urine Yellow Straw, Yellow, Light-Yellow [facility] Work Phone: POC Ketones, Urine Negative NEGATIVE mg/dl [facility] Work Phone: POC Protein, Urine Negative NEGATIVE mg/dl [facility] Work Phone: POC Specific [place], Urine 1.020 1.005 - 1.035 [facility] Work Phone: POC Urobilinogen, Urine 0.2 0.2, 1.0 EU/DL [facility] Work Phone: [facility] Work Phone: [facility] Work Phone: PSA,Total- Diagn[employer]icon 07-3 PSA, DIAGNOSTIC 0.47 ng/mL Normal 0.00-4.00 [facility] Comment on above: Result Comment: This test was performed using the [employer] tPSA method. Measured values of a patient??sample can vary depending on the testing procedure used. PSA values determined on patient samples by different testing procedures cannot be used interchangeably. If there is a change in PSA assays while monitoring therapy, sequential testing should be performed to confirm baseline values. Performed By: #### L 501.9940 #### [facility] [address] [place], [place], [address] Urgent Care Visit Reporton 0 10-02-2024 Urgent Care Visit Report [facility] [address], [address] [place], [place] [address] OFFICE VISIT Date of Service: 10/02/24 MR#: [id number] Acct: [id number] Name: AMANDO LLANOS Jr. 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 Operator Required: No Accompanied by: Self Is patient in pain?: Yes Allergies strawberry Allergy (Intermediate, Verified 10/02/24 11:59) Hives azithromycin Allergy (Unknown, Verified 10/02/24 11:59) Unknown erythromycin base Allergy (Verified 10/02/24 11:59) Unknown Penicillins Allergy (Verified 10/02/24 11:59) Hives Barbiturates Adverse Reaction (Verified 10/02/24 11:59) Other divalproex sodium (From Depakote) Adverse Reaction (Verified 10/02/24 11:59) Other Hydantoins Adverse Reaction (Verified 10/02/24 11:59) Other phenobarbital Adverse Reaction (Verified 10/02/24 11:59) Other phenytoin sodium (From Dilantin) Adverse Reaction (Verified 10/02/24 11:59) Other phenytoin sodium extended (From Dilantin) Adverse Reaction (Verified 10/02/24 11:59) Other Nurse's Note: Complaint of stomach pain, sweating, and a change in breathing. Symptoms have started this morning. [facility] Medical History (Updated 10/02/24 @ 15:21 by Art LAORSE, PA) Abdominal pain Subglottic stenosis TBI (traumatic brain injury) Ambulates with cane Bladder disease Low iron COPD (chronic obstructive pulmonary disease) Shortness of breath on exertion History of pain when walking Wears dentures Wears glasses Thyroid disease Arthritis High cholesterol Injury of head and neck Back pain Migraine headache Syncope Seizures Gastric reflux Former smoker CPAP (continuous positive airway pressure) dependence Hoarseness History of edema History of stress test UTI (urinary tract infection) Hypercholesteremia Arthritis BPH (benign prostatic hyperplasia) Obesity HLD (hyperlipidemia) GERD (gastroesophageal reflux disease) Epilepsy without mention Intractable Epilepsy, unspecified Surgical History History of cardiac catheterization History of bronchoscopy Hx of tooth extraction Hx of foot surgery Hx of cystoscopy Hx of cardiac cath Hx laparoscopic cholecystectomy Hx of total knee replacement History of partial knee replacement History of tracheostomy as a child Family History Father Hypertension Other Myocardial infarction Prostate cancer Social History current occupation: [employer], [employer] Smoking Status: Former smoker alcohol intake: never substance use type: does not use HPI HPI Chief Complaint: sweats, stomach pain Details: AMANDO LLANOS, is a 59 M who presents to the office today for acute onset sweats and abdominal pain at 9am today while at work. He notes diaphoresis and abdominal pain has receded though not absent. No c/o fever, chills, lightheadedness/ dizziness, n/v/d. No chest pressure w/ sob/ gibbs. No otc med rx taken to assist. 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 No other associated symptoms and no other +/- factors. ROS Const Constitutional: No other (as above) Exam Const General: cooperative, healthy appearing and no acute distress Orientation: alert and awake HENNE Head: normal to inspection Ears: hearing grossly normal bilaterally, external ears normal, TM's normal bilaterally and EAC's normal Nose: external nose normal, nares normal, septum normal and no nasal discharge Face and sinus: normal facial exam, sinuses nontender and face symmetric Mouth: oral mucosae normal, lip normal, tongue normal, oropharynx normal and moist mucous membranes Throat: posterior oropharynx normal, uvula midline and no postnasal drainage Eyes General: appearance normal, both eyes and all related structures Neck Neck: normal visual inspection, full ROM, no lymphadenopathy, no meningeal signs and supple Neck mass: No Thyroid: thyroid normal Lymphatic: no lymphadenopathy noted Chest Chest palpation inspection: n (more content not included)... Normal [facility] Knee 4 or More Viewson 09-25 Knee 4 or More Views [facility] Imaging Services [address] [place], [place] [id number] Knee 4 or More Views MR#: [id number] Acct: [id number] Name: AMANDO LLANOS Jr. Rep #: [id number] : 1965 M 59 From: Natan Mayberry PCP: Dr. Amita Humphreys DO Status: REG CLI Study: Knee 4 or More Views Date of Exam: 09/25/24 Exam# [id number] Ordering Dr: Amita Humphreys DO PROCEDURE: KNEE 4 OR MORE VIEWS 09/25/2024 REASON FOR EXAM: PAIN TECHNIQUE: KNEE 4 OR MORE VIEWS COMPARISON: None RAD/Knee 4 or More Views IMPRESSION: No acute fracture or dislocations. Mild degenerative changes of the left knee with chondrocalcinosis. Mild joint effusion. Mild diffuse soft tissue edema. No radiographic foreign body. Reading Location: [facility] CC: Dr. Amita Humphreys DO Publicity Director: Signed Normal [facility] MRI BRAIN W/ + W/O CONTRASTo n 08-21-2024 MRI BRAIN W/ + W/O CONTRAST ORIGINAL EXAMINATION: MRI OF THE BRAIN WITHOUT AND WITH CONTRAST 08/20/2024 4:54 pm TECHNIQUE: Multiplanar multisequence MRI of the head/brain was performed without and with the administration of intravenous contrast. COMPARISON: None. HISTORY: ORDERING SYSTEM PROVIDED HISTORY: Reason for Exam: DISORDER OF PITUITARY GLAND FINDINGS: INTRACRANIAL STRUCTURES/VENTRICL ES: The pituitary gland is enlarged and is unchanged in size from 06/23/2023. The infundibulum remains thickened. Again demonstrated is a hypoenhancing region in the anterior inferior pituitary unchanged. The gland does not contact the optic chiasm. There is no acute infarct. No mass effect or midline shift. No evidence of an acute intracranial hemorrhage. The ventricles and sulci are prominent unchanged. Mild chronic small vessel ischemic changes in the periventricular white matter, unchanged. The normal signal voids within the major intracranial vessels appear maintained. No abnormal focus of enhancement is seen within the brain. ORBITS: The visualized portion of the orbits demonstrate no acute abnormality. SINUSES: The visualized paranasal sinuses and mastoid air cells are well aerated. BONES/SOFT TISSUES: The bone marrow signal intensity appears normal. The soft tissues demonstrate no acute abnormality. IMPRESSION: Pituitary enlargement. There has been no significant interval change from 06/23/2023. Interpreted by: Jose Ghotra Preliminary Report By: Jose Ghotra Electronically signed By Jose Ghotra Dictated Date: 08/21/2024 5:20:23 AM Prelim Date: 08/21/2024 5:27:12 AM Sign Date: 08/21/2024 5:27:12 AM Ordering Provider: ROLA BASSETT [facility] 05-14-2025 AST [Catalytic activity/Vol] 34 U/L Normal 8-34 [facility] Comment on above: Performed By: #### A OSBALDO, CMP, CBC, GFR, ADIFF #### [address] [address] .Auto Diffon 08-06-2024 Basophil, Absolute 0.1 10 3/mcL Normal 0.0-0.3 [facility] Comment on above: Performed By: #### A OSBALDO, CMP, CBC, GFR, ADIFF #### [address] [address] Basophils/100 WBC (Bld) 0.6 % Normal 0.0-2.5 [facility] Comment on above: Performed By: #### A OSBALDO, CMP, CBC, GFR, ADIFF #### [address] [address] Eosinophil, Absolute 0.1 10 3/mcL Normal 0.0-0.7 [facility] Comment on above: Performed By: #### A OSBALDO, CMP, CBC, GFR, ADIFF #### [address] [address] Eosinophils/100 WBC (Bld) 1.5 % Normal 0.0-6.0 [facility] Comment on above: Performed By: #### A OSBALDO, CMP, CBC, GFR, ADIFF #### [address] [address] Lymphocyte, Absolute 2.5 10 3/mcL Normal 0.9-4.3 [facility] Comment on above: Performed By: #### A OSBALDO, CMP, CBC, GFR, ADIFF #### [address] [address] Lymphocytes/100 WBC (Bld) 27.1 % Normal 20.0-40.0 [facility] Comment on above: Performed By: #### A OSBALDO, CMP, CBC, GFR, ADIFF #### [address] [address] Monocyte, Absolute 0.7 10 3/mcL Normal 0.1-1.4 [facility] Comment on above: Performed By: #### A OSBALDO, CMP, CBC, GFR, ADIFF #### [address] [address] Monocytes/100 WBC (Bld) 8.0 % Normal 2.0-13.0 [facility] Comment on above: Performed By: #### A OSBALDO, CMP, CBC, GFR, ADIFF #### [address] [address] Neutrophils/100 WBC (Bld) 62.8 % Normal 50.0-75.0 [facility] Comment on above: Performed By: #### A OSBALDO, CMP, CBC, GFR, ADIFF #### [address] [address] .GFRon 08-06-2024 Estimated Glomerular Filtration Rate 93 ml/min/1.73sqm Normal [facility] Comment on above: Result Comment: Stages of Chronic Kidney Disease (CKD) Stage Description eGFR(ml/min/1.73 sq.m.) CKD 1 Normal kidney function or >=90 normal kindney function with possible kidney damage (ex. Proteinuria) CKD 2 Kidney damage with mild loss 60-89 of kidney function CKD 3a Mild to moderate loss of kidney 45-59 function CKD 3b Moderate to severe loss of 30-44 of kindey function CKD 4 Severe loss of kidney function 15-29 CKD 5 Kidney failure <15 Note: (go live 2024) the eGFR calculation was updated to the 2020 CKD-EPI creatinine equation without a race factor to calculate the eGFR results. Performed By: #### A OSBALDO, CMP, CBC, GFR, ADIFF #### [address] [address] .NEUABSon 08-06-2024 Neutrophil, Absolute 5.8 10 3/mcL Normal 2.3-8.1 [facility] Comment on above: Performed By: #### A OSBALDO, CMP, CBC, GFR, ADIFF #### [address] [address] CBCon 08-06-2024 Erythrocyte distribution width (RBC) [Ratio] 13.7 % Normal 11.5-15.5 [facility] Comment on above: Performed By: #### A OSBALDO, CMP, CBC, GFR, ADIFF #### [address] [address] Hematocrit (Bld) [Volume fraction] 38.3 % Low 40.0-52.0 [facility] Comment on above: Performed By: #### A OSBALDO, CMP, CBC, GFR, ADIFF #### [address] [address] Hgb 13.0 G/dL Normal 13.0-17.5 [facility] Comment on above: Performed By: #### A OSBALDO, CMP, CBC, GFR, ADIFF #### [address] [address] MCH (RBC) [Entitic mass] 30.2 pg Normal 27.0-33.0 [facility] Comment on above: Performed By: #### A OSBALDO, CMP, CBC, GFR, ADIFF #### [address] [address] MCHC 33.9 G/dL Normal 32.0-36.0 [facility] Comment on above: Performed By: #### A OSBALDO, CMP, CBC, GFR, ADIFF #### [address] [address] MCV (RBC) [Entitic vol] 89.1 fL Normal 81.0-100.0 [facility] Comment on above: Performed By: #### A OSBALDO, CMP, CBC, GFR, ADIFF #### [address] [address] Platelet 200 10 3/mcL Normal 150-450 [facility] Comment on above: Performed By: #### A OSBALDO, CMP, CBC, GFR, ADIFF #### [address] [address] Platelet mean volume (Bld) [Entitic vol] 7.2 fL Normal 6.4-10.5 [facility] Comment on above: Performed By: #### A OSBALDO, CMP, CBC, GFR, ADIFF #### [address] [address] RBC 4.30 10 6/mcL Low 4.50-6.00 [facility] Comment on above: Performed By: #### A OSBALDO, CMP, CBC, GFR, ADIFF #### [address] [address] WBC 9.2 10 3/mcL Normal 4.5-10.8 [facility] Comment on above: Performed By: #### A OSBALDO, CMP, CBC, GFR, ADIFF #### [address] [address] CMPon 08-06-2024 Albumin Level 3.5 G/dL Normal 3.5-5.0 [facility] Comment on above: Performed By: #### A OSBALDO, CMP, CBC, GFR, ADIFF #### [place] [id number] Albumin/Globulin [Mass ratio] 1.2 {ratio} Normal 1.1-2.5 [facility] Comment on above: Performed By: #### A OSBALDO, CMP, CBC, GFR, ADIFF #### [place] [id number] ALP [Catalytic activity/Vol] 99 U/L Normal 40-135 [facility] Comment on above: Performed By: #### A OSBALDO, CMP, CBC, GFR, ADIFF #### [address] [address] ALT [Catalytic activity/Vol] 45 U/L Normal 16-63 [facility] Comment on above: Performed By: #### A OSBALDO, CMP, CBC, GFR, ADIFF #### [place] [id number] Bili Total 0.2 mg/dL Normal 0.2-1.0 [facility] Comment on above: Result Comment: Use of this assay is not recommended for patients undergoing treatment with eltrombopag due to the potential for falsely elevated results. Performed By: #### A OSBALDO, CMP, CBC, GFR, ADIFF #### [address] [address] BUN/Creatinine Ratio 21 ratio Normal 7-27 [facility] Comment on above: Performed By: #### A OSBALDO, CMP, CBC, GFR, ADIFF #### [address] [address] Calcium [Mass/Vol] 8.4 mg/dL Normal 8.4-10.2 [facility] Comment on above: Performed By: #### A OSBALDO, CMP, CBC, GFR, ADIFF #### [address] [address] Chloride [Moles/Vol] 101 mmol/L Normal 98-107 [facility] Comment on above: Performed By: #### A OSBALDO, CMP, CBC, GFR, ADIFF #### [address] [address] CO2 [Moles/Vol] 29 mmol/L Normal 22-29 [facility] Comment on above: Performed By: #### A OSBALDO, CMP, CBC, GFR, ADIFF #### [address] [address] Creatinine [Mass/Vol] 0.95 mg/dL Normal 0.67-1.17 [facility] Comment on above: Performed By: #### A OSBALDO, CMP, CBC, GFR, ADIFF #### [address] [address] Electrolyte Balance 8.0 mEq/L Normal 4.0-15.0 [facility] Comment on above: Performed By: #### A OSBALDO, CMP, CBC, GFR, ADIFF #### [address] [address] Globulin 2.8 G/dL Normal 2.7-4.4 [facility] Comment on above: Performed By: #### A OSBALDO, CMP, CBC, GFR, ADIFF #### [address] [address] Glucose [Mass/Vol] 106 mg/dL High 70-105 [facility] Comment on above: Performed By: #### A OSBALDO, CMP, CBC, GFR, ADIFF #### [address] [address] Potassium [Moles/Vol] 3.9 mmol/L Normal 3.5-5.1 [facility] Comment on above: Performed By: #### A OSBALDO, CMP, CBC, GFR, ADIFF #### [address] [address] Sodium [Moles/Vol] 138 mmol/L Normal 136-145 [facility] Comment on above: Performed By: #### A OSBALDO, CMP, CBC, GFR, ADIFF #### [address] [address] Total Protein 6.3 G/dL Low 6.4-8.2 [facility] Comment on above: Performed By: #### A OSBALDO, CMP, CBC, GFR, ADIFF #### [address] [address] Urea nitrogen [Mass/Vol] 20 mg/dL High 7-18 [facility] Comment on above: Performed By: #### A OSBALDO, CMP, CBC, GFR, ADIFF #### [address] [address] LABORATORYOrdered By: SYSTEM SYSTEM on 08-06-2024 Albumin BCP dye [Mass/Vol] 3.5 G/dL Normal 3.5 - 5.0 G/dL AO ADM SS Albumin/Globulin [Mass ratio] 1.2 {ratio} Normal 1.1 - 2.5 ratio AO ADM SS ALP [Catalytic activity/Vol] 99 U/L Normal 40 - 135 U/L AO ADM SS ALT With P-5'-P [Catalytic activity/Vol] 45 U/L Normal 16 - 63 U/L AO ADM SS Basophils (Bld) [#/Vol] 0.1 103/mcL Normal 0.0 - 0.3 10^3/mcL AO Workflow SS Basophils/100 WBC (Bld) 0.6 % Normal 0.0 - 2.5 % AO Workflow SS Bilirubin [Mass/Vol] 0.2 mg/dL Normal 0.2 - 1 .0 mg/dL AO ADM SS Comment on above: Interpretive Data: U se of this assay is not recommended for patients undergoing treatment with eltrombopag due to the potential for falsely elevated results. Calcium [Mass/Vol] 8.4 mg/dL Normal 8.4 - 10. 2 mg/dL AO ADM SS Chloride [Moles/Vol] 101 mmol/L Normal 98 - 10 7 mmol/L AO ADM SS CO2 [Moles/Vol] 29 mmol/L Normal 22 - 29 mmol/L AO ADM SS Creatinine [Mass/Vol] 0.95 mg/dL Normal 0.67 - 1.17 mg/dL AO ADM SS Electrolyte Balance 8.0 mEq/L Normal 4.0 - 15 .0 mEq/L AO ADM SS Eosinophil, Absolute 0.1 103/mcL Normal 0.0 - 0 .7 10^3/mcL AO Workflow SS Eosinophils/100 WBC (Bld) 1.5 % Normal 0.0 - 6.0 % AO Workflow SS Erythrocyte distribution width (RBC) [Ratio] 13.7 % Normal 11.5 - 15.5 % AO Workflow SS Estimated Glomerular Filtration Rate 93 ml/min/1.73sqm Invalid Interpretation Code AO Chemistry S Comment on above: Interpretive Data: Stages of Chronic Kidney Disease (CKD) Stage Description eGFR(ml/min/1.73 sq.m.) CKD 1 Normal kidney function or >=90 normal kindney function with possible kidney damage (ex. Proteinuria) CKD 2 Kidney damage with mild loss 60-89 of kidney function CKD 3a Mild to moderate loss of kidney 45-59 function CKD 3b Moderate to severe loss of 30-44 of kindey function CKD 4 Severe loss of kidney function 15-29 CKD 5 Kidney failure <15 Note: (go live 2024) the eGFR calculation was updated to the 2020 CKD-EPI creatinine equation without a race factor to calculate the eGFR results. Globulin 2.8 G/dL Normal 2.7 - 4.4 G/dL AO ADM SS Glucose [Mass/Vol] 106 mg/dL High 70 - 105 mg/dL AO ADM SS Hematocrit (Bld) [Volume fraction] 38.3 % Low 40.0 - 52.0 % AO Workflow SS Hemoglobin (Bld) [Mass/Vol] 13.0 G/dL Normal 13.0 - 17.5 G/dL AO Workflow SS Lymphocytes (Bld) [#/Vol] 2.5 103/mcL Normal 0.9 - 4.3 10^3/mcL AO Workflow SS Lymphocytes/100 WBC (Bld) 27.1 % Normal 20.0 - 40.0 % AO Workflow SS MCH (RBC) [Entitic mass] 30.2 pg Normal 27.0 - 33.0 pg AO Workflow SS MCHC 33.9 G/dL Normal 32.0 - 36.0 G/dL AO Workflow SS MCV (RBC) [Entitic vol] 89.1 fL Normal 81.0 - 100.0 fL AO Workflow SS Monocytes (Bld) [#/Vol] 0.7 103/mcL Normal 0.1 - 1.4 10^3/mcL AO Workflow SS Monocytes/100 WBC (Bld) 8.0 % Normal 2.0 - 13.0 % AO Workflow SS Neutrophils (Bld) [#/Vol] 5.8 103/mcL Normal 2.3 - 8.1 10^3/mcL AO Workflow SS Neutrophils/100 WBC (Bld) 62.8 % Normal 50.0 - 75.0 % AO Workflow SS Platelet mean volume (Bld) [Entitic vol] 7.2 fL Normal 6.4 - 10.5 fL AO Workflow SS Platelets (Bld) [#/Vol] 200 103/mcL Normal 150 - 450 10^3/mcL AO Workflow SS Potassium [Moles/Vol] 3.9 mmol/L Normal 3.5 - 5.1 mmol/L AO ADM SS Protein [Mass/Vol] 6.3 G/dL Low 6.4 - 8.2 G/dL AO ADM SS RBC (Bld) [#/Vol] 4.30 106/mcL Low 4.50 - 6.0 0 10^6/mcL AO Workflow SS Sodium [Moles/Vol] 138 mmol/L Normal 136 - 145 mmol/L AO ADM SS Urea nitrogen [Mass/Vol] 20 mg/dL High 7 - 18 mg/dL AO ADM SS Urea nitrogen/Creatinine [Mass ratio] 21 ratio Normal 7 - 27 ratio AO ADM SS WBC (Bld) [#/Vol] 9.2 103/mcL Normal 4.5 - 10.8 10^3/mcL AO Workflow SS PT D/C Summary (1)on 025 PT D/C Summary (1) [facility] [address] [place] [address] / REHABILITATION SERVICES DISCHARGE SUMMARY MR#: [id number] Acct: [id number] Name: AMANDO LLANOS Jr. Rep #: [id number] : 1965 59 From: Roderick Lorenzo PT, Cert. MD Gross, [facility] Referring Dr.: Dr. Yanick Terry MD Status: REG RCR Insurance: [place] [id number] SELF PAY INSURANCE Discharge Summary D/C summary: It has been my pleasure to treat AMANDO LLANOS Jr. referred by Dr. Yanick Terry MD, with the diagnosis of ARTHRODESIS STATUS for a total of 1 visit(s). Discharge Date: 07/11/24 Please see the following information for a summary of their discharge status. Subjective Subjective: Doing good .just finished work Not bent over ,standing straight No restrictions Seen DR lifting restrictions 25-30# for 2 more weeks Patient happy with progress and x-rays showed looking good Pain Right Hip: Pain Intensity (Out of 10): 0 Overall Improvement % Improvement: 75 Objective Objective/Function: POSTURE: mild forward posture GAIT: reciprocal pattern increase MARY NEURO: denies paresthesia/tinglin g ,reflexes L3-4,L4-5,L5-S1 2/3 SKIN: intact FLEXABILITY: hamstrings min tight MMT: quads/ham/hip 4/5 ,ankle 4/5 LUMBAR ROM: flexion WFL ,extension MIN/mod loss ,side glides min loss Goals Goal 1:: Patient to be I with HEP for back Goal Progress: Goal Met Goal 2:: Patient to improve lumbar ROM for function of recovery to RTW Goal Progress: Goal Met Goal 3:: Patient to demonstrate 60% improvement with less pain and improved function Goal Progress: Goal Met Goal 4:: 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 Goal Progress: Goal Met Goal 5:: Patient to improve back oswestry score by 5 points to improve QOL and function. Goal Progress: Goal Met Plan Plan: D/C D/C Information Discharge Comments: HEP AND GYM d/c sentence: If there are questions or concerns regarding this patient's physical therapy, please feel free to call me at [phone]. Thank you for the referral of this patient. Sincerely, Roderick Lorenzo, PT, Cert MDT, OCS Balance/Gait/Functi onal tests Balance/Special Test Scores Oswestry Low Back Score: 2 Improvement % Improvement: 75 07/12/24 0756 CC: Dr. Yanick Terry MD; Dr. Amita Humphreys DO JLA Signed Normal [facility] Lumbar Spine 2 or 3 Viewson 07-08-2024 Lumbar Spine 2 or 3 Views [facility] Imaging Services [address] [place], [place] [address] Lumbar Spine 2 or 3 Views MR#: [id number] Acct: [id number] Name: AMANDO LLANOS Jr. Rep #: [id number] : 1965 M 59 From: Zachary Hines MD PCP: Dr. Amita Humphreys DO Status: DEP AMB Study: Lumbar Spine 2 or 3 Views Date of Exam: Exam# [id number] Ordering Dr: Linsey Hale PROCEDURE: LUMBAR SPINE 2 OR 3 VIEWS 07/08/2024 REASON FOR EXAM: S/P FUSION TECHNIQUE: 2 view(s) of the lumbar spine COMPARISON: 06/18/2024 and 05/27/2024 FINDINGS: Status post L4-5 posterior fusion with intervertebral disc spacer and left lateral fixation screw again seen appears intact without evidence of hardware failure or loosening. No fracture or malalignment. Mild disc space narrowing L2-3 again noted. Status post cholecystectomy. Partial osseous fusion of the upper pubic symphysis. RAD/Lumbar Spine 2 or 3 Views IMPRESSION: Status post L4-5 posterior fusion with intervertebral disc spacer and left lateral fixation screw again seen appears intact without evidence of hardware failure or loosening. No fracture or malalignment. Mild disc space narrowing L2-3 again noted. Reading Location: [facility] CC: LACHELLE Ramires; Dr. Amita Humphreys DO Publicity Director: Signed Normal [facility] Orthopedic Visit Reporton Orthopedic Visit Report [facility] [address] [place] [address] OFFICE VISIT Date of Service: 07/08/24 MR#: [id number] Acct: [id number] Name: AMANDO LLANOS Jr. Rep #: [id number] : 1965 Provider: LACHELLE Ramires Age/Sex: 59/M Location: [facility] Status: Signed Intake Vital Signs 05/27/24 09:13 06/28/24 16:04 Height 5 ft 1 in 5 ft 6 in Intake Visit Reasons: LUMBAR SPINE Chief Complaint: Lumbar spine follow-up Accompanied by: Self Is patient in pain?: Yes Allergies strawberry Allergy (Intermediate, Verified 07/08/24 15:26) Hives azithromycin Allergy (Unknown, Verified 07/08/24 15:26) Unknown erythromycin base Allergy (Verified 07/08/24 15:26) Unknown Penicillins Allergy (Verified 07/08/24 15:26) Hives Barbiturates Adverse Reaction (Verified 07/08/24 15:26) Other divalproex sodium (From Depakote) Adverse Reaction (Verified 07/08/24 15:26) Other Hydantoins Adverse Reaction (Verified 07/08/24 15:26) Other phenobarbital Adverse Reaction (Verified 07/08/24 15:26) Other phenytoin sodium (From Dilantin) Adverse Reaction (Verified 07/08/24 15:26) Other phenytoin sodium extended (From Dilantin) Adverse Reaction (Verified 07/08/24 15:26) Other Medications ???Medication ???Instructions ???Recorded ???Confirmed ???Type levothyroxine 50 mcg tablet 50 mcg PO DAILY thyroid 04/03/15 0 07/08/24 History metoprolol succinate 25 mg 25 mg PO QHS blood pressure 07/08/24 History tablet,extended release 24 hr simvastatin 40 mg tablet 40 mg PO QHS cholesterol lowering 04/03/15 07/08/24 History carbamazepine 200 mg tablet 200 mg PO 1500 seizures 12/07/15 0 07/08/24 History cholecalciferol (vitamin D3) 125 125 mcg PO QDAY SUPPLEMENT 5 07/08/24 History mcg (5,000 unit) capsule clopidogrel 75 mg tablet 75 mg PO QDAY BLOOD THINNER 07/08/24 History Held on 04/11/24. Instructions: Resume on 04/13/24. desmopressin 0.2 mg tablet 0.2 mg PO BID BP 04/04/24 07/08/24 History ferrous sulfate 325 mg (65 mg 325 mg PO QDAY SUPPLEMENT 04/04/24 07/08/24 History iron) tablet (FeroSul) fesoterodine 8 mg tablet,extended 8 mg PO QHS OAB 04/04/24 07/08/24 History release 24 hr fluoxetine 10 mg capsule 10 mg PO QDAY DEPRESSION 04/04/24 07/08/24 History mecobalamin (vitamin B12) 5,000 5,000 mcg PO QDAY SUPPLEMENT 04/0407/08/24 History mcg chewable tablet hgpvtcsz-mba-onfea acid 0.4 1 tab PO QDAY SUPPLEMENT 04/04/24 07/08/24 History mg-lycopene 300 mcg-lutein 250 mcg tablet (Complete Multivitamin Adult 50 Plus) omeprazole 20 mg capsule,delayed 20 mg PO BID GERD 04/04/24 5 History release sumatriptan succinate 100 mg tablet 100 mg PO ONCE PRN migraine 12/1907/08/24 History headache carbamazepine 200 mg tablet 300 mg PO BID SEIZURES 04/05/24 History lactobacillus combination no.4 3 3,000 mmu cells PO DAILY SUPPLEMEN T 04/05/24 07/08/24 History billion cell capsule (Probiotic) sennosides 8.6 mg-docusate sodium 2 tab PO BID PRN constipation #30 04/11/24 07/08/24 Rx 50 mg tablet (Stimulant Laxative tabs Plus) ipratropium bromide 21 mcg (0.03 2 spray intranasal BID-TID PRN 07/1907/08/24 Rx %) nasal spray postnasal drainage #30 mL [facility] Medical History Subglottic stenosis TBI (traumatic brain injury) Ambulates with cane Bladder disease Low iron COPD (chronic obstructive pulmonary disease) Shortness of breath on exertion History of pain when walking Wears dentures Wears glasses Thyroid disease Arthritis High cholesterol Injury of head and neck Back pain Migraine headache Syncope Seizures Gastric reflux Former smoker CPAP (continuous positive airway pressure) dependence Hoarseness History of edema History of stress test UTI (urinary tract infection) Hypercholesteremia Arthritis BPH (benign prostatic hyperplasia) Obesity HLD (hyperlipidemia) GERD (gastroesophageal reflux disease) Epilepsy without mention Intractable Epilepsy, unspecified Surgical History History of cardiac catheterization History of bronchoscopy Hx of tooth extraction Hx of foot surgery Hx of cystoscopy Hx of cardiac cath Hx laparoscopic cholecystectomy Hx of total knee replacement History of partial knee replacement History of tracheostomy as a child Family History Father Hypertension Other Myocardial infarction Prostate cancer Social History current occupation: [employer] [place] Smoking Status: Former smoker alcohol intake: never (more content not included)... Normal [facility] - Microbiology an d Antimicrobial susceptibilityOrdered By: Christiano Pastor on 06-28-2024 SARS-CoV-2 (COVID-19) RNA GARY+probe Ql (Unsp spec) Not detected [facility] No Panel InformationOrdered By: Christiano Pastor on 06-28-2024 Influenza Types A,B Rapid (Clinic) Not detected [facility] Rapid group A Streptococcus antigen assay at point of careOrdered By: Christiano Pastor on 06-28-2024 S. pyogenes Ag IA.rapid Ql (Throat) Negative [facility] S. pyogenes Ag IA.rapid Ql ( Throat)Ordered By: Christiano Pastor on 06-28-2024 S. pyogenes Ag IA Ql (Unsp spec) Negative [facility] Urgent Care Visit Reporton 0 06-28-2024 Urgent Care Visit Report [facility] [address], [address] [place] [address] OFFICE VISIT Date of Service: 06/28/24 MR#: [id number] Acct: [id number] Name: AMANDO LLANOS Jr. Rep #: [id number] : 1965 Provider: LACHELLE Lora Age/Sex: 59/M Location: [facility] Status: Signed Intake Vital Signs 05/27/24 09:13 06/28/24 16:04 Height 5 ft 1 in 5 ft 6 in Weight: 198 lb BMI 31.9 BP 132/84 H Position Sitting Pulse 74 Temp 98.9 F Temp Source Oral Pulse Oximetry (%) 98 Oxygen Delivery Method room air Intake Visit Reasons: SORE THROAT Accompanied by: Self Allergies strawberry Allergy (Intermediate, Verified 06/28/24 15:47) Hives azithromycin Allergy (Unknown, Verified 06/28/24 15:47) Unknown erythromycin base Allergy (Verified 06/28/24 15:47) Unknown Penicillins Allergy (Verified 06/28/24 15:47) Hives Barbiturates Adverse Reaction (Verified 06/28/24 15:47) Other divalproex sodium (From Depakote) Adverse Reaction (Verified 06/28/24 15:47) Other Hydantoins Adverse Reaction (Verified 06/28/24 15:47) Other phenobarbital Adverse Reaction (Verified 06/28/24 15:47) Other phenytoin sodium (From Dilantin) Adverse Reaction (Verified 06/28/24 15:47) Other phenytoin sodium extended (From Dilantin) Adverse Reaction (Verified 06/28/24 15:47) Other Medications ???Medication ???Instructions ???Recorded ???Confirmed ???Type levothyroxine 50 mcg tablet 50 mcg PO DAILY thyroid 04/03/15 0 06/28/24 History metoprolol succinate 25 mg 25 mg PO QHS blood pressure 06/28/24 History tablet,extended release 24 hr simvastatin 40 mg tablet 40 mg PO QHS cholesterol lowering 04/03/15 06/28/24 History carbamazepine 200 mg tablet 200 mg PO 1500 seizures 12/07/15 0 06/28/24 History cholecalciferol (vitamin D3) 125 125 mcg PO QDAY SUPPLEMENT 5 06/28/24 History mcg (5,000 unit) capsule clopidogrel 75 mg tablet 75 mg PO QDAY BLOOD THINNER 06/28/24 History Held on 04/11/24. Instructions: Resume on 04/13/24. desmopressin 0.2 mg tablet 0.2 mg PO BID BP 04/04/24 06/28/24 History ferrous sulfate 325 mg (65 mg 325 mg PO QDAY SUPPLEMENT 04/04/24 06/28/24 History iron) tablet (FeroSul) fesoterodine 8 mg tablet,extended 8 mg PO QHS OAB 04/04/24 06/28/24 History release 24 hr fluoxetine 10 mg capsule 10 mg PO QDAY DEPRESSION 04/04/24 06/28/24 History mecobalamin (vitamin B12) 5,000 5,000 mcg PO QDAY SUPPLEMENT 04/0406/28/24 History mcg chewable tablet meloxicam 15 mg tablet 15 mg PO QDAY PAIN 04/04/24 History vcrsjxdq-zrs-sdqmp acid 0.4 1 tab PO QDAY SUPPLEMENT 04/04/24 06/28/24 History mg-lycopene 300 mcg-lutein 250 mcg tablet (Complete Multivitamin Adult 50 Plus) omeprazole 20 mg capsule,delayed 20 mg PO BID GERD 04/04/24 5 History release sumatriptan succinate 100 mg tablet 100 mg PO ONCE PRN migraine 12/1906/28/24 History headache carbamazepine 200 mg tablet 300 mg PO BID SEIZURES 04/05/24 History lactobacillus combination no.4 3 3,000 mmu cells PO DAILY SUPPLEMEN T 04/05/24 06/28/24 History billion cell capsule (Probiotic) acetaminophen 500 mg tablet 500 mg PO Q6H #30 tabs 04/11/24 Rx methocarbamol 500 mg tablet 750 mg (1.5 x 500 mg) PO TID PRN 0 04/11/24 06/28/24 Rx pain/spasms #30 tabs sennosides 8.6 mg-docusate sodium 2 tab PO BID PRN constipation #30 04/11/24 06/28/24 Rx 50 mg tablet (Stimulant Laxative tabs Plus) ipratropium bromide 21 mcg (0.03 2 spray intranasal BID-TID PRN 07/1906/28/24 Rx %) nasal spray postnasal drainage #30 mL Nurse's Note: Patient states he is not feeling well. Patient has ST(scratchy) he feels like he has brain fog, Patient states his forehead was hot to him, his stomach hurts. Patient states he went out to eat wit h his parents last night and since then he hasn't felt well. Patient states he has the sniffles and a cough but its not consident. Patient has no sinus pressure or ear pain. PFSH Medical History Subglottic stenosis TBI (traumatic brain injury) Ambulates with cane Bladder disease Low iron COPD (chronic obstructive pulmonary disease) Shortness of breath on exertion History of pain when walking Wears dentures Wears glasses Thyroid disease Arthritis High cholesterol Injury of head and neck Back pain Migraine headache Syncope Seizures Gastric reflux Former smoker CPAP (continuous positive airway pressure) dependence Hoarseness History of edema History of stress test UTI (urinary tract infection) Hypercholesteremia Arthritis BPH (benign prostatic hyperplasia) Obesity HLD (hyperlipidemia) GERD (gastroesophageal reflux disease (more content not included)... Normal [facility] Lumbar Spine 2 or 3 Viewson 06-18-2024 Lumbar Spine 2 or 3 Views [facility] [address] [place] [address] Lumbar Spine 2 or 3 Views MR#: [id number] Acct: [id number] Name: AMANDO LLANOS Jr. Rep #: [id number] : 1965 M 59 From: Nicole Ross PCP: Dr. Amita Humphreys, DO Status: DEP AMB Study: Lumbar Spine 2 or 3 Views Date of Exam: Exam# [id number] Ordering Dr: Linsey Hale EXAM: Two views lumbosacral spine. CLINICAL HISTORY: Status post fusion. Pain. COMPARISON: Lumbar spine studies dated 05/27/2024 and 04/15/2024 TECHNIQUE: Two views of the lumbosacral spine were obtained. FINDINGS: There are 5 lumbar type vertebral bodies below the last set of paired ribs. The vertebral body heights appear to be within normal limits. There is posterior fixation plate and screws at the L4 and L5 level. There is no fracture or loosening of the radiopaque hardware. There is a disc spacer at the L4-L5 level. Remaining disc spaces appear to be well-maintained. Surgical clips are seen in the gallbladder fossa. RAD/Lumbar Spine 2 or 3 Views IMPRESSION: Radiopaque hardware appears to be intact without evidence of fracture or loosening. There is a disc spacer seen at the L4-L5 level. Reading Location: [id number] CC: LACHELLE Ramires; Dr. Amita Humphreys DO Publicity Director: Signed Normal [facility] Orthopedic Visit Reporton Orthopedic Visit Report [facility] [address] [place] [address] [address] [place] [address] OFFICE VISIT Date of Service: 06/18/24 MR#: [id number] Acct: [id number] Name: AMANDO LLANOS Jr. Rep #: [id number] : 1965 Provider: BRIA lamar Age/Sex: 59/M Location: [facility] Status: Signed Intake Vital Signs 05/27/24 09:13 Height 5 ft 1 in Intake Visit Reasons: LUMBAR SPINE Chief Complaint: Lumbar spine follow-up Accompanied by: Niece Is patient in pain?: No Allergies strawberry Allergy (Intermediate, Verified 06/18/24 15:39) Hives azithromycin Allergy (Unknown, Verified 06/18/24 15:39) Unknown erythromycin base Allergy (Verified 06/18/24 15:39) Unknown Penicillins Allergy (Verified 06/18/24 15:39) Hives Barbiturates Adverse Reaction (Verified 06/18/24 15:39) Other divalproex sodium (From Depakote) Adverse Reaction (Verified 06/18/24 15:39) Other Hydantoins Adverse Reaction (Verified 06/18/24 15:39) Other phenobarbital Adverse Reaction (Verified 06/18/24 15:39) Other phenytoin sodium (From Dilantin) Adverse Reaction (Verified 06/18/24 15:39) Other phenytoin sodium extended (From Dilantin) Adverse Reaction (Verified 06/18/24 15:39) Other Medications ???Medication ???Instructions ???Recorded ???Confirmed ???Type levothyroxine 50 mcg tablet 50 mcg PO DAILY thyroid 04/03/15 0 06/18/24 History metoprolol succinate 25 mg 25 mg PO QHS blood pressure 06/18/24 History tablet,extended release 24 hr simvastatin 40 mg tablet 40 mg PO QHS cholesterol lowering 04/03/15 06/18/24 History carbamazepine 200 mg tablet 200 mg PO 1500 seizures 12/07/15 0 06/18/24 History cholecalciferol (vitamin D3) 125 125 mcg PO QDAY SUPPLEMENT 5 06/18/24 History mcg (5,000 unit) capsule clopidogrel 75 mg tablet 75 mg PO QDAY BLOOD THINNER 06/18/24 History Held on 04/11/24. Instructions: Resume on 04/13/24. desmopressin 0.2 mg tablet 0.2 mg PO BID BP 04/04/24 06/18/24 History ferrous sulfate 325 mg (65 mg 325 mg PO QDAY SUPPLEMENT 04/04/24 06/18/24 History iron) tablet (FeroSul) fesoterodine 8 mg tablet,extended 8 mg PO QHS OAB 04/04/24 06/18/24 History release 24 hr fluoxetine 10 mg capsule 10 mg PO QDAY DEPRESSION 04/04/24 06/18/24 History mecobalamin (vitamin B12) 5,000 5,000 mcg PO QDAY SUPPLEMENT 04/0406/18/24 History mcg chewable tablet meloxicam 15 mg tablet 15 mg PO QDAY PAIN 04/04/24 History geljmnoq-csu-qwspi acid 0.4 1 tab PO QDAY SUPPLEMENT 04/04/24 06/18/24 History mg-lycopene 300 mcg-lutein 250 mcg tablet (Complete Multivitamin Adult 50 Plus) omeprazole 20 mg capsule,delayed 20 mg PO BID GERD 04/04/24 5 History release sumatriptan succinate 100 mg tablet 100 mg PO ONCE PRN migraine 12/1906/18/24 History headache carbamazepine 200 mg tablet 300 mg PO BID SEIZURES 04/05/24 History lactobacillus combination no.4 3 3,000 mmu cells PO DAILY SUPPLEMEN T 04/05/24 06/18/24 History billion cell capsule (Probiotic) acetaminophen 500 mg tablet 500 mg PO Q6H #30 tabs 04/11/24 Rx methocarbamol 500 mg tablet 750 mg (1.5 x 500 mg) PO TID PRN 0 04/11/24 06/18/24 Rx pain/spasms #30 tabs sennosides 8.6 mg-docusate sodium 2 tab PO BID PRN constipation #30 04/11/24 06/18/24 Rx 50 mg tablet (Stimulant Laxative tabs Plus) PFSH Medical History Subglottic stenosis TBI (traumatic brain injury) Ambulates with cane Bladder disease Low iron COPD (chronic obstructive pulmonary disease) Shortness of breath on exertion History of pain when walking Wears dentures Wears glasses Thyroid disease Arthritis High cholesterol Injury of head and neck Back pain Migraine headache Syncope Seizures Gastric reflux Former smoker CPAP (continuous positive airway pressure) dependence Hoarseness History of edema History of stress test UTI (urinary tract infection) Hypercholesteremia Arthritis BPH (benign prostatic hyperplasia) Obesity HLD (hyperlipidemia) GERD (gastroesophageal reflux disease) Epilepsy without mention Intractable Epilepsy, unspecified Surgical History History of cardiac catheterization History of bronchoscopy Hx of tooth extraction Hx of foot surgery Hx of cystoscopy Hx of cardiac cath Hx laparoscopic cholecystectomy Hx of total knee replacement History of partial knee replacement History of tracheostomy as a child Family History Father Hypertension Other Myocardial infarction Prostate cancer Social History gabby (more content not included)... Normal [facility] Lumbar Spine 2 or 3 Viewson 05-27-2024 Lumbar Spine 2 or 3 Views [facility] [address] [place] [address] Lumbar Spine 2 or 3 Views MR#: [id number] Acct: [id number] Name: AMANDO LLANOS Jr. Rep #: [id number] : 1965 M 59 From: Zachary Hines MD PCP: Dr. Amita Humphreys, DO Status: DEP AMB Study: Lumbar Spine 2 or 3 Views Date of Exam: Exam# [id number] Ordering Dr: Linsey Hale PROCEDURE: LUMBAR SPINE 2 OR 3 VIEWS REASON FOR EXAM: Status post fusion, patient fell yesterday TECHNIQUE: 2 view(s) of the lumbar spine AP and lateral COMPARISON: 04/23/2024. FINDINGS: 5 stg-cnb-mpvodla lumbar vertebral type bodies with L4-5 posterior fusion, intervertebral disc spacer and left lateral fixation hardware again noted. No fracture or malalignment. Hardware appears intact. Status post cholecystectomy. RAD/Lumbar Spine 2 or 3 Views IMPRESSION: 5 yio-ory-jbhfihz lumbar vertebral type bodies with L4-5 posterior fusion, intervertebral disc spacer and left lateral fixation hardware again noted. No fracture or malalignment. Hardware appears intact. . Reading Location: [id number] CC: LACHELLE Ramires; Dr. Amita Humphreys DO Publicity Director: Signed Normal [facility] Orthopedic Visit Reporton Orthopedic Visit Report [facility] [address] [place] [address] [address] [place] [address] OFFICE VISIT Date of Service: 05/27/24 MR#: [id number] Acct: [id number] Name: AMANDO LLANOS Jr. Rep #: [id number] : 1965 Provider: Dr. Yanick Terry MD Age/Sex: 59/M Location: [facility] Status: Signed Intake Vital Signs 04/10/24 14:39 Height 5 ft 1 in Intake Visit Reasons: LUMBAR SPINE Chief Complaint: Lumbar Spine - fall complaints Accompanied by: Mother Is patient in pain?: Yes Allergies strawberry Allergy (Intermediate, Verified 05/27/24 14:16) Hives azithromycin Allergy (Unknown, Verified 05/27/24 14:16) Unknown erythromycin base Allergy (Verified 05/27/24 14:16) Unknown Penicillins Allergy (Verified 05/27/24 14:16) Hives Barbiturates Adverse Reaction (Verified 05/27/24 14:16) Other divalproex sodium (From Depakote) Adverse Reaction (Verified 05/27/24 14:16) Other Hydantoins Adverse Reaction (Verified 05/27/24 14:16) Other phenobarbital Adverse Reaction (Verified 05/27/24 14:16) Other phenytoin sodium (From Dilantin) Adverse Reaction (Verified 05/27/24 14:16) Other phenytoin sodium extended (From Dilantin) Adverse Reaction (Verified 05/27/24 14:16) Other Medications ???Medication ???Instructions ???Recorded ???Confirmed ???Type levothyroxine 50 mcg tablet 50 mcg PO DAILY thyroid 04/03/15 0 05/27/24 History metoprolol succinate 25 mg 25 mg PO QHS blood pressure 05/27/24 History tablet,extended release 24 hr simvastatin 40 mg tablet 40 mg PO QHS cholesterol lowering 04/03/15 05/27/24 History carbamazepine 200 mg tablet 200 mg PO 1500 seizures 12/07/15 0 05/27/24 History cholecalciferol (vitamin D3) 125 125 mcg PO QDAY SUPPLEMENT 5 05/27/24 History mcg (5,000 unit) capsule clopidogrel 75 mg tablet 75 mg PO QDAY BLOOD THINNER 05/27/24 History Held on 04/11/24. Instructions: Resume on 04/13/24. desmopressin 0.2 mg tablet 0.2 mg PO BID BP 04/04/24 05/27/24 History ferrous sulfate 325 mg (65 mg 325 mg PO QDAY SUPPLEMENT 04/04/24 05/27/24 History iron) tablet (FeroSul) fesoterodine 8 mg tablet,extended 8 mg PO QHS OAB 04/04/24 05/27/24 History release 24 hr fluoxetine 10 mg capsule 10 mg PO QDAY DEPRESSION 04/04/24 05/27/24 History mecobalamin (vitamin B12) 5,000 5,000 mcg PO QDAY SUPPLEMENT 04/0405/27/24 History mcg chewable tablet meloxicam 15 mg tablet 15 mg PO QDAY PAIN 04/04/24 History xfvwvfyt-fiu-dvebq acid 0.4 1 tab PO QDAY SUPPLEMENT 04/04/24 05/27/24 History mg-lycopene 300 mcg-lutein 250 mcg tablet (Complete Multivitamin Adult 50 Plus) omeprazole 20 mg capsule,delayed 20 mg PO BID GERD 04/04/24 5 History release sumatriptan succinate 100 mg tablet 100 mg PO ONCE PRN migraine 12/1905/27/24 History headache carbamazepine 200 mg tablet 300 mg PO BID SEIZURES 04/05/24 History lactobacillus combination no.4 3 3,000 mmu cells PO DAILY SUPPLEMEN T 04/05/24 05/27/24 History billion cell capsule (Probiotic) acetaminophen 500 mg tablet 500 mg PO Q6H #30 tabs 04/11/24 Rx methocarbamol 500 mg tablet 750 mg (1.5 x 500 mg) PO TID PRN 0 04/11/24 05/27/24 Rx pain/spasms #30 tabs sennosides 8.6 mg-docusate sodium 2 tab PO BID PRN constipation #30 04/11/24 05/27/24 Rx 50 mg tablet (Stimulant Laxative tabs Plus) Have you fallen in the past year?: Yes (May 26, 2024) [facility] Medical History Subglottic stenosis TBI (traumatic brain injury) Ambulates with cane Bladder disease Low iron COPD (chronic obstructive pulmonary disease) Shortness of breath on exertion History of pain when walking Wears dentures Wears glasses Thyroid disease Arthritis High cholesterol Injury of head and neck Back pain Migraine headache Syncope Seizures Gastric reflux Former smoker CPAP (continuous positive airway pressure) dependence Hoarseness History of edema History of stress test UTI (urinary tract infection) Hypercholesteremia Arthritis BPH (benign prostatic hyperplasia) Obesity HLD (hyperlipidemia) GERD (gastroesophageal reflux disease) Epilepsy without mention Intractable Epilepsy, unspecified Surgical History History of cardiac catheterization History of bronchoscopy Hx of tooth extraction Hx of foot surgery Hx of cystoscopy Hx of cardiac cath Hx laparoscopic cholecystectomy Hx of total knee replacement History of partial knee replacement History of tracheostomy as a child Family History Father Hypertension Other Myocardial infarction Prostate cancer S (more content not included)... Normal [facility] Inital Evaluation (1) - PTon 05-01-2024 Inital Evaluation (1) - PT [facility] Physical Therapy [facility] [facility] [place] [address] / REHABILITATION SERVICES INITIAL EVALUATION MR#: [id number] Acct: [id number] Name: AMANDO LLANOS Susanna Mane Rep #: [id number] : 1965 59 From: Roderick Lorenzo PT, Cert. T, OCS Referring Dr.: Dr. Yanick Terry MD Status: REG RCR Insurance: [facility] [id number] SELF PAY INSURANCE Patient's Visit Information Visit Information Visit Information: AMANDO LLANOS Jr. is a 59 year old M referred to Physical Therapy by Dr. Yanick Terry MD with a diagnosis of ARTHRODESIS STATUS. Date of Evaluation: 05/01/24 Physical Therapist: Roderick Lorenzo, PT, Cert MDT, OCS Visit Plan Frequency: 2x /Week Duration: 4 Weeks Plan: S/P LUMBAR FUSION 04/10/24 NO BLT FOR 3MONTHS PT INTERVENTIONS DLS ,POSTURAL EX'S ,POSTURE TRAINING ,ACTIVITY MODIFICATION ,,BLE STRENGTHENING/LE FLEXABILITY Subjective Subjective: This 59 y/o male presents physical therapy with s/p posterior lumbar fusion and 4-5 oblique lumbar interbody fusion L4-5 Apr 10 d/c next day . Patient initially used with walker then progressed to cane and currently no device . Patient seen 04/23/24 recommended PT and no BLT for 3 months X-rays looked good. No pain medication . Prior surgery tried PT did not help and had MRI showed L4-5 spondylolisthesis, stenosis.Patient has no leg symptoms or paresthesia/tinglin g . Coughing/sneezing -. Patient sleeping good. 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 Patient RTW to work light duty next. RTD in 6 weeks . Patient condition affects QOL and function and RTW. Patient goals to RTW and get stronger. VOCATION: [employer] SOCIAL: single Objective Objective: POSTURE: mild forward posture GAIT: reciprocal pattern slight shuffle pattern with increase MARY NEURO: denies paresthesia/tinglin g ,reflexes L3-4,L4-5,L5-S1 2/3 SKIN: posterior incision well approximate has bandage ,lateral left looks good FLEXABILITY: hamstrings min tight MMT: quads/ham/hip 4/5 ,ankle 4/5 LUMBAR ROM: flexion min loss ,extension mod loss ,side glides min loss Special Tests L/S Slump test left side: Negative L/S Slump test right side: Negative L/S Left Straight Leg Raise: Negative L/S Right Straight Leg Raise: Negative Balance/Special Test Scores Oswestry Low Back Score: 20 Goals Goal 1:: Patient to be I with HEP for back Goal 2:: Patient to improve lumbar ROM for function of recovery to RTW Goal Time Frame: 4-6 Weeks Goal 3:: Patient to demonstrate 60% improvement with less pain and improved function Goal Time Frame: 4-6 Weeks Goal 4:: 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 Goal Time Frame: 4-6 Weeks Goal 5:: Patient to improve back oswestry score by 5 points to improve QOL and function. Goal Time Frame: 4-6 Weeks Rehabilitation Potential Physical Therapy Diagnosis: This patient underwent s/p posterior lumbar fusion and 4-5 oblique lumbar interbody fusion L4-5 Apr 10 with decrease lumbar ROM ,weakness , and general conditioning to RTW thus benefit from skilled PT Rehabilitation Potential: Good Anticipated Interventions Patient/Client Instruction: Educate patient on: Condition and Plan of Care For the Purpose of:: To decrease pain, To increase ROM, To improve muscle performance and motor function, To improve ability to perform ADL's, To increase tolerance to activity/condition/ position, To improve ability of physical actions for home/community/work /leisure, To improve health of tissue, To decrease soft tissue restriction, To increase flexibility/ROM, To improve endurance and To improve tolerance to ADL's Therapeutic Exercise to Include: Strength training, Body mechanics, Postural training, Flexibilty training and Dynamic Lumbar Stabilization Comment: BLE For the Purpose of:: To decrease pain, To increase ROM, To improve muscle performance and motor function, To improve ability to perform ADL's, To increase tolerance to activity/condition/ position, To improve ability of physical actions for home/community/work /leisure, To improve health of tissue, To decrease soft tissue restriction, To increase flexibility/ROM and To improve tolerance to ADL's Text: Thank you for the opportunity to evaluate your patient. For Medicare and Medicare HMO plans, please review the plan of care and approve it. It will need to be FAXED BACK to us at [phone] for Medicare purposes. For Medicare only, by signing this I certify the plan of care. Please let me know if there are questions or concerns regarding this plan of care. Physician Signature: __Date: 05/02/24 0948 CC: Dr. Yanick Terry MD; Dr. Amita Humphreys DO KRISTA Signed Normal [facility] Lumbar Spine 2 or 3 Viewson 04-23-2024 Lumbar Spine 2 or 3 Views [facility] [address] [place] [address] Lumbar Spine 2 or 3 Views MR#: [id number] Acct: [id number] Name: AMANDO LLANOS Jr. Rep #: [id number] : 1965 M 59 From: Tyrell Dahl DO PCP: Dr. Amita Humphreys DO Status: DEP AMB Study: Lumbar Spine 2 or 3 Views Date of Exam: Exam# [id number] Ordering Dr: Linsey Hale PROCEDURE: LUMBAR SPINE 2 OR 3 VIEWS REASON FOR EXAM: Low back pain. Prior fusion TECHNIQUE: AP and lateral view(s) of the lumbar spine COMPARISON: None. FINDINGS: Hypoplastic ribs noted at the T12 level. 5 lumbar type vertebral levels. Posterior fusion hardware seen at the L4-5 level, with intervertebral disc spacer device. Negative for hardware failure. No acute lumbar spine fractures or dislocations are identified. There is mild multilevel degenerative disc changes throughout the remaining lumbar spine. Remaining visualized osseous structures appear intact. Anatomic alignment of the bilateral SI joints. Evidence of prior cholecystectomy. Overlying soft tissues appear intact. RAD/Lumbar Spine 2 or 3 Views IMPRESSION: 1. Posterior fusion hardware seen at the L4-5 level, as described. Negative for hardware failure. 2. Mild multilevel degenerative disc changes throughout the lumbar spine, as above. 3. No acute fractures or dislocations are identified. Reading Location: [facility] CC: LACHELLE Ramires; Dr. Amita Humphreys DO Publicity Director: Signed Normal [facility] Orthopedic Visit Reporton Orthopedic Visit Report [facility] [address] [place] [address] [address] [place], [place] [address] OFFICE VISIT Date of Service: 04/23/24 MR#: [id number] Acct: [id number] Name: AMANDO LLANOS Jr. Rep #: [id number] : 1965 Provider: Dr. Yanick Terry MD Age/Sex: 59/M Location: [facility] Status: Signed Intake Vital Signs 10/25/23 15:12 04/10/24 14:39 Height 5 ft 7 in 5 ft 1 in Intake Visit Reasons: lumbar spine Chief Complaint: 2 week post-op Is patient in pain?: No Allergies strawberry Allergy (Intermediate, Verified 04/23/24 10:35) Hives azithromycin Allergy (Unknown, Verified 04/23/24 10:35) Unknown erythromycin base Allergy (Verified 04/23/24 10:35) Unknown Penicillins Allergy (Verified 04/23/24 10:35) Hives Barbiturates Adverse Reaction (Verified 04/23/24 10:35) Other divalproex sodium (From Depakote) Adverse Reaction (Verified 04/23/24 10:35) Other Hydantoins Adverse Reaction (Verified 04/23/24 10:35) Other phenobarbital Adverse Reaction (Verified 04/23/24 10:35) Other phenytoin sodium (From Dilantin) Adverse Reaction (Verified 04/23/24 10:35) Other phenytoin sodium extended (From Dilantin) Adverse Reaction (Verified 04/23/24 10:35) Other Medications ???Medication ???Instructions ???Recorded ???Confirmed ???Type levothyroxine 50 mcg tablet 50 mcg PO DAILY thyroid 04/03/15 04/23/24 History metoprolol succinate 25 mg 25 mg PO QHS blood pressure 04/03/15 04/23/24 History tablet,extended release 24 hr simvastatin 40 mg tablet 40 mg PO QHS cholesterol lowering 04/03/15 04/23/24 History carbamazepine 200 mg tablet 200 mg PO 1500 seizures 12/07/15 04/23/24 History cholecalciferol (vitamin D3) 125 125 mcg PO QDAY SUPPLEMENT 04/04/24 04/23/24 History mcg (5,000 unit) capsule clopidogrel 75 mg tablet 75 mg PO QDAY BLOOD THINNER 04/04/24 04/23/24 History desmopressin 0.2 mg tablet 0.2 mg PO BID BP 04/04/24 04/23/24 History ferrous sulfate 325 mg (65 mg 325 mg PO QDAY SUPPLEMENT 04/04/24 04/23/24 History iron) tablet (FeroSul) fesoterodine 8 mg tablet,extended 8 mg PO QHS OAB 04/04/24 04/23/24 History release 24 hr fluoxetine 10 mg capsule 10 mg PO QDAY DEPRESSION 04/04/24 04/23/24 History mecobalamin (vitamin B12) 5,000 5,000 mcg PO QDAY SUPPLEMENT 04/04/24 04/23/24 History mcg chewable tablet meloxicam 15 mg tablet 15 mg PO QDAY PAIN 04/04/24 04/23/24 History sljspiud-vtn-exikj acid 0.4 1 tab PO QDAY SUPPLEMENT 04/04/24 04/23/24 History mg-lycopene 300 mcg-lutein 250 mcg tablet (Complete Multivitamin Adult 50 Plus) omeprazole 20 mg capsule,delayed 20 mg PO BID GERD 04/04/24 04/23/24 History release sumatriptan succinate 100 mg tablet 100 mg PO ONCE PRN migraine 04/04/24 04/23/24 History headache carbamazepine 200 mg tablet 300 mg PO BID SEIZURES 04/05/24 04/23/24 History lactobacillus combination no.4 3 3,000 mmu cells PO DAILY SUPPLEMENT 04/05/24 04/23/24 History billion cell capsule (Probiotic) acetaminophen 500 mg tablet 500 mg PO Q6H #30 tabs 04/11/24 04/23/24 Rx methocarbamol 500 mg tablet 750 mg (1.5 x 500 mg) PO TID PRN 04/11/24 04/23/24 Rx pain/spasms #30 tabs sennosides 8.6 mg-docusate sodium 2 tab PO BID PRN constipation #30 04/11/24 04/23/24 Rx 50 mg tablet (Stimulant Laxative tabs Plus) [facility] Medical History Subglottic stenosis TBI (traumatic brain injury) Ambulates with cane Bladder disease Low iron COPD (chronic obstructive pulmonary disease) Shortness of breath on exertion History of pain when walking Wears dentures Wears glasses Thyroid disease Arthritis High cholesterol Injury of head and neck Back pain Migraine headache Syncope Seizures Gastric reflux Former smoker CPAP (continuous positive airway pressure) dependence Hoarseness History of edema History of stress test UTI (urinary tract infection) Hypercholesteremia Arthritis BPH (benign prostatic hyperplasia) Obesity HLD (hyperlipidemia) GERD (gastroesophageal reflux disease) Epilepsy without mention Intractable Epilepsy, unspecified Surgical History History of cardiac catheterization History of bronchoscopy Hx of tooth extraction Hx of foot surgery Hx of cystoscopy Hx of cardiac cath Hx laparoscopic cholecystectomy Hx of total knee replacement History of partial knee replacement History of tracheostomy as a child Family History Father Hypertension Other Myocardial infarction Prostate cancer Social History current occupation: [employer] [place], [employer] Smoking Status: Former smoker alcohol intake: never substance use (more content not included)... Normal [facility] Basic Metabolic Profile (BMP )on 04-11-2024 BUN/CRE 19.2 RATIO Normal 10-20 [facility] Comment on above: Performed By: #### L 100.0500, L500.2500 ####[facility] [address] [place], [address] CA,Total 7.6 mg/dL Low 8.5-10.1 [facility] Comment on above: Performed By: #### L 100.0500, L500.2500 ####[facility] [address] [place], [address] Chloride [Moles/Vol] 106 mmol/L Normal 98-107 [facility] Comment on above: Performed By: #### L 100.0500, L500.2500 ####[facility] [address] [place], [address] CO2 [Moles/Vol] 26.0 mmol/L Normal 21.0-32.0 [facility] Comment on above: Performed By: #### L 100.0500, L500.2500 ####[facility] [address] [place], [address] Creatinine [Mass/Vol] 0.83 mg/dL Normal 0.70-1.30 [facility] Comment on above: Result Comment: The validity of the calculated GFR GFRAA in patients over 70 years has not been determined. Clinical correlation is essential. Performed By: #### L 100.0500, L500.2500 ####[facility] [address] [place], [address] ECRCL 91.92 ml/min Normal [facility] Comment on above: Performed By: #### L 100.0500, L500.2500 ####[facility] [address] [place], [address] EST GFR - AA 122 mL/min Normal >60 [facility] Comment on above: Result Comment: Afri can Spanish GFR Calc Performed By: #### L 100.0500, L500.2500 ####[facility] [address] [place], [address] GAP 6 Normal 5-15 [facility] Comment on above: Performed By: #### L 100.0500, L500.2500 ####[facility] [address] [place], [address] GFR/1.73 sq M.predicted among non-blacks MDRD (S/P/Bld) [Vol rate/Area] 101 mL/min/{1.73_m2} Normal >60 [facility] Comment on above: Result Comment: Non- GFR Calc Performed By: #### L 100.0500, L500.2500 ####[facility] [address] [place], [address] Glucose [Mass/Vol] 112 mg/dL High 74-106 [facility] Comment on above: Result Comment: Fast ing Glucose result from 100 to 125 mg/dL suggests IMPAIRED HOMEOSTASIS per A.D.A. criteria. Performed By: #### L 100.0500, L500.2500 ####[facility] [address] [place], [address] Potassium [Moles/Vol] 3.8 mmol/L Normal 3.5-5.1 [facility] Comment on above: Performed By: #### L 100.0500, L500.2500 ####[facility] [address] [place], [address] Sodium [Moles/Vol] 137 mmol/L Normal 136-145 [facility] Comment on above: Performed By: #### L 100.0500, L500.2500 ####[facility] [address] [place], [address] Urea nitrogen [Mass/Vol] 16 mg/dL Normal 7-18 [facility] Comment on above: Performed By: #### L 100.0500, L500.2500 ####[facility] [address] [place], [address] Blood urea nitrogen (BUN)/cr eatinine ratioOrdered By: Linsey Hale on 04-11-2024 Urea nitrogen/Creatinine [Mass ratio] 19.2 mg/mg 10-20 [facility] CBC-Complete Blood Cnt No Di ffon 04-11-2024 Erythrocyte distribution width (RBC) [Ratio] 12.3 % Normal 11.6-14.6 [facility] Comment on above: Performed By: #### L 100.0500, L500.2500 ####[facility] [address] [place], [address] Hematocrit (Bld) [Volume fraction] 32.9 % Low 40-54 [facility] Comment on above: Performed By: #### L 100.0500, L500.2500 ####[facility] [address] [place], [address] Hemoglobin (Bld) [Mass/Vol] 10.8 g/dL Low 13.0-16.5 [facility] Comment on above: Performed By: #### L 100.0500, L500.2500 ####[facility] [address] [place], [address] MCH (RBC) [Entitic mass] 30.4 pg Normal 27.0-32.0 [facility] Comment on above: Performed By: #### L 100.0500, L500.2500 ####[facility] [address] [place], [address] MCHC (RBC) [Mass/Vol] 32.8 g/dL Normal 32-36 [facility] Comment on above: Performed By: #### L 100.0500, L500.2500 ####[facility] [address] [place], [address] MCV (RBC) [Entitic vol] 92.7 fL Normal 80-[address] [facility] Comment on above: Performed By: #### L 100.0500, L500.2500 ####[facility] [address] [place], [address] Platelet mean volume (Bld) [Entitic vol] 9.2 fL Normal 6.2-12.0 [facility] Comment on above: Performed By: #### L 100.0500, L500.2500 ####[facility] [address] [place], [address] Platelets (Bld) [#/Vol] 148 10*3/uL Low 150-450 [facility] Comment on above: Performed By: #### L 100.0500, L500.2500 ####[facility] [address] [place], [address] RBC (Bld) [#/Vol] 3.55 10*6/uL Low 4.6-6.2 [facility] Comment on above: Performed By: #### L 100.0500, L500.2500 ####[facility] [address] [place], [address] RDW SD 42.0 fl Normal 35.1-43.9 [facility] Comment on above: Performed By: #### L 100.0500, L500.2500 ####[facility] [address] [place], [address] WBC (Bld) [#/Vol] 8.7 10*3/uL Normal 4.4-11.0 [facility] Comment on above: Performed By: #### L 100.0500, L500.2500 ####[facility] [address] [place], [address] Carbon dioxide measurementOr dered By: Linsey Hale on 04-11-2024 CO2 [Moles/Vol] 26.0 mmol/L 21.0-32.0 [facility] Chloride measurementOrdered By: Linsey Hale on 04-11-2024 Chloride [Moles/Vol] 106 mmol/L 98-107 [facility] Erythrocyte distribution wid th (RBC) [Ratio]Ordered By: Linsey Hale on 04-11-2024 Erythrocyte distribution width (RBC) [Entitic vol] 42.0 fL 35.1-43.9 [facility] Erythrocyte distribution wid th ratioOrdered By: Linsey Hale on 04-11-2024 Erythrocyte distribution width (RBC) [Ratio] 12.3 % 11.6-14.6 [facility] Estimated glomerular filtrat ion rate (GFR) AmericanOrdered By: Linsey Hale on 04-11-2024 Estimated GFR (MDRD) Amer 122 mL/min >60 [facility] Comment on above: GFR Calc Estimation of creatinine tracy aranceOrdered By: Linsey Hale on 04-11-2024 Estimated Creatinine Clearance Calc 91.92 ml/min [facility] Glomerular filtration rate ( GFR) estimationOrdered By: Linsey Hale on 04-11-2024 Estimated GFR (MDRD) Non-Af Amer 101 mL/min >60 [facility] Comment on above: Non- GFR Calc Glucose measurementOrdered B y: Linsey Hale on 04-11-2024 Glucose [Mass/Vol] 112 mg/dL High 74-106 [facility] Comment on above: Fasting Glucose resu lt from 100 to 125 mg/dL suggests IMPAIRED HOMEOSTASIS per A.D.A. criteria. Hematocrit Auto (Bld) [Volum e fraction]Ordered By: Linsey Hale on 04-11-2024 Hematocrit (Bld) [Volume fraction] 32.9 % Low 40-54 [facility] Hemoglobin measurementOrdere d By: Linsey Hale on 04-11-2024 Hemoglobin (Bld) [Mass/Vol] 10.8 g/dL Low 13.0-16.5 [facility] Lumbar Spine 2 or 3 Viewson 04-11-2024 Lumbar Spine 2 or 3 Views [facility] Services [address] [place], [place] [id number] Lumbar Spine 2 or 3 Views MR#: [id number] Acct: [id number] Name: AMANDO LLANOS JrSami Rep #: [id number] : 1965 M 59 From: Sal Trimble DO PCP: Dr. Amita Humphreys DO Status: DIS IN Study: Lumbar Spine 2 or 3 Views Date of Exam: Exam# [id number] Ordering Dr: Linsey Hale PA -[id number] STUDY: X-RAY - LUMBAR SPINE REASON FOR EXAM: Male, 59 years old. s/p lumbar fusion -- please do urpight AP and LAT TECHNIQUE: 2 view(s) of the lumbar spine were obtained. COMPARISON: None FINDINGS: Normal lumbar lordosis. There is no substantial scoliosis. There is a normal alignment of the vertebrae. Posterior surgical fusion of L4-5 with a disc spacer in place Normal vertebral bodies with mild spurring of the endplates. Normal disc space heights. The soft tissue structures are unremarkable. Surgical clips in the right upper quadrant. Possible punctate calcification over the left renal shadow. RAD/Lumbar Spine 2 or 3 Views IMPRESSION: Degenerative and postsurgical changes of the lumbar spine. Electronically Signed: Sal Trimble DO at 16:24 EST , CC: LACHELLE Ramires; Dr. Amita Humphreys DO Publicity Director: Signed Normal [facility] MCV (mean corpuscular volume ) determinationOrdered By: Linsey Hale on 04-11-2024 MCV (RBC) [Entitic vol] 92.7 fL 80-[address] [facility] Mean corpuscular hemoglobin (MCH) determinationOrdered By: Linsey Hale on 04-11-2024 MCH (RBC) [Entitic mass] 30.4 pg 27.0-32.0 [facility] Mean corpuscular hemoglobin concentration (MCHC) determinationOrdered By: Linsey Hale on 04-11-2024 MCHC (RBC) [Mass/Vol] 32.8 g/dL 32-36 [facility] Mean platelet volume determi nationOrdered By: Linsey Hale on 04-11-2024 Platelet mean volume (Bld) [Entitic vol] 9.2 fL 6.2-12.0 [facility] Platelet countOrdered By: Crystal Hale on 04-11-2024 Platelets (Bld) [#/Vol] 148 10*3/uL Low 150-450 [facility] Potassium measurementOrdered By: Linsey Hale on 04-11-2024 Potassium [Moles/Vol] 3.8 mmol/L 3.5-5.1 [facility] RBC Auto (Bld) [#/Vol]Ordere d By: Linsey Hale on 04-11-2024 RBC (Bld) [#/Vol] 3.55 10*6/uL Low 4.6-6.2 [facility] Serum anion gap measurementO rdered By: Linsey Hale on 04-11-2024 Anion gap [Moles/Vol] 6 mmol/L 5-15 [facility] Serum or plasma calcium mine urement (mass/volume)Ordered By: Linsey Hale on 04-11-2024 Calcium [Mass/Vol] 7.6 mg/dL Low 8.5-10.1 [facility] Serum or plasma creatinine m easurement (mass/volume)Ordered By: Linsey Hale on 04-11-2024 Creatinine [Mass/Vol] 0.83 mg/dL 0.70-1.30 [facility] Comment on above: The validity of the calculated GFR & GFRAA in patients over 70 years has not been determined. Clinical correlation is essential. Serum or plasma urea nitroge n measurement (mass/volume)Ordered By: Linsey Hale on 04-11-2024 Urea nitrogen [Mass/Vol] 16 mg/dL 7-18 [facility] Sodium levelOrdered By: Lelo Hale on 04-11-2024 Sodium [Moles/Vol] 137 mmol/L 136-145 [facility] White blood cell (WBC) count Ordered By: Linsey Hale on 04-11-2024 WBC (Bld) [#/Vol] 8.7 10*3/uL 4.4-11.0 [facility] Bedside Glucoseon 04-10-2024 FINGERSTICK GLU 102 mg/dL Normal 74-106 [facility] Comment on above: Result Comment: ROSE ABDULLAHI OF PATIENT CARE PER NURSING PROTOCOL Performed By: #### L 501.080 ####[facility] [address] [place], [place], [address] [facility] deOrdered By: Yanick Terry on 04-10-2024 Bedside Glucose (Misc Panel) 102 mg/dL 74-106 [facility] Comment on above: MANAGEMENT OF PATIEN T CARE PER NURSING PROTOCOL HIV - WCHon 04-10-2024 HIV Non-Reactive Normal Nonreactive [facility] Comment on above: Order Comment: Reaso n for Exam: PREOP Performed By: #### L 3890.6200, L3890.6300, L3890.6005, L100.0100, BTSPAT, L500.2500, L3100.0300, M100.651 ####[facility] [address] [place], [place], [address] Hepatitis B Surface Antibody on 04-10-2024 HEP B Surf Ab Non-Reactive Normal [facility] Comment on above: Order Comment: Reaso n for Exam: PREOP Result Comment: Non Reactive: Inconsistent with immunity less than <10 mIU/mL Reactive: Consistent with immunity greater than or equal to 10 mIU/mL AMENDED REPORT 04/10/24845 HEPB Surface Ab previously reported as: Nonreactive Performed By: #### L 3890.6200, L3890.6300, L3890.6005, L100.0100, BTSPAT, L500.2500, L3100.0300, M100.651 ####[facility] [address] [place], [place], [address] Hepatitis C Antibodyon 04-10 Hepatitis C AB Non-Reactive Normal Nonreactive [facility] Comment on above: Order Comment: Reaso n for Exam: PREOP Result Comment: Non Reactive: < 0.8 Equivocal: >/= 0.8 to < 1.0 Reactive: >/= 1.0 The CDC requires that a reactive/equivocal HCV antibody result be sent out for confirmation. HCV Quant by PCR testing. AMENDED REPORT 04/10/24845 HEPATITIS C AB previously reported as: Nonreactive Performed By: #### L 3890.6200, L3890.6300, L3890.6005, L100.0100, BTSPAT, L500.2500, L3100.0300, M100.651 ####[facility] [address] [place], [place], [address] Lumbar Spine 2 or 3 Viewson 04-10-2024 Lumbar Spine 2 or 3 Views [facility] [address] [place], [place] [address] Lumbar Spine 2 or 3 Views MR#: [id number] Acct: [id number] Name: AMANDO LLANOS Jr. Rep #: [id number] : 1965 M 59 From: Robby ordonez MD PCP: Dr. Amita Humphreys, DO Status: ADM IN Study: Lumbar Spine 2 or 3 Views Date of Exam: Exam# [id number] Ordering Dr: Yanick Terry MD -[id number] INDICATION: ERAS, 360 EXAMINATION/TECHNIQ UE: X-RAY - XR Spine Lumbar 2 or 3 Views. 11 fluoroscopic images with 2 views. Total fluoroscopic time 108.9 seconds. Cumulative dose 47.31 mGy. COMPARISON: Prior study dated: 10/25/2023 FINDINGS: There is initial localization to the L4-L5 level. There is placement of a disc spacer. There is an posterior fusion hardware placed. RAD/Lumbar Spine 2 or 3 Views IMPRESSION: Fluoroscopic guidance for fusion at L4-L5. Please refer to operative report for further information. Electronically Signed: Robby Jones MD at 20:57 EST Reading Location ID and State: [facility] / [place] Tel , Service support , CC: Dr. Yanick Terry MD; Dr. Amita Humphreys DO Publicity Director: Signed [facility] MR/POSTOP.[facility] 04-10-2024 MR/POSTOP.[facility] Medical Records Department [address] [place] [address] Anesthesia Postop Eval I 04/10/24 1143 MR#: [id number] Acct: [id number] Name: AMANDO LLANOS Jr. Rep #: [id number] : 1965 59 From: Marie Gonsalez CRNA PCP: Dr. Amita Humphreys, DO Status:ADM IN Y Race: C Location: [place] [address] Anesthesia: Postop Eval I Current Vital Signs Temperature: 97.7 F Pulse Rate: 72 Blood Pressure: 119/65 Respiratory Rate: 18 Pulse Ox: 100 Oxygen Delivery Method: Simple Mask Oxygen Flow Rate (L/min): 6 Assessment Airway patent: Yes Spontaneous unlabored respirations: Yes Mental status: Awake nausea: No Vomiting: No Anesthesia Complication: No Fluid Hydration Crystalloid volume administer (ml): 1,600 Total IV fluid infused: 1,600 Progress Note Anesthesia document: Postop Eval 1 completed: Yes 04/10/24 1143 Date Marie Gonsalez CHILD DEVELOPMENT INSTRUCTOR Cosigner Signature: Date CC: Signed Normal [facility] MR/[id number] 04-10-2024 [facility] Medical Records Department [address] [place] [address] Anesthesia Postop Eval II 04/10/24 1302 MR#: [id number] Acct: [id number] Name: HEATHERVandanaAMANDO Jr. Rep #: [id number] : 1965 59 From: Calixto Whitten MD PCP: Dr. Amita Humphreys, DO Status:ADM IN Y Race: C Location: [place] [address] Anesthesia Postop Eval I Sum Postop Eval Completion status Anesthesia document: Postop Eval 1 completed: Yes Anesthesia Postop Eval I Summary Anesthesia Postop Eval I Summary: Anesthesia Postop Eval I: Assessment Summary Airway patent Yes 04/10/24 11:43 CHILD DEVELOPMENT INSTRUCTOR.TEEOBY Spontaneous unlabored Yes 04/10/24 11:43 CHILD DEVELOPMENT INSTRUCTOR.TEEOBY respirations Mental status Awake 04/10/24 11:43 CHILD DEVELOPMENT INSTRUCTOR.SKOBY nausea No 04/10/24 11:43 CHILD DEVELOPMENT INSTRUCTOR.SKOBY Vomiting No 04/10/24 11:43 CHILD DEVELOPMENT INSTRUCTOR.SKOBY Anesthesia Postop Eval I: Fluid Summary Crystalloid volume administer 1,600 04/10/24 11:43 CHILD DEVELOPMENT INSTRUCTOR.SKOBY (ml) Colloids volume administered ( ml) Blood Product volume administered (ml) Total IV fluid infused 1,600 04/10/24 11:43 LILIAN Anesthesia Postop Eval I: Summary Notes Anesthesia Complication No 04/10/24 11:43 CHILD DEVELOPMENT INSTRUCTOR.TEEOBYony Anesthesia Complication Comment: Post-operative progress note Anesthesia: Postop Eval II Evaluation Mental status: Awake Pain Level: 1 nausea: No Vomiting: No 04/10/24 1302 Date Calixto Niño Signature: Date CC: Signed Normal [facility] Operative Reporton 5 Operative Report [facility] Medical Records Department [address] [place] [address] Operative Report 04/10/24 1127 MR#: [id number] Acct: [id number] Name: AMANDO LLANOS Susanna Mane Rep #: [id number] : 1965 59 From: Yanick Terry MD PCP: Dr. Amita Humphreys, DO Status:ADM IN Location: [place] [address] Procedures Musculoskeletal 20xxx-29xxx: Other Procedure See Report Operative Report (Standard) Operative Information Date of Procedure: 04/10/24 Pre-Operative Diagnosis: L4-5 spondylolisthesis, stenosis with neurogenic claudication Post-Operative Diagnosis: Same Surgery/Procedure Performed: L4-5 posterior instrumented spinal fusion circular sawyer stone: Yes Control Director: Linsey Hale Tasks completed by assistant director of admissions: Closing, Implanting device and Retracting Type of Anesthesia: General RN Documented Start/Stop Times: Operation Date: 04/10/24 07:30 Case Time Into Pre-Op 04/10/24 05:44 Out of Pre-Op 04/10/24 07:31 Anesthesia Start 04/10/24 07:39 Into Room 04/10/24 07:39 Procedure Start 04/10/24 08:33 Procedure End 04/10/24 11:17 Procedure Start Time: 08:33 Procedure Stop Time: 11:17 Select all DRAINS/GRAFTS/IMPLA NTS that apply: Graft Graft details: Allograft cancellous bone chips, autologous bone marrow aspirate and Implanted device Implanted device details: DePuy Viper prime pedicle screw instrumentation Estimated Blood Loss: 50 cc Specimen collected: No Description of surgery: Preoperative diagnosis: L4-5 spondylolisthesis, stenosis with neurogenic claudication Postoperative diagnosis: Same Name of procedures: L4-5 posterior percutaneous pedicle screw instrumented fusion, prone: ??? L4-5 posterior spinal fusion 66651 ??? L4-5 posterior pedicle screw instrumentation 36450 ??? Allograft cancellous chips Attending Surgeon: Dr. Yanick Terry Estimated blood loss: 50 mL (total for entire case) Anesthesia: General Complications: None Description of procedure: After the anterior procedure was complete, the patient was then turned supine. The patient was then transferred to Tomas table in prone position. Back was prepped and draped in usual fashion. C-arm AP view was then taken. C-arm was positioned in a way that L4 was centralized and superior endplate of was parallel to the beam. Spinous process was centered between the pedicles. Midline was marked with skin marker and lateral borders of the pedicles were also marked. Skin marker was also utilized to lev transversely across the middle of the pedicles at L4. 2 vertical paramedian incisions of 1 inch were placed. The fascia was incised vertically. Finger dissection was utilized to palpate the transverse process and facet joint. Viper Prime screws with towers were inserted and docked onto the transverse processes. This was then slowly moved medially to reach the superior articular process of L4. This was then confirmed on C-arm and then a mallet was utilized to drive the trocar into the pedicle going up to the medial wall of the pedicle on AP view. This was performed both sides. C-arm lateral view confirmed that the tip of the trocar was in the vertebral body, and the screw was advanced into the pedicle and vertebral body. This was repeated similarly at L5 bilaterally. Screw sizes were 7 x 45 mm at L4 and L5 on both sides. 45 mm precontoured titanium 5.5 mm lordotic roberto on the right and 40 mm on the left were then passed through the screw extensions and reduced down to the screws with the help of lifeIOer instrumentation system on both sides. AP and lateral view of the C-arm showed good positioning of the screws and cages. Final tightening with the torque screwdriver was then completed. Ward was utilized to roughen the facet joint at L4-5 on the right side. Cancellous allograft bone chips mixed with bone marrow aspirate were then placed over this decorticated area. Hemostasis was achieved. Closure was done in layers with 0 Vicryls for the fascia, 2-0 Vicryls for the subcutaneous tissue, and Monocryl for the skin. Dermabond was applied. Dressings were applied covered with Tegaderm. The patient was then turned supine onto a hospital bed. The patient was extubated and taken to PACU in stable condition. The patient tolerated the procedure well and no complications occurred. [employer] The[employer]gar cage Viper Prime minimally invasive pedicle screw instrumentation system was utilized in this case. No dural tear was identified intraoperatively. I was present for the entirety of the case and performed the surgery. Stone Sandblaster Linsey Hale PA-C. My physician assistant spa director was a vital part of this case. They were important in appropriate retraction during the case, and protection of soft tissues during the procedure. Their intimate knowledge of the case and my steps aided in safe and expedient completion of the procedure as well as (more content not included)... Normal [facility] Operative Report [facility] Medical Records Department [address] [place] [address] Operative Report 04/10/24 1123 MR#: [id number] Acct: [id number] Name: AMANDO LLANOS Rep #: [id number] : 1965 59 From: Yanick Terry MD PCP: Dr. Amita Humphreys, DO Status:ADM IN Location: [facility] AC-TBA-1 Procedures Musculoskeletal 20xxx-29xxx: Other Procedure See Report Operative Report (Standard) Operative Information Date of Procedure: 04/10/24 Pre-Operative Diagnosis: L4-5 spondylolisthesis, stenosis with neurogenic claudication Post-Operative Diagnosis: Same Surgery/Procedure Performed: L4-5 oblique lumbar interbody fusion circular sawyer stone: Yes Control Director: Linsey Hale Tasks completed by assistant director of admissions: Closing, Removing tissue, Hemostasis: Electrocautery and Retracting Type of Anesthesia: General RN Documented Start/Stop Times: Operation Date: 04/10/24 07:30 Case Time Into Pre-Op 04/10/24 05:44 Out of Pre-Op 04/10/24 07:31 Anesthesia Start 04/10/24 07:39 Into Room 04/10/24 07:39 Procedure Start 04/10/24 08:33 Procedure End 04/10/24 11:17 Procedure Start Time: 08:33 Procedure Stop Time: 11:17 Select all DRAINS/GRAFTS/IMPLA NTS that apply: Graft Graft details: Allograft cancellous bone chips, autologous bone marrow aspirate and Implanted device Implanted device details: DePuy cougar lateral interbody cage???peek Estimated Blood Loss: 50 cc Specimen collected: No Description of surgery: Preoperative diagnosis: L4-5 spondylolisthesis, stenosis with neurogenic claudication Postoperative diagnosis: Same Name of procedures L4-5 oblique lumbar interbody fusion (OLIF), minimally invasive left sided approach, lateral decubitus: ??? L4-5 anterolateral spinal fusion ??? L4-5 insertion of cage ??? Bone graft aspirate left iliac crest separate incision ??? Allograft cancellous chips Attending Surgeon: Dr. Yanick Terry Estimated blood loss: 50 mL Anesthesia: General Complications: None Indications: Patient is a 59-year-old pleasant gentleman who has had a long history of low back pain and left worse than right lower extremity radiation, difficulty walking distances. Xrays MRI revealed L4-5 spondylolisthesis with severe stenosis. After undergoing a prolonged period of nonoperative treatment, the patient elected to undergo surgical decompression fusion. All surgical options were discussed with the patient including anterior and posterior approaches. All risks and benefits associated with the procedure were explained to the patient. The risks include but are not limited to infection, bleeding, injury to nerves and vessels including major vessels like IVC and aorta, persistent paresthesia, persistent pain, dural tear, need for further procedures, adjacent segment degeneration, pseudoarthrosis, hardware failure, retrograde ejaculation, paralytic ileus, etc. Procedure: The patient was identified in the preoperative holding suite using Unique patient identifiers. Skin was marked, consent was reviewed, and all questions were answered. The patient was then brought back to the operative room. A surgical timeout was performed to make sure correct procedure was being done on the correct patient and all operative room staff were on the same page. General endotracheal anesthesia was then given to the patient. Miles catheter was inserted. The patient was then carefully positioned in right lateral decubitus position with the left side up on a regular OR table. Axillary roll was placed and all bony prominences were well- padded. Hip positioners were placed in the posterior buttocks and anterior sternal area. The surgical area was prepped and draped in usual fashion. Preoperative antibiotic was injected IV as preoperative antibiotic. A final timeout was then again done just before starting the procedure. A 2 inch incision oblique was taken in the left lower quadrant of the abdomen 2 fingerbreadths away from the iliac crest and the lower ribs. Sharp dissection with Bovie was carried out up to the fascia covering the external oblique. The external oblique, internal oblique and transversus abdominis muscles were split along the muscle fibers and retroperitoneal space was entered. Sponge sticks were utilized to move the bowel and peritoneum qit-fu-euk-way and psoas muscle was exposed staying within the retroperitoneal plane. [employer] retractor system was positioned and the retractor blade was applied onto the psoas. The interval between psoas and midline structures was developed and appropriate retractors were placed. Once adequate interval was cleared, a disc space was identified and a marker x-ray was taken. This identified the L4-5 disc level. The prepsoas interval was then traced inferiorly. Annulotomy was done with a long handled knife. Pituitary was (more content not included)... Normal [facility] 12 Lead EKGon 04-09-2024 12 Lead EKG [facility] [address] [place] [address] 12 Lead EKG 04/09/24 0908 MR#: [id number] Acct: [id number] Name: AMANDO LLANOS Sami Rep #: [id number] : 1965 59 From: Teodoro Schaffer MD Attending Dr: Dr. Yanick Terry MD Status: ADM IN Ordering Dr: Yanick Terry MD Date: 04/09/24 Location: [facility] Sex: M C Admitted: 04/10/24 Test Reason : PREOP Blood Pressure : */* mmHG Vent. Rate : 70 BPM Atrial Rate : 70 BPM P-R Int : 162 ms QRS Dur : 92 ms QT Int : 386 ms P-R-T Axes : 65 9 52 degrees QTcB Int : 416 ms Normal sinus rhythm Possible Inferior infarct , age undetermined Abnormal ECG Confirmed by KARIME CARRILLO, TEODORO ([id number]), publication editor ALY BRANDT ([id number]) on 04/10/2024 5:47:56 AM Referred By: Yanick Terry Confirmed By: TEODORO SCHAFFER MD 04/10/24 0547 Date Teodoro Schaffer MD CC: Dr. Yanick Terry MD; Dr. Amita Humphreys DO Signed Normal [facility] MR/PAT.[facility] 04-08-2024 MR/PAT.[facility] Medical Records Department [address] [place] [place] [address] PAT - Anesthesia 04/08/24 0921 MR#: [id number] Acct: [id number] Name: AMANDO LLANOS Jr. Rep #: [id number] : 1965 59 From: Calixto Whitten MD PCP: Dr. 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 When Was Last Pacemaker Check QUESTION #4 FULL TEXT: You/Your Family Experience fever (hyperthermia) with Anesthesia Last Oral Intake Last Oral intake: Last Oral Intake NPO since Meds taken in AM with sips of water? Meds patient instructed to take am of surgery PONV PONV - payroll assistant: PONV - payroll assistant Female No 04/05/24 12:30 HX of Motion Sickness No 04/05/24 12:30 HX of N/V After Surgery No 04/05/24 12:30 Non-Smoker Yes 04/05/24 12:30 Duration of Surgery greater Yes 04/05/24 12:30 than 60 minutes Number of Risk Factors 2 04/05/24 12:30 PONV Score Moderate Risk 04/05/24 12:30 Height Weight Height Weight: Anesthesia: Height Weight Height 5 ft 7 in 10/25/23 15:12 Respiratory Assessment Respiratory Assessment - payroll assistant: Respiratory Tract Infection Hx - payroll assistant Hx Respiratory Tract Infection No 04/05/24 12:30 STOP Sleep Apnea STOP Sleep Apnea - payroll assistant: STOP Sleep Apnea - payroll assistant Hx Hypertension Yes: CONTROLLED WITH MEDS 04/05/24 12:30 Hx Sleep Apnea Yes 04/05/24 12:30 CPAP Yes 04/05/24 12:30 BIPAP No 04/05/24 12:30 Do you snore loudly (louder than talking or can be heard Do you often feel tired/ fatigued/ sleepy during daytime? Has anyone observed you stop breathing during sleep? STOP Results Positive 04/05/24 12:30 QUESTION #5 FULL TEXT : Do you snore loudly (louder than talking or can be heard through closed doors)? 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 Specify any problems Hx of Preganancy in last 3 N/A 04/05/24 12:30 Months Nurse Filling Out Transfusion DSCHRIBER 04/05/24 12:30 Questions: Date: 04/05/24 04/05/24 12:30 Time: 12:32 04/05/24 12:30 Patient unable to answer at this time (ie. confused, unrespo /Reproduct ion History /Reproduct john History - payroll assistant: /Reproduct john Hx- payroll assistant Hx Now No 04/05/24 12:30 Gestational Age (in weeks): EDC: Hx Hx Para Hx Section SAB No 04/05/24 12:30 [facility] Medical History (Updated 04/05/24 @ 13:05 by Cheyenne Lundberg) Subglottic stenosis TBI (traumatic brain injury) Ambulates with cane Bladder disease Low iron COPD (chronic obstructive pulmonary disease) Shortness of breath on exertion History of pain when walking Wears dentures Wears glasses Thyroid disease Arthritis High cholesterol Injury of head and neck Back pain Migraine headache Syncope Seizures Gastric reflux Former smoker CPAP (continuous positive airway pressure) dependence Hoarseness History of edema History of stress test UTI (urinary tract infection) Hypercholesteremia Arthritis BPH (benign prostatic hyperplasia) Obesity HLD (hyperlipidemia) GERD (gastroesophageal reflux disease) Epilepsy without mention Intractable Epilepsy, unspecified Home Medications ???Medication ???Instructi (more content not included)... Normal [facility] Hepatitis A AB, Totalon 03-27 HEPATITIS A,TOT Negative Normal Negative [facility] Comment on above: Result Comment: Comm ent: The HAV total antibody assay detects both IgG and IgM but does not differentiate between them. A negative result suggests susceptibility to infection. A positive result could be due to vaccination, previously resolved infection or active infection. Testing for HAV IgM should be performed if active HAV infection is suspected. [facility] that will automatically reflex positive HAV total antibody results to IgM (e.g., panel #[id number] HAV Antibody w/ Rfx). Performed at: [address], [place], [place] [id number] [employer] Repairer: Lamont Veliz PhD, Phone: [phone] Performed By: #### L 1085.8820, K3761.3470, L3585.6005, L100.0100, BTSPAT, L500.2500, L3100.0300, M100.651 ####[facility] [address] [place], [place], [id number] MRSA/SAID NASAL SCREENon MRSA+SAID SCRN Reason for Exam: Surgery MRSA MRSA Negative S. AUREUS S. aureus Negative Normal [facility] Comment on above: Performed By: #### L 3890.6200, L3890.6300, L3890.6005, L100.0100, BTSPAT, L500.2500, L3100.0300, M100.651 ####[facility] [address] [facility] [place], [place], [id number] Absolute neutrophil countOrd ered By: Yanick Terry on 04-05-2024 Neutrophils (Bld) [#/Vol] 4.1 10*3/uL 2.0-7.7 [facility] Basic Metabolic Profile (BMP )on 04-05-2024 BUN/CRE 14.7 RATIO Normal 10-20 [facility] Comment on above: Performed By: #### L 3890.6200, L3890.6300, L3890.6005, L100.0100, BTSPAT, L500.2500, L3100.0300, M100.651 ####[facility] [address] [facility] [place], [place], [id number] CA,Total 8.8 mg/dL Normal 8.5-10.1 [facility] Comment on above: Performed By: #### L 3890.6200, L3890.6300, L3890.6005, L100.0100, BTSPAT, L500.2500, L3100.0300, M100.651 ####[facility] [address] [facility] [place], [place], [id number] Chloride [Moles/Vol] 104 mmol/L Normal 98-107 [facility] Comment on above: Performed By: #### L 3890.6200, L3890.6300, L3890.6005, L100.0100, BTSPAT, L500.2500, L3100.0300, M100.651 ####[facility] [address] [place], [address] CO2 [Moles/Vol] 30.0 mmol/L Normal 21.0-32.0 [facility] Comment on above: Performed By: #### L 3890.6200, L3890.6300, L3890.6005, L100.0100, BTSPAT, L500.2500, L3100.0300, M100.651 ####[facility] [address] [place], [address] Creatinine [Mass/Vol] 0.82 mg/dL Normal 0.70-1.30 [facility] Comment on above: Result Comment: The validity of the calculated GFR GFRAA in patients over 70 years has not been determined. Clinical correlation is essential. Performed By: #### L 3890.6200, L3890.6300, L3890.6005, L100.0100, BTSPAT, L500.2500, L3100.0300, M100.651 ####[facility] [address] [place], [address] EST GFR - AA 125 mL/min Normal >60 [facility] Comment on above: Result Comment: Afri can Spanish GFR Calc Performed By: #### L 3890.6200, L3890.6300, L3890.6005, L100.0100, BTSPAT, L500.2500, L3100.0300, M100.651 ####[facility] [address] [place], [address] GAP 3 Low 5-15 [facility] Comment on above: Performed By: #### L 3890.6200, L3890.6300, L3890.6005, L100.0100, BTSPAT, L500.2500, L3100.0300, M100.651 ####[facility] [address] [place], [address] GFR/1.73 sq M.predicted among non-blacks MDRD (S/P/Bld) [Vol rate/Area] 103 mL/min/{1.73_m2} Normal >60 [facility] Comment on above: Result Comment: Non- GFR Calc Performed By: #### L 3890.6200, L3890.6300, L3890.6005, L100.0100, BTSPAT, L500.2500, L3100.0300, M100.651 ####[facility] [address] [place], [address] Glucose [Mass/Vol] 95 mg/dL Normal 74-106 [facility] Comment on above: Performed By: #### L 3890.6200, L3890.6300, L3890.6005, L100.0100, BTSPAT, L500.2500, L3100.0300, M100.651 ####[facility] [address] [place], [address] Potassium [Moles/Vol] 3.9 mmol/L Normal 3.5-5.1 [facility] Comment on above: Performed By: #### L 3890.6200, L3890.6300, L3890.6005, L100.0100, BTSPAT, L500.2500, L3100.0300, M100.651 ####[facility] [address] [place], [address] Sodium [Moles/Vol] 137 mmol/L Normal 136-145 [facility] Comment on above: Performed By: #### L 3890.6200, L3890.6300, L3890.6005, L100.0100, BTSPAT, L500.2500, L3100.0300, M100.651 ####[facility] [address] [place], [address] Urea nitrogen [Mass/Vol] 12 mg/dL Normal 7-18 [facility] Comment on above: Performed By: #### L 3890.6200, L3890.6300, L3890.6005, L100.0100, BTSPAT, L500.2500, L3100.0300, M100.651 ####[facility] [address] [place], [address] Basophil percentageOrdered B y: Yanick Terry on 04-05-2024 Basophils/100 WBC (Bld) 1.1 % High 0-[address] [facility] CBC W/Diff, Automatedon 03-27-2024 Absolute Lymph 1.31 X10 3/uL Normal 0.83-4.51 [facility] Comment on above: Performed By: #### L 3890.6200, L3890.6300, L3890.6005, L100.0100, BTSPAT, L500.2500, L3100.0300, M100.651 ####[facility] [address] [place], [address] Absolute Neut 4.1 X10 3/uL Normal 2.0-7.7 [facility] Comment on above: Performed By: #### L 3890.6200, L3890.6300, L3890.6005, L100.0100, BTSPAT, L500.2500, L3100.0300, M100.651 ####[facility] [address] [place], [address] Basophils/100 WBC (Bld) 1.1 % High 0-[address] [facility] Comment on above: Performed By: #### L 3890.6200, L3890.6300, L3890.6005, L100.0100, BTSPAT, L500.2500, L3100.0300, M100.651 ####[facility] [address] [place], [address] Eosinophils/100 WBC (Bld) 2.1 % Normal 0-5 [facility] Comment on above: Performed By: #### L 3890.6200, L3890.6300, L3890.6005, L100.0100, BTSPAT, L500.2500, L3100.0300, M100.651 ####[facility] [address] [place], [address] Erythrocyte distribution width (RBC) [Ratio] 12.3 % Normal 11.6-14.6 [facility] Comment on above: Performed By: #### L 3890.6200, L3890.6300, L3890.6005, L100.0100, BTSPAT, L500.2500, L3100.0300, M100.651 ####[facility] [address] [place], [address] Hematocrit (Bld) [Volume fraction] 41.5 % Normal 40-54 [facility] Comment on above: Performed By: #### L 3890.6200, L3890.6300, L3890.6005, L100.0100, BTSPAT, L500.2500, L3100.0300, M100.651 ####[facility] [address] [place], [address] Hemoglobin (Bld) [Mass/Vol] 14.1 g/dL Normal 13.0-16.5 [facility] Comment on above: Performed By: #### L 3890.6200, L3890.6300, L3890.6005, L100.0100, BTSPAT, L500.2500, L3100.0300, M100.651 ####[facility] [address] [place], [address] IG% 0.500 Normal 0.0-0.9 [facility] Comment on above: Result Comment: IG% - Immature Granulocytes (promyelocytes, myelocytes and metamyelocytes) > 1% indicates that a LEFT SHIFT is Present. Performed By: #### L 3890.6200, L3890.6300, L3890.6005, L100.0100, BTSPAT, L500.2500, L3100.0300, M100.651 ####[facility] [address] [place], [address] Lymphocytes/100 WBC (Bld) 21.2 % Normal 19-41 [facility] Comment on above: Performed By: #### L 3890.6200, L3890.6300, L3890.6005, L100.0100, BTSPAT, L500.2500, L3100.0300, M100.651 ####[facility] [address] [place], [address] MCH (RBC) [Entitic mass] 30.5 pg Normal 27.0-32.0 [facility] Comment on above: Performed By: #### L 3890.6200, L3890.6300, L3890.6005, L100.0100, BTSPAT, L500.2500, L3100.0300, M100.651 ####[facility] [address] [place], [address] MCHC (RBC) [Mass/Vol] 34.0 g/dL Normal 32-36 [facility] Comment on above: Performed By: #### L 3890.6200, L3890.6300, L3890.6005, L100.0100, BTSPAT, L500.2500, L3100.0300, M100.651 ####[facility] [address] [place], [address] MCV (RBC) [Entitic vol] 89.8 fL Normal 80-[address] [facility] Comment on above: Performed By: #### L 3890.6200, L3890.6300, L3890.6005, L100.0100, BTSPAT, L500.2500, L3100.0300, M100.651 ####[facility] [address] [place], [address] Monocytes/100 WBC (Bld) 8.4 % Normal 0-[address] [facility] Comment on above: Performed By: #### L 3890.6200, L3890.6300, L3890.6005, L100.0100, BTSPAT, L500.2500, L3100.0300, M100.651 ####[facility] [address] [place], [address] Neutrophils/100 WBC (Bld) 66.7 % Normal 47-70 [facility] Comment on above: Performed By: #### L 3890.6200, L3890.6300, L3890.6005, L100.0100, BTSPAT, L500.2500, L3100.0300, M100.651 ####[facility] [address] [place], [address] Nucleated RBC (Bld) [#/Vol] 0 10*3/uL Normal 0-5 [facility] Comment on above: Performed By: #### L 3890.6200, L3890.6300, L3890.6005, L100.0100, BTSPAT, L500.2500, L3100.0300, M100.651 ####[facility] [address] [place], [address] Platelet mean volume (Bld) [Entitic vol] 9.3 fL Normal 6.2-12.0 [facility] Comment on above: Performed By: #### L 3890.6200, L3890.6300, L3890.6005, L100.0100, BTSPAT, L500.2500, L3100.0300, M100.651 ####[facility] [address] [place], [address] Platelets (Bld) [#/Vol] 183 10*3/uL Normal 150-450 [facility] Comment on above: Performed By: #### L 3890.6200, L3890.6300, L3890.6005, L100.0100, BTSPAT, L500.2500, L3100.0300, M100.651 ####[facility] [address] [place], [address] RBC (Bld) [#/Vol] 4.62 10*6/uL Normal 4.6-6.2 [facility] Comment on above: Performed By: #### L 3890.6200, L3890.6300, L3890.6005, L100.0100, BTSPAT, L500.2500, L3100.0300, M100.651 ####[facility] [address] [place], [place], [id number](419) RDW SD 40.6 fl Normal 35.1-43.9 [facility] Comment on above: Performed By: #### L 3890.6200, L3890.6300, L3890.6005, L100.0100, BTSPAT, L500.2500, L3100.0300, M100.651 ####[facility] [address] [place], [address] WBC (Bld) [#/Vol] 6.2 10*3/uL Normal 4.4-11.0 [facility] Comment on above: Performed By: #### L 3890.6200, L3890.6300, L3890.6005, L100.0100, BTSPAT, L500.2500, L3100.0300, M100.651 ####[facility] [address] [place], [address] Eosinophil percentageOrdered By: Yanick Terry on 04-05-2024 Eosinophils/100 WBC (Bld) 2.1 % 0-5 [facility] HBV surface IgG Ql (S)Ordere d By: Yanick Terry on 04-05-2024 Hepatitis B Surface Antibody Non-Reactive [facility] Comment on above: Previous reported re sult: Nonreactive Edited by: GREG on 04/10/24:0846 AMENDED REPORT 04/10/24 0846 HEPB Surface Ab previously reported as: Nonreactive Non Reactive: Inconsistent with immunity less than <10 mIU/mL Reactive: Consistent with immunity greater than or equal to 10 mIU/mL HIV 1+2 Ab+HIV1 p24 Ag IA Ql Ordered By: Yanick Terry on 04-05-2024 HIV (1&2) Antibody Non-Reactive Nonreactive [facility] Hepatitis A virus total anti body assayOrdered By: Yanick Terry on 04-05-2024 Hepatitis A Antibody Total Negative Negative [facility] Comment on above: Comment: The HAV tot al antibody assay detects both IgG andIgM but does not differentiate between them. A negativeresult suggests susceptibility to infection. A positiveresult could be due to vaccination, previously resolvedinfection or active infection. Testing for HAV IgM shouldbe performed if active HAV infection is suspected. [facility] that will automatically reflex positive HAVtotal antibody results to IgM (e.g., panel #[id number] HAVAntibody w/ Rfx).Performed at: [facility] [place] [id number] Director: Lamont Veliz PhD, Phone: [phone] Hepatitis C virus antibody a ssayOrdered By: Yanick Terry on 04-05-2024 Hepatitis C Antibody Non-Reactive Nonreactive [facility] Comment on above: Previous reported re sult: Nonreactive Edited by: GREG on 04/10/24:0846 AMENDED REPORT 04/10/24 0846 HEPATITIS C AB previously reported as: Nonreactive Non Reactive: < 0.8 Equivocal: >/= 0.8 to < 1.0 Reactive: >/= 1.0The CDC requires that a reactive/equivocal HCV antibody result be sent out for confirmation. HCV Quant by PCR testing. Immature granulocytes/100 WB C Auto (Bld)Ordered By: Yanick Terry on 04-05-2024 Immature granulocytes/100 WBC (Bld) 0.500 % 0.0-0.9 [facility] Comment on above: IG% - Immature Granu locytes (promyelocytes, myelocytes and metamyelocytes) > 1% indicates that a LEFT SHIFT is Present. Lymphocytes Auto (Unsp spec) [#/Vol]Ordered By: Yanick Terry on 04-05-2024 Lymphocytes (Bld) [#/Vol] 1.31 10*3/uL 0.83-4.51 [facility] Lymphocytes/100 WBC Auto (Un sp spec)Ordered By: Yanick Terry on 04-05-2024 Lymphocytes/100 WBC (Bld) 21.2 % 19-41 [facility] MRSA screenOrdered By: Martinez mayo Harrison on 04-05-2024 Nasal Screen MRSA/MSSA [place] Magnesiumon 04-05-2024 Magnesium [Mass/Vol] 1.9 mg/dL Normal 1.6-2.6 [facility] Comment on above: Performed By: #### L 501.5200, L562.4150 ####[facility] [address] [place], [place], [id number] Magnesium measurementOrdered By: Leonides Herrera on 04-05-2024 Magnesium [Mass/Vol] 1.9 mg/dL 1.6-2.6 [facility] Monocyte percentageOrdered B y: Yanick Terry on 04-05-2024 Monocytes/100 WBC (Bld) 8.4 % 0-[address] [facility] Neutrophil percentageOrdered By: Yanick Terry on 04-05-2024 Neutrophils/100 WBC (Bld) 66.7 % 47-70 [facility] Nucleated red blood cell per centageOrdered By: Yanick Terry on 04-05-2024 Nucleated RBC/100 WBC (Bld) [Ratio] 0 % 0-5 [facility] TSH QnOrdered By: Leonides estrada on 04-05-2024 Thyroid Stimulating Hormone (TSH) 2.730 uIU/mL 0.358-3.740 [facility] Thyroid Stim Hormone (TSH)on 04-05-2024 TSH 2.730 uIU/mL Normal 0.358-3.740 [facility] Comment on above: Performed By: #### L 501.5200, L501.5020 ####[facility] [address] [place], [address] Type AND Screen - PAT ONLYon 04-05-2024 Ab SCREEN GEL Negative Normal [facility] Comment on above: Order Comment: Surge ry Date: 04/10/24Reason for Laboratory Test [id number] LUBAR FUSION L4-5 Performed By: #### L 3890.6200, L3890.6300, L3890.6005, L100.0100, BTSPAT, L500.2500, L3100.0300, M100.651 ####[facility] [id number] [place], [address] Orthopedic Visit Reporton Orthopedic Visit Report [facility] [address] [place] [address] [address] [place] [address] OFFICE VISIT Date of Service: 04/04/24 MR#: [id number] Acct: [id number] Name: AMANDO LLANOS Jr. Rep #: [id number] : 1965 Provider: Dr. Yanick Terry MD Age/Sex: 59/M Location: [facility] Status: Signed Intake Vital Signs 10/25/23 15:12 Height 5 ft 7 in Intake Visit Reasons: lumbar spine Accompanied by: Niece Allergies strawberry Allergy (Intermediate, Verified 04/04/24 15:24) Hives azithromycin Allergy (Unknown, Verified 04/04/24 15:24) Unknown erythromycin base Allergy (Verified 04/04/24 15:24) Unknown Penicillins Allergy (Verified 04/04/24 15:24) Hives Barbiturates Adverse Reaction (Verified 04/04/24 15:24) Other divalproex sodium (From Depakote) Adverse Reaction (Verified 04/04/24 15:24) Other Hydantoins Adverse Reaction (Verified 04/04/24 15:24) Other phenobarbital Adverse Reaction (Verified 04/04/24 15:24) Other phenytoin sodium (From Dilantin) Adverse Reaction (Verified 04/04/24 15:24) Other phenytoin sodium extended (From Dilantin) Adverse Reaction (Verified 04/04/24 15:24) Other Medications ???Medication ???Instructions ???Recorded ???Confirmed ???Type levothyroxine 50 mcg tablet 50 mcg PO DAILY thyroid 04/03/15 04/04/24 History metoprolol succinate 25 mg 25 mg PO QHS blood pressure 04/03/15 04/04/24 History tablet,extended release 24 hr simvastatin 40 mg tablet 40 mg PO QHS cholesterol lowering 04/03/15 04/04/24 History carbamazepine 200 mg tablet 300 mg PO QHS seizures 12/07/15 04/04/24 History cholecalciferol (vitamin D3) 125 125 mcg PO QDAY 04/04/24 04/04/24 History mcg (5,000 unit) capsule clopidogrel 75 mg tablet 75 mg PO QDAY 04/04/24 04/04/24 History cyclobenzaprine 5 mg tablet 5 mg PO QHS 04/04/24 04/04/24 History desmopressin 0.2 mg tablet 0.2 mg PO BID 04/04/24 04/04/24 History ferrous sulfate 325 mg (65 mg 325 mg PO QDAY 04/04/24 04/04/24 History iron) tablet (FeroSul) fesoterodine 8 mg tablet,extended 8 mg PO QDAY 04/04/24 04/04/24 History release 24 hr fluoxetine 10 mg capsule 10 mg PO QDAY 04/04/24 04/04/24 History mecobalamin (vitamin B12) 5,000 5,000 mcg PO QDAY 04/04/24 04/04/24 History mcg chewable tablet meloxicam 15 mg tablet 15 mg PO QDAY 04/04/24 04/04/24 History anflabou-qsr-kdojl acid 0.4 1 tab PO QDAY 04/04/24 04/04/24 History mg-lycopene 300 mcg-lutein 250 mcg tablet (Complete Multivitamin Adult 50 Plus) omeprazole 20 mg capsule,delayed 20 mg PO BID 04/04/24 04/04/24 History release [place] prebiotic plus PO QDAY 04/04/24 History probiotic sumatriptan succinate 100 mg tablet 100 mg PO ONCE 04/04/24 04/04/24 History PFSH Medical History Wears dentures Wears glasses Thyroid disease Arthritis Kidney stones High cholesterol Injury of head and neck Back pain Migraine headache Syncope Seizures Gastric reflux Former smoker CPAP (continuous positive airway pressure) dependence Sleep apnea Hoarseness History of edema History of stress test Cardiology follow-up encounter Vision problems History of migraine headaches UTI (urinary tract infection) History of back problems Edema of right foot Hypercholesteremia Arthritis BPH (benign prostatic hyperplasia) Obesity HLD (hyperlipidemia) GERD (gastroesophageal reflux disease) Epilepsy without mention Intractable Epilepsy, unspecified Surgical History History of cardiac catheterization History of bronchoscopy Hx of tooth extraction Hx of foot surgery Hx of cystoscopy Hx of cardiac cath Hx laparoscopic cholecystectomy Hx of total knee replacement History of partial knee replacement History of tracheostomy as a child Family History Father Hypertension Other Myocardial infarction Prostate cancer Social History current occupation: [employer] [place], [employer] Smoking Status: Former smoker alcohol intake: never substance use type: does not use HPI lumbar spine Details: This documentation accurately reflects the service provided and the decisions made by me, Dr. Yanick Terry MD 04/04/24 5452. Part of today???s visit was documented by Samira SEN, acting as scribe. AMANDO LLANOS is a 59 year old M here today for preop, lumbar spine, dos 04/10/24. 02/02/24: AMANDO LLANOS is a 58 year old M here today for a MRI Review. Patient states his pain is about the same as before the MRI. Patient has been doing his exercises that PT gave him and they have been helping him but he is still have muscle spams. He has numbness down the backs o (more content not included)... Normal [facility] PT D/C Summary (1)on 024 PT D/C Summary (1) [facility] [address] [place] [address] / REHABILITATION SERVICES DISCHARGE SUMMARY MR#: [id number] Acct: [id number] Name: AMANDO LLANOS Jr. Rep #: [id number] : 1965 58 From: Roderick Lorenzo PT, Cert. T, OCS Referring Dr.: Dr. Yanick Terry MD Status: REG R Insurance: [facility] [id number] SELF PAY INSURANCE Discharge Summary D/C summary: It has been my pleasure to treat AMANDO LLANOS Jr. referred by Dr. Yanick Terry MD, with the diagnosis of SPONDYLOLISTHESIS ,LUMBAR for a total of 9 visit(s). Discharge Date: Please see the following information for a summary of their discharge status. Subjective Subjective: Doing a little better but conts have pain with extended walking /standing Pain Bilateral Back: Pain Intensity (Out of 10): 8 Bilateral Lower Extremity: Pain Intensity (Out of 10): 8 Overall Improvement % Improvement: 50 Objective Objective/Function: POSTURE: mild forward posture PALAPTION: unremarkable NEURO: C/O paresthesia/tinglin g hamstrings ,reflexes L3-4,L4-5,L5-S1 1/3 GAIT: reciprocal pattern slow virgil slightly unsteady mild forward posture MMT: quads/hams 4/5 ,hip flexion 4-/5 ,hip abd 3+/5,ankle 4/5 LUMBAR FLEXION: mod loss pain ,extension mod loss pain ,side glides mod loss pain FLEXABLITY: hamstrings mod tight Goals Goal 1:: Patient to be I with HEP for back Goal 2:: Patient to demonstrate 40% improvement with less pain and improved function Goal 3:: Patient to normalize gait with less pain and leg pain. Goal 4:: Patient to improve lumbar ROM for function of recovery for ADLS and put on shoes Goal 5:: Patient to improve back oswestry score by 5 points to improve QOL and function Plan Plan: RTD POSSIBLE MRI D/C Information d/c sentence: If there are questions or concerns regarding this patient's physical therapy, please feel free to call me at [phone]. Thank you for the referral of this patient. Sincerely, Roderick Lorenzo, PT, Cert MDT, OCS Balance/Gait/Functi onal tests Balance/Special Test Scores Oswestry Low Back Score: 29 Improvement % Improvement: 50 02/27/24 1052 CC: Dr. Yanick Terry MD; Dr. Amita Humphreys DO JLNorma Signed Normal [facility] Orthopedic Visit Reporton Orthopedic Visit Report [facility] [address] [place] [address] [address] [place] [address] OFFICE VISIT Date of Service: 02/01/24 MR#: [id number] Acct: [id number] Name: AMANDO LLANOS Jr. Rep #: [id number] : 1965 Provider: Dr. Yanick Terry MD Age/Sex: 58/M Location: [facility] Status: Signed Intake Vital Signs 10/25/23 15:12 Height 5 ft 7 in Intake Visit Reasons: LUMBAR SPINE Accompanied by: Other Family Is patient in pain?: Yes Pain scale (1-10): 8 Allergies strawberry Allergy (Intermediate, Verified 02/01/24 14:57) Hives azithromycin Allergy (Unknown, Verified 02/01/24 14:57) Unknown erythromycin base Allergy (Verified 02/01/24 14:57) Unknown Penicillins Allergy (Verified 02/01/24 14:57) Hives Barbiturates Adverse Reaction (Verified 02/01/24 14:57) Other divalproex sodium (From Depakote) Adverse Reaction (Verified 02/01/24 14:57) Other Hydantoins Adverse Reaction (Verified 02/01/24 14:57) Other phenobarbital Adverse Reaction (Verified 02/01/24 14:57) Other phenytoin sodium (From Dilantin) Adverse Reaction (Verified 02/01/24 14:57) Other phenytoin sodium extended (From Dilantin) Adverse Reaction (Verified 02/01/24 14:57) Other Medications ???Medication ???Instructions ???Recorded ???Confirmed ???Type levothyroxine 50 mcg tablet 50 mcg PO DAILY thyroid 04/03/15 02/01/24 History metoprolol succinate 25 mg 25 mg PO QHS blood pressure 04/03/15 02/01/24 History tablet,extended release 24 hr simvastatin 40 mg tablet 40 mg PO QHS cholesterol lowering 04/03/15 02/01/24 History carbamazepine 200 mg tablet 300 mg PO QHS seizures 12/07/15 02/01/24 History PFSH Medical History Wears dentures Wears glasses Thyroid disease Arthritis Kidney stones High cholesterol Injury of head and neck Back pain Migraine headache Syncope Seizures Gastric reflux Former smoker CPAP (continuous positive airway pressure) dependence Sleep apnea Hoarseness History of edema History of stress test Cardiology follow-up encounter Vision problems History of migraine headaches UTI (urinary tract infection) History of back problems Edema of right foot Hypercholesteremia Arthritis BPH (benign prostatic hyperplasia) Obesity HLD (hyperlipidemia) GERD (gastroesophageal reflux disease) Epilepsy without mention Intractable Epilepsy, unspecified Surgical History History of cardiac catheterization History of bronchoscopy Hx of tooth extraction Hx of foot surgery Hx of cystoscopy Hx of cardiac cath Hx laparoscopic cholecystectomy Hx of total knee replacement History of partial knee replacement History of tracheostomy as a child Family History Father Hypertension Other Myocardial infarction Prostate cancer Social History current occupation: [employer] Smoking Status: Former smoker alcohol intake: never substance use type: does not use HPI LUMBAR SPINE Details: This documentation accurately reflects the service provided and the decisions made by me, Dr. Yanick Terry MD 02/01/24 1088. Part of today???s visit was documented by Kimber ALCANTARA and Linsey LAROSE, acting as scribe. AMANDO LLANOS is a 58 year old M here today for a MRI Review. Patient states his pain is about the same as before the MRI. Patient has been doing his exercises that PT gave him and they have been helping him but he is still have muscle spams. He has numbness down the backs of his legs. HPI from 10/25/23: AMANDO LLANOS is a 58 year old M here today NEW patient for low back pain and sciatica. He states that last year he saw his PCP about his low back pain and was referring him to an office for his back pain but he never went. The pain did seem to get better but now within the last 3-4 months it has gotten worse. He states that he does get radiating pain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 [Mass/Vol] 3.2 g/dL 2.2-4.[address] [facility] Work Phone: Urea nitrogen/Creatinine [Mass ratio] 15.0 mg/mg 10-20 [facility] Work Phone: No Panel Informationon 05-11 Carbamazepine (Tegretol) Level 6.7 ug/mL 4.0-12.0 [facility] Work Phone: Estimated GFR (MDRD) Amer 130 mL/min >60 [facility] Work Phone: Comment on above: GFR Calc Estimated GFR (MDRD) Non-Af Amer 107 mL/min >60 [facility] Work Phone: Comment on above: Non- GFR Calc Serum or plasma albumin mine urement (mass/volume)on 05-11-2021 Albumin [Mass/Vol] 3.6 g/dL 3.2-5.0 [facility] Work Phone: Serum or plasma albumin/glob ulin mass ratioon 05-11-2021 Albumin/Globulin [Mass ratio] 1.1 {ratio} 0.9-2.4 [facility] Work Phone: Serum or plasma calcium mine urement (mass/volume)on 05-11-2021 Calcium [Mass/Vol] 8.7 mg/dL 8.5-10.1 [facility] Work Phone: Serum or plasma cholesterol in HDL measurement (mass/volume)on 05-11-2021 Cholesterol in HDL [Mass/Vol] 49 mg/dL [facility] Work Phone: Comment on above: The drugs N-Acetylcy steine and Metamizole may falsely depress this assay. Reference Range HDL <40 mg/dL Low HDL Cholesterol HDL >or= 60 mg/dL High HDL Cholesterol Serum or plasma cholesterol in VLDL measurement (mass/volume)on 05-11-2021 Cholesterol in VLDL [Mass/Vol] 36 mg/dL 5-40 [facility] Work Phone: Serum or plasma creatinine m easurement (mass/volume)on 05-11-2021 Creatinine [Mass/Vol] 0.80 mg/dL 0.70-1.30 [facility] Work Phone: Comment on above: The validity of the calculated GFR & GFRAA in patients over 70 years has not been determined. Clinical correlation is essential. Serum or plasma low density lipoprotein (LDL) cholesterol measurement (mass/volume)on 05-11-2021 Cholesterol in LDL [Mass/Vol] 97 mg/dL 0-130 [facility] Work Phone: Serum or plasma urea nitroge n measurement (mass/volume)on 05-11-2021 Urea nitrogen [Mass/Vol] 12 mg/dL 7-18 [facility] Work Phone: Thin prep Papanicolaou smear with manual screeningon 05-11-2021 Thin prep Papanicolaou smear with manual screening 18 U/L 15-37 [facility] Work Phone: Thin prep Papanicolaou smear with manual screening 6 5-15 [facility] Work Phone: Office Visiton 12-14-2016 Documentation of current medications (procedure) Done Invalid Interpretation Code [facility] Work Phone: Tobacco use [facility] Former smoker Invalid Interpretation Code [facility] Work Phone: Office Visiton 06-13-2016 Documentation of current medications (procedure) Done Invalid Interpretation Code [facility] Work Phone: Tobacco use [facility] Former smoker Invalid Interpretation Code [facility] Work Phone: Lab Report: CBC-Complete Blo od Cnt No Diffon 12-16-2015 Erythrocytes (RBC) 3.88 10*6/uL Low 4.6-6.2 [facility] Work Phone: Hematocrit (HCT) 34.1 % Low 40-54 [facility] Work Phone: Hemoglobin (HGB) 11.6 g/dL Low 13.0-16.5 [facility] Work Phone: MCH 29.9 pg Invalid Interpretation Code 27.0-32.0 [facility] Work Phone: MCHC 34.0 G/GL Invalid Interpretation Code 32-36 [facility] Work Phone: MCV 87.9 fL Invalid Interpretation Code 80-94 [facility] Work Phone: Platelets 140 10*3/mm3 Low 150-450 [facility] Work Phone: PMV by Itzel 9.6 fL Invalid Interpretation Code 6.2-12.0 [facility] Work Phone: RDW SD 37.8 fL Invalid Interpretation Code 35.1-43.9 [facility] Work Phone: RDW-CA 12.1 % Invalid Interpretation Code 11.6-14.6 [facility] Work Phone: red blood cell distribution width, size density 37.8 fL Invalid Interpretation Code 35.1-43.9 [facility] Work Phone: WBC (Leukocytes) 7.0 10*3/uL Invalid Interpretation Code 4.4-11.0 [facility] Work Phone: Lab Report: Basic Metabolic Profile (BMP)on 12-15-2015 Anion gap 7 mmol/L Invalid Interpretation Code 5-15 [facility] Work Phone: BUN/Creatinine Ratio 13.3 RATIO Invalid Interpretation Code 10-20 [facility] Work Phone: Calcium 7.9 mg/dL Low 8.5-10.1 [facility] Work Phone: Chloride 104 mmol/L Invalid Interpretation Code 98-107 [facility] Work Phone: CO2 27.0 mmol/L Invalid Interpretation Code 21.0-32.0 [facility] Work Phone: Creatinine 0.83 mg/dL Invalid Interpretation Code 0.70-1.30 [facility] Work Phone: Creatinine 101.76 mL/min Invalid Interpretation Code [facility] Work Phone: eGFR (non-black) 127 mL/min/{1.73_m2} Invalid Interpretation Code >60 [facility] Work Phone: eGFR (non-black) 105 mL/min/{1.73_m2} Invalid Interpretation Code >60 [facility] Work Phone: Glucose 82 mg/dL Invalid Interpretation Code 70-110 [facility] Work Phone: Glucose mass conc 82 mg/dL Invalid Interpretation Code 70-110 [facility] Work Phone: Potassium 4.0 mmol/L Invalid Interpretation Code 3.5-5.1 [facility] Work Phone: Sodium 138 mmol/L Invalid Interpretation Code 136-145 [facility] Work Phone: Urea nitrogen 11 mg/dL Invalid Interpretation Code 7-18 [facility] Work Phone: Microbiology: MRSA/SAID SCRE ENon 10-28-2015 GE use only - for [employer] import when terms are not otherwise specified . Invalid Interpretation Code [facility] Work Phone: MRSA+SAID SCRN . Invalid Interpretation Code [facility] Work Phone: Lab Report: Thyroid Stim Hor bella (TSH)on 10-27-2015 Thyroid stimulating hormone (TSH) 2.00 u[iU]/mL Invalid Interpretation Code 0.358-3.74 [facility] Work Phone: Lab Report: Urinalysis, Rout ine (Dipstick)on 10-27-2015 Bilirubin Ql (U) Negative Invalid Interpretation Code Negative [facility] Work Phone: NITRITE UR Negative Invalid Interpretation Code Negative [facility] Work Phone: Nitrite Urine Negative Invalid Interpretation Code Negative [facility] Work Phone: Occult Blood, urine Negative Invalid Interpretation Code Negative [facility] Work Phone: OCCULT BLOOD-UR Negative Invalid Interpretation Code Negative [facility] Work Phone: specific gravity, urine 1.010 Invalid Interpretation Code 1.002-1.030 [facility] Work Phone: Urine, bilirubin presence Negative Invalid Interpretation Code Negative [facility] Work Phone: Urine, clarity Clear Invalid Interpretation Code Clear [facility] Work Phone: Urine, color Yellow Invalid Interpretation Code Yellow [facility] Work Phone: Urine, glucose presence Normal mg/dl Invalid Interpretation Code Normal [facility] Work Phone: Urine, ketones presence Negative Invalid Interpretation Code Negative [facility] Work Phone: Urine, leukocyte esterase presence Negative Invalid Interpretation Code Negative [facility] Work Phone: Urine, pH 7.0 [pH] Invalid Interpretation Code 5.0 - 8.0 [facility] Work Phone: Urine, protein 15 mg/dL High Negative [facility] Work Phone: UROBILI Normal mg/dl Invalid Interpretation Code Normal [facility] Work Phone: urobilinogen, urine, by dipstick Normal mg/dl Invalid Interpretation Code Normal [facility] Work Phone: Office Visiton 06-19-2015 Smoking cessation education (procedure) yes Invalid Interpretation Code [facility] Work Phone: Replaced Document: [place] WHEELER Observationson 11-28-2012 EKG QRS axis -5 deg Invalid Interpretation Code [facility] Work Phone: electrocardiogram interpretation Sinus Rhythm Voltage criteria for LVH (R(I)+S(III) exceeds 2.50 mV) -Voltage criteria w/o ST/T abnormality may be normal . BORDERLINE Invalid Interpretation Code [facility] Work Phone: Interpretation Sinus Rhythm Voltage criteria for LVH (R(I)+S(III) exceeds 2.50 mV) -Voltage criteria w/o ST/T abnormality may be normal . BORDERLINE Invalid Interpretation Code [facility] Work Phone: P Gates 46 deg Invalid Interpretation Code [facility] Work Phone: P wave axis, electrocardiogram 46 deg Invalid Interpretation Code [facility] Work Phone: MD Interval 160 ms Invalid Interpretation Code [facility] Work Phone: MD interval, electrocardiogram 160 ms Invalid Interpretation Code [facility] Work Phone: Pulse (Heart Rate) 64 /min Invalid Interpretation Code [facility] Work Phone: Pulse (Heart Rate) 366 ms Invalid Interpretation Code [facility] Work Phone: QRS axis, electrocardiogram -5 deg Invalid Interpretation Code [facility] Work Phone: QRS Duration 104 ms Invalid Interpretation Code [facility] Work Phone: QRS duration, electrocardiogram 104 ms Invalid Interpretation Code [facility] Work Phone: QT Interval new path ms Invalid Interpretation Code [facility] Work Phone: QT interval, electrocardiogram new path ms Invalid Interpretation Code [facility] Work Phone: T Gates 58 deg Invalid Interpretation Code [facility] Work Phone: T wave axis, electrocardiogram 58 deg Invalid Interpretation Code [facility] Work Phone: Lab Report: PTon 04-19-2011 INR Coag RelTime (PPP) 0.9 {INR} Normal [facility] [place] Work Phone: INR in blood by coagulation 0.9 {INR} Normal [facility] Work Phone: prothrombin time, actual/normal, ratio 12.2 SECONDS Normal 11.9-14.4 [facility] Work Phone: PTP 12.2 SECONDS Normal 11.9-14.4 [facility] Work Phone: Lab Report: PTTon 04-19-2011 aPTT 23 s Low 24.1-36.2 [facility] and Orthopaedics Work Phone: Clinical Lists Update: Prelo traveling repair accountant 04-14-2011 Cholesterol 195 mg/dL Invalid Interpretation Code [facility] Work Phone: HDL Cholesterol 51 mg/dL Invalid Interpretation Code [facility] Work Phone: LDL Cholesterol 105 mg/dL Invalid Interpretation Code [facility] Work Phone: Triglyceride 194 mg/dL High [facility] Work Phone: very low density lipoproteins 39 mg/dL Invalid Interpretation Code [facility] Work Phone: Clinical Lists Update: Prelo traveling repair accountant 02-10-2011 T3RU + T4 Total + Free Thyroxin Index 1.5 Invalid Interpretation Code [facility] Medicine and Orthopaedics Work Phone: Thyroxine (T4) 5.1 ug/dL Invalid Interpretation Code [facility] Medicine and Orthopaedics Work Phone: triiodothyronine (t3) uptake, serum 29 % Low [facility] Work Phone: Vital Signs Date Time Vital Sign Value Performing Clinician Facility 01-04-2025 20:46-0400 Body temperature 98 [degF] Dr. Amita Humphreys DO Work Phone: [facility] 01-04-2025 20:46-0400 Diastolic blood pressure 91 mm[Hg] Dr. Amita Humphreys DO Work Phone: [facility] 01-04-2025 20:46-0400 Heart rate 61 /min Dr. Amita Humphreys DO Work Phone: [facility] 01-04-2025 20:46-0400 Respiratory rate 16 /min Dr. Amtia Humphreys DO Work Phone: [facility] 01-04-2025 20:46-0400 SaO2% (BldA) [Mass fraction] 98 % Dr. Amita Humphreys DO Work Phone: [facility] 01-04-2025 20:46-0400 Systolic blood pressure 152 mm[Hg] Dr. Amita Humphreys DO Work Phone: [facility] 01-04-2025 18:06-0400 Body height 167.[address] Amita Humphreys DO Work Phone: [facility] 01-04-2025 18:06-0400 Body mass index (BMI) [Ratio] 29.7 kg/m2 Dr. Amita Humphreys DO Work Phone: [facility] 01-04-2025 18:06-0400 Body weight 83.[address] Amita Humphreys DO Work Phone: [facility] 12-02-2024 14:49-0400 Body height 167.[address] Amita Humphreys DO Work Phone: [facility] 10-24-2024 13:24-0400 Body height 170.2 cm Cheyenne Sister [place] SPORTS PHYSIOLOGIST-FIVE ROLL REFINER BATCH MIXER Work Phone: [facility] 10-24-2024 13:24-0400 Body mass index (BMI) [Ratio] 32.58 kg/m2 [place]enne [place] SPORTS PHYSIOLOGIST-FIVE ROLL REFINER BATCH MIXER Work Phone: [facility] 10-24-2024 13:24-0400 Body weight 94.35 kg Cheyenne [place] SPORTS PHYSIOLOGIST-FIVE ROLL REFINER BATCH MIXER Work Phone: [facility] 10-24-2024 13:24-0400 Diastolic blood pressure 76 mm[Hg] [place]enne [place] SPORTS PHYSIOLOGIST-FIVE ROLL REFINER BATCH MIXER Work Phone: [facility] 10-24-2024 13:24-0400 Heart rate 69 /min Che[place]enne [place] SPORTS PHYSIOLOGIST-FIVE ROLL REFINER BATCH MIXER Work Phone: [facility] 10-24-2024 13:24-0400 Systolic blood pressure 148 mm[Hg] [place]enne [place] SPORTS PHYSIOLOGIST-FIVE ROLL REFINER BATCH MIXER Work Phone: [facility] 10-02-2024 12:08-0400 Body temperature 97.8 [degF] Dr. Amita Humphreys DO Work Phone: [facility] 10-02-2024 12:08-0400 Diastolic blood pressure 60 mm[Hg] Dr. Amita Humphreys DO Work Phone: [facility] 10-02-2024 12:08-0400 Heart rate 58 /min Dr. Amita Humphreys DO Work Phone: [facility] 10-02-2024 12:08-0400 Respiratory rate 15 /min Dr. Amita Humphreys DO Work Phone: [facility] 10-02-2024 12:08-0400 SaO2% (BldA) [Mass fraction] 95 % Dr. Amita Humphreys DO Work Phone: [facility] 10-02-2024 12:08-0400 Systolic blood pressure 108 mm[Hg] Dr. Amita Humphreys DO Work Phone: [facility] 06-28-2024 16:04-0400 Body height 167.64 cm Zoraida Melo SENIOR INSTRUMENTATION ENGINEER-C Work Phone: [facility] 06-28-2024 16:04-0400 Body mass index (BMI) [Ratio] 31.9 kg/m2 Zoraida Melo SENIOR INSTRUMENTATION ENGINEER-C Work Phone: [facility] 06-28-2024 16:04-0400 Body temperature 98.9 [degF] Zoraida Melo SENIOR INSTRUMENTATION ENGINEER-C Work Phone: [facility] 06-28-2024 16:04-0400 Body weight 89.81 kg Zoraida Melo SENIOR INSTRUMENTATION ENGINEER-C Work Phone: [facility] 06-28-2024 16:04-0400 Diastolic blood pressure 84 mm[Hg] Zoraida Melo SENIOR INSTRUMENTATION ENGINEER-C Work Phone: [facility] 06-28-2024 16:04-0400 Heart rate 74 /min Zoraida Melo SENIOR INSTRUMENTATION ENGINEER-C Work Phone: [facility] 06-28-2024 16:04-0400 SaO2% (BldA) [Mass fraction] 98 % Zoraida Melo SENIOR INSTRUMENTATION ENGINEER-C Work Phone: [facility] 06-28-2024 16:04-0400 Systolic blood pressure 132 mm[Hg] Zoraida Melo SENIOR INSTRUMENTATION ENGINEER-C Work Phone: [facility] 04-11-2024 09:12-0500 Body temperature 97.8 [degF] Zoraida Melo SENIOR INSTRUMENTATION ENGINEER-C Work Phone: [facility] 04-11-2024 09:12-0500 Diastolic blood pressure 70 mm[Hg] Zoraida Alejo SENIOR INSTRUMENTATION ENGINEER-C Work Phone: [facility] 04-11-2024 09:12-0500 Heart rate 67 /min Zoraida Alejo SENIOR INSTRUMENTATION ENGINEER-C Work Phone: [facility] 04-11-2024 09:12-0500 Respiratory rate 18 /min Zoraida Alejo SENIOR INSTRUMENTATION ENGINEER-C Work Phone: [facility] 04-11-2024 09:12-0500 SaO2% (BldA) [Mass fraction] 98 % Zoraida Alejo SENIOR INSTRUMENTATION ENGINEER-C Work Phone: [facility] 04-11-2024 09:12-0500 Systolic blood pressure 111 mm[Hg] Zoraida Alejo SENIOR INSTRUMENTATION ENGINEER-C Work Phone: [facility] 04-11-2024 08:11-0500 Inhaled oxygen flow rate 2 L/min Zoraida Alejo SENIOR INSTRUMENTATION ENGINEER-C Work Phone: [facility] 04-10-2024 14:39-0500 Body mass index (BMI) [Ratio] 36.2 kg/m2 Zoraida Alejo SENIOR INSTRUMENTATION ENGINEER-C Work Phone: [facility] 04-10-2024 14:39-0500 Body weight 87 kg Zoraida Alejo SENIOR INSTRUMENTATION ENGINEER-C Work Phone: [facility] 08-10-2022 15:36-0400 Body mass index (BMI) [Ratio] 32.77 kg/m2 No PCP None WA-Dcdzkje-Tqfaarw Work Phone: 08-10-2022 15:36-0400 Body surface area Derived from formula 2.01 m2 No PCP None NL-Uhckvvp-Qqqffdx Work Phone: 08-10-2022 15:36-0400 Body weight 92.08 kg No PCP None YX-Xqcimby-Tshmn nd Work Phone: 08-10-2022 15:36-0400 Respiratory rate 18 /min No PCP None PK-Yeiwszl-Thff and Work Phone: 07-13-2022 15:35-0400 Body height 167.64 cm No PCP None PB-Qfmvmqt-Vojoq nd Work Phone: 07-13-2022 15:35-0400 Body mass index (BMI) [Ratio] 32.77 kg/m2 No PCP None LF-Daorllt-Nggswnb Work Phone: 07-13-2022 15:35-0400 Body surface area Derived from formula 2.01 m2 No PCP None AU-Zdycfac-Dkdjdox Work Phone: 07-13-2022 15:35-0400 Body weight 92.08 kg No PCP None MA-Cudngjj-Muhdr nd Work Phone: 07-13-2022 15:35-0400 Diastolic blood pressure 83 mm[Hg] No PCP None HS-Egnjbpd-Jwpnyhn Work Phone: 07-13-2022 15:35-0400 Heart rate 65 /min No PCP None AK-Fqaogrd-Snqxp nd Work Phone: 07-13-2022 15:35-0400 Systolic blood pressure 170 mm[Hg] No PCP None OM-Kmpjsho-Cpljbeh Work Phone: 09-02-2021 10:00-0400 Body temperature 98.1 [degF] [facility] Work Phone: 09-02-2021 10:00-0400 Diastolic blood pressure 90 mm[Hg] [facility] Work Phone: 09-02-2021 10:00-0400 Heart rate 65 /min [facility] Work Phone: 09-02-2021 10:00-0400 Respiratory rate 16 /min [facility] Work Phone: 09-02-2021 10:00-0400 SaO2% (BldA) [Mass fraction] 95 % [facility] Work Phone: 09-02-2021 10:00-0400 Systolic blood pressure 150 mm[Hg] [facility] Work Phone: 09-02-2021 00:06-0400 Inhaled oxygen flow rate 2 L/min [facility] Work Phone: 09-01-2021 16:24-0400 Body height 170.18 cm [facility] Work Phone: 09-01-2021 16:24-0400 Body mass index (BMI) [Ratio] 31.7 kg/m2 [facility] Work Phone: 09-01-2021 16:24-0400 Body weight 92 kg [facility] Work Phone: 01-19-2015 14:29-0400 Weight 92.72 kg [facility] Work Phone: 02-14-2013 13:23-0500 BMI (Body Mass Index) 30.68 kg/m2 [facility] Work Phone: 02-14-2013 13:23-0500 Body Temperature 98.5 [degF] [facility] Work Phone: 02-14-2013 13:23-0500 BP Diastolic 74 mm[Hg] [facility] Work Phone: 02-14-2013 13:23-0500 BP Systolic 135 mm[Hg] [facility] Medicine and Orthopaedics Work Phone: 02-14-2013 13:23-0500 BSA (Body Surface Area) 2 m2 [facility] Work Phone: 02-14-2013 13:23-0500 Pulse (Heart Rate) 81 /min [facility] Orthopaedics Work Phone: 02-14-2013 13:23-0500 Respiratory Rate 16 /min [facility] Work Phone: 04-15-2011 15:12-0500 BP Diastolic 70 mm[Hg] Jennifer MCNULTY [facility] er [facility] Medicine and Orthopaedics Work Phone: 04-15-2011 15:12-0500 BP Systolic 124 mm[Hg] Jennifer LITTLE [facility] Medicine and Orthopaedics Work Phone: 04-15-2011 15:12-0500 Height 170.18 cm Jennifer MCNULTY [facility] er [facility] Medicine and Orthopaedics Work Phone: Encounters Encounter Date Encounter Type Care Provider Facility Start: 01-16-2025 ambulatory Chiqui Tipton Facility:[facility] Start: 01-04-2025 End: 01-04-2025 Emergency department patient visit Jose Staton Facility:[facility] Start: 12-03-2024 End: 12-03-[address] Teodoro Schaffer MD -[facility] Start: 12-03-2024 End: 12-03-[address] Amita Humphreys DO Work Phone: -[facility] Start: 10-24-2024 End: 10-24-[address] Amita Humphreys DO Work Phone: -[facility] Start: 10-24-2024 End: 10-24-[address] Amita Humphreys DO Work Phone: -[facility] [place] Work Phone: Start: 10-24-2024 End: 10-24-2024 ambulatory [facility] Start: 10-24-2024 End: 10-24-2024 Office outpatient visit 15 minutes [facility] SPORTS PHYSIOLOGIST-FIVE ROLL REFINER BATCH MIXER Work Phone: [facility] Comment on above: Nocturia (Primary Dx ); Renal stones; Benign prostatic hyperplasia with urinary frequency; Urge incontinence of urine Start: 10-24-2024 End: 10-24-2024 ambulatory JIMENEZ BOLTON Facility:[facility] Start: 10-02-2024 End: 10-02-2024 Patient encounter procedure Art Blakely [facility] -[facility] Work Phone: Start: 10-02-2024 End: 10-02-[address] Amita Humphreys DO Work Phone: -[facility] Start: 09-26-2024 ambulatory Amita Humphreys Facility:[facility] Start: 09-25-2024 End: 09-25-[address] Amita Humphreys DO Work Phone: -[facility] [place] Start: 09-25-2024 End: 09-25-[address] Amita Humphreys DO -[facility] [place] Work Phone: Start: 09-25-2024 End: 09-25-2024 ambulatory Amita Humphreys Facility:[facility] Start: 08-20-2024 End: 08-20-2024 ambulatory ROLA BASSETT DO Facility:[facility] Start: 08-20-2024 End: 08-20-2024 Patient encounter procedure ROLA BASSETT DO [facility] Start: 08-16-2024 End: 09-20-[address] AMITA HUMPHREYS DO Facility:[facility] Start: 08-16-2024 End: 09-20-2024 Physical therapy management ROLA BASSETT DO [facility] Start: 08-06-2024 End: 08-06-[address] AMITA HUMPHREYS DO Facility:[facility] Start: 08-06-2024 End: 08-06-2024 Patient encounter procedure ROLA BASSETT DO [facility] Start: 07-11-2024 End: 07-11-2024 ambulatory Zoraida Alejo SENIOR INSTRUMENTATION ENGINEERFidelC Work Phone: [facility] Work Phone: Start: 07-11-2024 End: 07-11-[address] Yanick Terry MD -Physical Therapy Work Phone: Start: 07-08-2024 End: 07-08-2024 Patient encounter procedure Linsey LAROSE -[facility] Work Phone: Start: 07-08-2024 End: 07-08-2024 ambulatory Linsey Hale Facility:[facility] Start: 06-28-2024 End: 06-28-2024 Patient encounter procedure Christiano LAROSE -[facility] Work Phone: Start: 06-28-2024 End: 06-28-2024 ambulatory Christiano LAROSE Facility:[facility] Start: 06-18-2024 End: 06-18-2024 Patient encounter procedure Linda FRASER -[facility] Work Phone: Start: 06-18-2024 End: 06-18-2024 ambulatory Linda Heredia Facility:[facility] Start: 05-27-2024 End: 05-27-[address] Yanick Terry MD -[facility] Work Phone: Start: 05-27-2024 End: 05-27-2024 ambulatory Yanick Terry Facility:[facility] Start: 05-07-2024 Encounter for other preprocedural examination [facility] Start: 04-23-2024 End: 04-23-[address] Yanick Terry MD -[facility] Work Phone: Start: 04-23-2024 End: 04-23-2024 ambulatory [facility] Facility:[facility] Start: 04-11-2024 Non-patient / Non-visit Linsey LAROSE -[facility] Start: 04-11-2024 Non-patient / Non-visit Dr. Ainsley Horvath MD -[facility] Work Phone: Start: 04-10-2024 ambulatory [facility] Start: 04-10-2024 End: 04-11-2024 Evaluation and management of inpatient Dr. Jose Alfredo Horvath MD -Medical Surgical 3 Work Phone: Start: 04-10-2024 Non-patient / Non-visit Dr. Yanick aguilera MD -[facility] Start: 04-10-2024 ambulatory [facility] Start: 04-09-2024 End: 04-09-2024 ambulatory [facility] Facility:[facility] Start: 04-09-2024 End: 04-09-2024 Non-patient / Non-visit Dr. Teodoro Schaffer MD -[facility] Work Phone: Start: 04-04-2024 End: 04-04-[address] 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 - [employer] Start: 09-04-2023 Telephone encounter Sofie Christianson MD Work Phone: [facility] Comment on above: 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 - [employer] Start: 08-31-2023 Telephone encounter Eran Hung RN [facility] Comment on above: 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 - [employer] Start: 08-09-2023 [facility] on above: Triage ([employer]) Start: 06-23-2023 End: 06-24-2023 ambulatory ROLA Morrison LOU DO Facility:B Start: 06-23-2023 End: 06-23-2023 Patient encounter procedure ROLA S LOU DO [facility] Start: 05-17-2023 End: 05-17-2023 ambulatory [facility] Work Phone: Start: 05-17-2023 End: 05-17-2023 Discharged Recurring [facility]-Physical Therapy Work Phone: Start: 01-20-2023 End: 01-20-2023 ambulatory [facility] Work Phone: Start: 01-20-2023 End: 01-20-2023 Patient encounter procedure [facility], [place] Work Phone: Start: 01-12-2023 End: 01-13-[address] AMITA HUMPHREYS DO Facility:B Start: 01-12-2023 End: 01-12-2023 Patient encounter procedure MARIUSZ LAROSE [facility] Start: 01-12-2023 End: 01-13-2023 ambulatory MARIUSZ LAROSE Facility:A Start: 01-12-2023 End: 01-12-2023 Patient encounter procedure MARIUSZ LAROSE [facility] Start: 08-17-2022 TIFF, Provider : Orquidea Javier II, Status: Pen, Time: 8:30 AM No PCP None OA-Rudgvuc-Yaocsvt Work Phone: Start: 08-16-2022 AUDIT No PCP None [facility] Work Phone: Start: 07-14-2022 End: 07-14-2022 ambulatory [facility] Work Phone: Start: 07-14-2022 End: 07-14-2022 Patient encounter procedure [facility]-Laboratory Start: 07-13-2022 Office outpatient ne w 45 minutes No PCP None PT-Qzinqdj-Cxeloyx Work Phone: Start: 07-13-2022 ambulatory MD ORQUIDEA Leal cility:[id number] Start: 03-29-2022 Letter encounter Lev bales MD Work Phone: [facility] Start: 12-21-2021 Letter encounter Lev bales MD Work Phone: [facility] Start: 10-26-2021 End: 10-26-2021 Patient encounter procedure [facility]-Laboratory Start: 09-01-2021 End: 09-02-2021 Evaluation and management of inpatient [facility]-Medical Surgical 3 Start: 08-30-2021 Telephone encounter Lev bowman MD Work Phone: [facility] Otolaryngology (ENT) Comment on above: Surgical clearance Start: 05-11-2021 End: 05-11-2021 Patient encounter procedure [facility], [place] Procedures Date Procedure Procedure Detail Performing Clinician Start: 01-04-2025 Urnls dip stick/tabl et reagent auto microscopy Dr. Amita Humphreys DO Work Phone: Start: 01-04-2025 Radiologic exam ches t [address] Amita Humphreys DO Work Phone: Start: 01-04-[address] Amita Humphreys DO Work Phone: Start: 01-04-2025 CT of head without contrast Dr. Amita Humphreys DO Work Phone: Start: 01-04-2025 SARS-CoV-2, Influenz a & RSV (PCR) Dr. Amita Humphreys DO Work Phone: Start: 12-03-2024 Radex spine lumbosac ral 2/[address] Amita Humphreys DO Work Phone: Start: 10-24-2024 Assay of prostate sp ecific antigen total Dr. Amita Humphreys DO Work Phone: Comment on above: This test was perfor med using the [employer] tPSA method. Measured values of a patient sample can vary depending on the testing procedure used. PSA values determined on patient samples by different testing procedures cannot be used interchangeably. If there is a change in PSA assays while monitoring therapy, sequential testing should be performed to confirm baseline values. Start: 10-24-2024 Prostate specific an tigen measurement Dr. Amita Humphreys DO Work Phone: Comment on above: This test was perfor med using the [employer] tPSA method. Measured values of a patient sample can vary depending on the testing procedure used. PSA values determined on patient samples by different testing procedures cannot be used interchangeably. If there is a change in PSA assays while monitoring therapy, sequential testing should be performed to confirm baseline values. Start: 10-24-2024 End: 10-24-2024 Urnls dip stick/tablet rgnt auto w/o microscopy Cheyenne Magana SPORTS PHYSIOLOGIST-FIVE ROLL REFINER BATCH MIXER Work Phone: Start: 09-25-2024 X-ray of knee, four or more views Dr. Amita Humphreys DO Work Phone: Start: 07-08-2024 X-ray of lumbar spin e, two or three views Zoraida Melo SENIOR INSTRUMENTATION ENGINEER-C Work Phone: Start: 06-18-2024 X-ray of lumbar spin e, two or three views Zoraida Melo SENIOR INSTRUMENTATION ENGINEER-C Work Phone: Start: 05-27-2024 X-ray of lumbar spin e, two or three views Zoraida Melo SENIOR INSTRUMENTATION ENGINEER-C Work Phone: Start: 04-23-2024 X-ray of lumbar spin e, two or three views Zoraida Melo SENIOR INSTRUMENTATION ENGINEER-C Work Phone: Start: 04-11-2024 X-ray of lumbar spin e, two or three views Zoraida Melo SENIOR INSTRUMENTATION ENGINEER-C Work Phone: Start: 04-10-2024 Lumbar spinal fusion Ra haroon Melo SENIOR INSTRUMENTATION ENGINEER-C Work Phone: Start: 04-10-2024 Fluoroscopic guidance R achel Melo SENIOR INSTRUMENTATION ENGINEER-C Work Phone: Start: 04-10-2024 X-ray of lumbar spin e, two or three views Zoraida Melo SENIOR INSTRUMENTATION ENGINEER-C Work Phone: Start: 04-05-2024 Methicillin resistan t Staphylococcus aureus screening test Zoraida Melo SENIOR INSTRUMENTATION ENGINEER-C Work Phone: Start: 01-20-2023 X-ray of lumbosacral spine Start: 09-01-2021 Cysto,TUR,Prostate,O lympus (Not Applicable) Start: 06-25-2018 Sternotomy MARIUSZ JANENE LAROSE Start: 06-25-2018 Surgical closure of tracheostomy with plastic repair MARIUSZ LAROSE Start: 03-27-2018 Incision of trachea VEGA LAROSE Start: 10-21-2015 End: 10-20-2016 Physical Therapy General Amando Tamiko Aguirre Work Phone: Start: 10-21-2015 End: 10-20-2016 Physical Therapy General Amando Tamiko Aguirre Work Phone: Start: 10-07-2015 End: 10-28-2015 Radiologic exam knee complete 4/more views Amando Aguirre Work Phone: Start: 10-07-2015 End: 10-28-2015 X-ray exam, knee, 4 or more Amando Tamiko Dustin knigsley Work Phone: Start: 04-22-2015 End: 04-22-2016 Physical Therapy General Amando Tamiko Aguirre Work Phone: Start: 04-22-2015 End: 04-22-2016 Physical Therapy General Amando Tamiko Aguirre Work Phone: Start: 03-18-2015 End: 04-01-2015 Arthrocentesis aspir&/inj major jt/bursa w/o us Amando Tamiko Aguirre Work Phone: Start: 03-18-2015 End: 04-01-2015 Drain/inject, joint/bursa Amando Tamiko Aguirre Work Phone: Start: 03-02-2015 End: 10-28-2015 Mri any jt lower extrem w/o contrast matrl Amando Tamiko Timothy Work Phone: Start: 03-02-2015 End: 10-28-2015 Mri jnt of lwr extre w/o dye Amando velasquez Work Phone: Start: 01-19-2015 End: 01-27-2015 Arthrocentesis aspir&/inj major jt/bursa w/o us Amando Aguirre Work Phone: Start: 01-19-2015 End: 10-28-2015 Radiologic exam knee complete 4/more views Amando Aguirre Work Phone: Start: 01-19-2015 End: 01-27-2015 Drain/inject, joint/bursa Amando Aguirre Work Phone: Start: 01-19-2015 End: 10-28-2015 X-ray exam, knee, 4 or more Amando Chan dd Work Phone: Start: 11-30-2012 Laps abd prtm&omentu m dx w/wo spec br/wa spx Batsheva Gorman Work Phone: Start: 11-30-2012 Diag laparo separate proc Batsheva Gorman Work Phone: Start: 11-28-2012 End: 11-28-2012 Ecg routine ecg w/least 12 lds w/i&r John Flores MD Start: 11-28-2012 End: 11-28-2012 Follow Up Appt Other John Flores MD Start: 11-28-2012 End: 11-28-2012 PFM John Flores MD Start: 11-28-2012 End: 11-28-2012 Electrocardiogram, complete John olsen MD Start: 11-28-2012 End: 11-28-2012 Follow Up Appt Other John Flores MD Start: 11-28-2012 End: 11-28-2012 PFM John Flores MD Start: 04-26-2011 End: 04-26-2011 Nurse Teaching (no charge) Corinna Silver RN Start: 04-26-2011 End: 04-26-2011 Nurse Teaching (no charge) oCrinna Silver RN Start: 04-15-2011 End: 11-28-2012 aPTT in Platelet poor plasma by Coagulation assay John Flores MD Start: 04-15-2011 End: 11-28-2012 Chest x-ray John Flores MD Start: 04-15-2011 End: 11-28-2012 Echocardiography John Flores MD Start: 04-15-2011 End: 04-15-2011 Follow Up Appt 6 weeks John Flores MD Start: 04-15-2011 End: 11-28-2012 INR in Platelet poor plasma by Coagulation assay John Flores MD Start: 04-15-2011 End: 04-22-2011 Left Heart Cath John Flores MD Start: 04-15-2011 End: 11-28-2012 aPTT John Flores MD Start: 04-15-2011 End: 11-28-2012 Chest x-ray John Flores MD Start: 04-15-2011 End: 11-28-2012 Coagulation factor induced.INR assay in platelet poor plasma John Flores MD Start: 04-15-2011 End: 11-28-2012 Echocardiography John Flores MD Start: 04-15-2011 End: 04-15-2011 Follow Up Appt 6 weeks John Flores MD Start: 04-15-2011 End: 04-22-2011 Left Heart Cath John Flores MD Start: 03-27-1977 Craniotomy MARIUSZ VERMA PA Start: 03-27-1977 Incision of trachea VEGA LAROSE Cholecystectomy MARIUSZ LAROSE Colonoscopy MARIUSZ Rodriguez A Correction ariane LAROSE Comment on above: Right Leg repair No PCP None Prosthetic unicompar tmental arthroplasty of right knee MARIUSZ LAROSE Plan of Treatment Date Care Activity Detail Author Start: 01-04-2025 [facility] [facility] Start: 01-04-2025 [facility] Start: 12-03-2024 X-ray of lumbar spine, two or three views Lumbar Spine 2 or 3 Views [facility] Start: 12-03-2024 XR Lumbar spine 2 or 3 Views [facility] Start: 11-25-2024 Influenza vaccination Influenza Vaccine (#1) [facility] Start: 11-21-2024 End: 11-21-2024 Patient encounter procedure 11/21/2024 1:00 PM EDT Office Visit [facility] [address] [place] [id number] Cheyenne Magana, SPORTS PHYSIOLOGIST-FIVE ROLL REFINER BATCH MIXER [address] [place] [address] [facility] Start: 10-24-2024 End: 10-24-2025 Prostate specific Ag [Mass/volume] in Serum or Plasma PSA Lab Routine Nocturia Expected: 10/24/2024 (Approximate), Expires: 10/24/2025 [facility] Service Area Work Phone: Comment on above: Expected: 10/24/2024 (Approximate), Expi res: 10/24/2025 Start: 04-11-2024 Patient discharge [facility] Start: 04-11-2024 Catheterization of vein [facility] Start: 04-10-2024 Application of intermittent pneumatic compression device [facility] Start: 04-10-2024 Following clinical pathway protocol [facility] Start: 04-10-2024 Application of device [facility] Start: 04-10-2024 Consultation [facility] Start: 04-10-2024 Referral to occupational therapist [facility] Start: 04-10-2024 Assessment of risk of venous thromboembolism [facility] Start: 04-10-2024 Following clinical pathway protocol [facility] Start: 04-10-2024 Incentive spirometry [facility] Start: 04-10-2024 Introduction of urinary catheter [facility] Start: 04-10-2024 Measuring intake and output [facility] Start: 04-10-2024 Neurovascular assessment [facility] Start: 04-10-2024 Oxygen therapy [facility] Start: 04-10-2024 Patient education [facility] Start: 04-10-2024 Provision of activity privileges [facility] Start: 04-10-2024 Taking patient vital signs [facility] Start: 04-10-2024 End: 04-10-2024 [facility] Start: 04-10-2024 Admission procedure [facility] Start: 04-10-2024 Referral to service [facility] Start: 04-10-2024 Patient referral to dietitian [facility] Start: 11-26-2023 Influenza vaccination Influenza Vaccine (Season Ended) [facility] Start: 09-06-2023 End: 09-06-2023 ambulatory 09/06/2023 2:30 PM EDT [facility] [address] [id number] Sofie Tam MD [address] [phone] Referring: Rola Bassett DO Endocrinology Comment on above: Referring: Rola Bassett DO Start: 09-06-2023 End: 09-06-2023 Patient encounter procedure 09/06/2023 1:00 PM EDT Office Visit [facility] [place] [address] [id number] Bryon Herrera MD [address] [phone] Time Frame: Next available [facility] [place] Comment on above: Time Frame: Next available Start: 03-27-2023 Behavioral Health Screening Behavioral Health Screening [facility] Start: 11-25-2022 Covid-19 Vaccine ( season) Covid-19 Vaccine ( season) [facility] Start: 11-25-2022 COVID-19 Vaccine () COVID-19 Vaccine () [facility] Start: 08-10-2022 FUV, Provider: Orquidea Javier II, Status: Pen, Time: 3:30 PM FUV, Provider: Orquidea Javier II, Status: Pen, Time: 3:30 PM [id number] Work Phone: Start: 05-11-2022 Yearly Adult Physical Yearly Adult Physical [facility] Start: 2022 Prostate specific antigen measurement Prostate Cancer Screening Discussion [facility] Start: 12-25-2021 Influenza vaccination Influenza Vaccine (#1) [facility] Start: 09-02-2021 Patient discharge [facility] Work Phone: Start: 09-01-2021 Following clinical pathway protocol [facility] Work Phone: Start: 09-01-2021 Anesthesia transurethral resection of prostate ANESTH REMOVAL OF PROSTATE [facility] Work Phone: Start: 09-01-2021 Trurl electrosurg rescj prostate bleed complete PROSTATECTOMY (TURP) [facility] Work Phone: Start: 09-01-2021 Admission procedure [facility] Work Phone: Start: 06-14-2021 Diabetes Screening Diabetes Screening [facility] Start: 06-11-2021 COVID-19 Vaccine (3 - Booster for Flakita series) COVID-19 Vaccine (3 - Booster for Flakita series) [facility] Start: 04-08-2021 COVID-19 Vaccine (3 - Booster for Flakita series) COVID-19 Vaccine (3 - Booster for Flakita series) [facility] Start: 06-09-2019 Thyroid stimulating hormone measurement TSH [facility] Start: 2017 Measurement of occult blood in single stool specimen FIT [facility] Start: 2017 Pneumococcal vaccination Pneumococcal Vaccine (1 of 1 - PCV) [facility] Start: 2017 Prostate specific antigen measurement PSA Prostate Cancer Screening [facility] Start: 12-24-2017 Screening for malignant neoplasm of colon CRC Screening [facility] Start: 2017 Shingles (RZV) Vaccine (1 of 2) Shingles (RZV) Vaccine (1 of 2) [facility] Start: 2017 Shingrix Vaccine (1 of 2) Shingrix Vaccine (1 of 2) [facility] Start: 12-14-2016 End: 12-14-2016 Appointment Appointment [facility] Work Phone: Start: 12-14-2016 End: 12-14-2016 Radiologic exam knee complete 4/more views X-Ray, Knee [facility] Work Phone: Start: 12-14-2016 End: 12-14-2016 X-ray exam, knee, 4 or more X-Ray, Knee [facility] Work Phone: Start: 06-13-2016 End: 06-13-2016 Radiologic exam knee complete 4/more views X-Ray, Knee [facility] Work Phone: Start: 06-13-2016 End: 06-13-2016 X-ray exam, knee, 4 or more X-Ray, Knee [facility] Work Phone: Start: 03-16-2016 End: 03-16-2016 Physical Therapy General Physical Therapy [facility], [address] [place] [address], [id number] [facility] Work Phone: Start: 03-16-2016 End: 03-16-2016 Physical Therapy General Physical Therapy [facility], [address] [place] [address], [phone] [facility] Work Phone: Start: 01-27-2016 End: 01-27-2016 Radiologic exam knee complete 4/more views X-Ray, Knee [facility] Work Phone: Start: 01-27-2016 End: 01-27-2016 X-ray exam, knee, 4 or more X-Ray, Knee [facility] Work Phone: Start: 10-21-2015 End: 10-28-2015 Physical Therapy General Physical Therapy [facility], [address] [place] [address], [phone] [facility] Work Phone: Start: 10-21-2015 End: 10-28-2015 Physical Therapy General Physical Therapy [facility], [address] [place] [address], [phone] [facility] Work Phone: Start: 10-07-2015 End: 10-28-2015 Radiologic exam knee complete 4/more views X-Ray, Knee [facility] Work Phone: Start: 10-07-2015 End: 10-28-2015 X-ray exam, knee, 4 or more X-Ray, Knee [facility] Work Phone: Start: 04-22-2015 End: 04-22-2015 Physical Therapy General Physical Therapy [facility], [address] [place] [address], [phone] [facility] Work Phone: Start: 04-22-2015 End: 04-22-2015 Physical Therapy General Physical Therapy [facility], [address] [place] [address], [phone] [facility] Work Phone: Start: 03-02-2015 End: 10-28-2015 Mri any jt lower extrem w/o contrast matrl MRI Joint Lower Extremity [facility] Work Phone: Start: 03-02-2015 End: 10-28-2015 Mri jnt of lwr extre w/o dye MRI Joint Lower Extremity [facility] Work Phone: Start: 01-19-2015 End: 10-28-2015 Radiologic exam knee complete 4/more views X-Ray, Knee [facility] Work Phone: Start: 01-19-2015 End: 10-28-2015 X-ray exam, knee, 4 or more X-Ray, Knee [facility] Work Phone: Start: 11-28-2012 End: 11-28-2012 Ecg routine ecg w/least 12 lds w/i&r EKG (In office) [facility] Work Phone: Start: 11-28-2012 End: 11-28-2012 Follow Up Appt Other Follow Up Appt Other [facility] Work Phone: Start: 11-28-2012 End: 11-28-2012 PFM PFM [facility] Work Phone: Start: 11-28-2012 End: 11-28-2012 Electrocardiogram, complete EKG (In office) [facility] Work Phone: Start: 11-28-2012 End: 11-28-2012 Follow Up Appt Other Follow Up Appt Other [facility] Work Phone: Start: 11-28-2012 End: 11-28-2012 PFM PFM [facility] Work Phone: Start: 2012 Screening for malignant neoplasm of colon [facility] Start: 04-15-2011 End: 11-28-2012 aPTT *PTT-Partial Thromboplastin Time [facility] Work Phone: Start: 04-15-2011 End: 11-28-2012 Chest x-ray X-Ray, Chest, PA & Lateral [facility] Work Phone: Start: 04-15-2011 End: 04-15-2011 Echocardiography Echocardiogram (complete) [facility] Work Phone: Start: 04-15-2011 End: 04-15-2011 Follow Up Appt 6 weeks Follow Up Appt 6 weeks [facility] Medical [facility] Work Phone: Start: 04-15-2011 End: 11-28-2012 INR Coag RelTime (PPP) *[facility] Work Phone: Start: 04-15-2011 End: 04-15-2011 Left Heart Cath Left Heart Cath [facility] Work Phone: Start: 04-15-2011 End: 11-28-2012 aPTT *PTT-Partial Thromboplastin Time [facility] Work Phone: Start: 04-15-2011 End: 11-28-2012 Chest x-ray X-Ray, Chest, PA & Lateral [facility] Work Phone: Start: 04-15-2011 End: 11-28-2012 Coagulation factor induced.INR assay in platelet poor plasma *PT/INR [facility] Work Phone: Start: 04-15-2011 End: 04-15-2011 Echocardiography Echocardiogram (complete) [facility] Work Phone: Start: 04-15-2011 End: 04-15-2011 Follow Up Appt 6 weeks Follow Up Appt 6 weeks [facility] Medical [facility] Work Phone: Start: 04-15-2011 End: 04-15-2011 Left Heart Cath Left Heart Cath [facility] Work Phone: Start: 2002 Lipid panel [facility] Start: 1989 DTaP/Tdap/Td Vaccines (1 - Tdap) DTaP/Tdap/Td Vaccines (1 - Tdap) [facility] Start: 1986 Hepatitis A (HAV) Vaccine (optional start 19+ years) Hepatitis A (HAV) Vaccine (optional start 19+ years) [facility] Start: 1986 Hepatitis B vaccination Hepatitis B (HBV) Vaccine (1 of 3 - 19+ 3-dose series) [facility] Start: 1986 Hepatitis B Vaccine (1 of 3 - 19+ 3-dose series) Hepatitis B Vaccine (1 of 3 - 19+ 3-dose series) [facility] Start: 1986 Hepatitis B Vaccines (1 of 3 - 19+ 3-dose series) Hepatitis B Vaccines (1 of 3 - 19+ 3-dose series) [facility] Start: 1986 Urine microalbumin profile DTaP,Tdap,Td Vaccine (1 - Tdap) [facility] Start: 1985 Diabetes mellitus screening Diabetes Screening [facility] Start: 1985 Hepatitis C screening [facility] Start: 1985 HIV screening HIV Screening [facility] Start: 1985 Tetanus + diphtheria + acellular pertussis vaccine (product) Tdap Booster [facility] Start: 1982 HIV screening HIV Test [facility] Start: 1968 MMR Vaccines (1 of 1 - Standard series) MMR Vaccines (1 of 1 - Standard series) [facility] Start: 1967 HIV screening HIV Screening [facility] Start: 1967 Lipid panel Lipid Panel [facility] Start: 1967 Screening for malignant neoplasm of colon [facility] Patient Education [facility] Work Phone: Patient referral [facility] Work Phone: Immunizations Immunization Date Immunization Notes Care Provider [facility] 01-06-2024 influenza virus vaccine, unspecified formulation Cheyenne Magana SPORTS PHYSIOLOGIST-[employer]ER [employer] MIXER Work Phone: [facility] Work Phone: 06-15-2020 [facility] SARS-COV-2 (COVID-19) vaccine, vector non-replicating, recombinant spike protein-Ad26, preservative free, 0.5 mL ([id number]) Lev Polo MD Work Phone: [facility] 01-10-2020 Influenza, injectable, Madin Stephanie Canine Kidney, preservative free, quadrivalent Lev Polo MD Work Phone: [facility] 01-10-2020 influenza virus vaccine, unspecified formulation Lev Polo MD Work Phone: [facility] 01-16-2017 Influenza virus vaccine [facility] 01-16-2017 influenza, seasonal, injectable, preservative free Lev Polo MD Work Phone: [facility] 01-19-2015 Influenza virus vaccine [facility] 01-19-2015 influenza, seasonal, injectable, preservative free Lev Polo MD Work Phone: [facility] 02-04-2009 novel ryuhofjva-[id number], preservative-free, injectable Lev Polo MD Work Phone: [facility] Payers Date Payer Category Payer Managed Care (Private) [employer] [facility] [employer] [id number] 2024 Unknown [id number] 2024 Self-pay [id number] 2023 Unknown [id number] 2023 Private Health Insurance [id number] 2023 Unknown [id number] 2016 Private Health Insurance [id number] 2010 Private Health Insurance [id number] 1967 Unknown [id number] 2.16.840.1.057140.3.579 .2.356 1967 Unknown [id number] 2.16.840.1.371016.3.579 .2.627 1967 Unknown [id number] 2.16.840.1.620363.3.579 .2.627 1967 Unknown [id number] 2.16.840.1.005501.3.579 .2.627 1967 Unknown [id number] 2.16.840.1.967031.3.579 .2.627 1967 Unknown [id number] 2.16840.1.166303.3.579 .2.627 1967 Unknown [id number] 2.16840.1.261874.3.579 .2.627 1967 Unknown [id number] 2.16.840.1.894729.3.579 .2.1244 Unknown [id number] Unknown [id number] 2.16840.1.707649.3.579 .2.462 Unknown [id number] 2.16.840.1.243679.3.579 .2.462 Unknown [id number] 2.16.840.1.839866.3.579 .2.462 Unknown [id number] 2.16.840.1.642984.3.579 .2.462 Unknown [id number] 2.16.840.1.445540.3.579 .2.462 Unknown [id number] 2.16.840.1.791033.3.579 .2.462 Unknown [id number] 2.16.840.1.112432.3.579 .2.462 Unknown [id number] 2.16.840.1.982981.3.579 .2.462 Unknown [id number] 2.16.840.1.373742.3.579 .2.462 Unknown [id number] 2.16.840.1.156815.3.579 .2.462 Unknown [id number] 2.16.840.1.051459.3.579 .2.462 Unknown [id number] 2.16.840.1.238925.3.579 .2.462 Unknown [id number] 2.16.840.1.519734.3.579 .2.462 Unknown [id number] 2.16.840.1.480484.3.579 .2.462 Unknown [id number] 2.16.840.1.613566.3.579 .2.462 Unknown [id number] 2.16.840.1.368840.3.579 .2.462 Unknown [id number] 2.16840.1.797488.3.579 .2.462 Unknown [id number] 2.16.840.1.953951.3.579 .2.462 Unknown [id number] 2.16.840.1.780171.3.579 .2.462 Unknown [id number] 2.16840.1.915759.3.579 .2.462 Unknown [id number] 2.16.840.1.868855.3.579 .2.462 Unknown [id number] 2.16.840.1.741327.3.579 .2.462 Unknown [id number] 2.16.840.1.165442.3.579 .2.462 Unknown [id number] 2.16.840.1.750182.3.579 .2.462 Unknown [id number] 2.16.840.1.731553.3.579 .2.462 Unknown [id number] 2.16.840.1.932719.3.579 .2.462 Social History Date Type Detail Facility Start: 04-13-2018 End: 01-04-2025 Tobacco smoking status NHIS Ex-smoker [facility] End: 03-27-1979 History of tobacco use Current smoker [facility] End: 03-27-1979 History of tobacco use Cigarette Smoker [facility] Start: 06-10-2015 End: 04-13-2018 Tobacco use and exposure Smokeless tobacco non-user [facility] Start: 09-03-2018 Alcohol intake Current non-drinker of alcohol (finding) [facility] Start: 03-08-2018 Tobacco Comment occasional smoker, quit in the [facility] Start: 1965 Sex Assigned At Not on file [facility] Start: 08-30-2021 Tobacco smoking status [facility] Unknown if ever smoked [facility] Start: 10-06-2020 None [facility] Start: 11-16-2018 Spouse/ Significant Other [facility] Start: 1965 Sex Assigned At Male [facility] Start: 03-03-2020 End: 10-24-2024 Former smoker Former smoker [id number] Work Phone: Start: 06-10-2015 Alcohol intake Not Asked [facility] Start: 03-03-2020 End: 10-24-2024 Area Deprivation Index [facility] Start: 06-15-2022 National Score (1-100), lower number is lower risk Not on file [facility] Start: 02-18-2019 End: 07-12-2024 Sex Male (finding) [facility] Sexual Orientation Tracey H nguyễn [facility] Start: 10-24-2024 Alcoholic beverage intake Ex-drinker (finding) [facility] Work Phone: Medical Equipment Procedure Code Equipment Code Equipment Origin al Text Equipment Identifier Dates Total replacement of knee joint ASYMMETRIC PATELLA FDA Start: 10-17-2018 Total replacement of knee joint CEMENTED STEM FDA Start: 10-17-2018 Total replacement of knee joint CR FEMORAL FDA Start: 10-17-2018 Total replacement of knee joint DOUGH,CEMENT 6191-1-010 FDA Start: 10-17-2018 Total replacement of knee joint DOUGH,CEMENT 6191-1-010 FDA Start: 10-17-2018 Total replacement of knee joint TIBIAL BEARING INSERT-CS FDA Start: 10-17-2018 Total replacement of knee joint UNIV TIBIAL BASEPLATE FDA Start: 10-17-2018 Total replacement of knee joint ASYMMETRIC PATELLA FDA Start: 10-17-2018 Total replacement of knee joint CEMENTED STEM FDA Start: 10-17-2018 Total replacement of knee joint CR FEMORAL FDA Start: 10-17-2018 Total replacement of knee joint DOUGH,CEMENT 6191-1-010 FDA Start: 10-17-2018 Total replacement of knee joint DOUGH,CEMENT 6191-1-010 FDA Start: 10-17-2018 Total replacement of knee joint TIBIAL BEARING INSERT-CS FDA Start: 10-17-2018 Total replacement of knee joint UNIV TIBIAL BASEPLATE FDA Start: 10-17-2018 Total replacement of knee joint ASYMMETRIC PATELLA FDA Start: 10-17-2018 Total replacement of knee joint CEMENTED STEM FDA Start: 10-17-2018 Total replacement of knee joint CR FEMORAL FDA Start: 10-17-2018 Total replacement of knee joint DOUGH,CEMENT 6191-1-010 FDA Start: 10-17-2018 Total replacement of knee joint DOUGH,CEMENT 6191-1-010 FDA Start: 10-17-2018 Total replacement of knee joint TIBIAL BEARING INSERT-CS FDA Start: 10-17-2018 Total replacement of knee joint UNIV TIBIAL BASEPLATE FDA Start: 10-17-2018 Total replacement of knee joint ASYMMETRIC PATELLA FDA Start: 10-17-2018 Total replacement of knee joint CEMENTED STEM FDA Start: 10-17-2018 Total replacement of knee joint CR FEMORAL FDA Start: 10-17-2018 Total replacement of knee joint DOUGH,CEMENT 6191-1-010 FDA Start: 10-17-2018 Total replacement of knee joint DOUGH,CEMENT 6191-1-010 FDA Start: 10-17-2018 Total replacement of knee joint TIBIAL BEARING INSERT-CS FDA Start: 10-17-2018 Total replacement of knee joint UNIV TIBIAL BASEPLATE FDA Start: 10-17-2018 Total replacement of knee joint ASYMMETRIC PATELLA FDA Start: 10-17-2018 Total replacement of knee joint CEMENTED STEM FDA Start: 10-17-2018 Total replacement of knee joint CR FEMORAL FDA Start: 10-17-2018 Total replacement of knee joint DOUGH,CEMENT 6191-1-010 FDA Start: 10-17-2018 Total replacement of knee joint DOUGH,CEMENT 6191-1-010 FDA Start: 10-17-2018 Total replacement of knee joint TIBIAL BEARING INSERT-CS FDA Start: 10-17-2018 Total replacement of knee joint UNIV TIBIAL BASEPLATE FDA Start: 10-17-2018 Total replacement of knee joint ASYMMETRIC PATELLA FDA Start: 10-17-2018 Total replacement of knee joint CEMENTED STEM FDA Start: 10-17-2018 Total replacement of knee joint CR FEMORAL FDA Start: 10-17-2018 Total replacement of knee joint DOUGH,CEMENT 6191-1-010 FDA Start: 10-17-2018 Total replacement of knee joint DOUGH,CEMENT 6191-1-010 FDA Start: 10-17-2018 Total replacement of knee joint TIBIAL BEARING INSERT-CS FDA Start: 10-17-2018 Total replacement of knee joint UNIV TIBIAL BASEPLATE FDA Start: 10-17-2018 Total replacement of knee joint ASYMMETRIC PATELLA FDA Start: 10-17-2018 Total replacement of knee joint CEMENTED STEM FDA Start: 10-17-2018 Total replacement of knee joint CR FEMORAL FDA Start: 10-17-2018 Total replacement of knee joint DOUGH,CEMENT 6191-1-010 FDA Start: 10-17-2018 Total replacement of knee joint DOUGH,CEMENT 6191-1-010 FDA Start: 10-17-2018 Total replacement of knee joint TIBIAL BEARING INSERT-CS FDA Start: 10-17-2018 Total replacement of knee joint UNIV TIBIAL BASEPLATE FDA Start: 10-17-2018 Total replacement of knee joint ASYMMETRIC PATELLA FDA Start: 10-17-2018 Total replacement of knee joint CEMENTED STEM FDA Start: 10-17-2018 Total replacement of knee joint CR FEMORAL FDA Start: 10-17-2018 Total replacement of knee joint DOUGH,CEMENT 6191-1-010 FDA Start: 10-17-2018 Total replacement of knee joint DOUGH,CEMENT 6191-1-010 FDA Start: 10-17-2018 Total replacement of knee joint TIBIAL BEARING INSERT-CS FDA Start: 10-17-2018 Total replacement of knee joint UNIV TIBIAL BASEPLATE FDA Start: 10-17-2018 Total replacement of knee joint ASYMMETRIC PATELLA FDA Start: 10-17-2018 Total replacement of knee joint CEMENTED STEM FDA Start: 10-17-2018 Total replacement of knee joint CR FEMORAL FDA Start: 10-17-2018 Total replacement of knee joint DOUGH,CEMENT 6191-1-010 FDA Start: 10-17-2018 Total replacement of knee joint DOUGH,CEMENT 6191-1-010 FDA Start: 10-17-2018 Total replacement of knee joint TIBIAL BEARING INSERT-CS FDA Start: 10-17-2018 Total replacement of knee joint UNIV TIBIAL BASEPLATE FDA Start: 10-17-2018 Total replacement of knee joint ASYMMETRIC PATELLA FDA Start: 10-17-2018 Total replacement of knee joint CEMENTED STEM FDA Start: 10-17-2018 Total replacement of knee joint CR FEMORAL FDA Start: 10-17-2018 Total replacement of knee joint DOUGH,CEMENT 6191-1-010 FDA Start: 10-17-2018 Total replacement of knee joint DOUGH,CEMENT 6191-1-010 FDA Start: 10-17-2018 Total replacement of knee joint TIBIAL BEARING INSERT-CS FDA Start: 10-17-2018 Total replacement of knee joint UNIV TIBIAL BASEPLATE FDA Start: 10-17-2018 Total replacement of knee joint ASYMMETRIC PATELLA FDA Start: 10-17-2018 Total replacement of knee joint CEMENTED STEM FDA Start: 10-17-2018 Total replacement of knee joint CR FEMORAL FDA Start: 10-17-2018 Total replacement of knee joint DOUGH,CEMENT 6191-1-010 FDA Start: 10-17-2018 Total replacement of knee joint DOUGH,CEMENT 6191-1-010 FDA Start: 10-17-2018 Total replacement of knee joint TIBIAL BEARING INSERT-CS FDA Start: 10-17-2018 Total replacement of knee joint UNIV TIBIAL BASEPLATE FDA Start: 10-17-2018 Total replacement of knee joint ASYMMETRIC PATELLA FDA Start: 10-17-2018 Total replacement of knee joint CEMENTED STEM FDA Start: 10-17-2018 Total replacement of knee joint CR FEMORAL FDA Start: 10-17-2018 Total replacement of knee joint DOUGH,CEMENT 6191-1-010 FDA Start: 10-17-2018 Total replacement of knee joint DOUGH,CEMENT 6191-1-010 FDA Start: 10-17-2018 Total replacement of knee joint TIBIAL BEARING INSERT-CS FDA Start: 10-17-2018 Total replacement of knee joint UNIV TIBIAL BASEPLATE FDA Start: 10-17-2018 Fusion, spine, lumbar, 360 degree, starting in supine position transitioning to prone BONE,30CC CRUSH CANC FDA Start: 04-10-2024 Fusion, spine, lumbar, 360 degree, starting in supine position transitioning to prone [employer] UP Screws FDA Start: 04-10-2024 Fusion, spine, lumbar, 360 degree, starting in supine position transitioning to prone [employer] UP Screws FDA Start: 04-10-2024 Fusion, spine, lumbar, 360 degree, starting in supine position transitioning to prone [employer] UP Screws FDA Start: 04-10-2024 Fusion, spine, lumbar, 360 degree, starting in supine position transitioning to prone [employer] UP Screws FDA Start: 04-10-2024 Fusion, spine, lumbar, 360 degree, starting in supine position transitioning to prone [employer] Washer FDA Start: 04-10-2024 Fusion, spine, lumbar, 360 degree, starting in supine position transitioning to prone Gelatin haemostatic agent ()[id number] 20 FDA Start: 04-10-2024 Fusion, spine, lumbar, 360 degree, starting in supine position transitioning to prone BONE,CRUSHED CANCELLOUS 15CC FDA Start: 04-10-2024 Fusion, spine, lumbar, 360 degree, starting in supine position transitioning to prone [employer] Bowtie Screw FDA Start: 04-10-2024 Fusion, spine, lumbar, 360 degree, starting in supine position transitioning to prone [employer] [place] Cage FDA Start: 04-10-2024 Fusion, spine, lumbar, 360 degree, starting in supine position transitioning to prone [employer] MIS Roberto FDA Start: 04-10-2024 Fusion, spine, lumbar, 360 degree, starting in supine position transitioning to prone [employer] Set Screws FDA Start: 04-10-2024 Fusion, spine, lumbar, 360 degree, starting in supine position transitioning to prone [employer] Set Screws FDA Start: 04-10-2024 Fusion, spine, lumbar, 360 degree, starting in supine position transitioning to prone [employer] Set Screws FDA Start: 04-10-2024 Fusion, spine, lumbar, 360 degree, starting in supine position transitioning to prone [employer] Set Screws FDA Start: 04-10-2024 Fusion, spine, lumbar, 360 degree, starting in supine position transitioning to prone BONE,30CC CRUSH CANC FDA Start: 04-10-2024 Fusion, spine, lumbar, 360 degree, starting in supine position transitioning to prone [employer] UP Screws FDA Start: 04-10-2024 Fusion, spine, lumbar, 360 degree, starting in supine position transitioning to prone [employer] UP Screws FDA Start: 04-10-2024 Fusion, spine, lumbar, 360 degree, starting in supine position transitioning to prone [employer] UP Screws FDA Start: 04-10-2024 Fusion, spine, lumbar, 360 degree, starting in supine position transitioning to prone [employer] UP Screws FDA Start: 04-10-2024 Fusion, spine, lumbar, 360 degree, starting in supine position transitioning to prone [employer] Washer FDA Start: 04-10-2024 Fusion, spine, lumbar, 360 degree, starting in supine position transitioning to prone BONE,CRUSHED CANCELLOUS 15CC FDA Start: 04-10-2024 Fusion, spine, lumbar, 360 degree, starting in supine position transitioning to prone [employer] Bowtie Screw FDA Start: 04-10-2024 Fusion, spine, lumbar, 360 degree, starting in supine position transitioning to prone [employer] [place] Cage FDA Start: 04-10-2024 Fusion, spine, lumbar, 360 degree, starting in supine position transitioning to prone [employer] MIS Roberto FDA Start: 04-10-2024 Fusion, spine, lumbar, 360 degree, starting in supine position transitioning to prone [employer] Set Screws FDA Start: 04-10-2024 Fusion, spine, lumbar, 360 degree, starting in supine position transitioning to prone [employer] Set Screws FDA Start: 04-10-2024 Fusion, spine, lumbar, 360 degree, starting in supine position transitioning to prone [employer] Set Screws FDA Start: 04-10-2024 Fusion, spine, lumbar, 360 degree, starting in supine position transitioning to prone [employer] Set Screws FDA Start: 04-10-2024 Fusion, spine, lumbar, 360 degree, starting in supine position transitioning to prone BONE,30CC CRUSH CANC FDA Start: 04-10-2024 Fusion, spine, lumbar, 360 degree, starting in supine position transitioning to prone [employer] UP Screws FDA Start: 04-10-2024 Fusion, spine, lumbar, 360 degree, starting in supine position transitioning to prone [employer] UP Screws FDA Start: 04-10-2024 Fusion, spine, lumbar, 360 degree, starting in supine position transitioning to prone [employer] UP Screws FDA Start: 04-10-2024 Fusion, spine, lumbar, 360 degree, starting in supine position transitioning to prone [employer] UP Screws FDA Start: 04-10-2024 Fusion, spine, lumbar, 360 degree, starting in supine position transitioning to prone [employer] Washer FDA Start: 04-10-2024 Fusion, spine, lumbar, 360 degree, starting in supine position transitioning to prone BONE,CRUSHED CANCELLOUS 15CC FDA Start: 04-10-2024 Fusion, spine, lumbar, 360 degree, starting in supine position transitioning to prone [employer] Bowtie Screw FDA Start: 04-10-2024 Fusion, spine, lumbar, 360 degree, starting in supine position transitioning to prone [employer] [place] Cage FDA Start: 04-10-2024 Fusion, spine, lumbar, 360 degree, starting in supine position transitioning to prone [employer] MIS Roberto FDA Start: 04-10-2024 Fusion, spine, lumbar, 360 degree, starting in supine position transitioning to prone [employer] Set Screws FDA Start: 04-10-2024 Fusion, spine, lumbar, 360 degree, starting in supine position transitioning to prone [employer] Set Screws FDA Start: 04-10-2024 Fusion, spine, lumbar, 360 degree, starting in supine position transitioning to prone [employer] Set Screws FDA Start: 04-10-2024 Fusion, spine, lumbar, 360 degree, starting in supine position transitioning to prone [employer] Set Screws FDA Start: 04-10-2024 Fusion, spine, lumbar, 360 degree, starting in supine position transitioning to prone BONE,30CC CRUSH CANC FDA Start: 04-10-2024 Fusion, spine, lumbar, 360 degree, starting in supine position transitioning to prone [employer] UP Screws FDA Start: 04-10-2024 Fusion, spine, lumbar, 360 degree, starting in supine position transitioning to prone [employer] UP Screws FDA Start: 04-10-2024 Fusion, spine, lumbar, 360 degree, starting in supine position transitioning to prone [employer] UP Screws FDA Start: 04-10-2024 Fusion, spine, lumbar, 360 degree, starting in supine position transitioning to prone [employer] UP Screws FDA Start: 04-10-2024 Fusion, spine, lumbar, 360 degree, starting in supine position transitioning to prone [employer] Washer FDA Start: 04-10-2024 Fusion, spine, lumbar, 360 degree, starting in supine position transitioning to prone BONE,CRUSHED CANCELLOUS 15CC FDA Start: 04-10-2024 Fusion, spine, lumbar, 360 degree, starting in supine position transitioning to prone [employer] Bowtie Screw FDA Start: 04-10-2024 Fusion, spine, lumbar, 360 degree, starting in supine position transitioning to prone [employer] [place] Cage FDA Start: 04-10-2024 Fusion, spine, lumbar, 360 degree, starting in supine position transitioning to prone [employer] MIS Roberto FDA Start: 04-10-2024 Fusion, spine, lumbar, 360 degree, starting in supine position transitioning to prone [employer] Set Screws FDA Start: 04-10-2024 Fusion, spine, lumbar, 360 degree, starting in supine position transitioning to prone [employer] Set Screws FDA Start: 04-10-2024 Fusion, spine, lumbar, 360 degree, starting in supine position transitioning to prone [employer] Set Screws FDA Start: 04-10-2024 Fusion, spine, lumbar, 360 degree, starting in supine position transitioning to prone [employer] Set Screws FDA Start: 04-10-2024 Fusion, spine, lumbar, 360 degree, starting in supine position transitioning to prone BONE,30CC CRUSH CANC FDA Start: 04-10-2024 Fusion, spine, lumbar, 360 degree, starting in supine position transitioning to prone [employer] UP Screws FDA Start: 04-10-2024 Fusion, spine, lumbar, 360 degree, starting in supine position transitioning to prone [employer] UP Screws FDA Start: 04-10-2024 Fusion, spine, lumbar, 360 degree, starting in supine position transitioning to prone [employer] UP Screws FDA Start: 04-10-2024 Fusion, spine, lumbar, 360 degree, starting in supine position transitioning to prone [employer] UP Screws FDA Start: 04-10-2024 Fusion, spine, lumbar, 360 degree, starting in supine position transitioning to prone [employer] Washer FDA Start: 04-10-2024 Fusion, spine, lumbar, 360 degree, starting in supine position transitioning to prone BONE,CRUSHED CANCELLOUS 15CC FDA Start: 04-10-2024 Fusion, spine, lumbar, 360 degree, starting in supine position transitioning to prone [employer] Bowtie Screw FDA Start: 04-10-2024 Fusion, spine, lumbar, 360 degree, starting in supine position transitioning to prone [employer] [place] Cage FDA Start: 04-10-2024 Fusion, spine, lumbar, 360 degree, starting in supine position transitioning to prone [employer] MIS Roberto FDA Start: 04-10-2024 Fusion, spine, lumbar, 360 degree, starting in supine position transitioning to prone [employer] Set Screws FDA Start: 04-10-2024 Fusion, spine, lumbar, 360 degree, starting in supine position transitioning to prone [employer] Set Screws FDA Start: 04-10-2024 Fusion, spine, lumbar, 360 degree, starting in supine position transitioning to prone [employer] Set Screws FDA Start: 04-10-2024 Fusion, spine, lumbar, 360 degree, starting in supine position transitioning to prone [employer] Set Screws FDA Start: 04-10-2024 Fusion, spine, lumbar, 360 degree, starting in supine position transitioning to prone BONE,30CC CRUSH CANC FDA Start: 04-10-2024 Fusion, spine, lumbar, 360 degree, starting in supine position transitioning to prone [employer] UP Screws FDA Start: 04-10-2024 Fusion, spine, lumbar, 360 degree, starting in supine position transitioning to prone [employer] UP Screws FDA Start: 04-10-2024 Fusion, spine, lumbar, 360 degree, starting in supine position transitioning to prone [employer] UP Screws FDA Start: 04-10-2024 Fusion, spine, lumbar, 360 degree, starting in supine position transitioning to prone [employer] UP Screws FDA Start: 04-10-2024 Fusion, spine, lumbar, 360 degree, starting in supine position transitioning to prone [employer] Washer FDA Start: 04-10-2024 Fusion, spine, lumbar, 360 degree, starting in supine position transitioning to prone BONE,CRUSHED CANCELLOUS 15CC FDA Start: 04-10-2024 Fusion, spine, lumbar, 360 degree, starting in supine position transitioning to prone [employer] Bowtie Screw FDA Start: 04-10-2024 Fusion, spine, lumbar, 360 degree, starting in supine position transitioning to prone [employer] [place] Cage FDA Start: 04-10-2024 Fusion, spine, lumbar, 360 degree, starting in supine position transitioning to prone [employer] MIS Roberto FDA Start: 04-10-2024 Fusion, spine, lumbar, 360 degree, starting in supine position transitioning to prone [employer] Set Screws FDA Start: 04-10-2024 Fusion, spine, lumbar, 360 degree, starting in supine position transitioning to prone [employer] Set Screws FDA Start: 04-10-2024 Fusion, spine, lumbar, 360 degree, starting in supine position transitioning to prone [employer] Set Screws FDA Start: 04-10-2024 Fusion, spine, lumbar, 360 degree, starting in supine position transitioning to prone [employer] Set Screws FDA Start: 04-10-2024 Fusion, spine, lumbar, 360 degree, starting in supine position transitioning to prone BONE,30CC CRUSH CANC FDA Start: 04-10-2024 Fusion, spine, lumbar, 360 degree, starting in supine position transitioning to prone [employer] UP Screws FDA Start: 04-10-2024 Fusion, spine, lumbar, 360 degree, starting in supine position transitioning to prone [employer] UP Screws FDA Start: 04-10-2024 Fusion, spine, lumbar, 360 degree, starting in supine position transitioning to prone [employer] UP Screws FDA Start: 04-10-2024 Fusion, spine, lumbar, 360 degree, starting in supine position transitioning to prone [employer] UP Screws FDA Start: 04-10-2024 Fusion, spine, lumbar, 360 degree, starting in supine position transitioning to prone [employer] Washer FDA Start: 04-10-2024 Fusion, spine, lumbar, 360 degree, starting in supine position transitioning to prone BONE,CRUSHED CANCELLOUS 15CC FDA Start: 04-10-2024 Fusion, spine, lumbar, 360 degree, starting in supine position transitioning to prone [employer] Bowtie Screw FDA Start: 04-10-2024 Fusion, spine, lumbar, 360 degree, starting in supine position transitioning to prone [employer] [place] Cage FDA Start: 04-10-2024 Fusion, spine, lumbar, 360 degree, starting in supine position transitioning to prone [employer] MIS Roberto FDA Start: 04-10-2024 Fusion, spine, lumbar, 360 degree, starting in supine position transitioning to prone [employer] Set Screws FDA Start: 04-10-2024 Fusion, spine, lumbar, 360 degree, starting in supine position transitioning to prone [employer] Set Screws FDA Start: 04-10-2024 Fusion, spine, lumbar, 360 degree, starting in supine position transitioning to prone [employer] Set Screws FDA Start: 04-10-2024 Fusion, spine, lumbar, 360 degree, starting in supine position transitioning to prone [employer] Set Screws FDA Start: 04-10-2024 shiley trach tub e cuffed FDA Start: 11-13-2017 shiley trach tub e cuffed FDA Start: 11-13-2017 shiley trach tub e cuffed FDA Start: 11-13-2017 shiley trach tub e cuffed FDA Start: 11-13-2017 shiley trach tub e cuffed FDA Start: 11-13-2017 shiley trach tub e cuffed FDA Start: 11-13-2017 shiley trach tub e cuffed FDA Start: 11-13-2017 shiley trach tub e cuffed FDA Start: 11-13-2017 shiley trach tub e cuffed FDA Start: 11-13-2017 shiley trach tub e cuffed FDA Start: 11-13-2017 shiley trach tub e cuffed FDA Start: 11-13-2017 shiley trach tub e cuffed FDA Start: 11-13-2017 Goals Date Patient Goal Desired Activity /State Functional Status Date Assessment Result Facility 10-24-2024 Patient Health Questionnaire 2 item (PHQ-2) [Reported] [facility] Work Phone: 04-11-2024 Functional status Ambulates [facility] Work Phone: 09-02-2021 Functional status Ambulates;Up a d cyndi;Chair [facility] Work Phone: Mental Status Date Assessment Result Facility 01-04-2025 Cognitive function Level Of Consciousness Awake [facility] Work Phone: 04-11-2024 Cognitive function Voice/Name [facility] Work Phone: 09-02-2021 Cognitive function Voice/Name [facility] Work Phone: Clinical Notes 08-30-2021 to 01-04-2025 Note Date & Type Note Facility 01-04-2025 Discharge summary [facility] 01-04-2025 Radiology Diagnostic study note [facility] Imaging Services [address] [place], [place] [address] Brain/Head without Contrast MR#: [id number] Acct: [id number] Name: AMANDO LLANOS Jr. Rep #: [id number] : 1965 M 59 From: Curtis Novoa MD PCP: Dr. Amita Humphreys DO Status: REG ER Study:Brain/Head without Contrast Date of Exa m: 01/04/25 Exam# [id number] Ordering Dr: Jose Staton DO PROCEDURE: BRAIN/HEAD WITHOUT CONTRAST 01/04/2025 REASON FOR EXAM: DIZZINESS TECHNIQUE: Procedure Code: CTBR Modality: CT Procedure: BRAIN/HEAD WITHOUT CONTRAST Coronal and Sagittal reconstruction series were provided. One or more dose reduction techniques were used (e.g., Automated exposure control, adjustment of the mA and/or kV according to patient size, use of iterative reconstruction technique. COMPARISON: None available. FINDINGS: There is no extra-axial or intra-axial intracranial hemorrhage. No mass effect or midline shift is seen. Generalized intracranial volume loss and findings compatible with chronic microvascular white matter ischemia. There is normal cruz-white matter differentiation. The posterior fossa is grossly unremarkable. The skull is unremarkable. Visualized paranasal sinuses are clear. The mastoid air cells show normal translucency. CT/Brain/Head without Contrast IMPRESSION: 1. No intracranial hemorrhage. No mass effect or midline shift. 2. Chronic involutional and ischemic gliotic white matter changes. Reading Location: [facility] CC: Dr. Jose Staton DO; Dr. Amita Humphreys DO ~ Publicity Director: Signed [facility] 01-04-2025 Radiology Diagnostic study note [facility] Imaging Services [address] [place] [address] Chest PA and Lateral MR#: [id number] Acct: [id number] Name: AMANDO LLANOS Jr. Rep #: [id number] : 1965 M 59 From: Curtis Novoa MD PCP: Dr. Amita Humphreys DO Status: REG ER Study:Chest PA and Lateral Date of Exam: 01/04/25 Exam# [id number] Ordering Dr: Jsoe Staton DO PROCEDURE: CHEST PA AND LATERAL 01/04/2025 REASON FOR EXAM: WEAKNESS TECHNIQUE: Procedure Code: RADCXR Modality: DX Procedure: CHEST PA AND LATERAL COMPARISON: None available. FINDINGS: Hardware: Sternotomy wires are present. Heart: The heart size is normal. Mediastinum: The mediastinal contour is unremarkable. Lungs: The lungs are clear. Bones: The bones are unremarkable. RAD/Chest PA and Lateral IMPRESSION: NO ACUTE FINDINGS. Reading Location: [facility] CC: Dr. Jose Staton DO; Dr. Amita Humphreys DO ~ Publicity Director: Signed [facility] 01-04-2025 Discharge summary Note Date/Time January 04, 2025 9:12pm [facility] Medical Records Department [address] [place] [address] Emergency Department Summary 01/04/25 MR#: [id number] Acct: [id number] Name: AMANDO LLANOS JrSami Rep #:[id number] : 1965 59 From: Jose Ross PCP: Dr. Amita Humphreys DO Status:DEP ER Location: ED HPI History of Present Illness Chief Complaint: General Illness Informant: patient Onset/Context/Timing Onset: Weeks (1-2) Context: Gradual Onset Timing: Intermittent Quality: Lightheaded Location: Generalized Worsened by: Nothing Relieved by: Nothing Narrative Narrative: Patient presents with lightheadedness and weakness that began 1 to 2 weeks ago. Patient states it became worse today. Patient states it is gradually gotten worse. Patient states nothing makes it worse and nothing makes it better. Patient states he was recently changed his carbamazepine to 400 mg twice daily. Patient states that he had been taking 300 mg in the morning, 200 mg in the afternoon, and 300 mg in the evening. Patient states this was changed because he was forgetting his afternoon dose. Patient denies any chest pain or shortness of breath. Patient denies any nausea or vomiting. Patient denies anyparesthesias or weakness. Patient denies any visual changes. [facility] Medical History Abdominal pain Subglottic stenosis TBI (traumatic brain injury) Ambulates with cane Bladder disease Low iron COPD (chronic obstructive pulmonary disease) Shortness of breath on exertion History of pain when walking Wears dentures Wears glasses Thyroid disease Arthritis High cholesterol Injury of head and neck Back pain Migraine headache Syncope Seizures Gastric reflux Former smoker CPAP (continuous positive airway pressure) dependence Hoarseness History of edema History of stress test UTI (urinary tract infection) Hypercholesteremia Arthritis BPH (benign prostatic hyperplasia) Obesity HLD (hyperlipidemia) GERD (gastroesophageal reflux disease) Epilepsy without mention Intractable Epilepsy, unspecified Home Medications ?Medication ?Instructions ?Recorded ?Last Taken ?Type levothyroxine 50 mcg tablet 50 mcg PO DAILY thyroid 04/10/24 History metoprolol succinate 25 mg 25 mg PO QHS blood pressure 04/03/15 04/09/24 History tablet,extended release 24 hr simvastatin 40 mg tablet 40 mg PO QHS cholesterol low ering 04/03/15 04/09/24 History cholecalciferol (vitamin D3) 125 125 mcg PO QDAY SUPPL EMENT 04/04/24 04/09/24 History mcg (5,000 unit) capsule desmopressin 0.2 mg tablet 0.2 mg PO BID BP 04/04/24 0 04/10/24 History ferrous sulfate 325 mg (65 mg 325 mg PO QDAY SUPPLEMEN T 04/04/24 04/09/24 History iron) tablet (FeroSul) fesoterodine 8 mg tablet,extended 8 mg PO QHS OAB 12/1904/09/24 History release 24 hr mecobalamin (vitamin B12) 5,000 5,000 mcg PO QDAY SUPP LEMENT 04/04/24 04/09/24 History mcg chewable tablet vmqsftip-sgi-dpbnu acid 0.4 1 tab PO QDAY SUPPLEMENT 0 04/04/24 04/09/24 History mg-lycopene 300 mcg-lutein 250 mcg tablet (Complete Multivitamin Adult 50 Plus) sumatriptan succinate 100 mg tablet 100 mg PO ONCE PRN migraine 04/04/24 Unknown History headache carbamazepine 200 mg tablet 300 mg PO BID SEIZURES 01/1804/10/24 History meloxicam 15 mg tablet 15 mg PO QDAY #30 tabs 12/03 Unknown Rx methocarbamol 500 mg tablet 500 mg PO QHS #30 tabs 12/19 Unknown Rx Allergy/AdvReac Type Severity Reaction Status Date / Time strawberry Allergy Intermediate Hives Verified 01/04/25 18:10 azithromycin Allergy Unknown Unknown Verified 01/04/25 18:10 erythromycin base Allergy Unknown Verified 01/04/25 18:10 Penicillins Allergy Hives Verified 01/04/25 18:10 Barbiturates AdvReac Other Verified 01/04/25 18:10 divalproex sodium (From AdvReac Other Verified 01/04/25 18:10 Depakote) Hydantoins AdvReac Other Verified 01/04/25 18:10 phenobarbital AdvReac Other Verified 01/04/25 18:10 phenytoin sodium (From AdvReac Other Verified 01/04/25 18:10 Dilantin) phenytoin sodium extended AdvReac Other Verified 01/04/25 18:10 (From Dilantin) Family History Father Hypertension Other Myocardial infarction Prostate cancer Surgical History History of cardiac catheterization History of bronchoscopy Hx of tooth extraction Hx of foot surgery Hx of cystoscopy Hx of cardiac cath Hx laparoscopic cholecystectomy Hx of total knee replacement History of partial knee replacement History of tracheostomy as a child Social History (Updated 01/04/25 @ 18:11 by Chiqui Wong) household members: family current occupation: [employer] Smoking Status: Former smoker alcohol intake: never substance use type: does not use EXAM Physical Exam Const Vital Signs: 01/04/25 18:06 01/04/25 18:15 01/04/25 19:00 Temperature 98.3 F 98.3 F Temperature Source Oral Oral Pulse Rate 62 60 Pulse Rate [Lying] Pulse Rate [Sitting (for 1 minute prior to obtaining)] Pulse Rate [Standing (for 1 minute prior to obtaining)] Respiratory Rate 18 18 Respiratory Effort Normal Non-Labored Respiratory Pattern Normal Blood Pressure 158/91 H 133/74 H Blood Pressure [Lying] Blood Pressure [Sitting (for 1 minute prior to obtaining)] Blood Pressure [Standing (for 1 minute prior to obtaining)] Blood Pressure Mean 113 93 Blood Pressure Mean [Lying] Blood Pressure Mean [Sitting (for 1 minute prior to obtaining)] Blood Pressure Mean [Standing (for 1 minute prior to obtaining)] Pulse Ox 99 97 Oxygen Delivery Method Room Air Room Air 01/04/25 19:29 01/04/25 20:00 Temperature 98.2 F Temperature Source Oral Pulse Rate 60 Pulse Rate [Lying] 58 L Pulse Rate [Sitting (for 1 minute prior to obtaining)] 62 Pulse Rate [Standing (for 1 minute prior to obtaining)] 69 Respiratory Rate 18 Respiratory Effort Respiratory Pattern Blood Pressure 153/93 H Blood Pressure [Lying] 160/88 H Blood Pressure [Sitting (for 1 minute prior to obtaining)] 161/93 H Blood Pressure [Standing (for 1 minute prior to obtaining)] 163/92 H Blood Pressure Mean 113 Blood Pressure Mean [Lying] 112 Blood Pressure Mean [Sitting (for 1 minute prior to obtaining)] 115 Blood Pressure Mean [Standing (for 1 minute prior to obtaining)] 115 Pulse Ox 98 Oxygen Delivery Method Room Air MDM MDM MDM Narrative Medical decision making narrative: Differential diagnosis includes dehydration, electrolyte abnormality, medicationtoxicity, cardiac dysrhythmia, cardiac ischemia, pneumonia, bronchitis, and anxiety. EKG will be obtained to assess for cardiac dysrhythmia and cardiac ischemia. Chest x-ray will be obtained to assess for pneumonia or bronchitis. CBC will be obtained to assess for leukocytosis and anemia. Comprehensive metabolic profile will be obtained to assess for electrolyte abnormality renal function. CT scan of the brain will be obtained to assess for intracranial bleeding and stroke. Orthostatic vital signs will be obtained to assess for hypovolemia and dehydration. Carbamazepine level will be obtained to assess formedication toxicity. History & Record Review Additional record(s) reviewed:: Prior outpatient record, Prior ED visit and Prior labs Lab Data Attestation: I reviewed the patient's lab results. Lab results narrative: CBC was reviewed. There is a mild anemia with a hemoglobin of 12.7 and hematocrit of 37.7. The remainder is within normal limits. Comprehensive metabolic profile was reviewed. Chloride was slightly low at 95. Calcium was low at 6.3. The remainder is within normal limits. Urinalysis was reviewed. There is no evidence of urinary tract infection or hematuria. Carbamazepine level was reviewed and was therapeutic at [facility]- PCR was reviewed and was positive. Influenza PCR was reviewed and was negative for influenza A and influenza B. RSV PCR was reviewed and was negative. 9.4. Labs: Laboratory Results - last 24 hr 01/04/25 01/04/25 18:44 19:45 WBC 4.4 RBC 4.25 L Hgb 12.7 L Hct 37.7 L MCV 88.7 MCH 29.9 MCHC 33.7 RDW Std Deviation 39.2 RDW Coeff of Eric 12.0 Plt Count 151 MPV 9.1 Immature Gran % (Auto) 0.200 Neut % (Auto) 57.0 Lymph % (Auto) 22.9 [place] % (Auto) 14.7 H Eos % (Auto) 4.3 Baso % (Auto) 0.9 Absolute Neuts (auto) 2.5 Absolute Lymphs (auto) 1.01 Nucleated RBC % 0 Sodium 136 Potassium 3.6 Chloride 95 L Carbon Dioxide 26.1 Anion Gap 15 BUN 13 Creatinine 0.82 Estim Creat Clear Calc 100.83 Est GFR (MDRD) Non-Af 103 BUN/Creatinine Ratio 15.5 Glucose 99 Calcium 6.3 L* Total Bilirubin 0.18 AST 27 ALT 24 Alkaline Phosphatase 113 Troponin T High Sens 12 Total Protein 7.0 Albumin 4.4 Globulin 2.6 Albumin/Globulin Ratio 1.7 Urine Color Yellow Urine Clarity Clear Urine pH 7.0 Ur Specific [place] 1.010 Urine Protein 15 H Urine Glucose (UA) Normal Urine Ketones Negative Urine Occult Blood Negative Urine Nitrite Negative Urine Bilirubin Negative Urine Urobilinogen Normal Ur Leukocyte Esterase Negative Urine RBC 0 SEEN Urine WBC 0 SEEN Ur Squamous Epith Cells 0 SEEN Urine Bacteria 0 SEEN Urine Mucus 0 SEEN Carbamazepine 9.4 Radiography Diagnostic Testing: Clinical Impression(s) from Imaging Studies Brain CT 01/04/25 18:25 IMPRESSION: 1. No intracranial hemorrhage. No mass effect or midline shift. 2. Chronic involutional and ischemic gliotic white matter changes. Reading Location: [facility] Chest X-Ray 01/04/25 19:17 IMPRESSION: NO ACUTE FINDINGS. Reading Location: [facility] CT scan of the brain was obtained. There is no acute intracranial abnormality. This was interpreted by the radiologist and was also independently reviewed by myself. PA and lateral chest x-ray was obtained. There are 2 views. On my independent interpretation, lung huynh are clear. There is normal cardiac silhouette. Bony thorax is normal. There is no acute process noted. Radiologist also interpreted the x-ray and agrees. Treatment and Re-Evaluation :: Patient was given IV fluids. Patient was advised of his findings. Patient was given a dose of calcium gluconate here. Patient was instructed to drink plenty of fluids. Patient was instructed to take Tylenol or ibuprofen as needed for any pain or fevers. Patient was instructed to follow-up with his primary care physician in 5 to 7 days. Patient understood and was agreeable with the plan. All questions were answered. Discharge Plan Triage Chief Complaint: General Illness ED Provider: Jose Staton Dx/Rx/DC Orders Clinical Impression: COVID-19, Hypocalcemia Instructions: Coronavirus Disease 2019 (COVID-19): Overview, Coronavirus Disease 2019 (COVID-19): Caring for Yourself or Others Prescriptions: No Action desmopressin 0.2 mg tablet 0.2 mg PO BID ferrous sulfate [FeroSul] 325 mg (65 mg iron) tablet 325 mg PO QDAY fesoterodine 8 mg tablet extended release 24 hr 8 mg PO QHS sumatriptan succinate 100 mg tablet 100 mg PO ONCE PRN (Reason: migraine headache) cholecalciferol (vitamin D3) 125 mcg (5,000 unit) capsule 125 mcg PO QDAY mecobalamin (vitamin B12) 5,000 mcg tablet,chewable 5,000 mcg PO QDAY Complete MV Adult 50 Plus 0.4 mg-300 mcg- 250 mcg tablet 1 tab PO QDAY meloxicam 15 mg tablet 15 mg PO QDAY Qty: 30 0RF methocarbamol 500 mg tablet 500 mg PO QHS Qty: 30 0RF Rx Instructions: Do not take within 8 hrs of driving, operating machinery or safety sensitive work simvastatin 40 MG tablet 40 mg PO QHS Patient Comments: cholesterol levothyroxine 50 MCG tablet 50 mcg PO DAILY Patient Comments: thyroid metoprolol succinate 25 MG tablet 25 mg PO QHS Patient Comments: blood pressure carbamazepine 200 mg tablet 300 mg PO BID Stand Alone Forms: ED Work / School Excuse Primary Care Provider: Amita Humphreys Referrals: Amita Humphreys DO [Primary Care Provider, Family Practice] - 5-7 Days Print Language: Amharic Disposition Disposition: Home, Self Care What to do if you have Problems For any increased pain, shortness of breath, bleeding, nausea or vomiting, chestpain, or any unexpected problems, contact your Primary Care Provider. Call [facility] ([phone]) or report to the closest Emergency Room. Call 911 if necessary. 01/04/252222 <Electronically signed by Jose Staton DO> Cosigner Signature (if applicable): CC: Dr. Amita Humphreys DO ~ Signed [facility] Work Phone: 1(571) 839-220607-31-2025 Evaluation + Plan note* Assessment & Plan Note - ALICE Hearn - 10/24/2024 2:12 PM EDTAssociated Problem(s): BPH (benign prostatic hyperplasia) I educated the patient on dietary and behavioral modifications pertinent to the patient's complaints. I recommended to avoid caffeine, alcohol, spicy and acidic oral intake and to regulate fluid intake and voiding (timed voiding). I stressed the importance of avoiding constipation and recommended stool softeners unless diarrhea present. I explained the role of pelvic floor therapy in reducing lower urinary tract symptoms. Start Flomax 0.4 mg daily. E scribed. PSA ordered to be done as soon as possible. Follow-up as above [facility] Work Phone: [phone]) 683-514407-31-2025 Miscellaneous Notes* Assessment & Plan Note - ALICE Hearn - 10/24/2024 2:12 PM EDTAssociated Problem(s): BPH (benign prostatic hyperplasia) I educated the patient on dietary and behavioral modifications pertinent to the patient's complaints. I recommended to avoid caffeine, alcohol, spicy and acidic oral intake and to regulate fluid intake and voiding (timed voiding). I stressed the importance of avoiding constipation and recommended stool softeners unless diarrhea present. I explained the role of pelvic floor therapy in reducing lower urinary tract symptoms. Start Flomax 0.4 mg daily. E scribed. PSA ordered to be done as soon as possible. Follow-up as above * Assessment & Plan Note - ALICE Hearn - 10/24/2024 2:11 PM EDT Associated Problem(s): Urinary incontinence Discussed treatment options for LUTS. Discussed timed voiding and reducing intake of bladder irritants. E scribed Toviaz daily. Follow-up in 1 month to check med tolerance and PVR. [facility] Phone: [phone]) 800-140607-31-2025 Evaluation + Plan note* Assessment & Plan Note - ALICE Hearn - 10/24/2024 2:11 PM EDTAssociated Problem(s): Urinary incontinence Discussed treatment options for LUTS. Discussed timed voiding and reducing intake of bladder irritants. E scribed Toviaz daily. Follow-up in 1 month to check med tolerance and PVR. [facility] Work Phone: 1([phone]) 658-139507-31-2025 History of Present illness Narrative* ALICE Hearn - 10/24/2024 1:00 PM EDT Images from the original note were not included. Urology [facility] Note Subjective Patient ID: Amando Llanos is a 59 y.o. male who presents for Med Refill. History of Present Illness Amando is a 59 y.o. male who presents for BPH, urge incontinence. Patient last seen by Dr. Javier on08/17/2022 for same. Trialed on Toviaz at that time. Patient states symptoms improved but has not had medication for over a year. Most recent PSA 0.57 on 523. Patient complains of urgency, frequency, weak stream and feeling of incomplete emptying at times. Denies hematuria or dysuria. Nocturia x 1. Does admit to wearing pads 24/ due to urge related incontinence. Denies family history of prostate cancer, no history of prostate biopsies and no history of kidney stones. Former smoker 1/2 pack/day x 2 to 3 years quit 30 years ago. Past Medical & Surgical History Medical History[1] Surgical History[2] Review of Systems: A 12 point review of systems was completed and otherwise negative unless noted in the HPI Physical Exam General: Well developed, well nourished, alert and cooperative, appears in no acute distress Eyes: Non-injected conjunctiva, sclera clear, no proptosis Cardiac: Extremities are warm and well perfused. No edema, cyanosis or pallor. Lungs: Breathing is easy, non-labored. Speaking in clear and complete sentences. Normal diaphragmatic movement. Abdomen: soft NT with BSP, no CVA tenderness Genitourinary: Kidneys: non palpable bilat Bladder: non tender, non distended Scrotum: no mass palpated Epididymis: non tender; no mass palpated bilat Testicles: no mass Urethra: no discharge Penis: WNL, no lesions Prostate: smooth firm NT without nodules Rectal: normal tone MSK: Ambulatory with steady gait, unassisted Neuro: alert and oriented to person, place and time Psych: Demonstrates good judgement and reason, without abnormal affect or abnormal behaviors. Skin: no obvious lesions, no rashes Objective LABS PVR 232 mL Results for orders placed or performed in visit on 10/24/24 POCT UA Automated manually resulted Result Value Ref Range POC Color, Urine Yellow Straw, Yellow, Light-Yellow POC Appearance, Urine Clear Clear POC Glucose, Urine NEGATIVE NEGATIVE mg/dl POC Bilirubin, Urine NEGATIVE NEGATIVE POC Ketones, Urine NEGATIVE NEGATIVE mg/dl POC Specific [place], Urine 1.020 1.005 - 1.035 POC Blood, Urine NEGATIVE NEGATIVE POC PH, Urine 7.0 No Reference Range Established PH POC Protein, Urine NEGATIVE NEGATIVE mg/dl POC Urobilinogen, Urine 0.2 0.2, 1.0 EU/DL Poc Nitrite, Urine NEGATIVE NEGATIVE POC Leukocytes, Urine NEGATIVE NEGATIVE Imaging Problem List Items Addressed This Visit BPH (benign prostatic hyperplasia) Current Assessment & Plan I educated the patient on dietary and behavioral modifications pertinent to the patient's complaints. I recommended to avoid caffeine, alcohol, spicy and acidic oral intake and to regulate fluid intake and voiding (timed voiding). I stressed the importance of avoiding constipation and recommended stool softeners unless diarrhea present. I explained the role of pelvic floor therapy in reducing lower urinary tract symptoms. Start Flomax 0.4 mg daily. E scribed. PSA ordered to be done as soon as possible. Follow-up as above Relevant Medications tamsulosin (Flomax) 0.4 mg 24 hr capsule Nocturia - Primary Relevant Orders POCT UA Automated manually resulted (Completed) POCT UA Automated manually resulted (Completed) PSA Follow Up In Urology Urinary incontinence Current Assessment & Plan Discussed treatment options for LUTS. Discussed timed voiding and reducing intake of bladder irritants. E scribed Toviaz daily. Follow-up in 1 month to check med tolerance and PVR. Relevant Medications fesoterodine (Toviaz) 4 mg tablet extended release 24 hr Other Visit Diagnoses Renal stones ALICE Hearn 10/24/24 2:13 PM [1] History reviewed. No pertinent past medical history. [2] Past Surgical History: Procedure Laterality Date BACK SURGERY 2022 documented in this [facility] Work Phone: [phone]) 679-203707-09-2025 Evaluation note* Diagnosis Onset Date Resolution Status Admit Date Abdominal pain acute October 02, 2024 11:58am [facility] Work Phone: [phone] Evaluation note* Diagnosis Onset Date Resolution Status Admit Date Abdominal pain acute October 02, 2024 11:58am Low back pain acute December 032024 10:25am Muscle spasm of back acute Nov emb2024 10:25am Status post lumbar spinal arthrodesis acute December 03 025 10:25am [facility] Work Phone: 1([phone] 460-393707-02-2025 Radiology Diagnostic study note [facility] Imaging Services [address] [place], [place] [address] Knee 4 or More Views MR#: [id number] Acct: [id number] Name: AMANDO LLANOS Jr. Rep #: [id number] : 1965 M 59 From: Jaimee Cobos MD PCP: Dr. Amita Humphreys DO Status: REG CLI Study:Knee 4 or More Views Date of Exam: 09/25/24 Exam# [id number] Ordering Dr: Layla Humphreys sa, DO PROCEDURE: KNEE 4 OR MORE VIEWS 09/25/2024 REASON FOR EXAM: PAIN TECHNIQUE: KNEE 4 OR MORE VIEWS COMPARISON: None RAD/Knee 4 or More Views IMPRESSION: No acute fracture or dislocations. Mild degenerative changes of the left knee with chondrocalcinosis. Mild joint effusion. Mild diffuse soft tissue edema. No radiographic foreign body. Reading Location: [id number] CC: Dr. Amita Humphreys DO ~ Publicity Director: Signed [facility]04-17-2025 Discharge summary Author Roderick Lorenzo [facility] Note Date/Time July 11, 2024 7:0 0pm [facility] Physical Therapy [facility] [address] [place] [address] [address] [place] [address] / REHABILITATION SERVICES DISCHARGE SUMMARY MR#: [id number] Acct: [id number] Name: AMANDO LLANOS JrSami Rep #: [id number] : 1965 59 From: Cert. LORENA SaenzT, OCS Referring Dr.: Dr. Yanick Terry MD Status: REG R Insurance: [place] [id number] SELF PAY INSURANCE Discharge Summary D/C summary: It has been my pleasure to treat AMANDO Mullins WILLI Mane referred by Dr. Yanick Terry MD, with the diagnosis of ARTHRODESIS STATUS for a total of 1 visit(s). Discharge Date: 07/11/24 Please see the following information for a summary of their discharge status. Subjective Subjective: Doing good .just finished work Not bent over ,standing straight No restrictions Seen DR lifting restrictions 25-30# for 2 more weeks Patient happy with progress and x-rays showed looking good Pain Right Hip: Pain Intensity (Out of 10): 0 Overall Improvement % Improvement: 75 Objective Objective/Function: POSTURE: mild forward posture GAIT: reciprocal pattern increase MARY NEURO: denies paresthesia/tingling ,reflexes L3-4,L4-5,L5-S1 2/3 SKIN: intact FLEXABILITY: hamstrings min tight MMT: quads/ham/hip 4/5 ,ankle 4/5 LUMBAR ROM: flexion WFL ,extension MIN/mod loss ,side glides min loss Goals Goal 1:: Patient to be I with HEP for back Goal Progress: Goal Met Goal 2:: Patient to improve lumbar ROM for function of recovery to RTW Goal Progress: Goal Met Goal 3:: Patient to demonstrate 60% improvement with less pain and improved function Goal Progress: Goal Met Goal 4:: 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 Goal Progress: Goal Met Goal 5:: Patient to improve back oswestry score by 5 points to improve QOL and function. Goal Progress: Goal Met Plan Plan: D/C D/C Information Discharge Comments: HEP AND GYM d/c sentence: If there are questions or concerns regarding this patient's physical therapy, please feel free to call me at [phone]. Thank you for the referral of thispatient. Sincerely, Roderick Lorenzo PT, Cert T, OCS Balance/Gait/Functional tests Balance/Special Test Scores Oswestry Low Back Score: 2 Improvement % Improvement: 75 <Electronically signed by Cert. MADAY Jara PT, OCS> 07/12/24 0756 CC: Dr. Yanick Terry MD; Dr. Amita Humphreys, DO ~ SHARONA Signed [facility] Work Phone: [phone] 121-281604-17-2025 Discharge summary [facility] Physical Therapy [facility] [facility] [place] [address] / REHABILITATION SERVICES DISCHARGE SUMMARY MR#: [id number] Acct: [id number] Name: AMANDO LLANOS JrSami Rep #: [id number] : 1965 59 From: Cert. MADAY Saenz, OCS Referring Dr.: Dr. Yanick Terry MD Status: REG RCR Insurance: [employer] [id number] SELF PAY INSURANCE Discharge Summary D/C summary: It has been my pleasure to treat AMANDO LLANOS Jr. referred by Dr. Yanick Terry MD, with the diagnosis of ARTHRODESIS STATUS for a total of 1 visit(s). Discharge Date: 07/11/24 Please see the following information for a summary of their discharge status. Subjective Subjective: Doing good .just finished work Not bent over ,standing straight No restrictions Seen lifting restrictions 25-30# for 2 more weeks Patient happy with progress and x-rays showed looking good Pain Right Hip: Pain Intensity (Out of 10): 0 Overall Improvement % Improvement: 75 Objective Objective/Function: POSTURE: mild forward posture GAIT: reciprocal pattern increase MARY NEURO: denies paresthesia/tingling ,reflexes L3-4,L4-5,L5-S1 2/3 SKIN: intact FLEXABILITY: hamstrings min tight MMT: quads/ham/hip 4/5 ,ankle 4/5 LUMBAR ROM: flexion WFL ,extension MIN/mod loss ,side glides min loss Goals Goal 1:: Patient to be I with HEP for back Goal Progress: Goal Met Goal 2:: Patient to improve lumbar ROM for function of recovery to RTW Goal Progress: Goal Met Goal 3:: Patient to demonstrate 60% improvement with less pain and improved function Goal Progress: Goal Met Goal 4:: 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 Goal Progress: Goal Met Goal 5:: Patient to improve back oswestry score by 5 points to improve QOL and function. Goal Progress: Goal Met Plan Plan: D/C D/C Information Discharge Comments: HEP AND GYM d/c sentence: If there are questions or concerns regarding this patient's physical therapy, please feel free to call me at [phone]. Thank you for the referral of thispatient. Sincerely, Roderick Lorenzo, PT, Cert MDT, OCS Balance/Gait/Functional tests Balance/Special Test Scores Oswestry Low Back Score: 2 Improvement % Improvement: 75 07/12/24 0756 CC: Dr. Yanick Terry MD; Dr. Amita Humphreys, DO ~ JLA Signed [facility]04-14-2025 Evaluation note* Diagnosis Onset Date Resolution Status Admit Date Status post lumbar spinal fusion acu te July 08, 2024 3:11pm Abdominal pain acute October 02, 2024 11:58am [facility] Work Phone: 1([phone]) [phone] Evaluation note* Diagnosis Onset Date Resolution Status Admit Date Sacral pain acute June 18, 2 025 4:07pm Status post lumbar spinal fusion acu te June 18, 2024 4:07pm Acute upper respiratory infection acute June 28, 2024 3:47pm Contact with or suspected exposure to other viral communicable disease acute June 28, 2024 3:47pm Status post lumbar spinal fusion acu te July 08, 2024 3:11pm [facility] Work Phone: 1([phone]) 610-702301-15-2025 [facility] Medical Records Department [address] [place] [address] History Physical Exam 04/10/24724 MR#: [id number] Acct: [id number] Name: AMANDO LLANOS Jr. Rep #: [id number] : 1965 59 From: Yanick Terry MD PCP: Dr. Amita Humphreys DO Status:ADM IN Location: [place] [address] History and Physical Date of Admission: 04/10/24 MR#: [id number] Acct: [id number] Name: AMANDO LLANOS Jr. Rep #: [id number] : 1965 Provider: Dr. Yanick Terry MD Age/Sex: 59/M Location: [facility] Status: Signed Intake Vital Signs 10/24/2414:12 Height 5 ft 7 in Intake Visit Reasons: lumbar spine Accompanied by: Niece Allergies strawberry Allergy (Intermediate, Verified 04/04/24 15:24) Hivesazithromycin Allergy (Unknown, Verified 04/04/24 15:24) Unknownerythromycin base Allergy (Verified 04/04/24 15:24) UnknownPenicillins Allergy (Verified 04/04/24 15:24) HivesBarbiturates Adverse Reaction (Verified 04/04/24 15:24) Otherdivalproex sodium (From Depakote) Adverse Reaction (Verified 04/04/24 15:24) OtherHydantoins Adverse Reaction (Verified 04/04/24 15:24) Otherphenobarbital Adverse Reaction (Verified 04/04/24 15:24) Otherphenytoin sodium (From Dilantin) Adverse Reaction (Verified 04/04/24 15:24) Otherphenytoin sodium extended (From Dilantin) Adverse Reaction (Verified 04/04/24 15:24) Other Medications ???Medication ???Instructions ???Recorded ???Confirmed ???Type levothyroxine 50 mcg tablet 50 mcg PO DAILY thyroid 04/03/15 04/04/24 History metoprolol succinate 25 mg 25 mg PO QHS blood pressure 04/03/15 04/04/24 History tablet,extended release 24 hr simvastatin 40 mg tablet 40 mg PO QHS cholesterol lowering 04/03/15 04/04/24 History carbamazepine 200 mg tablet 300 mg PO QHS seizures 12/07/15 04/04/24 History cholecalciferol (vitamin D3) 125 125 mcg PO QDAY 04/04/24 04/04/24 History mcg (5,000 unit) capsule clopidogrel 75 mg tablet 75 mg PO QDAY 04/04/24 04/04/24 History cyclobenzaprine 5 mg tablet 5 mg PO QHS 04/04/24 04/04/24 History desmopressin 0.2 mg tablet 0.2 mg PO BID 04/04/24 04/04/24 History ferrous sulfate 325 mg (65 mg 325 mg PO QDAY 04/04/24 04/04/24 History iron) tablet (FeroSul) fesoterodine 8 mg tablet,extended 8 mg PO QDAY 04/04/24 04/04/24 History release 24 hr fluoxetine 10 mg capsule 10 mg PO QDAY 04/04/24 04/04/24 History mecobalamin (vitamin B12) 5,000 5,000 mcg PO QDAY 04/04/24 04/04/24 History mcg chewable tablet meloxicam 15 mg tablet 15 mg PO QDAY 04/04/24 04/04/24 History igltmjnf-zba-jvziq acid 0.4 1 tab PO QDAY 04/04/24 04/04/24 History mg-lycopene 300 mcg-lutein 250 mcg tablet (Complete Multivitamin Adult 50 Plus) omeprazole 20 mg capsule,delayed 20 mg PO BID 04/04/24 04/04/24 History release corinne prebiotic plus PO QDAY 04/04/24 History probiotic sumatriptan succinate 100 mg tablet 100 mg PO ONCE 04/04/24 04/04/24 History PFSH Medical History Wears dentures Wears glasses Thyroid disease Arthritis Kidney stones High cholesterol Injury of head and neck Back pain Migraine headache Syncope Seizures Gastric reflux Former smoker CPAP (continuous positive airway pressure) dependence Sleep apnea Hoarseness History of edema History of stress test Cardiology follow-up encounter Vision problems History of migraine headaches UTI (urinary tract infection) History of back problems Edema of right foot Hypercholesteremia Arthritis BPH (benign prostatic hyperplasia) Obesity HLD (hyperlipidemia) GERD (gastroesophageal reflux disease) Epilepsy without mention Intractable Epilepsy, unspecified Surgical History History of cardiac catheterization History of bronchoscopy Hx of tooth extraction Hx of foot surgery Hx of cystoscopy Hx of cardiac cath Hx laparoscopic cholecystectomy Hx of total knee replacement History of partial knee replacement History of tracheostomy as a child Family History Father HypertensionOther Myocardial infarction Prostate cancer Social History current occupation: [employer], [employer] Smoking Status: Former smoker alcohol intake: never substance use type: does not use HPI lumbar spine Details: This documentation accurately reflects the service provided and the decisions made by me, Dr. Yanick Terry MD 04/04/24 0755. Part of today???s visit was documented by Samira SEN, acting as scribe. AMANDO LLANOS is a 59 year (more content not included)...[facility]01-09-2025 Evaluation note* Diagnosis Onset Date Resolution Status Admit Date Spondylolisthesis, lumbar region acute April 04 3:16pm Spinal stenosis of lumbar region with neurogenic claudication resolved April 04 3:16pm Status post lumbar spinal fusion acute April 10 11:24am Spinal stenosis of lumbar region with neurogenic claudication resolved April 10 11:24am Status post lumbar spinal fusion acute April 23 10:22am Sacral pain acute May 27 1:41pm Status post lumbar spinal fusion acute May 27, 2024 1:41pm Sacral pain acute June 18, 2 025 4:07pm Status post lumbar spinal fusion acute June 18, 2024 4:07pm Acute upper respiratory infection acute June 28, 2024 3:47pm Contact with or suspected exposure to other viral communicable disease acute June 28, 2024 3:47pm Status post lumbar spinal fusion acute July 08, 2024 3:11pm [facility] Work Phone: [phone] 271-851806-11-2024 Telephone encounter Note* Telephone Encounter - Eran Hung RN - 09/05/2023 11:56 AM EDT Attempted to reach patient regarding appointment with Dr. Tam. Unable to reach patient. This is the 4th attempt to reach the patient. We will proceed with canceling the appointment. Left VM with contact information for scheduling. Eran Hung RN 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 [facility]06-11-2024 Miscellaneous Notes* Telephone Encounter - Eran Hung RN - 09/05/2023 11:56 AM EDT Attempted to reach patient regarding appointment with Dr. Tam. Unable to reach patient. This is the 4th attempt to reach the patient. We will proceed with canceling the appointment. Left VM with contact information for scheduling. Eran Hung RN 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 documented in this encounterUniversity [facility]24 Telephone encounter Note * Telephone Encounter - Eran Hung RN - 09/04/2023 1:15 PM EDT 3rd attempt to reach Amando Llanos. Unable to reach patient by phone at this time. Left voicemail with contact information for call back. Also attempted to call secondary contact - Amando Llanos Sr. Left VM with contact information. If we do not hear back by tomorrow morning, we will need to reschedule the appointment. Patient hasnot confirmed appointment details or had labs completed. Eran Hung RN 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 [facility]06-10-2024 Miscellaneous Notes* Telephone Encounter - Eran Hung RN - 09/04/2023 1:15 PM EDT 3rd attempt to reach Amando Llanos. Unable to reach patient by phone at this time. Left voicemail with contact information for call back. Also attempted to call secondary contact - Amando Llanos Sr. Left VM with contact information. If we do not hear back by tomorrow morning, we will need to reschedule the appointment. Patient hasnot confirmed appointment details or had labs completed. Eran Hung RN 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 documented in this encounterUniversity [facility]06-[facility]-2024 Telephone encounter Note * Telephone Encounter - Eran Hung RN - 09/01/2023 2:55 PM EDT 2nd attempt to reach Amando Llanos. Unable to reach patient by phone at this time. Left voicemailwith contact information for call back. Will try to reach patient again on Monday. [facility]06-07-2024 Miscellaneous Notes* Telephone Encounter - Eran Hung RN - 09/01/2023 2:55 PM EDT 2nd attempt to reach Amando Llanos. Unable to reach patient by phone at this time. Left voicemailwith contact information for call back. Will try to reach patient again on Monday. * Telephone Encounter - Eran Hung RN - 08/31/2023 1:12 PM EDT Call placed to Amando Llanos to discuss labs needed prior to appointment with Dr. Tam on 09/05. Unable to reach patient by phone at this time. Left voicemail with contact information for call back. documented in this encounterUniversity [facility]06-[facility]-2024 Telephone encounter Note * Telephone Encounter - Eran Hung RN - 08/31/2023 1:12 PM EDT Call placed to Amando Llanos to discuss labs needed prior to appointment with Dr. Tam on 09/05. Unable to reach patient by phone at this time. Left voicemail with contact information for call back. [facility]05-15-2024 Telephone encounter Note* Telephone Encounter - Lizett Prado APRN.CNP - 08/09/2023 8:29 AM EDT Please request MRI pituitary from [facility] from May 2023. Lizett Prado APRN.CNP [facility] Work Phone: 1(500) 695-791805-15-2024 Miscellaneous Notes* Telephone Encounter - Lizett Prado APRN.CNP - 08/09/2023 8:29 AM EDT Please request MRI pituitary from [facility] from May 2023. Lizett Prado APRN.CNP * Telephone Encounter - Lizett Prado APRN.CNP - 08/09/2023 8:27 AM EDT Images from the original note were not included. Time Frame: Next available Provider: Nolan alejo Referring: Rola Bassett DO Please instruct patient to hand carry/ upload images prior to appt Dx: Pituitary macroadenoma Pituitary labs in scanned documents Lizett Prado APRN.CNP * Telephone Encounter - Lita Perales - 08/09/2023 8:11 AM EDT Records received in OnBase documented in this encounterUniversity [facility]als [facility]05-15-2024 Telephone encounter Note * Telephone Encounter - Lizett Prado APRN.CNP - 08/09/2023 8:27 AM EDT Images from the original note were not included. Time Frame: Next available Provider: Nolan alejo Referring: Rola Bassett DO Please instruct patient to hand carry/ upload images prior to appt Dx: Pituitary macroadenoma Pituitary labs in scanned documents Lizett Prado APRN.CNP [facility]05-15-2024 Telephone encounter Note* Telephone Encounter - Lita Perales - 08/09/2023 8:11 AM EDT Records received in On[employer] [facility]04-12-2024 Discharge summary Author Roderick Lorenzo [facility] July 07, 2023 12:59pm Note Date/Time July 07, 2023 12: 49pm [facility] Physical Therapy [facility] [address] [place] [address] [address] [place] [id number] / REHABILITATION SERVICES DISCHARGE SUMMARY MR#: [id number] Acct: [id number] Name: WILLIAMANDO Susanna Mane Rep #: [id number] : 1965 58 From: Cert. MADAY Saenz, OCS Referring DrSami: Dr. Amita Humphreys, Status: REG RCR Insurance: [employer] SELF PAY INSURANCE Patient Information Patient Information: AMANDO LLANOS Jr. was seen in my office for initial evaluation on 05/17/23. The following Plan of Care was established for this patient: POC Established Initial Frequency: 2x /Week Initial Duration: 4 Weeks Anticipated Interventions Patient/Client Instruction: Educate patient on: Condition and Plan of Care For the Purpose of:: To decrease pain, To increase ROM, To improve muscle performance and motor function, To increase tolerance to activity/condition/position, To improve ability of physical actions for home/community/work/leisure, To improve health of tissue, To decrease soft tissue restriction, To increase flexibility/ROM and To prevent re-injury Therapeutic Exercise to Include: Strength training, Endurance training, Balance training, Body mechanics, Postural training, Flexibilty training and Dynamic Lumbar Stabilization For the Purpose of:: To decrease pain, To increase ROM, To improve muscle performance and motor function, To improve ability to perform ADL's, To increasetolerance to activity/condition/position, To improve ability of physical actionsfor home/community/work/leisure, To improve health of tissue, To decrease soft tissue restriction, To increase flexibility/ROM and To prevent re-injury Cryotherapy (ice pack, ice massage): Yes Thermo therapy (hot pack): Yes Ultrasound (thermal/non thermal): Yes For the Purpose of:: To decrease pain, To increase ROM, To improve health of tissue, To decrease soft tissue restriction and To increase flexibility/ROM Last Seen Last Seen: This patient was last seen in our office . Pertinent comments regarding their Physical therapy will appear below: Patient was seen for PT Evaluation for back pain and HEP At this point I will be discontinuing this patient from physical therapy. I would be happy to see this patient again in the future if found appropriate by the physician. Thank you! Roderick Lorenzo PT, Cert MDT, OCS Balance/Gait/Functional tests Balance/Special Test Scores Oswestry Low Back Score: 26 <Electronically signed by Philip Jara PT. T, OCS> 07/07/23 [id number] CC: Dr. Amita Humphreys, DO ~ KRISTA Signed [facility] Work Phone: 1(106) 347-712803-29-2024 Note ORIGINAL EXAMINATION: MRI OF THE BRAIN WITHOUT AND WITH CONTRAST 06/23/2023 2:14 pm TECHNIQUE: Multiplanar multisequence MRI of the head/brain was performed without and with the administration of intravenous contrast. COMPARISON: MRI brain 01/12/2023 HISTORY: ORDERING SYSTEM PROVIDED HISTORY: Reason for Exam: Disorder of pituitary gland, unspecified FINDINGS: There is motion artifact on multiple MRI sequences and images. INTRACRANIAL STRUCTURES/VENTRICLES: There are no intra-axial or extra-axial masses or fluid collections. There is no hemorrhage. There is no midline shift. There is no acute cortical infarct of a major arterial vascular territory. Again noted are small confluent regions of FLAIR/T2 prolongation of the white matter, which may be compatible with mild-moderate chronic ischemic microvascular changes. However, correlation with clinical findings to exclude potential demyelinating process may be useful. 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 There is no focal nodular meningeal enhancement. There is enlargement of the pituitary gland again seen, with the pituitary gland measuring up to 8 mm AP x 11 mm TR by 13 mm cc, previously 8 mm AP by 11 mm TR by 11 mm cc, using similar measurements points. At the anterior-inferior aspect of the pituitary gland, there is a hypoenhancing region suboptimally visualized, measuring 3 mm in AP by 7 mm TR by 3 mm cc. The neurohypophysis is again seen at the posterior-inferior aspect of the pituitary fossa. There is mild increase caliber of the infundibulum with diffuse enhancement. There is no impingement of the optic chiasm. Bilateral internal carotid cavernous segments are patent. ORBITS: The visualized portion of the orbits demonstrate no acute abnormality. SINUSES: The visualized paranasal sinuses and mastoid air cells demonstrate no acute abnormality. BONES/SOFT TISSUES: A superior left frontal small craniotomy is again noted. IMPRESSION: 1. Again noted enlarged ureter gland, mildly increased size with increase in the craniocaudal dimension. There is no impingement of the optic chiasm. There is mild increase caliber of the pituitary stock, possibly congestion. However, infiltrative process such as lymphocytic hypophysitis not completely excluded. Correlation with clinical findings may be useful. 2. At the anterior-inferior aspect of the pituitary gland, there is a hypoenhancing region suboptimally visualized, measuring 3 mm in AP by 7 mm TR by 3 mm cc, which may be artifactual although underlying adenoma not excluded. Follow-up MRI study with pituitary dynamic protocol may be useful. 3. There is no mass, hemorrhage, or acute infarct. Again noted are small confluent regions signal change of the white matter, which may be compatible with mild-moderate chronic ischemic microvascular changes. However, correlation with clinical findings to exclude potential demyelinating process may be useful. Interpreted by: Shyam Mullen Preliminary Report By: Shyam Mullen Electronically signed By Shyam Mullen Dictated Date: 06/23/2023 6:43:52 PM Prelim Date: 06/23/2023 7:19:23 PM Sign Date: 06/23/2023 7:19:23 PM Ordering [facility]* Exam Date Time Procedure Performing Provider Status 01/12/23 12:11 PM Echocardiogram, Adult - CV Auth (Verified) [facility] 10-19-2023 Note* Exam Date Time Procedure Performing Provider Status 01/12/23 9:48 AM VL Carotid US/Dopple r Complete - CV Auth (Verified) [facility] 06-07-2022 Telephone encounter Note* Telephone Encounter - Isabel Gurrola - 08/31/2021 11:36 AM EDT Caroline calling back in to check on status of letter for patient having surgery tomorrow. States they will need the letter ZACH. [id number] Miscellaneous Notes* Telephone Encounter - Isabel Gurrola - 08/31/2021 11:36 AM EDT Caroline calling back in to check on status of letter for patient having surgery tomorrow. States they will need the letter ZACH. * Telephone Encounter - Sophia Lyn - 08/30/2021 1:24 PM EDT Mr. Llanos is scheduled to have a TURP surgery with his Urologist at [facility] on09/01/21. He just informed them that he cannot be intubated due to the surgery that Dr. Polo performed on him in May of 2018. The hospital is asking if this is accurate and they would need to have a letter either clearing himfor surgery or explaining why he is not a candidiate for intubation. The letter can be faxed to Caroline at [phone] or she can be reached by phone at [phone] with any questions. Thank you documented in this [id number] Telephone encounter Note* Telephone Encounter - GroverSophia - 08/30/2021 1:24 PM EDT Mr. Llanos is scheduled to have a TURP surgery with his Urologist at [facility] on09/01/21. He just informed them that he cannot be intubated due to the surgery that Dr. Polo performed on him in May of 2018. The hospital is asking if this is accurate and they would need to have a letter either clearing himfor surgery or explaining why he is not a candidiate for intubation. The letter can be faxed to Caroline at [phone] or she can be reached by phone at [phone] with any questions. [facility] you [facility] No data available for this section [facility] Evaluation + Plan note Future Appointments Appointment Date:08/12/2024 03:30:00 PM Scheduled Provider:[place] [id number] Location:[facility] Appointment Type:PT Outpatient Evaluation [facility] Evaluation + Plan note Future Appointments Appointment Date:08/21/2024 03:30:00 PM Scheduled Provider: Location:[facility] Appointment Type:PT Treatment [facility] Appointment Date:08/23/2024 02:30:00 PM Scheduled Provider: Location:[facility] Appointment Type:PT [facility] Appointment Date:08/28/2024 02:30:00 PM Scheduled Provider: Location:[facility] Appointment Type:PT [facility] Appointment Date:08/30/2024 03:30:00 PM Scheduled Provider:[place] [id number] Location:[facility] Appointment Type:PT [facility] Evaluation noteNo assessment information available [facility] Work Phone: Evaluation note* Diagnosis Nocturia- Primary Renal stones Benign prostatic hyperplasia with urinary frequency Urge incontinence of urine Urge incontinence documented in this encounter [facility] Work Phone: History of Present illness NarrativePatient is here for urinary incontinence. He states he wears pad due to mild leakage. He does have some urgency. He states he has a lot of sciatica pain and numbness in legs. Denies dysuria. Denies hematuria. Nocturia x1-2. No medication for LUT'S. He states he has tried oxybutynin and doxazosin inthe past. No recent PSA has been done. No fhx of prostate cancer. No hx of kidney stones. ED is nota current issue-Not [id number]-[id number]-[id number] Work Phone[facility] Work Phone: Hospital Discharge instructions No data available for this section [facility] Progress note No data available for this section [facility] Reason for referral (narrative)No reason for referral information availableWMercy Health St[facility] Work Phone: Advance Directives Latest Code Status on File Code Status Date Activated Date Inactivated Comments Full Code 06/07/2018 12:26 PM 06/14/2018 1:44 PM Full Code 02/01/2018 2:21 PM 02/07/2018 6:12 PM Advance Directive Response Recorded Date/ Time Advance Directives No November 2:24pm Living Will No September 01, 2021 4 :24pm Power of Rabbler No September 01, 2021 4:24pm Date Activated Date Inactivated Comments 06/07/2018 12:26 PM 06/14/2018 1:44 PM Date Activated Date Inactivated Comments 02/01/2018 2:21 PM 02/07/2018 6:12 PM Advance Directive Response Recorded Date/ Time Advance Directives No May 27 10:13am Living Will No April 10 3:39pm Do you have a Healthcare Power of Rabbler? No April 10, 2024 3:39pm Advance Directive Response Recorded Date/ Time Advance Directives No May 27 10:13am Advance Directive Response Recorded Date/ Time Advance Directives No November 2:49pm Advance Directive Response Recorded Date/ Time Advance Directives No November 2:49pm Do you have a Healthcare Power of Rabbler? No January 04, 2025 6:11pm Chief Complaint and Reason for Visit Chief Complaint CYSTO, TURP, OLYMPUS Chief Complaint CYSTO, TURP, OLYMPUS LABWORK//EKG ORDERS Chief Complaint SCIATICA Chief Complaint SCIATICA/RX HERE Chief Complaint Admit Date lumbar spine April 04, 2024 3: 16pm PREOP April 09, 2024 9 :08am 360 Lumbar Fusion L4-5 April 10 7:25am 360 Lumbar Fusion L4-5 April 10 11:24am 360 Lumbar Fusion L4-5 April 11 10:30am 360 Lumbar Fusion L4-5 April 11 12:03pm lumbar spine April 23, 2024 1 0:22am Room 1 April 23, 2024 1 0:40am LUMBAR SPINE May 27, 2024 1:41 pm Room 7 May 27, 2024 2:18 pm Room 1 June 18, 2024 3:4 1pm LUMBAR SPINE June 18, 2024 4:0 7pm SORE THROAT June 28, 2024 3:47 pm LUMBAR SPINE July 08, 2024 3:1 1pm room 2 July 08, 2024 3:2 9pm S/P LUMBAR FUSION/RX HERE July 11 3:30pm Reason for Visit Admit Date Spondylolisthesis, lumbar region April 04, 2024 3:16pm Spinal stenosis of lumbar re gion with neurogenic claudication April 04, 2024 3:16pm Status post lumbar spinal fusion April 10, 2024 11:24am Spinal stenosis of lumbar re gion with neurogenic claudication April 10, 2024 11:24am Status post lumbar spinal fusion April 23, 2024 10:22am Sacral pain May 27, 2024 1:41 pm Status post lumbar spinal fusion May 272024 1:41pm Sacral pain June 18, 2024 4:0 7pm Status post lumbar spinal fusion May 262024 4:07pm Acute upper respiratory infection June 28, 2024 3:47pm Contact with or suspected ex posure to other viral communicable disease June 28, 2024 3:47pm Status post lumbar spinal fusion June 252024 3:11pm Chief Complaint Admit Date Room 1 June 18, 2024 3:4 1pm LUMBAR SPINE June 18, 2024 4:0 7pm SORE THROAT June 28, 2024 3:47 pm LUMBAR SPINE July 08, 2024 3:1 1pm room 2 July 08, 2024 3:2 9pm S/P LUMBAR FUSION/RX HERE July 11 3:30pm LEFT KNEE PAIN September 25, 2024 11:31 am SWEATS, STOMACH PAIN October 02, 2024 11:5 8am Reason for Visit Admit Date Sacral pain June 18, 2024 4:0 7pm Status post lumbar spinal fusion May 262024 4:07pm Acute upper respiratory infection June 28, 2024 3:47pm Contact with or suspected ex posure to other viral communicable disease June 28, 2024 3:47pm Status post lumbar spinal fusion June 252024 3:11pm Chief Complaint Admit Date LUMBAR SPINE July 08, 2024 3:1 1pm room 2 July 08, 2024 3:2 9pm S/P LUMBAR FUSION/RX HERE July 11 3:30pm LEFT KNEE PAIN September 25, 2024 11:31 am SWEATS, STOMACH PAIN October 02, 2024 11:5 8am Reason for Visit Admit Date Status post lumbar spinal fusion June 252024 3:11pm Abdominal pain October 02, 2024 11:58 am Chief Complaint Admit Date LEFT KNEE PAIN September 25, 2024 11:31 am SWEATS, STOMACH PAIN October 02, 2024 11:5 8am LUMBAR SPINE December 03, 2024 10:25am Room 1 December 03, 2024 11:02am Reason for Visit Admit Date Abdominal pain October 02, 2024 11:58 am Chief Complaint Admit Date LEFT KNEE PAIN September 25, 2024 11:31 am SWEATS, STOMACH PAIN October 02, 2024 11:5 8am LUMBAR SPINE December 03, 2024 10:25am Room 1 December 03, 2024 11:02am general illness January 04, 2025 6 :05pm Reason for Visit Admit Date Abdominal pain October 02, 2024 11:58 am Low back pain December 03, 2024 10:25am Muscle spasm of back December 03, 2024 10:25am Status post lumbar spinal arthrodesis Se ptember 2024 10:25am Summary Purpose Family History Unknown Family Member Name Dates Details No pertinent family history: Mother, Father(V49.89, Z78.9) Status:Active Unknown Family Member Name Dates Details No pertinent family history: Mother, Father(V49.89, Z78.9) Status:Active Relationship Condition Age at Onset Recorded Date/T ralph Not Specified Malignant neoplasm of prostate Unknown Myocardial infarction Unknown father Hypertension Unknown Chief Complaint Urinary incontinence Additional Source Comments Reason for Visit (unrecogniz ed section and content) Reason Onset Date Comments Surgical clearance 08/30/2021 Reason Comments Triage OnBase Reason Comments 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 Amita Humphreys DO Family Provider Active Dr. Amita Humphreys DO Primary Care Provider Active Team Status: Inactive Member Role Status Dates Dr. Amita Humphreys DO Primary Care Provider Active Dr. Orquidea Javier II, MD Attending Provider Active Team Status: Inactive Member Role Status Dates Dr. Amita Humphreys DO Primary Care Provider Active Zoraida Alejo NP-C Attending Provider, Referring Prov ider Active Team Status: Inactive Member Role Status Dates Dr. Amita Humphreys DO Primary Care Provide r, Attending Provider, Referring Provider Active Brewing Technician Relationship Specialty Start Date End Date Roderick Espinal PCP - General 07/13/00 Brewing Technician Relationship Specialty Start Date End Date Roderick Espinal PCP - General 07/13/00 Brewing Technician Relationship Specialty Start Date End Date Roderick Espinal PCP - General 07/13/00 Brewing Technician Relationship Specialty Start Date End Date Lev Polo MD [address] [place], [place] [id number] Physician Otolaryngology 12/31/19 Team Status: Active Member Role Status Dates Dr. Amita Humphreys DO Primary Care Provider Active Team Status: Inactive Member Role Status Dates BRIA Chu Primary Care Provider Active Start: April 04, 2024 End: April 04, 2024 BRIA Chu Referring Provider Active St art: April 04, 2024 End: April 04, 2024 Dr. Yanick Terry MD Attending Provider Active Start: April 04, 2024 End: April 04, 2024 Team Status: Active Member Role Status Dates Dr. Amita Humphreys DO Primary Care Provider Active Start: April 09, 2024 End: April 09, 2024 Dr. Teodoro Schaffer MD Attending Provider Active S tart: April 09, 2024 End: April 09, 2024 Dr. Yanick Terry MD Referring Provider Active Start: April 09, 2024 End: April 09, 2024 Team Status: Active Member Role Status Dates Dr. Yanick Terry MD Admit Provider Active Star t: April 10, 2024 Dr. Yanick Terry MD Attending Provider Active Start: April 10, 2024 Dr. Yanick Terry MD Referring Provider Active Start: April 10, 2024 Dr. Yanick Terry MD Other Provider Active Star t: April 10, 2024 Dr. Amita Humphreys DO Primary Care Provider Active Start: April 10, 2024 Team Status: Inactive Member Role Status Dates Dr. Yanick Terry MD Admit Provider Active Star t: April 10, 2024 End: April 11, 2024 Dr. Yanick Terry MD Referring Provider Active Start: April 10, 2024 End: April 11, 2024 Dr. Yanick Terry MD Other Provider Active Star t: April 10, 2024 End: April 11, 2024 Dr. Amita Humphreys DO Primary Care Provider Active Start: April 10, 2024 End: April 11, 2024 Dr. Bella Guido DO Other Provider Active Start : April 10, 2024 End: April 11, 2024 Dr. Jose Alfredo Horvath MD Attending Provider Active Start: April 10, 2024 End: April 11, 2024 Team Status: Active Member Role Status Dates Dr. Yanick Terry MD Admit Provider Active Star t: April 11, 2024 Dr. Yanick Terry MD Referring Provider Active Start: April 11, 2024 Dr. Yanick Terry MD Other Provider Active Star t: April 11, 2024 Dr. Amita Humphreys DO Primary Care Provider Active Start: April 11, 2024 Dr. Bella Guido DO Other Provider Active Start : April 11, 2024 Dr. Jose Alfredo Horvath MD Attending Provider Active Start: April 11, 2024 Dr. Jose Alfredo Horvath MD Other Provider Active Start: April 11, 2024 Team Status: Active Member Role Status Dates Dr. Yanick Terry MD Admit Provider Active Star t: April 11, 2024 Dr. Yanick Terry MD Referring Provider Active Start: April 11, 2024 Dr. Yanick Terry MD Other Provider Active Star t: April 11, 2024 Dr. Amita Humphreys DO Primary Care Provider Active Start: April 11, 2024 Dr. Bella Guido DO Other Provider Active Start : April 11, 2024 Dr. Jose Alfredo Horvath MD Other Provider Active Start: April 11, 2024 LACHELLE Ramires Attending Provider Active Star t: April 11, 2024 Team Status: Inactive Member Role Status Dates BRIA Chu Referring Provider Active St art: April 23, 2024 End: April 23, 2024 Dr. Yanick Terry MD Attending Provider Active Start: April 23, 2024 End: April 23, 2024 Dr. Amita Humphreys DO Primary Care Provider Active Start: April 23, 2024 End: April 23, 2024 Team Status: Inactive Member Role Status Dates Dr. Amita Humphreys DO Primary Care Provider Active Start: April 23, 2024 End: April 23, 2024 Dr. Teodoro Schaffer MD Attending Provider Active S tart: April 23, 2024 End: April 23, 2024 Team Status: Inactive Member Role Status Dates Dr. Amita Humphreys DO Primary Care Provider Active Start: May 27, 2024 End: May 27, 2024 Dr. Amita Humphreys DO Referring Provider Active St art: May 27, 2024 End: May 27, 2024 Dr. Yanick Terry MD Attending Provider Active Start: May 27, 2024 End: May 27, 2024 Team Status: Inactive Member Role Status Dates Dr. Amita Humphreys DO Primary Care Provider Active Start: May 27, 2024 End: May 27, 2024 Dr. Teodoro Schaffer MD Attending Provider Active S tart: May 27, 2024 End: May 27, 2024 Team Status: Inactive Member Role Status Dates Dr. Amita Humphreys DO Primary Care Provider Active Start: June 18, 2024 End: June 18, 2024 Dr. Teodoro Schaffer MD Attending Provider Active S tart: June 18, 2024 End: June 18, 2024 Team Status: Inactive Member Role Status Dates Dr. Amita Humphreys DO Primary Care Provider Active Start: June 18, 2024 End: June 18, 2024 Dr. Amita Humphreys DO Referring Provider Active St art: June 18, 2024 End: June 18, 2024 BRIA Ham Attending Provider Active Start: June 18, 2024 End: June 18, 2024 Team Status: Inactive Member Role Status Dates Dr. Amita Humphreys DO Primary Care Provider Active Start: June 28, 2024 End: June 28, 2024 Dr. Amita Humphreys DO Referring Provider Active St art: June 28, 2024 End: June 28, 2024 LACHELLE Lozano Attending Provider Active Sta rt: June 28, 2024 End: June 28, 2024 Team Status: Inactive Member Role Status Dates Dr. Amita Humphreys DO Primary Care Provider Active Start: July 08, 2024 End: July 08, 2024 Dr. Amita Humphreys DO Referring Provider Active St art: July 08, 2024 End: July 08, 2024 LACHELLE Ramires Attending Provider Active Star t: July 08, 2024 End: July 08, 2024 Team Status: Inactive Member Role Status Dates Dr. Amita Humphreys DO Primary Care Provider Active Start: July 08, 2024 End: July 08, 2024 Dr. Teodoro Schaffer MD Attending Provider Active S tart: July 08, 2024 End: July 08, 2024 Team Status: Inactive Member Role Status Dates Dr. Amita Humphreys DO Primary Care Provider Active Start: July 11, 2024 End: July 11, 2024 Dr. Yanick Terry MD Attending Provider Active Start: July 11, 2024 End: July 11, 2024 Dr. Yanick Terry MD Referring Provider Active Start: July 11, 2024 End: July 11, 2024 Team Status: Active Member Role/Relationship Status Dates Dr. Amita Humphreys DO Primary Care Provider Active Team Status: Inactive Member Role/Relationship Status Dates Dr. Amita Humphreys DO Primary Care Provider Active Start: June 18, 2024 End: June 18, 2024 Dr. Teodoro Schaffer MD Attending Provider Active S tart: June 18, 2024 End: June 18, 2024 Team Status: Inactive Member Role/Relationship Status Dates Dr. Amita Humphreys DO Primary Care Provider Active Start: June 18, 2024 End: June 18, 2024 Dr. Amita Humphreys DO Referring Provider Active St art: June 18, 2024 End: June 18, 2024 BRIA Ham Attending Provider Active Start: June 18, 2024 End: June 18, 2024 Team Status: Inactive Member Role/Relationship Status Dates Dr. Amita Humphreys DO Primary Care Provider Active Start: June 28, 2024 End: June 28, 2024 Dr. Amita Humphreys DO Referring Provider Active St art: June 28, 2024 End: June 28, 2024 LACHELLE Lozano Attending Provider Active Sta rt: June 28, 2024 End: June 28, 2024 Team Status: Inactive Member Role/Relationship Status Dates Dr. Amita Humphreys DO Primary Care Provider Active Start: July 08, 2024 End: July 08, 2024 Dr. Amita Humphreys DO Referring Provider Active St art: July 08, 2024 End: July 08, 2024 LACHELLE Rmaires Attending Provider Active Star t: July 08, 2024 End: July 08, 2024 Team Status: Inactive Member Role/Relationship Status Dates Dr. Amita Humphreys DO Primary Care Provider Active Start: July 08, 2024 End: July 08, 2024 Dr. Teodoro Schaffer MD Attending Provider Active S tart: July 08, 2024 End: July 08, 2024 Team Status: Inactive Member Role/Relationship Status Dates Dr. Amita Humphreys DO Primary Care Provider Active Start: July 11, 2024 End: July 11, 2024 Dr. Yanick Terry MD Attending Provider Active Start: July 11, 2024 End: July 11, 2024 Dr. Yanick Terry MD Referring Provider Active Start: July 11, 2024 End: July 11, 2024 Team Status: Active Member Role/Relationship Status Dates Dr. Amita Humphreys DO Primary Care Provider Active Start: September 25, 2024 Dr. Amita Humphreys DO Attending Provider Active St art: September 25, 2024 Dr. Amita Humphreys DO Referring Provider Active St art: September 25, 2024 Team Status: Inactive Member Role/Relationship Status Dates Dr. Amita Humphreys DO Primary Care Provider Active Start: October 02, 2024 End: October 02, 2024 Dr. Amita Humphreys DO Referring Provider Active St art: October 02, 2024 End: October 02, 2024 Art LAROSE, [place] Attending Provider Active Start: October 02, 2024 End: October 02, 2024 Team Status: Inactive Member Role/Relationship Status Dates Dr. Amita Humphreys DO Primary Care Provider Active Start: September 25, 2024 End: September 25, 2024 Dr. Amita Humphreys DO Attending Provider Active St art: September 25, 2024 End: September 25, 2024 Dr. Amita Humphreys DO Referring Provider Active St art: September 25, 2024 End: September 25, 2024 Brewing Technician Relationship Specialty Start Date End Date Amita Humphreys DO [address] [facility] [place] [id number] PCP - General Family Medicine 10/23/24 Team Status: Inactive Member Role/Relationship Status Dates Dr. Amita Humphreys DO Primary Care Provider Active Start: July 08, 2024 End: July 08, 2024 Dr. Amita Humphreys DO Referring Provider Active St art: July 08, 2024 End: July 08, 2024 LACHELLE Ramires Attending Provider Active Star t: July 08, 2024 End: July 08, 2024 Team Status: Inactive Member Role/Relationship Status Dates Dr. Amita Humphreys DO Primary Care Provider Active Start: July 08, 2024 End: July 08, 2024 Dr. Teodoro Schaffer MD Attending Provider Active S tart: July 08, 2024 End: July 08, 2024 Team Status: Inactive Member Role/Relationship Status Dates Dr. Amita Humphreys DO Primary Care Provider Active Start: July 11, 2024 End: July 11, 2024 Dr. Yanick Terry MD Attending Provider Active Start: July 11, 2024 End: July 11, 2024 Dr. Yanick Terry MD Referring Provider Active Start: July 11, 2024 End: July 11, 2024 Team Status: Inactive Member Role/Relationship Status Dates Dr. Amita Humphreys DO Primary Care Provider Active Start: September 25, 2024 End: September 25, 2024 Dr. Amita Humphreys DO Attending Provider Active St art: September 25, 2024 End: September 25, 2024 Dr. Amita Humphreys DO Referring Provider Active St art: September 25, 2024 End: September 25, 2024 Team Status: Inactive Member Role/Relationship Status Dates Dr. Amita Humphreys DO Primary Care Provider Active Start: October 02, 2024 End: October 02, 2024 Dr. Amita Humphreys DO Referring Provider Active St art: October 02, 2024 End: October 02, 2024 Art LAROSE PA Attending Provider Active Start: October 02, 2024 End: October 02, 2024 Team Status: Inactive Member Role/Relationship Status Dates Dr. Amita Humphreys DO Primary Care Provider Active Start: October 24, 2024 End: October 24, 2024 MOHIT NICOLE Attending Provider Active Start: 2024 End: October 24, 2024 Team Status: Inactive Member Role/Relationship Status Dates Dr. Amita Humphreys DO Primary Care Provider Active Start: September 25, 2024 End: September 25, 2024 Dr. Amita Humphreys DO Attending Provider Active St art: September 25, 2024 End: September 25, 2024 Dr. Amita Humphreys DO Referring Provider Active St art: September 25, 2024 End: September 25, 2024 Team Status: Inactive Member Role/Relationship Status Dates Dr. Amita Humphreys DO Primary Care Provider Active Start: October 02, 2024 End: October 02, 2024 Dr. Amita Humphreys DO Referring Provider Active St art: October 02, 2024 End: October 02, 2024 Art Blakely PA, [place] Attending Provider Active Start: October 02, 2024 End: October 02, 2024 Team Status: Inactive Member Role/Relationship Status Dates Dr. Amita Humphreys DO Primary Care Provider Active Start: October 24, 2024 End: October 24, 2024 MOHIT NICOLE Attending Provider Active Start: 2024 End: October 24, 2024 Team Status: Active Member Role/Relationship Status Dates Dr. Amita Humphreys DO Primary Care Provider Active Start: December 03, 2024 Dr. Amita Humphreys DO Referring Provider Active St art: December 03, 2024 BRIA Ham Attending Provider Active Start: December 03, 2024 Team Status: Inactive Member Role/Relationship Status Dates Dr. Amita Humphreys DO Primary Care Provider Active Start: December 03, 2024 End: December 03, 2024 Dr. Teodoro Schaffer MD Attending Provider Active S tart: December 03, 2024 End: December 03, 2024 Team Status: Inactive Member Role/Relationship Status Dates Dr. Amita Humphreys DO Primary Care Provider Active Start: December 03, 2024 End: December 03, 2024 Dr. Amita Humphreys DO Referring Provider Active St art: December 03, 2024 End: December 03, 2024 BRIA Ham Attending Provider Active Start: December 03, 2024 End: December 03, 2024 Team Status: Active Member Role/Relationship Status Dates Dr. Amita Humphreys DO Primary care physician Active Team Status: Inactive Member Role/Relationship Status Dates Dr. Amita Humphreys DO Primary care physician Active Start: September 25, 2024 End: September 25, 2024 Dr. Amita Humphreys DO Attending physician Active S tart: September 25, 2024 End: September 25, 2024 Dr. Amita Humphreys DO Referring Provider Active St art: September 25, 2024 End: September 25, 2024 Team Status: Inactive Member Role/Relationship Status Dates Dr. Amita Humphreys DO Primary care physician Active Start: October 02, 2024 End: October 02, 2024 Dr. Amita Humphreys DO Referring Provider Active St art: October 02, 2024 End: October 02, 2024 Art LAROSE, [place] Attending physician Active Start: October 02, 2024 End: October 02, 2024 Team Status: Inactive Member Role/Relationship Status Dates Dr. Amita Humphreys DO Primary care physician Active Start: October 24, 2024 End: October 24, 2024 MOHIT NICOLE Attending physician Active Start: 2024 End: October 24, 2024 Team Status: Inactive Member Role/Relationship Status Dates Dr. Amita Humphreys DO Primary care physician Active Start: December 03, 2024 End: December 03, 2024 Dr. Amita Humphreys DO Referring Provider Active St art: December 03, 2024 End: December 03, 2024 BRIA Ham Attending physician Active Start: December 03, 2024 End: December 03, 2024 Team Status: Inactive Member Role/Relationship Status Dates Dr. Amita Humphreys DO Primary care physician Active Start: December 03, 2024 End: December 03, 2024 Dr. Teodoro Schaffer MD Attending physician Active Start: December 03, 2024 End: December 03, 2024 Team Status: Inactive Member Role/Relationship Status Dates Dr. Amita Humpherys DO Primary care physician Active Start: January 04, 2025 End: January 04, 2025 Dr. Jose Staton DO Attending physician Active Start: January 04, 2025 End: January 04, 2025 Dr. Jose Staton , Emergency Departm ent Physician Active Start: January 04, 2025 End: January 04, 2025 Goals (unrecognized section and content) Goals may be documented in a n alternate sectionGoals may be documented in an alternate section No data available for this section No data available for this sectionGoals may be documented in an alternate section No data available for this sectionGoals may be documented in an alternate section No data available for this section No data available for this section No data available for this sectionGoals may be documented in an alternate sectionGoals may be documented in an alternate sectionGoals may be documented in an alternate sectionGoals may be documented in an alternate sectionGoals may be documented in an alternate sectionGoals may be documented in an alternate section (unrecognized sect ion and content) No Status Records FoundNo Status Records FoundNo Status Records FoundNo Status Records FoundNo Status Records FoundNo Status Records FoundNo Status Records FoundNo Status Records Found INFORMATION SOURCE (unrecogn ized section and content) DATE CREATED AUTHOR 09/02/2021 [facility] [employer] [facility] DATE CREATED AUTHOR AUTHOR'S ORGANIZ ATION 07/20/2022 [facility] DATE CREATED AUTHOR AUTHOR'S ORGANIZ ATION 08/11/2022 [employer] DATE CREATED AUTHOR AUTHOR'S ORGANIZ ATION 06/25/2023 [facility] ([place] DATE CREATED AUTHOR AUTHOR'S ORGANIZ ATION 09/22/2024 [facility] DATE CREATED AUTHOR AUTHOR'S ORGANIZ ATION 10/26/2024 [facility] DATE CREATED AUTHOR AUTHOR'S ORGANIZ ATION 01/03/2025 [facility] DATE CREATED AUTHOR AUTHOR'S ORGANIZ ATION 01/17/2025 [facility] Source Comments (unrecognize d section and content) In the event this informatio n is protected by the Federal Confidentiality of Alcohol and Drug Abuse Patient Records regulations: The Federal rules restrict any use of the information to criminally investigate or prosecute any alcohol or drug abuse patient.[facility] the event this information is protected by the Federal Confidentiality of Alcohol and Drug Abuse Patient Records regulations: The Federal rules restrict any use of the information to criminally investigate or prosecute any alcohol or drug abuse patient.[facility] Center[facility] the event this information is protected by the Federal Confidentiality of Alcohol and Drug Abuse Patient Records regulations: The Federal rules restrict any use of the information to criminally investigate or prosecute any alcohol or drug abuse patient.[facility] Center[facility] the event this information is protected by the Federal Confidentiality of Alcohol and Drug Abuse Patient Records regulations: The Federal rules restrict any use of the information to criminally investigate or prosecute any alcohol or drug abuse patient.[facility] FOR RECORDS PERTAINING TO PATIENTS WHO ARE OR HAVE BEEN ENROLLED IN A CHEMICAL DEPENDENCY/SUBSTANCEABUSE PROGRAM, SOME INFORMATION MAY BE OMITTED. This clinical summary was aggregated from multiple sources. Caution should be exercised in using it in the provision of clinical care. This summary normalizes information from multiple sources, and as a consequence, information in this document may materially change the coding, format and clinical context of patient data. In addition, data may be omitted in some cases. CLINICAL DECISIONS SHOULD BE BASED ON THE PRIMARY CLINICAL RECORDS. [facility] [employer] [facility] provides no warranty or guarantee of the accuracy or completeness of information in this document.
[2025-02-05 19:36] VITALS: BP 122/78; PULSE 68; RESP 18; TEMP 36.6; O2SAT 97
== END 2025-02-05 19:37 | disposition home or self-care (01) ==
PROVIDERS: Emergency Provider Emergency Medicine; PCP Family Medicine; Visit Provider Emergency Medicine
DX: R42 Dizziness and giddiness (principal); J44.9 Chronic obstructive pulmonary disease, unspecified; G40.909 Epilepsy, unspecified, not intractable, without status epilepticus; Z87.891 Personal history of nicotine dependence; E78.00 Pure hypercholesterolemia, unspecified; E83.51 Hypocalcemia; Z90.49 Acquired absence of other specified parts of digestive tract
CPT/HCPCS: 80053; 80156; 81001; 85025; 93005; 96360; 96361; 99285; A4216

== ENCOUNTER → 2025-02-11 | Outpatient (CLI) | payer OTHER, SELFPAY ==
[2025-02-11 12:29] LABS: Hematocrit 38.2 % (40-54); Hemoglobin 13.0 g/dL (13.0-16.5); Immature Granulocytes Count 0.020 X10^3/uL (0.0-0.0); Mean Corp Hgb Conc 34.0 g/dL (32-36); Mean Corpuscular Volume 89.9 fL (80-94); Mean Platelet Vol. 10.0 fl (6.2-12.0); NRBC Flagged by Analyzer 0 % (0-5); Platelet Count 184 K/mm3 (150-450); RBC Distribution Width CV 12.1 % (11.6-14.6); RBC Distribution Width SD 39.4 fl (35.1-43.9); Red Blood Count 4.25 M/mm3 (4.6-6.2); White Blood Count 7.9 K/mm3 (4.4-11.0)
[2025-02-11 12:59] LABS: Carbamazepine (Tegretol) 10.9 ug/mL (4.0-12.0)
[2025-02-11 13:08] LABS: AST(SGOT) 32 U/L (<=37); Alanine Aminotransfer ALT/SGPT 29 U/L (<=46); Albumin, Serum 4.6 g/dL (3.5-5.0); Alkaline Phosphatase 96 U/L (40-129); Anion Gap 14 (5-15); BUN 16 mg/dL (4-19); BUN/Creat Ratio 19.2 RATIO (10-20); Calcium,Total 6.6 mg/dL (7.6-11.0); Carbon Dioxide 25.2 mmol/L (21.0-32.0); Chloride 101 mmol/L (98-108); Cholesterol 234 mg/dL (<=200); Globulin 2.4 g/dL (2.2-4.2); Glucose 118 mg/dL (70-99); Low Density Lipoprotein Calc. 148 mg/dL; Potassium 3.9 mmol/L (3.3-5.1); Triglycerides 182 mg/dL; Very Low Density Lipoprotein 36 mg/dL (5-40); cholesterol:hdl ratio screen 4.37
[2025-02-11 14:41] LABS: PTHIN 13 pg/mL (11-61)
== END | disposition home or self-care (01) ==
LOC: BFHLAB 09:53
PROVIDERS: PCP Family Medicine; Referring Provider Physician Assistant; Visit Provider Nurse Practitioner Family
DX: G40.209 Localization-related (focal) (partial) symptomatic epilepsy and epileptic syndromes with complex partial seizures, not intractable, without status epilepticus (principal); R73.01 Impaired fasting glucose; E83.51 Hypocalcemia; E78.00 Pure hypercholesterolemia, unspecified; I10 Essential (primary) hypertension; E03.9 Hypothyroidism, unspecified
CPT/HCPCS: 36415; 80053; 80061; 80156; 83036; 83970; 84439; 84443; 85025